=== PATIENT | male | born 1945 | race Hispanic/Latino ===

== ENCOUNTER 2017-12-26 18:13 | Observation (INO) | payer OTHER ==
[2017-12-26 19:30] LABS: Blood Gas Oxyhemoglobin 87.9 % (94-97); Blood O2 Saturation 90.2 % (92-98.5)
[2017-12-26 19:54] LABS: Absolute Lymphocytes (CBC) 1.8 K/uL (0.7-4.9); Absolute Neutrophil 10.1 K/uL (1.8-8.0); Basophils % 0.4 % (0-1.3); Eosinophils % 1.3 % (0-4.4); Hematocrit 32.9 % (39.6-49.0); Lymphocytes % 13.4 % (15.3-44.8); MCV 91.4 fL (80-100); MPV 10.4 fL (7.6-11.3); Monocytes % 7.5 % (3.3-12.3); RBC Red Blood Cell Count 3.61 M/uL (4.33-5.43)
[2017-12-26 20:05] LABS: Protime INR 1.29
[2017-12-26 20:08] LABS: Potassium 4.5 mEq/L (3.6-5.0)
--- NOTE | 2017-12-26 20:12 | RAD REPORT ---
EXAM DESCRIPTION: Renan Single View12/26/2017 8:01 pm CLINICAL HISTORY: sob COMPARISON: September 2016 FINDINGS: Mild bilateral pulmonary opacities are present. Small left pleural effusion may be present . The heart is mildly enlarged. IMPRESSION: These findings probably represent mild CHF
[2017-12-26 20:14] LABS: Albumin 3.5 g/dL (3.2-5.5); Bilirubin Direct 0.1 mg/dL (0-0.2); Bilirubin Total 0.7 mg/dL (0.3-1.2); Magnesium 1.7 mg/dL (1.8-2.5); Protein, Total 7.5 g/dL (6.0-8.3)
[2017-12-26] MEDS ORDERED: FUROSEMIDE 20 MG/ 2ML VIAL ONE (21:27)
--- NOTE | 2017-12-26 21:34 | ER ---
Nurse's Notes [facility] Name: Tyrone Vuaghn Age: 72 yrs Sex: Male : 1945 Arrival Date: 12/26/2017 Time: 18:25 Bed 28 Private MD: Diagnosis: Unspecified systolic (congestive) heart failure;Diabetes mellitus due to underlying condition with hyperglycemia Presentation: 12/26 18:26 Presenting complaint: EMS states: "Hes been feeling short of breath for a few weeks and lk1 its getting worse. He was supposed to take his Lasix this afternoon, but he didn't because he isn't feeling good.". Transition of care: patient was not received from another setting of care. Onset of symptoms was December 10, 2017. Care prior to arrival: None. 18:26 Method Of Arrival: EMS: [facility] lk1 18:26 Acuity: WESLEY 3 lk1 Triage Assessment: 18:29 General: Appears uncomfortable, Behavior is calm, cooperative, appropriate for age. lk1 Pain: Denies pain. EENT: No signs and/or symptoms were reported regarding the EENT system. Neuro: Level of Consciousness is awake, alert, obeys commands, Oriented to person, place, time, situation. Cardiovascular: Heart tones S1 S2 present Capillary refill < 3 seconds Patient's skin is warm and dry. Edema is 4+ to left ankle, left foot, right ankle and right foot. Respiratory: Reports shortness of breath Airway is patent Respiratory effort is even, labored, with nasal flaring, using tripod position, Respiratory pattern is symmetrical, tachypnea Breath sounds with crackles in left lower lobe, right lower lobe, left posterior lower lobe and right posterior lower lobe Onset: The symptoms/episode began/occurred a few weeks ago, the patient has moderate shortness of breath. GI: Abdomen is round. : No signs and/or symptoms were reported regarding the genitourinary system. Derm: No signs and/or symptoms reported regarding the dermatologic system. Musculoskeletal: No signs and/or symptoms reported regarding the musculoskeletal system. Historical: - Allergies: 18:29 No Known Allergies; lk1 - Home Meds: 21:50 metformin 1,000 mg Oral tab 1 tab 2 times per day [Active]; Amitiza 24 mcg Oral cap 1 lk1 cap 2 times per day [Active]; acetaminophen-codeine 300-60 mg Oral tab 1 tab every 6 hours [Active]; Vitamin B-12 1,000 mcg Oral TbER daily [Active]; Lyrica 150 mg Oral 1 cap 2 times per day [Active]; Movantik 25 mg oral tab 1 tab once daily for Opioid-Induced Constipation [Active]; tramadol 50 mg Oral tab 1 tab every 4 hours [Active]; hydralazine 25 mg Oral tab 1 tab 2 times per day [Active]; digoxin 250 mcg Oral tab 1 tab once daily [Active]; aspirin 325 mg oral tab 1 tab once daily [Active]; amlodipine 5 mg tab 1 tab once daily [Active]; glipizide 10 mg Oral tab 1 tab once daily [Active]; furosemide 40 mg Oral tab 1 tab 2 times per day [Active]; carvedilol 25 mg Oral tab 1 tab 2 times per day [Active]; rosuvastatin 10 mg oral tab 1 tab once daily [Active]; Januvia 100 mg Oral tab 1 tab once daily [Active]; - PMHx: 18:29 Diabetes - NIDDM; CAD; CHF; Myocardial infarction; lk1 - Immunization history:: Adult Immunizations up to date. - Social history:: Smoking status: Patient/guardian denies using tobacco. Screenin:18 Abuse screen: Denies threats or abuse. Denies injuries from another. Nutritional lk1 screening: No deficits noted. Tuberculosis screening: No symptoms or risk factors identified. Fall Risk Total Quesada Fall Scale indicates High Risk Score (45 or more points). Fall prevention measures have been instituted. Side Rails Up X 2 Placed Close to Nursing Station Frequent Obs/Assessments Occuring Family Present and informed to notify staff if the need to leave the bedside As available patient and family educated on Fall Prevention Program and Strategies. Assessment: 22:52 Cardiovascular: Rhythm is regular. lk1 Vital Signs: 18:33 BP 156 / 74; Pulse 89; Resp 22; Temp 99.3(O); Pulse Ox 93% on R/A; Weight 107.05 kg lk1 (R); Height 5 ft. 5 in. (165.10 cm); Pain 0/10; 18:55 BP 181 / 73; Pulse 87; Resp 19; Pulse Ox 94% on 2 lpm NC; mh5 19:30 BP 167 / 74; Pulse 86; Resp 20; Pulse Ox 94% on R/A; lk1 20:00 BP 167 / 71; Pulse 90; Resp 20; Pulse Ox 98% on 2 lpm NC; lk1 21:00 BP 144 / 69; Pulse 87; Resp 20; Pulse Ox 98% on 2 lpm NC; lk1 22:00 BP 172 / 65; Pulse 92; Resp 18; Pulse Ox 99% on 2 lpm NC; lk1 18:33 Body Mass Index 39.27 (107.05 kg, 165.10 cm) lk1 ED Course: 18:25 Patient arrived in ED. lk1 18:27 Triage completed. lk1 18:35 Arm band placed on right wrist. lk1 18:52 [facility]C [facility] snw 18:52 Star Isbell MD is Attending Physician. snw 19:30 Inserted saline lock: 22 gauge in right forearm, using aseptic technique. Blood cc collected. 19:30 Initial lab(s) drawn, by il, sent to lab. cc 19:58 X-ray completed. Portable x-ray completed in exam room. Patient tolerated procedure kc2 well. 19:58 XRAY Chest (1 view) In Process Unspecified. EDMS 20:02 Kaia Olvera, AMI is Primary Nurse. lk1 20:17 EKG done, by ED staff, reviewed by Jie DILLON. cc 21:33 Star Isbell MD is Hospitalizing Provider. snw 21:33 Marge Cooper MD is Hospitalizing Provider. snw 22:51 No provider procedures requiring assistance completed. Patient admitted, IV remains in lk1 place. intact, No redness/swelling at site. 22:53 Patient has correct armband on for positive identification. Placed in gown. Bed in low lk1 position. Call light in reach. Side rails up X2. Adult w/ patient. Administered Medications: 21:30 Drug: Lasix 20 mg Route: IVP; Site: right forearm; lk1 22:05 Follow up: Response: No adverse reaction lk1 Outcome: 21:34 Decision to Hospitalize by Provider. snw 22:52 Admitted to Med/surg accompanied by tech, via wheelchair, room 425, with chart, Report lk1 called to Sharri 22:52 Condition: good 22:52 Discharge instructions given to patient, family, Instructed on the need for admit, Demonstrated understanding of instructions. 22:54 Patient left the ED. lk1 Signatures: Dispatcher [employer] EDJie Richardson, LIFE MANAGEMENT TEACHER-C LIFE MANAGEMENT TEACHER-Csnw Donna Shearer cc Kaia Olvera, AMI RN lk1 Erin Good2 Dianna Daniel [facility] Corrections: (The following items were deleted from the chart) 20:17 19:45 Inserted saline lock: 22 gauge in right forearm, using aseptic technique. Blood cc collected. cc
--- NOTE | 2017-12-26 21:35 | EDPHYS ---
Physician Documentation [facility] Name: Tyrone Vaughn Age: 72 yrs Sex: Male : 1945 Arrival Date: 12/26/2017 Time: 18:25 Bed 28 Private MD: ED Physician Star Isbell HPI: 12/26 19:14 This 72 yrs old Male presents to ER via EMS with complaints of Shortness Of snw Breath. Historical: - Allergies: 18:29 No Known Allergies; lk1 - Home Meds: 21:50 metformin 1,000 mg Oral tab 1 tab 2 times per day [Active]; Amitiza 24 mcg Oral cap 1 lk1 cap 2 times per day [Active]; acetaminophen-codeine 300-60 mg Oral tab 1 tab every 6 hours [Active]; Vitamin B-12 1,000 mcg Oral TbER daily [Active]; Lyrica 150 mg Oral 1 cap 2 times per day [Active]; Movantik 25 mg oral tab 1 tab once daily for Opioid-Induced Constipation [Active]; tramadol 50 mg Oral tab 1 tab every 4 hours [Active]; hydralazine 25 mg Oral tab 1 tab 2 times per day [Active]; digoxin 250 mcg Oral tab 1 tab once daily [Active]; aspirin 325 mg oral tab 1 tab once daily [Active]; amlodipine 5 mg tab 1 tab once daily [Active]; glipizide 10 mg Oral tab 1 tab once daily [Active]; furosemide 40 mg Oral tab 1 tab 2 times per day [Active]; carvedilol 25 mg Oral tab 1 tab 2 times per day [Active]; rosuvastatin 10 mg oral tab 1 tab once daily [Active]; Januvia 100 mg Oral tab 1 tab once daily [Active]; - PMHx: 18:29 Diabetes - NIDDM; CAD; CHF; Myocardial infarction; lk1 - Immunization history:: Adult Immunizations up to date. - Social history:: Smoking status: Patient/guardian denies using tobacco. ROS: 19:31 Eyes: Negative for injury, pain, redness, and discharge, ENT: Negative for injury, snw pain, and discharge, Neck: Negative for injury, pain, and swelling, Cardiovascular: Negative for chest pain, palpitations, and edema. 19:31 Abdomen/GI: Negative for abdominal pain, nausea, vomiting, diarrhea, and constipation, Back: Negative for injury and pain, : Negative for injury, bleeding, discharge, and swelling. 19:31 Skin: Negative for injury, rash, and discoloration, Neuro: Negative for headache, weakness, numbness, tingling, and seizure. 19:31 Constitutional: Positive for chills, fatigue. 19:31 Respiratory: Positive for cough, shortness of breath. 19:31 MS/extremity: Positive for swelling. Exam: 19:31 Head/Face: Normocephalic, atraumatic. snw 19:31 ENT: Nares patent. No nasal discharge, no septal abnormalities noted. Tympanic membranes are normal and external auditory canals are clear. Oropharynx with no redness, swelling, or masses, exudates, or evidence of obstruction, uvula midline. Mucous membranes moist. Neck: Trachea midline, no thyromegaly or masses palpated, and no cervical lymphadenopathy. Supple, full range of motion without nuchal rigidity, or vertebral point tenderness. No Meningismus. Chest/axilla: Normal chest wall appearance and motion. Nontender with no deformity. No lesions are appreciated. 19:31 Abdomen/GI: Soft, non-tender, with normal bowel sounds. No distension or tympany. No guarding or rebound. No evidence of tenderness throughout. Back: No spinal tenderness. No costovertebral tenderness. Full range of motion. 19:31 MS/ Extremity: Pulses equal, no cyanosis. Neurovascular intact. Full, normal range of motion. Neuro: Awake and alert, GCS 15, oriented to person, place, time, and situation. Cranial nerves II-XII grossly intact. Motor strength 5/5 in all extremities. Sensory grossly intact. Cerebellar exam normal. Normal gait. Psych: Awake, alert, with orientation to person, place and time. Behavior, mood, and affect are within normal limits. 19:31 Constitutional: The patient appears awake, obese, pale, uncomfortable. 19:31 Eyes: Conjunctiva: pale, bilaterally. 19:31 Cardiovascular: Rate: normal, Rhythm: regular, Pulses: no pulse deficits are appreciated, Edema: 3+ edema to level of left midcalf, left ankle, right midcalf and right ankle. 19:31 Respiratory: the patient does not display signs of respiratory distress, Respirations: shallow respirations, Breath sounds: decreased breath sounds, that are moderate, rhonchi, that are moderate, are heard in the right posterior middle lobe and right posterior lower lobe. 19:31 Skin: Appearance: Color: pale. Vital Signs: 18:33 BP 156 / 74; Pulse 89; Resp 22; Temp 99.3(O); Pulse Ox 93% on R/A; Weight 107.05 kg lk1 (R); Height 5 ft. 5 in. (165.10 cm); Pain 0/10; 18:55 BP 181 / 73; Pulse 87; Resp 19; Pulse Ox 94% on 2 lpm NC; mh5 19:30 BP 167 / 74; Pulse 86; Resp 20; Pulse Ox 94% on R/A; lk1 20:00 BP 167 / 71; Pulse 90; Resp 20; Pulse Ox 98% on 2 lpm NC; lk1 21:00 BP 144 / 69; Pulse 87; Resp 20; Pulse Ox 98% on 2 lpm NC; lk1 22:00 BP 172 / 65; Pulse 92; Resp 18; Pulse Ox 99% on 2 lpm NC; lk1 18:33 Body Mass Index 39.27 (107.05 kg, 165.10 cm) lk1 MDM: 19:01 Patient medically screened. snw 19:28 Data reviewed: vital signs, nurses notes. Data interpreted: Pulse oximetry: on room air snw is 94 %. Interpretation: hypoxia. Plan: O2 by NC applied. Arterial blood gas: pH: 7.44, PO2: 60.6, PCO2: 44.2, HCO3: 29.4, Oxygen saturation: 90.2, Base excess: positive 5.3, Oxygen: on room air, Interpretation:. Counseling: I had a detailed discussion with the patient and/or guardian regarding: the historical points, exam findings, and any diagnostic results supporting the discharge/admit diagnosis, the presence of at least one elevated blood pressure reading (>120/80) during this emergency department visit, lab results, radiology results. 21:32 Physician consultation: Marge Cooper MD was called at 21:32, was contacted at 21:32, snw regarding admission, to the telemetry unit. 12/26 18:53 Order name: Basic Metabolic Panel; Complete Time: 20:21 snw 12/26 18:53 Order name: BNP; Complete Time: 20:21 snw 12/26 18:53 Order name: CBC with Diff; Complete Time: 20:07 12/26 18:53 Order name: Ckmb; Complete Time: 20:21 12/26 18:53 Order name: CPK; Complete Time: 20:21 12/26 18:53 Order name: LFT's; Complete Time: 20:21 12/26 18:53 Order name: Magnesium; Complete Time: 20:21 12/26 18:53 Order name: PT-INR; Complete Time: 20:21 12/26 18:53 Order name: Ptt, Activated; Complete Time: 20:21 12/26 18:53 Order name: Troponin (emerg Dept Use Only); Complete Time: 20:21 12/26 18:53 Order name: ABG; Complete Time: 19:33 12/26 19:28 Order name: TS; Complete Time: 21:17 12/26 19:28 Order name: TSH; Complete Time: 21:17 12/26 19:28 Order name: Blood Culture Adult (2) 12/26 18:53 Order name: XRAY Chest (1 view); Complete Time: 20:21 12/26 18:53 Order name: EKG; Complete Time: 18:54 12/26 18:53 Order name: Cardiac monitoring; Complete Time: 19:45 12/26 18:53 Order name: EKG - Nurse/Tech; Complete Time: 20:17 12/26 18:53 Order name: IV Saline Lock; Complete Time: 19:45 12/26 18:53 Order name: Labs collected and sent; Complete Time: 19:45 12/26 18:53 Order name: O2 Per Protocol; Complete Time: 19:45 12/26 18:53 Order name: O2 Sat Monitoring; Complete Time: 19:45 12/26 18:53 Order name: Urine Dipstick-Ancillary (obtain specimen); Complete Time: 22:13 12/26 21:18 Order name: Misc. Order: please put med list in computer; Complete Time: 22:04 12/26 22:14 Order name: Urine Dipstick--Ancillary (enter results) em1 Administered Medications: 21:30 Drug: Lasix 20 mg Route: IVP; Site: right forearm; lk1 22:05 Follow up: Response: No adverse reaction lk1 Disposition: 12/26/17 21:34 Hospitalization ordered by Marge Cooper for Observation. Preliminary diagnosis are Unspecified systolic (congestive) heart failure, Diabetes mellitus due to underlying condition with hyperglycemia. - Bed requested for Telemetry/MedSurg (observation). - Status is Observation. lk1 - Condition is Stable. - Problem is an acute exacerbation. - Symptoms are unchanged. UTI on Admission? No Addendum: 12/28/2017 07:46 Co-signature as Attending Physician, Star Isbell MD I agree with the assessment and w a plan of care. Signatures: Dispatcher [employer] EDStacie Davis RN RN Jie Samson, SPECIAL MAKEUP FX ARTIST INSTRUCTOR-C SPECIAL MAKEUP FX ARTIST INSTRUCTOR-Csnw Kaia Olvera RN RN lk1 Star Isbell MD MD pa
[2017-12-26] MEDS ORDERED: ACETAMINOPHEN 500 MG TAB PO PRN (22:04)
[2017-12-26] MEDS ORDERED: ONDANSETRON 4 MG/2 ML VIAL IV PRN (22:04)
[2017-12-26] MEDS ORDERED: CEFTRIAXONE 1 GM/NS 50 ML 1 GM/50 ML BAG IV SCH (23:00)
[2017-12-26] MEDS ORDERED: CEFTRIAXONE 1000 MG/VIAL IVP SCH (23:29)
[2017-12-26] MEDS ORDERED: D50W 25 GM/50 ML SYRINGE IV PRN (23:30)
[2017-12-26] MEDS ORDERED: GLUCAGON 1 MG/VIAL IM PRN (23:30)
[2017-12-26 23:35] LABS: Urine Blood NEGATIVE (NEG); Urine Glucose 2+ (NEG); Urine Protein 1+ (NEG); Urine Specific Gravity 1.015 (1.005-1.030)
[2017-12-26] MEDS ORDERED: CEFTRIAXONE/SWI 1gm 1 GM/10 ML SYR ONE (23:49)
--- NOTE | 2017-12-27 03:49 | P.HP ---
Certification for Inpatient Patient admitted to: Observation With expected LOS: <2 Midnights Patient will require the following post-hospital care: None Practitioner: I am a practitioner with admitting privileges, knowledge of patient current condition, hospital course, and medical plan of care. Services: Services provided to patient in accordance with Admission requirements found in Title 42 Section 412.3 of the Code of Federal Regulations Patient History Date of Service: 12/26/17 Reason for admission: Generalized weakness, shortness of breath History of Present Illness: Patient is a 72yo who was admitted to the hospital with generalized weakness. Patient has been having shortness of breath for the last few weeks. He also has been feeling weak. Patient has a history of coronary artery disease. Patient had a cardiac catheterization performed about a year ago which revealed multivessel disease. Patient had a 30% lad lesion as well as an 80% lesion in his 1st diagonal. He had a 70% obtuse marginal lesion as well as plaquing in his left circumflex and right coronary artery. However patient's ejection fraction remained normal. His echo revealed the EF of 60-65%. Patient states that over the last couple months he just has no energy. He gets short of breath from doing the smallest things. He is not really sure was causing his symptoms. He was admitted to the hospital for further evaluation. Allergies No Known Allergies Allergy (Unverified 09/23/16 22:51) Home Medications: Acetaminophen with Codeine [Acetaminophen-Cod #3 Tablet] 1 tab PO BIDP PRN 12/27 Amlodipine Besylate [Amlodipine Besylate] 1 tab PO DAILY 12/27/17 Aspirin [Aspirin EC 325 MG] 1 tab PO DAILY 12/27/17 Carvedilol [Carvedilol] 1 tab PO BID 12/27/17 Clopidogrel Bisulfate [Plavix*] 1 tab PO DAILY 12/27/17 Cyanocobalamin [Vitamin B-12*] 1 tab PO DAILY 12/27/17 Digoxin [Lanoxin] 250 mcg PO DAILY 12/27/17 Furosemide [Furosemide] 1 tab PO BID 12/27/17 Glipizide [Glucotrol] 1 tab PO BID 12/27/17 Hydralazine [Apresoline*] 1 tab PO BID 12/27/17 Lubiprostone [Amitiza*] 1 cap PO BID 12/27/17 Metformin HCl [Metformin HCl] 1 tab PO BID 12/27/17 Naloxegol Oxalate [Movantik] 1 tab PO DAILY 12/27/17 Pregabalin [Lyrica] 1 cap PO BID 12/27/17 Rosuvastatin Calcium [Rosuvastatin Calcium] 1 tab PO DAILY 12/27/17 Sitagliptin Phosphate [Januvia*] 1 tab PO DAILY 12/27/17 traMADol HCL [Ultram*] 1 tab PO BIDP PRN 12/27/17 - Past Medical/Surgical History Has patient received pneumonia vaccine in the past: No Diabetic: Yes -: HTN -: 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 Children-3. Retired in 1961, [employer] of [employer]. - Family History Father Family History: Reviewed- Non-Contributory - Social History Smoking Status: Never smoker Alcohol use: No CD- Drugs: No Caffeine use: No Place of Residence: Home Review of Systems 10-point ROS is otherwise unremarkable Physical Examination - Vital Signs Temperature: 99.3 F Blood Pressure: 179/80 Pulse: 86 Respirations: 19 Pulse Ox (%): 100 - Physical Exam General: Alert, In no apparent distress, Oriented x3 HEENT: Atraumatic, PERRLA, Mucous membr. moist/pink, EOMI, Sclerae nonicteric Neck: Supple, 2+ carotid pulse no bruit, No LAD, Without JVD or thyroid abnormality Respiratory: Crackles/rales Cardiovascular: Regular rate/rhythm, Normal S1 S2, Systolic murmur Gastrointestinal: Normal bowel sounds, Soft and benign, Non-distended, No tenderness Musculoskeletal: No clubbing, No tenderness, Swelling Integumentary: No rashes, Tenderness/swelling Neurological: Normal speech, Normal strength at 5/5 x4 extr, Normal tone, Sensation intact, Cranial nerves 3-12 intact, Normal affect Lymphatics: No axilla or inguinal lymphadenopathy - Studies Laboratory Data (last 24 hrs) 12/26/17 19:30: PT 15.3 H, INR 1.29, APTT 27.9 12/26/17 19:30: WBC 13.0 H, Hgb 10.8 L, Hct 32.9 L, Plt Count 186 12/26/17 19:30: B-Natriuretic Peptide 99 12/26/17 19:30: Sodium 138, Potassium 4.5, BUN 13, Creatinine 0.88, Glucose 321 H, Magnesium 1.7 L, Total Bilirubin 0.7, AST 16, ALT 14, Alkaline Phosphatase 97 Assessment & Plan - Problems (Diagnosis) (1) Atrial fibrillation Current Visit: No Status: Acute (2) CAD (coronary artery disease) Onset Date: 09/25/16 Current Visit: No Status: Acute (3) Hyperlipidemia Onset Date: 09/25/16 Current Visit: No Status: Acute (4) Hypertension Onset Date: 09/25/16 Current Visit: No Status: Acute (5) Non-insulin dependent type 2 diabetes mellitus Onset Date: 09/25/16 Current Visit: No Status: Acute - Plan Plan: 1. Serial troponins and EKG 2. Cardiology consultation 3. Echocardiogram 4. Anti-platelet therapy, anti coagulation, beta-danielle, statin, and O2 as needed 5. IV morphine for pain 6. Nitro p.r.n. 7. Gentle diuresing 8. Patient may need further testing of his liver to evaluate for nonalcoholic steatohepatitis 9. GI and DVT prophylaxis - Advance Directives Does patient have a Living Will: No Does patient have a Durable POA for Healthcare: No
[2017-12-27 04:44] LABS: Absolute Lymphocytes (CBC) 2.1 K/uL (0.7-4.9); Absolute Monocytes 1.3 K/uL (0.1-1.3); Absolute Neutrophil 13.5 K/uL (1.8-8.0); Basophils % 0.8 % (0-1.3); Eosinophils % 0.6 % (0-4.4); Hematocrit 34.9 % (39.6-49.0); Lymphocytes % 12.3 % (15.3-44.8); MCH 29.6 pg (27.0-35.0); MCV 92.5 fL (80-100); MPV 10.6 fL (7.6-11.3); Monocytes % 7.5 % (3.3-12.3); RBC Red Blood Cell Count 3.77 M/uL (4.33-5.43)
[2017-12-27 04:57] LABS: Albumin 3.5 g/dL (3.2-5.5); Bilirubin Total 0.9 mg/dL (0.3-1.2); Magnesium 1.7 mg/dL (1.8-2.5); Phosphorus 2.8 mg/dL (2.5-4.3); Protein, Total 7.6 g/dL (6.0-8.3)
[2017-12-27] MEDS ORDERED: MAGNESIUM SULFATE 1 gm IVPB 1 GM/100 ML BAG IV ONE (04:59)
--- NOTE | 2017-12-27 07:03 | EKG ---
Test Date: 2017-12-26 Test Time: 20:13:19 Laser Print Operator: GALI MEASUREMENT RESULTS: Intervals: Rate: 91 SD: 134 QRSD: 94 QT: 336 QTc: 413 [place]: P: 65 SD: 134 QRS: 12 T: 34 INTERPRETIVE STATEMENTS: Normal sinus rhythm Normal ECG Compared to ECG 09/24/2016 05:06:24 T-wave abnormality no longer present Electronically Signed On 12-27-17 07:02:34 CDT by Guero Parra
[2017-12-27] MEDS ORDERED: TRAMADOL HCL 50 MG TAB PO PRN (07:08)
[2017-12-27] MEDS: INSULIN -REGULAR HUMAN 50 UNIT/0.5 ML ML SQ SCH ×4 (08:09→21:39)
[2017-12-27] MEDS: ENOXAPARIN 40 MG/0.4 ML SQ SCH (08:10)
[2017-12-27] MEDS: FUROSEMIDE 40 MG/4 ML VIAL IV SCH ×2 (08:10→17:33)
[2017-12-27] MEDS: PREGABALIN 150 MG CAP PO SCH ×2 (08:11→21:38)
[2017-12-27] MEDS: DIGOXIN 0.25 MG TABLET PO SCH (08:11)
[2017-12-27] MEDS: CARVEDILOL 25 MG TAB PO SCH ×2 (08:11→21:38)
[2017-12-27] MEDS: ASPIRIN EC 325 MG TABLET PO SCH (08:12)
[2017-12-27] MEDS: SITAGLIPTIN PHOS 100 MG TAB PO SCH (08:12)
[2017-12-27] MEDS: HYDRALAZINE HCL 25 MG TABLET PO SCH ×2 (08:12→21:38)
[2017-12-27] MEDS: CYANOCOBALAMIN 1,000 MCG TAB PO SCH (08:12)
[2017-12-27] MEDS: CLOPIDOGREL 75 MG TABLET PO SCH (08:12)
[2017-12-27] MEDS ORDERED: ASPIRIN EC 81 MG TAB PO SCH (09:00)
[2017-12-27] MEDS ORDERED: AZITHROMYCIN IV 250 MG in NA CHLORIDE 0.9% 250 ML IVPB SCH (09:00)
[2017-12-27] MEDS ORDERED: METOPROLOL TAR 50 MG TAB PO SCH (09:00)
[2017-12-27] MEDS ORDERED: VALSARTAN 80 MG TAB PO SCH (09:00)
--- NOTE | 2017-12-27 09:29 | RAD REPORT ---
EXAM DESCRIPTION: Renan Pa And Lat (2 Views)12/27/2017 7:43 am CLINICAL HISTORY: Shortness of breath COMPARISON: December 26 FINDINGS: Mild bilateral interstitial opacities have partially resolved. The heart has mildly decre ased in size but is still mildly enlarged. IMPRESSION: Partial resolution in mild CHF
--- NOTE | 2017-12-27 11:05 | P.PN ---
Subjective Date of Service: 12/27/17 Primary Care Provider: Dr. Rivera; Cardiology-Dr. Parra Chief Complaint: Generalized weakness, shortness of breath Subjective: Improving (Patient less short of breath this morning. Edema still noted to the lower extremities.) Physical Examination - Vital Signs Temperature: 98.2 F Blood Pressure: 197/87 Pulse: 96 Respirations: 20 Pulse Ox (%): 97 - Physical Exam General: Alert, In no apparent distress, Oriented x3, Cooperative HEENT: Atraumatic Neck: Supple Respiratory: Crackles/rales (Crackles to the bases) Cardiovascular: Normal pulses, Regular rate/rhythm Gastrointestinal: Normal bowel sounds, Soft and benign, Non-distended, No tenderness, No masses, No rebound, No guarding Musculoskeletal: No erythema, No tenderness, No warmth Integumentary: Tenderness/swelling (2+ pitting edema to the lower extremities bilateral) Neurological: Normal speech, Normal strength at 5/5 x4 extr, Normal tone, Normal affect - Studies Laboratory Data (last 24 hrs) 12/26/17 19:30: PT 15.3 H, INR 1.29, APTT 27.9 12/26/17 19:30: WBC 13.0 H, Hgb 10.8 L, Hct 32.9 L, Plt Count 186 12/26/17 19:30: B-Natriuretic Peptide 99 12/26/17 19:30: Sodium 138, Potassium 4.5, BUN 13, Creatinine 0.88, Glucose 321 H, Magnesium 1.7 L, Total Bilirubin 0.7, AST 16, ALT 14, Alkaline Phosphatase 97 Medications List Reviewed: Yes Assessment & Plan - Problems (Diagnosis) (1) CHF (congestive heart failure) Onset Date: 12/27/17 Current Visit: Yes Status: Acute Plan: Patient with acute on chronic likely systolic CHF. Will teach on 1500 cc per day fluid restriction. Will continue with IV diuretic therapy. Will obtain echocardiogram. Cardiology consulted. Await further recommendation. Doubt infectious process. Will discontinue antibiotic therapy. Qualifiers: Heart failure type: systolic Heart failure chronicity: acute on chronic Qualified Code(s): I50.23 - Acute on chronic systolic (congestive) heart failure (2) Non-insulin dependent type 2 diabetes mellitus Onset Date: 09/25/16 Current Visit: Yes Status: Chronic Plan: Will review home medication. Will continue with sliding scale. (3) Atrial fibrillation Current Visit: No Status: Chronic Plan: Patient with history of atrial fibrillation. Patient in normal sinus rhythm. Will continue with DVT prophylaxis. Likely no need for chronic anti coagulation. Await recommendations by Cardiology. Qualifiers: Atrial fibrillation type: chronic Qualified Code(s): I48.2 - Chronic atrial fibrillation (4) CAD (coronary artery disease) Onset Date: 09/25/16 Current Visit: No Status: Chronic Plan: Will monitor closely. Cardiology consulted. Await echocardiogram. Will continue with above plan of care. Will continue with his Plavix. (5) Hyperlipidemia Onset Date: 09/25/16 Current Visit: No Status: Chronic Plan: Will continue with his medication. Lipid panel reviewed. Qualifiers: Hyperlipidemia type: unspecified Qualified Code(s): E78.5 - Hyperlipidemia , unspecified (6) Hypertension Onset Date: 09/25/16 Current Visit: No Status: Chronic Plan: Blood pressure elevated. Will continue with home medications and adjust for better control. (7) Obesity Current Visit: Yes Status: Chronic Plan: Will address lifestyle modification education. Qualifiers: Obesity type: due to excess calories Obesity classification: adult class 2 (BMI 35 - 39.9) Serious obesity comorbidity presence: with serious comorbidity Body mass index: BMI 38.0-38.9 Qualified Code(s): E66.01 - Morbid (severe) obesity due to excess calories; Z68.38 - Body mass index (BMI) 38.0-38.9, adult; Z68.38 - Body mass index (BMI) 38.0-38.9, adult Discharge Plan: Home Plan to discharge in: 24 Hours Time Spent Managing Pts Care (In Minutes): 55
--- NOTE | 2017-12-27 12:16 | ECHO ---
HEIGHT: 5 ft 5 in WEIGHT: 229 lb 4.8 oz DATE OF STUDY: 12/27/[address]: Marge Cooper MD 2-DIMENSIONAL: YES M.MODE: YES DOPPLER: YES COLOR FLOW: YES TDS: YES PORTABLE: DEFINITY: BUBBLE STUDY: DIAGNOSIS: CONGESTIVE HEART FAILURE CARDIAC HISTORY: CATHERIZATION: NO SURGERY: NO PROSTHETIC VALVE: NO PACEMAKER: NO MEASUREMENTS (cm) DIASTOLIC (NORMALS) SYSTOLIC (NORMALS) IVSd 1.3 (0.6-1.2) LA Diam (1.9-4.0) LVEF 60% LVIDd 4.9 (3.5-5.7) LVIDs 3.3 (2.0-3.5) %FS 32% LVPWd 1.6 (0.6-1.2) Ao Diam 2.9 (2.0-3.7) 2 DIMENSIONAL ASSESSMENT: RIGHT ATRIUM: NORMAL LEFT ATRIUM: DILATED RIGHT VENTRICLE: NORMAL LEFT VENTRICLE: LEFT VENTRICULAR HYPERTROPHY TRICUSPID VALVE: NORMAL MITRAL VALVE: NORMAL PULMONIC VALVE: NORMAL AORTIC VALVE: NORMAL PERICARDIAL EFFUSION: NONE AORTIC ROOT: NORMAL LEFT VENTRICULAR WALL MOTION: NORMAL DOPPLER/COLOR FLOW: IMPAIRED LEFT VENTRICULAR RELAXATION. COMMENTS: NORMAL LEFT VENTRICULAR EJECTION FRACTION. LEFT VENTRICULAR HYPERTROPHY. DILATED LEFT ATRIUM. IMPAIRED LEFT VENTRICULAR RELAXATION. TECHNOLOGIST: SOL MCCOY
[2017-12-27] MEDS ORDERED: ROSUVASTATIN 10 MG TAB PO SCH (21:00)
[2017-12-27] MEDS ORDERED: CEFTRIAXONE/SWI 1gm 1 GM/10 ML SYR IV SCH (21:00)
[2017-12-27] MEDS ORDERED: GUAIFENESIN/CODEINE 5ML UCUP PO PRN (22:27)
[2017-12-28 05:36] LABS: Absolute Monocytes 0.9 K/uL (0.1-1.3); Absolute Neutrophil 7.6 K/uL (1.8-8.0); Basophils % 0.6 % (0-1.3); Eosinophils % 1.8 % (0-4.4); Hematocrit 33.4 % (39.6-49.0); Lymphocytes % 18.8 % (15.3-44.8); MCH 30.7 pg (27.0-35.0); MCV 91.2 fL (80-100); MPV 10.4 fL (7.6-11.3); Monocytes % 8.3 % (3.3-12.3); RBC Red Blood Cell Count 3.66 M/uL (4.33-5.43)
[2017-12-28 05:45] VITALS: BMI 37.3
[2017-12-28 06:02] LABS: Magnesium 1.8 mg/dL (1.8-2.5); Phosphorus 3.3 mg/dL (2.5-4.3); Potassium 3.9 mEq/L (3.6-5.0)
--- NOTE | 2017-12-28 07:33 | RAD REPORT ---
EXAM DESCRIPTION: RAD - Chest Pa And Lat (2 Views) - 12/28/2017 6:59 am CLINICAL HISTORY: CHF COMPARISON: December 27 TECHNIQUE: PA and lateral views of the chest were obtained. FINDINGS: The lungs are normal volume. Patchy left base opacification is present. Stranding in the p osterior left base is similar to slightly improved from the comparison. No vascular engorgement. He art size is normal. Trachea is midline. Diaphragm is flattened. No new or enlarging pleural effusion. No pneumothorax. IMPRESSION: Posterior left base opacification similar to slightly improved from prior day study. No measurable failure or volume overload at this time.
[2017-12-28] MEDS: PREGABALIN 150 MG CAP PO SCH (09:00)
[2017-12-28] MEDS: SITAGLIPTIN PHOS 100 MG TAB PO SCH (09:00)
[2017-12-28] MEDS ORDERED: VALSARTAN 160 MG TAB PO SCH (09:00)
[2017-12-28 09:31] VITALS: BP 142/68; TEMP 97
[2017-12-28] MEDS: INSULIN -REGULAR HUMAN 50 UNIT/0.5 ML ML SQ SCH ×2 (10:33→11:30)
[2017-12-28] MEDS: ENOXAPARIN 40 MG/0.4 ML SQ SCH (10:33)
[2017-12-28] MEDS: CYANOCOBALAMIN 1,000 MCG TAB PO SCH (10:34)
[2017-12-28] MEDS: FUROSEMIDE 40 MG/4 ML VIAL IV SCH (10:34)
[2017-12-28] MEDS: ASPIRIN EC 325 MG TABLET PO SCH (10:35)
[2017-12-28] MEDS: CLOPIDOGREL 75 MG TABLET PO SCH (10:35)
[2017-12-28] MEDS: DIGOXIN 0.25 MG TABLET PO SCH (10:35)
[2017-12-28] MEDS: CARVEDILOL 25 MG TAB PO SCH (10:35)
[2017-12-28] MEDS: HYDRALAZINE HCL 25 MG TABLET PO SCH (10:35)
[2017-12-28 11:27] VITALS: O2SAT 91
--- NOTE | 2017-12-28 14:14 | P.DS ---
Admission Date: 12/26/17 Discharge Date: 12/28/17 Primary Care Provider: Dr. Rivera; Cardiology-Dr. Parra Disposition: ROUTINE DISCHARGE Discharge Condition: GOOD Reason for Admission: Generalized weakness, shortness of breath - Problems (1) CHF (congestive heart failure) Onset Date: 12/27/17 Status: Acute Qualifiers: Heart failure type: systolic Heart failure chronicity: acute on chronic Qualified Code(s): I50.23 - Acute on chronic systolic (congestive) heart failure (2) Non-insulin dependent type 2 diabetes mellitus Onset Date: 09/25/16 Status: Chronic (3) Atrial fibrillation Status: Chronic Qualifiers: Atrial fibrillation type: chronic Qualified Code(s): I48.2 - Chronic atrial fibrillation (4) CAD (coronary artery disease) Onset Date: 09/25/16 Status: Chronic (5) Hyperlipidemia Onset Date: 09/25/16 Status: Chronic Qualifiers: Hyperlipidemia type: unspecified Qualified Code(s): E78.5 - Hyperlipidemia , unspecified (6) Hypertension Onset Date: 09/25/16 Status: Chronic (7) Obesity Status: Chronic Qualifiers: Obesity type: due to excess calories Obesity classification: adult class 2 (BMI 35 - 39.9) Serious obesity comorbidity presence: with serious comorbidity Body mass index: BMI 38.0-38.9 Qualified Code(s): E66.01 - Morbid (severe) obesity due to excess calories; Z68.38 - Body mass index (BMI) 38.0-38.9, adult; Z68.38 - Body mass index (BMI) 38.0-38.9, adult (8) Obstructive sleep apnea Status: Suspected Brief History of Present Illness: 72-year-old male presented emergency room with increasing shortness of breath. Patient with multiple medical problems including diabetes, hypertension , CHF, CAD and atrial fibrillation. Patient found to be with acute on chronic diastolic CHF. Hospital Course: Patient presented with shortness of breath and edema to the lower extremities. Patient has diastolic CHF. Patient treated for acute on chronic CHF. Patient given treatment including diuretics, fluid restriction. Patient was seen by Cardiology. No cardiac intervention was recommended. Echocardiogram showed Ejection fraction of 60%. Medications were adjusted during his stay. Patient was also taught about CHF. Patient had not been compliant with fluid restriction. Repeat chest x-ray showed significant improvement. Patient did not require any oxygen at discharge. At discharge patient will continue with a 1500 cc per day fluid restriction and low-salt diet. Patient will continue with Lasix 40 mg 1 pill twice daily. Patient will need to monitor his weight daily. If his weight increases by more than 5 lb he is to contact his PCP for further instruction. Further adjustment in his Lasix may be needed. This can be further addressed by his PCP. Final x-ray X-ray also showed possible left-sided pneumonia. At discharge he will continue with Augmentin 500 mg 1 pill twice daily for 7 days. Recommendation is to recheck chest x-ray in 2-4 weeks to monitor resolution. Patient has hypertension. This remained stable during the course of the stay as medications were adjusted. At discharge Norvasc has been discontinued. New medication-valsartan 160 mg 1 pill daily has been added. At discharge patient will continue with valsartan 160 mg daily, carvedilol 25 mg 1 pill twice daily, hydralazine 25 mg 1 pill twice daily. Recommendation is to monitor his blood pressures daily. Recommendation is to maintain blood pressures less 150/80. Further adjustment can be done by his PCP. Patient has diabetes. This remained stable during his stay. At discharge patient will continue with glipizide 10 mg 1 pill twice daily, Januvia 100 mg 1 pill daily, and metformin a 1000 mg 1 pill twice daily. Recommendation is to maintain blood sugars less 140 fasting and less than 200 after meals. Further adjustment can be done by his PCP. Patient has history of CAD and atrial fibrillation. Patient will continue with aspirin 325 mg 1 pill daily, digoxin daily and Plavix 75 mg 1 pill daily. Patient is not on chronic anti coagulation therapy due to risk of bleeding. Recommendation is for the patient to follow up with cardiology in 2-4 weeks to monitor his progress. Patient has history of anemia. Patient taking B12 supplementation. Patient will continue with his supplementation. Recommendation is to recheck CBC in 2- 4 weeks to monitor his progress. Patient has chronic constipation. Patient may continue with Amitiza. Recommendations for the patient to follow up with GI as an outpatient to further monitor and address. Patient made require colonoscopy in the future. Patient has hyperlipidemia. Patient will continue with Crestor. Patient likely has Obstructive Sleep Apnea. Recommendation is for the patient to see Pulmonary as outpatient to evaluate and treat. Lifestyle modification education will be provided. Vital Signs/Physical Exam: Temp Pulse Resp BP Pulse Ox 97 F 88 18 142/68 H 91 12/28/17 08:00 12/28/17 10:35 12/28/17 08:00 12/28/17 10:35 12/28/17 08:00 General: Alert, In no apparent distress, Oriented x3, Cooperative HEENT: Atraumatic Neck: Supple Respiratory: Clear to auscultation bilaterally, Normal air movement Cardiovascular: Normal pulses, Regular rate/rhythm Gastrointestinal: Normal bowel sounds, Soft and benign, Non-distended, No tenderness, No masses, No rebound, No guarding Musculoskeletal: No erythema, No tenderness, No warmth Integumentary: No tenderness/swelling, No erythema, No warmth, No cyanosis Neurological: Normal speech, Normal strength at 5/5 x4 extr, Normal tone, Normal affect Laboratory Data at Discharge: WBC 10.8 K/uL (4.3-10.9) D 12/28/17 05:00 Hgb 11.2 g/dL (13.6-17.9) L 12/28/17 05:00 Hct 33.4 % (39.6-49.0) L 12/28/17 05:00 Plt Count 192 K/uL (152-406) 12/28/17 05:00 PT 15.3 SECONDS (9.5-12.5) H 12/26/17 19:30 INR 1.29 12/26/17 19:30 APTT 27.9 SECONDS (24.3-36.9) 12/26/17 19:30 Sodium 140 mEq/L (135-145) 12/28/17 05:00 Potassium 3.9 mEq/L (3.6-5.0) 12/28/17 05:00 BUN 18 mg/dL (6-20) 12/28/17 05:00 Creatinine 0.98 mg/dL (0.61-1.24) 12/28/17 05:00 Glucose 307 mg/dL (65-120) H 12/28/17 05:00 Phosphorus 3.3 mg/dL (2.5-4.3) 12/28/17 05:00 Magnesium 1.8 mg/dL (1.8-2.5) 12/28/17 05:00 Total Bilirubin 0.9 mg/dL (0.3-1.2) 12/27/17 04:17 AST 19 IU/L (10-42) 12/27/17 04:17 ALT 15 IU/L (10-60) 12/27/17 04:17 Alkaline Phosphatase 99 IU/L (42-121) 12/27/17 04:17 B-Natriuretic Peptide 99 pg/ml (<=100) 12/26/17 19:30 Triglycerides 101 mg/dL (35-160) 12/27/17 08:44 Cholesterol 91 mg/dL (<200) 12/27/17 08:44 HDL Cholesterol 20 mg/dL (27-67) L 12/27/17 08:44 Cholesterol/HDL Ratio 4.55 12/27/17 08:44 Home Medications: Acetaminophen with Codeine [Acetaminophen-Cod #3 Tablet] 1 tab PO BIDP PRN 12/27 Aspirin [Aspirin EC 325 MG] 1 tab PO DAILY 12/27/17 Carvedilol 1 tab PO BID 12/27/17 Clopidogrel Bisulfate [Plavix*] 1 tab PO DAILY 12/27/17 Cyanocobalamin [Vitamin B-12*] 1 tab PO DAILY 12/27/17 Digoxin [Lanoxin] 250 mcg PO DAILY 12/27/17 Glipizide [Glucotrol] 1 tab PO BID 12/27/17 Hydralazine [Apresoline*] 1 tab PO BID 12/27/17 Lubiprostone [Amitiza*] 1 cap PO BID 12/27/17 Metformin HCl 1 tab PO BID 12/27/17 Pregabalin [Lyrica] 1 cap PO BID 12/27/17 Rosuvastatin Calcium 1 tab PO DAILY 12/27/17 Sitagliptin Phosphate [Januvia*] 1 tab PO DAILY 12/27/17 traMADol HCL [Ultram*] 1 tab PO BIDP PRN 12/27/17 Amoxicillin/Potassium Clav [Augmentin 500-125 Tablet] 1 each PO BID #14 tablet 12/28/17 Furosemide 1 tab PO BID #60 tablet 12/28/17 Valsartan [Diovan*] 160 mg PO DAILY #30 tab 12/28/17 New Medications: Amoxicillin/Potassium Clav [Augmentin 500-125 Tablet] 1 each PO BID #14 tablet Furosemide 1 tab PO BID #60 tablet Valsartan [Diovan*] 160 mg PO DAILY #30 tab Patient Discharge Instructions: 1. Patient will need to follow up with his PCP in 1 week to follow up this hospitalization. 2. Patient presented with shortness of breath and edema to the lower extremities. Patient has diastolic CHF. Patient given treatment including diuretics, fluid restriction. Medications have been adjusted. At discharge patient will continue with a 1500 cc per day fluid restriction and low-salt diet. Patient will continue with Lasix 40 mg 1 pill twice daily. Patient will need to monitor his weight daily. If his weight increases by more than 5 lb he is to contact his PCP for further instruction. Further adjustment in his Lasix may be needed. This can be further addressed by his PCP. 3. X-ray also showed possible left-sided pneumonia. At discharge he will continue with Augmentin 500 mg 1 pill twice daily for 7 days. Recommendation is to recheck chest x-ray in 2-4 weeks to monitor resolution. 4. Patient has hypertension. Medications have been adjusted. At discharge Norvasc has been discontinued. New medication- valsartan 160 mg 1 pill daily has been added. At discharge patient will continue with valsartan 160 mg daily, carvedilol 25 mg 1 pill twice daily, hydralazine 25 mg 1 pill twice daily. Recommendation is to monitor his blood pressures daily. Recommendation is to maintain blood pressures less 150/80. Further adjustment can be done by his PCP. 5. Patient has diabetes patient will continue with glipizide 10 mg 1 pill twice daily, Januvia 100 mg 1 pill daily, and metformin a 1000 mg 1 pill twice daily. Recommendation is to maintain blood sugars less 140 fasting and less than 200 after meals. Further adjustment can be done by his PCP. 6. Patient has history of CAD and atrial fibrillation. Patient will continue with aspirin 325 mg 1 pill daily, digoxin daily and Plavix 75 mg 1 pill daily. Patient is not on chronic anti coagulation therapy due to risk of bleeding. Recommendation is for the patient to follow up with cardiology in 2-4 weeks to monitor his progress. 7. Patient has history of anemia. Patient taking B12 supplementation. Patient will continue with his supplementation. Recommendation is to recheck CBC in 2-4 weeks to monitor his progress. 8. Patient has chronic constipation. Patient may continue with Amitiza. Recommendations for the patient to follow up with GI as an outpatient to further monitor and address. Patient made require colonoscopy in the future. 9. Patient has hyperlipidemia. Patient will continue with Crestor. 10. Patient likely has Obstructive Sleep Apnea. Recommendation is for the patient to see Pulmonary as outpatient to evaluate and treat. 11. Lifestyle modification education will be provided. Diet: ADA Activity: Fall precautions Time spent managing pt's care (in minutes): 55
--- NOTE | 2017-12-29 13:21 | CON ---
Date of Consultation: 12/27/2017 Reason For Consultation: Congestive heart failure. History Of Present Illness: Mr. Vaughn is a 72-year-old Latin-Chinese male, has a history of diastol ic congestive heart failure, gastroesophageal reflux disease, diabetes, coronary artery disease, hype rtension, dyslipidemia, came in with shortness of breath, PND, orthopnea, pedal edema. No palpitatio ns or syncope. No chest pain. Denies nausea, vomiting, diaphoresis. Allergies: NONE. Review of Systems: Negative. Social History: Negative. Family History: Positive for diabetes and hypertension. Allergies: NONE. Medications: Include digoxin, aspirin hydralazine, metformin, Crestor, amlodipine, Lasix, Coreg. Physical Examination: General: Mr. Vaughn was in mild respiratory distress. Vital Signs: Stable. He was afebrile. HEENT: Negative. Neck: Supple without any JVD, lymphadenopathy, or bruit. Chest: Actually clear to auscultation and percussion. Cardiac: Revealed a regular rhythm and rate with an S4 gallops. No murmurs or rubs. Abdomen: Obese. Extremities: He had 2+ edema. Diagnostic Data: His EKG was normal. Chest x-ray shows CHF. Echocardiography that was done in 2016 showed an ejection fraction of 54%. Catheterization in September of 2016 showed some sever e disease in the diagonal, obtuse, and small vessels, but his major coronary including the LAD, circu mflex, and RCA had mild plaquing. His troponin is negative. His BNP is negative. His glucose is 32 2, creatinine is 0.9. His white count was 17,000. PO2 on admission was 60. His blood pressure on a dmission was 197/82. Impression And Plan: 1.Acute exacerbation of chronic diastolic congestive heart failure. 2.Hypertension poorly controlled. An echocardiogram is pending. 3.Hypoxia with the elevated white count and negative BNP. May be we should consider bronchitis and/ or pneumonia that has not surfaced yet. 4.Mild to moderate coronary artery disease. 5.Dyslipidemia. 6.Gastroesophageal reflux disease. 7.History of coronary artery disease as stated earlier. I think Mr. Vaughn needs to have an echocardiogram. He needs to have his blood pressure much better c ontrolled. We can certainly go up on the dose of hydralazine and maybe even Coreg. We should contin ue his other regimen although I am not so sure why he has taken digoxin. I will check my office to s ee if I have any more information in that regard. I would consider placing him on some antibiotics a s well, maybe as an outpatient. He needs to have followup in the near future. I would not re-interv markus with his coronaries at this point. KANWAL/JASON Voice ID: [id number] Report ID: [id number]
== END 2017-12-28 12:50 | disposition home health service (06) ==
LOC: ER 18:13 → ERHOLD 21:35 → 4TH 22:24
PROVIDERS: ADMIT Hospitalist; ATTEND Hospitalist
DX: I11.0 Hypertensive heart disease with heart failure (principal); I50.33 Acute on chronic diastolic (congestive) heart failure; E11.9 Type 2 diabetes mellitus without complications; I25.10 Atherosclerotic heart disease of native coronary artery without angina pectoris; I48.91 Unspecified atrial fibrillation; K59.09 Other constipation; E78.5 Hyperlipidemia, unspecified; E66.9 Obesity, unspecified; Z68.37 Body mass index [BMI] 37.0-37.9, adult; Z79.01 Long term (current) use of anticoagulants; Z79.82 Long term (current) use of aspirin; Z86.73 Personal history of transient ischemic attack (TIA), and cerebral infarction without residual deficits
CPT/HCPCS: 36415 ×2; 71045; 71046 ×2; 80048 ×2; 80053; 80061; 80076; 81003; 82550; 82553; 82805; 82962 ×6; 83735 ×3; 83880; 84100 ×2; 84145; 84443; 84484; 85025 ×3; 85610; 85730; 86850; 86900; 86901; 87040 ×2; 93005; 93306; 96374; 97116; 97163; 97530; 99285; G0378 ×2; J0456; J0696; J1650 ×2; J1940; J3475

== ENCOUNTER 2018-12-03 02:02 | Inpatient (IN) | payer OTHER ==
[2018-12-03 02:27] LABS: Absolute Lymphocytes (CBC) 1.7 K/uL (0.7-4.9); Absolute Neutrophil 8.7 K/uL (1.8-8.0); Basophils % 0.8 % (0-1.3); Eosinophils % 4.8 % (0-4.4); Hematocrit 39.4 % (39.6-49.0); Lymphocytes % 13.9 % (15.3-44.8); MPV 11.8 fL (7.6-11.3); RBC Red Blood Cell Count 4.12 M/uL (4.33-5.43)
[2018-12-03 02:33] LABS: Protime INR 1.04
[2018-12-03 02:52] LABS: ALT/SGPT 21 U/L (12-78); AST/SGOT 13 U/L (15-37); Albumin 3.7 g/dL (3.4-5.0); Alkaline Phosphatase 116 U/L (45-117); BUN Blood Urea Nitrogen 23 mg/dL (7-18); Bicarbonate 27 mmol/L (21-32); Bilirubin Direct 0.1 mg/dL (0-0.2); Bilirubin Total 0.2 mg/dL (0.2-1.0); Magnesium 2.4 mg/dL (1.8-2.4); NT PRO-BNP 80 pg/mL (<125); Protein, Total 7.6 g/dL (6.4-8.2); Sodium Level 138 mmol/L (136-145); Troponin (Emerg Dept Use Only) < 0.02 ng/mL (0.0-0.045)
[2018-12-03 02:55] LABS: Glucose Level 435 mg/dL (74-106); Potassium 6.3 mmol/L (3.5-5.1)
[2018-12-03 02:56] LABS: Urine Blood NEGATIVE (NEG); Urine Glucose 2+ (NEG); Urine Protein NEGATIVE (NEG); Urine Specific Gravity 1.015 (1.005-1.030); Urine pH 7.5 (5.0-7.0)
--- NOTE | 2018-12-03 03:24 | ER ---
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 Denies any shortness of breath, nausea or vomiting. Transition of care: patient was not received from another setting of care. Onset of symptoms was December 02, 2018 at 23:00. Risk Assessment: Do you want to hurt yourself or someone else? Patient reports no desire to harm self or others. Initial Sepsis Screen: Does the patient meet any 2 criteria? HR > 90 bpm. Yes Does the patient have a suspected source of infection? No. Patient's initial sepsis screen is negative. Care prior to arrival: Medication(s) given: ASA, 81 mg, x 4, Glucose check: 434. 02:05 Method Of Arrival: EMS: [facility] 02:05 Acuity: [facility] 3 fc Triage Assessment: 02:08 General: Appears in no apparent distress. comfortable, Behavior is calm, cooperative, cc3 appropriate for age. Pain: Complains of pain in chest. EENT: No signs and/or symptoms were reported regarding the EENT system. Neuro: Level of Consciousness is awake, alert, obeys commands, Oriented to person, place, time, situation, Appropriate for age. Cardiovascular: Patient's skin is warm and dry. Cardiovascular: Reports chest pain. Respiratory: Airway is patent Respiratory effort is even, unlabored, Respiratory pattern is regular, symmetrical. GI: Abdomen is round obese. : No signs and/or symptoms were reported regarding the genitourinary system. Derm: No signs and/or symptoms reported regarding the dermatologic system. Musculoskeletal: Circulation, motion, and sensation intact. Range of motion: intact in all extremities. Historical: - Allergies: 02:11 No Known Allergies; fc - Home Meds: 03:26 valsartan 160 mg oral tab 1 tab once daily [Active]; hydralazine 25 mg Oral tab 1 tab 2 fc times per day [Active]; Farxiga 5 mg oral tab 1 tab once daily [Active]; clopidogrel 75 mg Oral tab 1 tab once daily [Active]; Amitiza 24 mcg Oral cap 1 cap 2 times per day [Active]; rosuvastatin 10 mg Oral tab 1 tab once daily [Active]; carvedilol 25 mg Oral tab 1 tab 2 times per day [Active]; metformin 1,000 mg Oral tab 1 tab 2 times per day [Active]; tramadol 50 mg Oral tab 1 tab three times a day [Active]; Lyrica 75 mg Oral 1 cap 3 times per day [Active]; digoxin 250 mcg Oral tab 1 tab once daily [Active]; furosemide 20 mg oral tab 1 tab once daily [Active]; Vitamin B-12 1,000 mcg Oral TbER daily [Active]; basaglar 80 unit daily [Active]; - PMHx: 02:11 CAD; heart problem; Myocardial infarction; CHF; fc 03:26 Hypertension; Diabetes - IDDM; Sleep Apnea; High Cholesterol; Atrial Fib; Anxiety; fc neuropathy; - Immunization history:: Last tetanus immunization: unknown, Flu vaccine is not up to date. - Social history:: Smoking status: Patient/guardian denies using tobacco, Patient/guardian denies using alcohol, street drugs. - Ebola Screening: : Patient negative for fever greater than or equal to 101.5 degrees Fahrenheit, and additional compatible Ebola Virus Disease symptoms Patient denies exposure to infectious person Patient denies travel to an Ebola-affected area in the 21 days before illness onset. Screenin:05 Abuse screen: Denies threats or abuse. Nutritional screening: No deficits noted. fc Tuberculosis screening: No symptoms or risk factors identified. Fall Risk None identified. Assessment: 02:08 Pain: Pain does not radiate. Pain began 3 hours ago. cc3 02:53 Reassessment: Lab staff Suzanne Howell called for critical lab result of potassium 6.3 cc3 and glucose of 435, Dr. Garcia informed. 03:30 Reassessment: Patient appears in no apparent distress at this time. Patient and/or cc3 family updated on plan of care and expected duration. Pain level reassessed. Patient is alert, oriented x 3, equal unlabored respirations, skin warm/dry/pink. Patient for admission but no bed available, put patient on ER hold. 04:00 Reassessment: Patient appears in no apparent distress at this time. Patient and/or cc3 family updated on plan of care and expected duration. Pain level reassessed. Patient is alert, oriented x 3, equal unlabored respirations, skin warm/dry/pink. Dr. Garcia assessed the patient bedside. 04:30 Reassessment: Transferred the patient to pod 2 room 16. cc3 Vital Signs: 02:05 BP 180 / 82; Pulse 104; Resp 18; Temp 99.1(O); Pulse Ox 94% on R/A; Weight 104.33 kg fc (R); Height 5 ft. 5 in. (165.10 cm) (R); Pain 4/10; 03:30 BP 137 / 68; Pulse 95; Resp 14 S; Pulse Ox 98% on R/A; cc3 04:00 BP 130 / 74; Pulse 93; Resp 15 S; Pulse Ox 96% on R/A; cc3 02:05 Body Mass Index 38.27 (104.33 kg, 165.10 cm) ED Course: 02:04 Patient arrived in ED. fc 02:05 Arm band placed on Patient placed in an exam room, on a stretcher. fc 02:05 Patient has correct armband on for positive identification. Placed in gown. Bed in low fc position. Call light in reach. Side rails up X2. equipment monitor phototypesetting on. Pulse ox on. NIBP on. 02:05 No provider procedures requiring assistance completed. fc 02:07 Triage completed. fc 02:08 Alissa Patel is Primary Nurse. cc3 02:08 Patient maintains SpO2 saturation greater than 95% on room air. cc3 02:09 Missed attempt(s): 20 gauge in right wrist. lp1 02:10 Inserted saline lock: 22 gauge in right hand, using aseptic technique. Blood collected. cc3 inserted by AMI Bales. 02:13 Owen Garcia MD is Attending Physician. gs 02:28 X-ray completed. Portable x-ray completed in exam room. Patient tolerated procedure kw well. 02:29 XRAY Chest (1 view) In Process Unspecified. EDMS 03:23 Allan Coronado MD is Hospitalizing Provider. gs 04:30 Report given to AMI Darling. cc3 08:07 Lashay Lowry RN is Primary Nurse. hb 11:29 Patient admitted, IV remains in place. hb Administered Medications: 03:19 Not Given (Duplicate Order): Calcium Gluconate 1 grams IVPB once over 60 mins; (mix in NS 100 mL) 03:20 Drug: Albuterol 2.5 mg Route: Inhalation; cc3 03:48 Follow up: Response: No adverse reaction cc3 03:25 Drug: Insulin Regular Human 10 units {Co-Signature: [email or web address] (Amairani Vasquez RN).} Route: IVP; cc3 Site: right hand; 03:48 Follow up: Response: No adverse reaction cc3 Outcome: 03:23 Decision to Hospitalize by Provider. 11:29 Admitted to Tele accompanied by tech, via wheelchair, room 404, with chart, Report hb called to AMI Aguilar 11:29 Condition: stable 11:29 Instructed on the need for admit, Demonstrated understanding of instructions. 11:39 Patient left the ED. Signatures: Dispatcher [employer] EDMS Priscilla Kelley RN RN Ioana Petit Amairani Vasquez RN RN lp1 Lashay Lowry RN RN Owen Garcia MD MD Alissa Patel 3 Amairani Vasquez RN lp1 Corrections: (The following items were deleted from the chart) 03:26 02:11 PMHx: Diabetes - NIDDM; [facility] 03:48 03:30 Reassessment: Patient appears in no apparent distress at this time. Patient cc3 and/or family updated on plan of care and expected duration. Pain level reassessed. Patient is alert, oriented x 3, equal unlabored respirations, skin warm/dry/pink. Patient for admission but no bed available, put patient on ER hold. cc3 04:37 03:30 Reassessment: Patient appears in no apparent distress at this time. Patient cc3 and/or family updated on plan of care and expected duration. Pain level reassessed. Patient is alert, oriented x 3, equal unlabored respirations, skin warm/dry/pink. Patient for admission but no bed available, put patient on ER hold. Charting continued in [facility]. cc3
--- NOTE | 2018-12-03 03:24 | EDPHYS ---
Physician Documentation [facility] Name: Tyrone Vaughn Age: 73 yrs Sex: Male : 1945 Arrival Date: 12/03/2018 Time: 02:04 Bed 16 Private MD: ED Physician Owen Garcia HPI: 12/03 03:19 This 73 yrs old Male presents to ER via EMS with complaints of Chest Pain. 03:19 The patient or guardian reports chest pain that is located primarily in the anterior gs chest wall. Onset: 2 hour(s) ago. Associated signs and symptoms: Pertinent positives: shortness of breath. The chest pain is described as a heaviness. Duration: The patient or guardian reports a single episode, that is now resolved. Modifying factors: The symptoms are alleviated by nothing. the symptoms are aggravated by nothing. Severity of pain: At its worst the pain was moderate in the emergency department the pain has resolved. says just feels really bad. Historical: - Allergies: 02:11 No Known Allergies; fc - Home Meds: 03:26 valsartan 160 mg oral tab 1 tab once daily [Active]; hydralazine 25 mg Oral tab 1 tab 2 fc times per day [Active]; Farxiga 5 mg oral tab 1 tab once daily [Active]; clopidogrel 75 mg Oral tab 1 tab once daily [Active]; Amitiza 24 mcg Oral cap 1 cap 2 times per day [Active]; rosuvastatin 10 mg Oral tab 1 tab once daily [Active]; carvedilol 25 mg Oral tab 1 tab 2 times per day [Active]; metformin 1,000 mg Oral tab 1 tab 2 times per day [Active]; tramadol 50 mg Oral tab 1 tab three times a day [Active]; Lyrica 75 mg Oral 1 cap 3 times per day [Active]; digoxin 250 mcg Oral tab 1 tab once daily [Active]; furosemide 20 mg oral tab 1 tab once daily [Active]; Vitamin B-12 1,000 mcg Oral TbER daily [Active]; basaglar 80 unit daily [Active]; - PMHx: 02:11 CAD; heart problem; Myocardial infarction; CHF; fc 03:26 Hypertension; Diabetes - IDDM; Sleep Apnea; High Cholesterol; Atrial Fib; Anxiety; fc neuropathy; - Immunization history:: Last tetanus immunization: unknown, Flu vaccine is not up to date. - Social history:: Smoking status: Patient/guardian denies using tobacco, Patient/guardian denies using alcohol, street drugs. - Ebola Screening: : Patient negative for fever greater than or equal to 101.5 degrees Fahrenheit, and additional compatible Ebola Virus Disease symptoms Patient denies exposure to infectious person Patient denies travel to an Ebola-affected area in the 21 days before illness onset. ROS: 03:19 All other systems are negative. gs Exam: 03:19 Head/Face: Normocephalic, atraumatic. Eyes: Pupils equal round and reactive to light, gs extra-ocular motions intact. Lids and lashes normal. Conjunctiva and sclera are non-icteric and not injected. Cornea within normal limits. Periorbital areas with no swelling, redness, or edema. ENT: Nares patent. No nasal discharge, no septal abnormalities noted. Tympanic membranes are normal and external auditory canals are clear. Oropharynx with no redness, swelling, or masses, exudates, or evidence of obstruction, uvula midline. Mucous membranes moist. Neck: Trachea midline, no thyromegaly or masses palpated, and no cervical lymphadenopathy. Supple, full range of motion without nuchal rigidity, or vertebral point tenderness. No Meningismus. Chest/axilla: Normal chest wall appearance and motion. Nontender with no deformity. No lesions are appreciated. Cardiovascular: Regular rate and rhythm with a normal S1 and S2. No gallops, murmurs, or rubs. Normal PMI, no JVD. No pulse deficits. Respiratory: Lungs have equal breath sounds bilaterally, clear to auscultation and percussion. No rales, rhonchi or wheezes noted. No increased work of breathing, no retractions or nasal flaring. Abdomen/GI: Soft, non-tender, with normal bowel sounds. No distension or tympany. No guarding or rebound. No evidence of tenderness throughout. Back: No spinal tenderness. No costovertebral tenderness. Full range of motion. Skin: Warm, dry with normal turgor. Normal color with no rashes, no lesions, and no evidence of cellulitis. Neuro: Awake and alert, GCS 15, oriented to person, place, time, and situation. Cranial nerves II-XII grossly intact. Motor strength 5/5 in all extremities. Sensory grossly intact. Cerebellar exam normal. Normal gait. 03:19 Constitutional: The patient appears alert, awake. 03:19 Musculoskeletal/extremity: Perfusion: the patient is normally perfused throughout, Edema, 2+ to the left ankle and right ankle is noted, Sensation intact. 03:19 ECG was reviewed by the Attending Physician. Vital Signs: 02:05 BP 180 / 82; Pulse 104; Resp 18; Temp 99.1(O); Pulse Ox 94% on R/A; Weight 104.33 kg fc (R); Height 5 ft. 5 in. (165.10 cm) (R); Pain 4/10; 03:30 BP 137 / 68; Pulse 95; Resp 14 S; Pulse Ox 98% on R/A; cc3 04:00 BP 130 / 74; Pulse 93; Resp 15 S; Pulse Ox 96% on R/A; cc3 02:05 Body Mass Index 38.27 (104.33 kg, 165.10 cm) fc MDM: 02:43 Patient medically screened. 03:19 Differential diagnosis: acute myocardial infarction, congestive heart failure stable gs angina, unstable angina. Data reviewed: vital signs, nurses notes. 12/03 02:14 Order name: Flu; Complete Time: 03:07 12/03 02:14 Order name: Basic Metabolic Panel; Complete Time: 03:07 12/03 02:14 Order name: CBC with Diff; Complete Time: 03:07 12/03 02:14 Order name: LFT's; Complete Time: 03:07 12/03 02:14 Order name: Magnesium; Complete Time: 03:07 12/03 02:14 Order name: NT PRO-BNP; Complete Time: 03:07 12/03 02:14 Order name: PT-INR; Complete Time: 03:07 12/03 02:14 Order name: Troponin (emerg Dept Use Only); Complete Time: 03:07 12/03 02:52 Order name: Urine Dipstick--Ancillary (enter results); Complete Time: 03:07 ar5 12/03 03:19 Order name: Digoxin; Complete Time: 03:56 12/03 06:15 Order name: Basic Metabolic Panel EDMS 12/03 08:13 Order name: Glucose, Ancillary Testing EDMS 12/03 08:34 Order name: Potassium EDMS 12/03 10:14 Order name: Troponin I EDND 12/03 02:14 Order name: XRAY Chest (1 view) 12/03 02:14 Order name: EKG; Complete Time: 02:15 12/03 02:14 Order name: Cardiac monitoring; Complete Time: 02: 12/03 02:14 Order name: EKG - Nurse/Tech; Complete Time: 02:22 12/03 02:14 Order name: IV Saline Lock; Complete Time: 02: 12/03 02:14 Order name: Labs collected and sent; Complete Time: 02:25 12/03 02:14 Order name: O2 Per Protocol; Complete Time: : 12/03 02:14 Order name: O2 Sat Monitoring; Complete Time: : 12/03 11:31 Order name: Glucose, Ancillary Testing EDND EC: Rate is 99 beats/min. Rhythm is regular. ME interval is normal. QRS interval is gs prolonged. QT interval is normal. T waves are Inverted in lead aVL. Clinical impression: NSR w/ Non-specific ST/T Changes. Interpreted by me. Administered Medications: 03:19 Not Given (Duplicate Order): Calcium Gluconate 1 grams IVPB once over 60 mins; (mix in gs NS 100 mL) 03:20 Drug: Albuterol 2.5 mg Route: Inhalation; cc3 03:48 Follow up: Response: No adverse reaction cc3 03:25 Drug: Insulin Regular Human 10 units {Co-Signature: lp1 (Amairani Vasquez RN).} Route: IVP; cc3 Site: right hand; 03:48 Follow up: Response: No adverse reaction cc3 Disposition: 12/03/18 03:23 Hospitalization ordered by Allan Coronado for Inpatient Admission. Preliminary diagnosis are Precordial pain, Hyperkalemia. - Bed requested for Telemetry/MedSurg (Inpatient). - Status is Inpatient Admission. hb - Condition is Stable. - Problem is new. - Symptoms have improved. UTI on Admission? No Signatures: Dispatcher [employer] [facility] Taylor Britt RN RN Priscilla Kelley RN RN Lashay Lowry RN RN Owen Garcia MD MD Alissa Patel cc3 Amairani Vasquez RN lp1 Corrections: (The following items were deleted from the chart) 03: 02:11 PMHx: Diabetes - NIDDM; fc fc 03:28 03:23 Hospitalization Ordered by Allan Coronado MD for Inpatient Admission. Preliminary gs diagnosis is Precordial pain; Hyperkalemia. Bed requested for Telemetry/MedSurg (Inpatient). Status is Inpatient Admission. Condition is Stable. Problem is new. Symptoms have improved. UTI on Admission? No. gs 10:56 03:28 12/03/2018 03:23 Hospitalization Ordered by Allan Coronado MD for Inpatient dw Admission. Preliminary diagnosis is Precordial pain; Hyperkalemia. Bed requested for [facility] ER HOLD. Status is Inpatient Admission. Condition is Stable. Problem is new. Symptoms have improved. UTI on Admission? No. gs 11:39 10:56 12/03/2018 03:23 Hospitalization Ordered by Allan Coronado MD for Inpatient hb Admission. Preliminary diagnosis is Precordial pain; Hyperkalemia. Bed requested for Telemetry/MedSurg (Inpatient). Status is Inpatient Admission. Condition is Stable. Problem is new. Symptoms have improved. UTI on Admission? No. dw
[2018-12-03] MEDS ORDERED: INSULIN -REGULAR HUMAN 50 UNIT/0.5 ML ML ONE ×2 (03:30→08:27)
[2018-12-03] MEDS ORDERED: ALBUTEROL 2.5 MG/3 ML NEB SOL ONE (03:30)
[2018-12-03] MEDS ORDERED: SOD POLYSTYREN SUL 15 GM/60 ML UCUP PO ONE ×2 (04:13→08:51)
[2018-12-03] MEDS ORDERED: ONDANSETRON 4 MG/2 ML VIAL IV PRN (04:21)
--- NOTE | 2018-12-03 04:21 | P.HP ---
Certification for Inpatient Patient admitted to: Observation With expected LOS: <2 Midnights Practitioner: I am a practitioner with admitting privileges, knowledge of patient current condition, hospital course, and medical plan of care. Services: Services provided to patient in accordance with Admission requirements found in Title 42 Section 412.3 of the Code of Federal Regulations Patient History Date of Service: 12/03/18 Reason for admission: chest pain, hyperkalemia History of Present Illness: Mr Vaughn is a 73 years old male whit history of HTN, obesity, DM II, CVA, CAD cath done in 2017 remarkable for severe disease in obtuse marginal, diagonal and small vessels, mild disease in RCA, LAD and circunflex, last ECHO shows normal EF 54%, he has chronic stable angina. The patient came to ED complaining of chest pain. The pain started about 3 hrs prior to arrival. He describe the pain as pressure like in substernal area, associated with SOB and diaphoresis, he denied nausea or vomiting. Intensity of pain 8/10, no radiate, similar to previous episodes. Lab work shows normal initial trop I, however, potassium level was elevated 6.3. Renal function abnormal but about his baseline. At the time of my encounter, chest pain already resolved. EKG without acute changes. Allergies No Known Allergies Allergy (Unverified 09/23/16 22:51) Home medications list reviewed: Yes Home Medications: Acetaminophen with Codeine [Acetaminophen-Cod #3 Tablet] 1 tab PO BIDP PRN 12/27 Aspirin [Aspirin EC 325 MG] 1 tab PO DAILY 12/27/17 Carvedilol 1 tab PO BID 12/27/17 Clopidogrel Bisulfate [Plavix*] 1 tab PO DAILY 12/27/17 Cyanocobalamin [Vitamin B-12*] 1 tab PO DAILY 12/27/17 Digoxin [Lanoxin] 250 mcg PO DAILY 12/27/17 Glipizide [Glucotrol] 1 tab PO BID 12/27/17 Hydralazine [Apresoline*] 1 tab PO BID 12/27/17 Lubiprostone [Amitiza*] 1 cap PO BID 12/27/17 Metformin HCl 1 tab PO BID 12/27/17 Pregabalin [Lyrica] 1 cap PO BID 12/27/17 Rosuvastatin Calcium 1 tab PO DAILY 12/27/17 Sitagliptin Phosphate [Januvia*] 1 tab PO DAILY 12/27/17 traMADol HCL [Ultram*] 1 tab PO BIDP PRN 12/27/17 Amoxicillin/Potassium Clav [Augmentin 500-125 Tablet] 1 each PO BID #14 tablet 12/28/17 Furosemide 1 tab PO BID #60 tablet 12/28/17 Valsartan [Diovan*] 160 mg PO DAILY #30 tab 12/28/17 - Past Medical/Surgical History Diabetic: Yes -: HTN -: 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 Children-3. 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 - Family History Family History: Reviewed- Non-Contributory - Social History Smoking Status: Former smoker Alcohol use: No CD- Drugs: No Caffeine use: No Place of Residence: Home Review of Systems 10-point ROS is otherwise unremarkable Physical Examination - Physical Exam General: Alert, In no apparent distress HEENT: Atraumatic, PERRLA, Mucous membr. moist/pink, EOMI, Sclerae nonicteric Neck: Supple, 2+ carotid pulse no bruit, No LAD, Without JVD or thyroid abnormality Respiratory: Crackles/rales (bibasilar rales) Cardiovascular: Regular rate/rhythm, Normal S1 S2 Gastrointestinal: Normal bowel sounds, No tenderness Musculoskeletal: No tenderness, Swelling (LE edema 1+ bilateral) Integumentary: No rashes Neurological: Normal speech, Normal strength at 5/5 x4 extr, Normal tone, Normal affect Lymphatics: No axilla or inguinal lymphadenopathy - Studies Laboratory Data (last 24 hrs) 12/03/18 02:10: PT 12.3, INR 1.04 12/03/18 02:10: WBC 12.0 H, Hgb 12.6 L, Hct 39.4 L, Plt Count 140 L 12/03/18 02:10: Sodium 138, Potassium 6.3 H*, BUN 23 H, Creatinine 1.28, Glucose 435 H*, Magnesium 2.4, Total Bilirubin 0.2, AST 13 L, ALT 21, Alkaline Phosphatase 116 Microbiology Data (last 24 hrs): 12/03/18 02:19 Nasopharnyx Influenza Type A Antigen Screen - Final 12/03/18 02:19 Nasopharnyx Influenza Type B Antigen Screen - Final Assessment and Plan - Problems (Diagnosis) (1) Hyperglycemia Onset Date: 12/27/17 Current Visit: No Status: Acute (2) Hyperkalemia Onset Date: 09/25/16 Current Visit: No Status: Acute (3) CAD (coronary artery disease) Onset Date: 09/25/16 Current Visit: No Status: Chronic Qualifiers: Coronary Disease-Associated Artery/Lesion type: [place] artery [place] vs. transplanted heart: [place] heart Associated angina: with stable angina Qualified Code(s): I25.118 - Atherosclerotic heart disease of [place] coronary artery with other forms of angina pectoris (4) Hypertension Onset Date: 09/25/16 Current Visit: No Status: Chronic Qualifiers: Hypertension type: essential hypertension Qualified Code(s): I10 - Essential (primary) hypertension (5) Non-insulin dependent type 2 diabetes mellitus Onset Date: 09/25/16 Current Visit: No Status: Chronic (6) Obesity Current Visit: No Status: Chronic Qualifiers: Obesity type: due to excess calories Obesity classification: adult class 2 (BMI 35 - 39.9) Serious obesity comorbidity presence: with serious comorbidity Body mass index: BMI 38.0-38.9 Qualified Code(s): E66.01 - Morbid (severe) obesity due to excess calories; Z68.38 - Body mass index (BMI) 38.0-38.9, adult; Z68.38 - Body mass index (BMI) 38.0-38.9, adult - Plan Will admit the patient due to chest pain, he has normal trop I, no ST-T acute changes. Also hyperkalemia. He already received treatment, will repeat potassium level in a few hours. No chest pain at this time, consult cardiology team. Continue with serial cardiac enzymes and EKG. Will resume his home medication once verified. - Advance Directives Does patient have a Living Will: No Does patient have a Durable POA for Healthcare: No - Code Status/Comfort Care Code Status Assessed: Yes Code Status: Full Code
[2018-12-03] MEDS ORDERED: FUROSEMIDE 40 MG/4 ML VIAL IV ONE (04:24)
[2018-12-03] MEDS ORDERED: FUROSEMIDE 40 MG/4 ML VIAL ONE (05:10)
[2018-12-03] MEDS ORDERED: SOD POLYSTYREN SUL 15 GM/60 ML UCUP ONE ×2 (05:11→09:45)
[2018-12-03 06:15] LABS: Potassium 5.9 mmol/L (3.5-5.1)
[2018-12-03] MEDS: INSULIN -REGULAR HUMAN 50 UNIT/0.5 ML ML SQ SCH ×4 (07:30→21:13)
--- NOTE | 2018-12-03 08:20 | RAD REPORT ---
EXAM DESCRIPTION: RAD - Chest Single View - 12/03/2018 2:30 am CLINICAL HISTORY: CHEST PAIN Chest pain. COMPARISON: Chest Pa And Lat (2 Views) dated 12/28/2017; Chest Pa And Lat (2 Views) dated 12/27/2017; Chest Single View dated 12/26/2017; Chest Single View dated 09/23/2016 FINDINGS: Portable technique limits examination quality. The lungs are grossly clear. The heart is mildly prominent size. No displaced fractures.Aortic athero sclerosis. IMPRESSION: No acute intrathoracic process suspected.
[2018-12-03] MEDS ORDERED: FUROSEMIDE 20 MG/ 2ML VIAL ONE (08:49)
[2018-12-03] MEDS ORDERED: ASPIRIN EC 325 MG TABLET PO ONE (08:50)
[2018-12-03] MEDS ORDERED: ENOXAPARIN 40 MG/0.4 ML SQ ONE (08:50)
[2018-12-03] MEDS ORDERED: CLOPIDOGREL 75 MG TABLET ONE (08:50)
--- NOTE | 2018-12-03 08:58 | P.PN ---
Subjective Date of Service: 12/03/18 Chief Complaint: chest pain, hyperkalemia Subjective: Improving, Other (Patient reports noncompliance with his Lasix medication over the past week.) Physical Examination - Vital Signs Temperature: 97.8 F Blood Pressure: 126/78 Pulse: 91 Respirations: 18 Pulse Ox (%): 100 - Physical Exam General: Alert, In no apparent distress, Oriented x3, Cooperative HEENT: Atraumatic Neck: Supple Respiratory: Clear to auscultation bilaterally, Normal air movement Cardiovascular: Normal pulses, Regular rate/rhythm Gastrointestinal: Normal bowel sounds, Soft and benign, Non-distended, No tenderness, No masses, No rebound, No guarding Musculoskeletal: No erythema, No tenderness, No warmth Integumentary: Tenderness/swelling (1+ pitting edema to the lower extremities bilateral) Neurological: Normal speech, Normal strength at 5/5 x4 extr, Normal tone, Normal affect - Studies Laboratory Data (last 24 hrs) 12/03/18 02:10: PT 12.3, INR 1.04 12/03/18 02:10: WBC 12.0 H, Hgb 12.6 L, Hct 39.4 L, Plt Count 140 L 12/03/18 02:10: Sodium 138, Potassium 6.3 H*, BUN 23 H, Creatinine 1.28, Glucose 435 H*, Magnesium 2.4, Total Bilirubin 0.2, AST 13 L, ALT 21, Alkaline Phosphatase 116 Microbiology Data (last 24 hrs): 12/03/18 02:19 Nasopharnyx Influenza Type A Antigen Screen - Final 12/03/18 02:19 Nasopharnyx Influenza Type B Antigen Screen - Final Assessment & Plan Discharge Plan: Home Plan to discharge in: 24 Hours Physician Review Additional Text: Impression: Chest pain with history of CAD and chronic systolic CHF Hyperkalemia likely related to Arb inhibitor Hypertension Diabetes mellitus type 2 Hyperlipidemia Obesity, BMI 39.3 Plan: Chest pain with history of CAD and chronic systolic CHF: Cardiac enzymes unremarkable. Patient remains on aspirin and Plavix. Will discuss with cardiology. Patient likely with chronic angina. Patient non compliant with Lasix medication. Will restart Lasix. Address CHF education especially the importance of fluid restriction and continuation of his medication-Lasix on a daily basis. Will reassess this afternoon. Possible discharge as early as today. Will discuss with cardiology. Hyperkalemia likely related to Arb inhibitor: Patient given Kayexalate. Will recheck potassium later today. Patient on Lasix but with history of noncompliance. Will restart Lasix. Will discontinue Arb inhibitor as this may be contributing to his hyperkalemia. Hypertension: Medication adjusted. Discontinue Arb inhibitor. Continue carvedilol. Diabetes mellitus type 2: Continue Accu-Cheks and sliding scale. Hyperlipidemia: Continue home medication-Crestor Obesity, BMI 39.3: Address lifestyle modification education. Time Spent Managing Pts Care (In Minutes): 55
[2018-12-03] MEDS ORDERED: VALSARTAN 160 MG TAB PO SCH (09:00)
[2018-12-03] MEDS: CLOPIDOGREL 75 MG TABLET PO SCH (09:00)
[2018-12-03] MEDS: ENOXAPARIN 40 MG/0.4 ML SQ SCH (09:00)
[2018-12-03] MEDS: CARVEDILOL 25 MG TAB PO SCH ×2 (09:00→21:03)
[2018-12-03] MEDS: ROSUVASTATIN 10 MG TAB PO SCH (09:00)
[2018-12-03] MEDS: ASPIRIN EC 325 MG TABLET PO SCH (09:00)
[2018-12-03 13:00] VITALS: BMI 38.9
[2018-12-03] MEDS: PREGABALIN 150 MG CAP PO SCH ×2 (15:00→21:03)
[2018-12-03] MEDS: HYDRALAZINE HCL 25 MG TABLET PO SCH ×2 (15:00→21:03)
[2018-12-03] MEDS ORDERED: LUBIPROSTONE 24 MCG PO SCH (15:15)
--- NOTE | 2018-12-03 15:51 | EKG ---
Test Date: 2018-12-03 Test Time: 02:06:25 Secretary To Board Of Commissioners: CAROL MEASUREMENT RESULTS: Intervals: Rate: 99 MN: 164 QRSD: 106 QT: 322 QTc: 413 [place]: P: 71 MN: 164 QRS: 0 T: 88 INTERPRETIVE STATEMENTS: Normal sinus rhythm Inferior infarct, age undetermined Possible Anterior infarct, age undetermined Abnormal ECG Compared to ECG 12/26/2017 20:13:19 Myocardial infarct finding now present Electronically Signed On 12-03-18 15:50:21 CDT by Rohit Carvalho
[2018-12-03] MEDS: FUROSEMIDE 20 MG/ 2ML VIAL IV SCH (16:57)
[2018-12-04] MEDS: HYDRALAZINE HCL 25 MG TABLET PO SCH ×2 (04:50→21:20)
[2018-12-04] MEDS: ASPIRIN EC 325 MG TABLET PO SCH (04:50)
[2018-12-04] MEDS: CLOPIDOGREL 75 MG TABLET PO SCH (04:50)
[2018-12-04] MEDS ORDERED: NA CHLORIDE 0.9% 1,000 ML ONE (04:51)
[2018-12-04] MEDS: CARVEDILOL 25 MG TAB PO SCH ×2 (04:51→21:20)
[2018-12-04 05:01] LABS: Absolute Lymphocytes (CBC) 3.2 K/uL (0.7-4.9); Absolute Monocytes 1.1 K/uL (0.1-1.3); Absolute Neutrophil 5.8 K/uL (1.8-8.0); Basophils % 0.8 % (0-1.3); Eosinophils % 4.6 % (0-4.4); Hematocrit 39.1 % (39.6-49.0); Lymphocytes % 30.3 % (15.3-44.8); MPV 11.3 fL (7.6-11.3); RBC Red Blood Cell Count 4.17 M/uL (4.33-5.43)
[2018-12-04 05:29] LABS: Magnesium 2.4 mg/dL (1.8-2.4); Potassium 4.5 mmol/L (3.5-5.1)
--- NOTE | 2018-12-04 07:16 | CON ---
Date of Consultation: 12/03/[address] Palmoares' service on 12/03/2018. I saw the patient on 12/03/2018. Reason For Consultation: Non-ST elevation myocardial infarction. History Of Present Illness: Mr. Vaughn is a 73-year-old [place] male. He is known to us from previous hospital visits. In September of 2016, the heart catheterization revealed a 70% OM2 lesion, a n 80% first diagonal lesion. He has diffuse plaquing in the LAD, circumflex, and RCA. He was treate d medically. He was here in December 2017, had an echocardiogram, which was normal. He came in with ch est pain radiating to the left arm and troponin initially was 0.08. Next troponin was greater than 1 consistent with non-ST elevation myocardial infarction. He was also hyperkalemic at 6.3 and his glu cose was 435. He had a white count of 12,000. His creatinine is 1.28. He was pain-free when I saw him. He had some nausea and diaphoresis, but no shortness of breath. Denied PND, orthopnea, pedal e dottie, palpitations, or syncope. Allergies: NONE. Past Medical History: Includes coronary artery disease, chronic diastolic congestive heart failure, diabetes, hypertension. Medications: At home include aspirin, Glucotrol, hydralazine, Diovan, metformin, Lyrica, Januvia, Co reg, Plavix, digoxin, and Lasix. Family History: Positive for diabetes and heart disease. Review of Systems: Negative. Social History: Negative. Physical Examination: General: He was in no acute distress. Vital Signs: Stable. He is in sinus rhythm. HEENT: Review of his HEENT exam is negative. Neck: Supple without any bruit, lymphadenopathy, JVD, or thyromegaly. Chest: Clear to auscultation and percussion. Cardiac: Revealed a regular rhythm and rate with an S4 gallops. No murmurs or rubs. Abdomen: Benign. Extremities: Revealed no clubbing, cyanosis, or edema. His pulses were present distally bilaterally . Skin: Dry and intact. Neurologic: He was nonfocal. Diagnostic Data: As stated earlier. Impression And Plan: 1.The patient with history of coronary artery disease documented approximately 2 years ago, now with worsening chest pain and a non-ST elevation myocardial infarction. His creatinine is 1.28, which is reasonable for him. He needs to have his potassium and glucose corrected today. We will plan a lef t heart catheterization with possible intervention tomorrow. The patient understands the risks and t he benefits of the procedure, and he agrees to proceed. 2.Other problems include history of chronic diastolic congestive heart failure. The patient appears stable. 3.Diabetes, very poorly controlled. 4.Hypertension, well controlled. 5.Neuropathy. 6.Mild renal insufficiency. 7.Hyperkalemia being corrected. The case was discussed with Dr. Palomares. KANWAL/JASON Voice ID: [id number] Report ID: [id number]
[2018-12-04] MEDS ORDERED: LIDOCAINE 1% MPF 30 ML VIAL ONE (07:24)
[2018-12-04] MEDS ORDERED: HEPA 1000U/500MLS 1,000 UNIT/500 ML BAG IV ONE ×2 (07:24→11:52)
[2018-12-04] MEDS: INSULIN -REGULAR HUMAN 50 UNIT/0.5 ML ML SQ SCH ×4 (07:30→21:18)
[2018-12-04] MEDS: ROSUVASTATIN 10 MG TAB PO SCH (09:00)
[2018-12-04] MEDS: ENOXAPARIN 40 MG/0.4 ML SQ SCH (09:00)
[2018-12-04] MEDS: FUROSEMIDE 20 MG/ 2ML VIAL IV SCH ×2 (09:09→16:33)
--- NOTE | 2018-12-04 11:04 | P.PN ---
Subjective Date of Service: 12/04/18 Chief Complaint: chest pain, hyperkalemia Subjective: Improving, Doing well Physical Examination - Vital Signs Temperature: 97.1 F Blood Pressure: 117/60 Pulse: 69 Respirations: 18 Pulse Ox (%): 95 - Physical Exam General: Alert, In no apparent distress, Oriented x3, Cooperative HEENT: Atraumatic Neck: Supple Respiratory: Clear to auscultation bilaterally, Normal air movement Cardiovascular: Normal pulses, Regular rate/rhythm Gastrointestinal: Normal bowel sounds, Soft and benign, Non-distended, No tenderness, No masses, No rebound, No guarding Musculoskeletal: No tenderness, No warmth Integumentary: Tenderness/swelling (Edema to the lower extremities improved bilateral) Neurological: Normal speech, Normal strength at 5/5 x4 extr, Normal tone - Studies Medications List Reviewed: Yes Assessment & Plan Discharge Plan: Home Plan to discharge in: 48 Hours Physician Review Additional Text: Impression: Chest pain secondary to NSTEMI with history of CAD and chronic systolic CHF Hyperkalemia likely related to Arb inhibitor Hypertension Diabetes mellitus type 2 Hyperlipidemia Obesity, BMI 39.3 Plan: Chest pain secondary to NSTEMI with history of CAD and chronic systolic CHF: Patient had elevated cardiac enzymes yesterday. Patient seen and evaluated by Cardiology. Patient to have heart catheterization today. Await findings. Continue with diuresis. Will discuss with cardiology for plan of care after heart catheterization Hyperkalemia likely related to Arb inhibitor: Patient given Kayexalate yesterday. Potassium now within normal range. Arb inhibitor discontinued. Continue with Lasix for his CHF. Hypertension: Medication adjusted. Discontinue Arb inhibitor. Continue carvedilol. Diabetes mellitus type 2: Continue Accu-Cheks and sliding scale. Hyperlipidemia: Continue home medication-Crestor Obesity, BMI 39.3: Address lifestyle modification education. Time Spent Managing Pts Care (In Minutes): 55
[2018-12-04] MEDS ORDERED: HEPARIN 5000 UNIT/ML 1 ML VIAL ONE (12:17)
[2018-12-04] MEDS ORDERED: FENTANYL CITR 100 MCG/2 ML ONE (12:18)
[2018-12-04] MEDS ORDERED: NICARDIPINE HCL 25 MG/10 ML IV ONE (12:18)
[2018-12-04] MEDS ORDERED: NA CHLORIDE 0.9% 0 ML ONE (12:18)
[2018-12-04] MEDS ORDERED: MIDAZOLAM HCL 2 MG/2 ML INJ ONE (12:18)
[2018-12-04] MEDS ORDERED: ATROPINE SULF 1 MG/10 ML SYR IV ONE (12:18)
[2018-12-04] MEDS: CYANOCOBALAMIN 1,000 MCG TAB PO SCH (15:07)
[2018-12-04] MEDS: PREGABALIN 150 MG CAP PO SCH ×2 (15:07→21:20)
--- NOTE | 2018-12-04 18:50 | OP ---
Surgeon: Guero Parra MD Procedures: Left heart catheterization, coronary left ventricular angiography. There was no interve ntion. Procedure Findings: The patient has diffuse CAD. He has patent stents in the circumflex and LAD. C ircumflex, right coronary, obtuse marginal branches are all free of any significant disease. He has significant stenoses in several diagonal branches of the LAD. One arises from the stent itself, one is just before. Neither one is amenable to stenting because of the very small diameter. The more pr oximal one has a 1.5 mm diameter that has a 90% stenosis. It is probably the cause of his chest pain and non-ST elevation NH, and the recommendation is for medical therapy. Procedure In Detail: The patient was brought to the cardiac helper animal laboratory in a fasting state, sedated wit h Versed and fentanyl. Prepared and draped in usual sterile fashion. Right radial approach was used . Right radial artery tissues were anesthetized with 1% lidocaine. The artery was entered using a 2 1-gauge needle, cannulated with a 0.021 inch diameter guidewire, and then a [employer] radial sheath was placed. It was flushed and a radial cocktail was given consisting of nicardipine, heparin, nitroglyc cristino. We used a TIG catheter by [employer], advanced it into the ascending aorta using fluoroscopy and a [employer] Glidewire. We were able to angiogram left ventricle, right coronary, left coronary, all with the same catheter. Once the decision was made not to do an intervention, the catheter was withdrawn over a wire. The sheath removed. Arteriotomy closed using a large TR band. Complications from the procedure, none. Estimated Blood Loss: 5 cc. Clinical Medical Assistant: Ruben Block. ASHLY/JASON Voice ID: [id number] Report ID: [id number]
[2018-12-04] MEDS: TRAMADOL HCL 50 MG TAB PO PRN (21:20)
[2018-12-05 04:25] LABS: Absolute Lymphocytes (CBC) 2.9 K/uL (0.7-4.9); Absolute Monocytes 0.8 K/uL (0.1-1.3); Absolute Neutrophil 6.1 K/uL (1.8-8.0); Basophils % 0.7 % (0-1.3); Eosinophils % 3.7 % (0-4.4); Lymphocytes % 28.1 % (15.3-44.8); MPV 11.1 fL (7.6-11.3); Monocytes % 8.1 % (3.3-12.3); RBC Red Blood Cell Count 3.87 M/uL (4.33-5.43)
[2018-12-05 04:30] LABS: Magnesium 2.4 mg/dL (1.8-2.4); Potassium 4.2 mmol/L (3.5-5.1)
[2018-12-05] MEDS: INSULIN -REGULAR HUMAN 50 UNIT/0.5 ML ML SQ SCH ×4 (07:30→20:15)
[2018-12-05] MEDS: TRAMADOL HCL 50 MG TAB PO PRN ×3 (08:07→21:07)
[2018-12-05] MEDS: ROSUVASTATIN 10 MG TAB PO SCH (08:08)
[2018-12-05] MEDS: PREGABALIN 150 MG CAP PO SCH ×2 (08:08→20:15)
[2018-12-05] MEDS: ASPIRIN EC 325 MG TABLET PO SCH (08:08)
[2018-12-05] MEDS: FUROSEMIDE 20 MG/ 2ML VIAL IV SCH (08:08)
[2018-12-05] MEDS: CYANOCOBALAMIN 1,000 MCG TAB PO SCH (08:08)
[2018-12-05] MEDS: CARVEDILOL 25 MG TAB PO SCH ×2 (08:08→20:15)
[2018-12-05] MEDS: HYDRALAZINE HCL 25 MG TABLET PO SCH ×2 (08:08→20:14)
[2018-12-05] MEDS: CLOPIDOGREL 75 MG TABLET PO SCH (08:08)
--- NOTE | 2018-12-05 10:29 | RAD REPORT ---
EXAM DESCRIPTION: RAD - Spine Lumbar W obliques - 12/05/2018 10:21 am CLINICAL HISTORY: Back pain, radiculopathy, difficulty standing upright COMPARISON: Lumbar spine July 2003 FINDINGS: A five-view lumbar spine examination was performed. Lumbar bodies are normal in height. Ap proximately 5 mm anterior subluxation L4 on L5 noted. There are substantial degenerative changes at t he L4-5 facet joints. L4-5 disc space is fractionally narrowed. These are progressive findings over t he long interval from 2002. Degenerative gas is present in the thinned L5-S1 disc space. Endplate spu rring and sclerosis at this level noted. These findings are only minimally progressive. Significant s purring and sclerotic changes involve L2-3 new from 2012. No compression fracture. No lytic, scleroti c or expansile destructive process. No pars defects confirmed. Significant aortic atherosclerotic calcifications have developed. IMPRESSION: No compression fracture. No acute or destructive bone process identified. Significant degenerative change L4-5 with disc space narrowing and L4 subluxation. Patient may well h ave spinal stenosis at L4-5 and L5-S1. Significant common new degenerative change involving disc and endplates at L2-3. MR imaging may be helpful to better evaluate central canal and disc spaces at L2-3, L4-5 and L5-S1.
--- NOTE | 2018-12-05 10:35 | RAD REPORT ---
EXAM DESCRIPTION: RAD - Thoracic Spine Ap/Lat - 12/05/2018 10:23 am CLINICAL HISTORY: Back pain Radiculopathy COMPARISON: No comparisons FINDINGS: The thoracic spine vertebral body heights and disc spaces are largely maintained. No acute compression fracture. No significant malalignment. Prominent bridging anterior osteophytes present t hroughout the thoracic spine. IMPRESSION: Mild thoracic spondylosis is present with anterior bridging osteophytosis noted. No comp ression fracture seen.
--- NOTE | 2018-12-05 14:09 | P.DS ---
Admission Date: 12/03/18 Discharge Date: 12/05/18 Primary Care Provider: Dr. Rivera Disposition: DC HOME/HOME HEALTH CARE Discharge Condition: GOOD Reason for Admission: chest pain, hyperkalemia Consultations: Cardiology-Dr. Parra Procedures: Heart Cath: Surgeon: Guero Parra MD Procedures: Left heart catheterization, coronary left ventricular angiography. There was no intervention. Procedure Findings: The patient has diffuse CAD. He has patent stents in the circumflex and LAD. Circumflex, right coronary, obtuse marginal branches are all free of any significant disease. He has significant stenoses in several diagonal branches of the LAD. One arises from the stent itself, one is just before. Neither one is amenable to stenting because of the very small diameter. The more proximal one has a 1.5 mm diameter that has a 90% stenosis. It is probably the cause of his chest pain and non-ST elevation NV, and the recommendation is for medical therapy. catheter was withdrawn over a wire. The sheath removed. Arteriotomy closed using a large TR band. Complications from the procedure, none. Estimated Blood Loss: 5 cc. T-spine x-ray: FINDINGS: The thoracic spine vertebral body heights and disc spaces are largely maintained. No acute compression fracture. No significant malalignment. Prominent bridging anterior osteophytes present throughout the thoracic spine. IMPRESSION: Mild thoracic spondylosis is present with anterior bridging osteophytosis noted. No compression fracture seen. L-spine x-ray: FINDINGS: A five-view lumbar spine examination was performed. Lumbar bodies are normal in height. Approximately 5 mm anterior subluxation L4 on L5 noted. There are substantial degenerative changes at the L4-5 facet joints. L4-5 disc space is fractionally narrowed. These are progressive findings over the long interval from 2002. Degenerative gas is present in the thinned L5-S1 disc space. Endplate spurring and sclerosis at this level noted. These findings are only minimally progressive. Significant spurring and sclerotic changes involve L2-3 new from 2012. No compression fracture. No lytic, sclerotic or expansile destructive process. No pars defects confirmed. Significant aortic atherosclerotic calcifications have developed. IMPRESSION: No compression fracture. No acute or destructive bone process identified. Significant degenerative change L4-5 with disc space narrowing and L4 subluxation. Patient may well have spinal stenosis at L4-5 and L5-S1. Significant common new degenerative change involving disc and endplates at L2-3. Medical Problem List: Chest pain secondary to NSTEMI with history of CAD and chronic systolic CHF status post heart catheterization showing diffuse CAD, patent stents in the circumflex and LAD, circumflex, Right Coronary, obtuse marginal branches all free of any significant disease, and significant stenosis in several diagonal branches of the LAD that were not amenable to stenting because of the very small diameter. Hyperkalemia likely related to Arb inhibitor Hypertension Diabetes mellitus type 2 Hyperlipidemia Back pain with noted x-ray showing significant degenerative changes to the L- spine with spinal stenosis Obesity, BMI 39.3 Chronic renal disease, stage II Brief History of Present Illness: 73 yo HM presented to the ER with chest pain. He was admitted for further evaluation. Hospital Course: Patient presented with chest pain and shortness of breath secondary to NSTEMI. Patient with history of CAD and chronic systolic CHF. Patient had mild pulmonary edema secondary to CHF. Patient was diuresed. Patient seen and evaluated by Cardiology. Heart catheterization was recommended. Patient had heart catheterization showing diffuse CAD. Patent stents in the circumflex, LAD , right Coronary and obtuse marginal branches all free of any significant disease. Significant stenosis in several diagonal branches of the LAD were not amenable to stenting because of very small diameter. Cardiology recommends medical treatment at this time. At discharge patient will continue with aspirin 325 mg 1 pill daily and Plavix 75 mg daily. Patient will continue with his other medications including carvedilol 25 mg 1 pill twice daily, hydralazine 25 mg 1 pill twice daily, and Crestor 40 mg daily. Recommend to follow up with cardiology in 1-2 weeks to follow this hospitalization. Patient with chronic systolic CHF. Patient had mild pulmonary edema. Patient was diuresed. Medication adjusted. At discharge patient will continue with Lasix 40 mg 1 pill twice daily. Patient will need to monitor his weight daily. If his weight increases by more than 5 lb he is to contact his PCP for further recommendation. Further adjustment in medication may be required if his weight can be better managed. Patient had hyperkalemia likely related to Arb inhibitor. During the course of his stay patient was given medication to help reduce his potassium. This improved. Patient was also taken off his losartan. At discharge he will no longer use valsartan. Patient with hypertension. Medications adjusted during his stay. At discharge valsartan has been discontinued. Patient will continue with carvedilol 25 mg 1 pill twice daily and hydralazine 25 mg 1 pill twice daily. Recommend to maintain blood pressures less 150/80. Further adjustment can be done by his PCP. Patient with diabetes mellitus type 2. At discharge patient will continue with metformin 1000 mg 1 pill twice daily. Recommend to maintain blood sugars less 140 fasting and less than 200 after meals. Further adjustment can be done by his PCP. Patient with hyperlipidemia. Due to his CAD, Crestor has been increased to 40 mg daily. Patient will continue with Crestor 40 mg daily at discharge. Patient with diabetic neuropathy. Patient will continue with Lyrica 150 mg 1 pill twice daily and tramadol 50 mg 1 pill 3 times a day. X-rays of the lower spine showed spinal stenosis to the lumbar spine. Recommendation is for the patient to establish care with pain management to further evaluate. Patient may require neuro surgery evaluation in the future if pain persists. No heavy lifting, pushing or pulling is recommended at this time. Patient will have to limit his activities. Patient with chronic renal disease, stage II. Recommend no further use of nonsteroidal anti-inflammatories. Future medications 1 to be renally dosed. Recommend to recheck BMP in 1-2 weeks to monitor his progress. Further adjustment and possible discontinuation of metformin may need to be considered in the future if his renal function declines. Recommend to establish care with nephrology as an outpatient to further monitor. Vital Signs/Physical Exam: Temp Pulse Resp BP Pulse Ox 97.8 F 79 18 132/61 97 12/05/18 12:00 12/05/18 12:00 12/05/18 12:00 12/05/18 12:00 12/05/18 12:00 General: Alert, In no apparent distress, Oriented x3, Cooperative HEENT: Atraumatic, Normocephalic Neck: Supple Respiratory: Clear to auscultation bilaterally, Normal air movement Cardiovascular: Normal pulses, Regular rate/rhythm Gastrointestinal: Normal bowel sounds, Soft and benign, Non-distended, No tenderness, No masses, No rebound, No guarding Musculoskeletal: No erythema, No tenderness, No warmth Integumentary: No tenderness/swelling, No erythema, No warmth, No cyanosis Neurological: Normal speech, Normal strength at 5/5 x4 extr, Normal tone, Normal affect Laboratory Data at Discharge: WBC 10.2 K/uL (4.3-10.9) 12/05/18 03:44 Hgb 11.8 g/dL (13.6-17.9) L 12/05/18 03:44 Hct 36.0 % (39.6-49.0) L 12/05/18 03:44 Plt Count 140 K/uL (152-406) L 12/05/18 03:44 PT 12.3 SECONDS (9.5-12.5) 12/03/18 02:10 INR 1.04 12/03/18 02:10 Sodium 141 mmol/L (136-145) 12/05/18 03:44 Potassium 4.2 mmol/L (3.5-5.1) 12/05/18 03:44 BUN 29 mg/dL (7-18) H 12/05/18 03:44 Creatinine 1.14 mg/dL (0.55-1.3) 12/05/18 03:44 Glucose 200 mg/dL (74-106) H 12/05/18 03:44 Magnesium 2.4 mg/dL (1.8-2.4) 12/05/18 03:44 Total Bilirubin 0.2 mg/dL (0.2-1.0) 12/03/18 02:10 AST 13 U/L (15-37) L 12/03/18 02:10 ALT 21 U/L (12-78) 12/03/18 02:10 Alkaline Phosphatase 116 U/L (45-117) 12/03/18 02:10 Troponin I 1.86 ng/mL (0.0-0.045) H* 12/03/18 17:45 Home Medications: Aspirin [Aspirin EC 325 MG] 1 tab PO DAILY 12/27/17 Carvedilol 1 tab PO BID 12/27/17 Clopidogrel Bisulfate [Plavix*] 1 tab PO DAILY 12/27/17 Cyanocobalamin [Vitamin B-12*] 1 tab PO DAILY 12/27/17 Hydralazine [Apresoline*] 1 tab PO BID 12/27/17 Lubiprostone [Amitiza*] 1 cap PO BID 12/27/17 Metformin HCl 1 tab PO BID 12/27/17 Pregabalin [Lyrica] 1 cap PO TID 12/27/17 Furosemide [Lasix] 40 mg PO BIDL #60 tab 12/05/18 Rosuvastatin Calcium [Crestor] 40 mg PO DAILY #30 tablet 12/05/18 traMADol HCL [Ultram*] 1 tab PO TID PRN #15 tab 12/05/18 New Medications: Furosemide [Lasix] 40 mg PO BIDL #60 tab Rosuvastatin Calcium [Crestor] 40 mg PO DAILY #30 tablet traMADol HCL [Ultram*] 1 tab PO TID PRN #15 tab PRN Reason: Pain Scale 2-4 (Mild) Patient Discharge Instructions: 1. Patient will follow up with his PCP in 1 week to follow up this hospitalization. Home health and physical therapy will be arranged prior to discharge. 2. Patient presented with chest pain and shortness of breath secondary to NSTEMI. Patient with history of CAD and chronic systolic CHF. Patient had mild pulmonary edema secondary to CHF. Patient was diuresed. Patient seen and evaluated by Cardiology. Heart catheterization was recommended. Patient had heart catheterization showing diffuse CAD. Patent stents in the circumflex, LAD, right Coronary and obtuse marginal branches all free of any significant disease. Significant stenosis in several diagonal branches of the LAD were not amenable to stenting because of very small diameter. Cardiology recommends medical treatment at this time. At discharge patient will continue with aspirin 325 mg 1 pill daily and Plavix 75 mg daily. Patient will continue with his other medications including carvedilol 25 mg 1 pill twice daily, hydralazine 25 mg 1 pill twice daily, and Crestor 40 mg daily. Recommend to follow up with cardiology in 1-2 weeks to follow this hospitalization. 3. Patient with chronic systolic CHF. Patient had mild pulmonary edema. Patient was diuresed. Medication adjusted. At discharge patient will continue with Lasix 40 mg 1 pill twice daily. Patient will need to monitor his weight daily. If his weight increases by more than 5 lb he is to contact his PCP for further recommendation. Further adjustment in medication may be required if his weight can be better managed. 4. Patient had hyperkalemia likely related to Arb inhibitor. During the course of his stay patient was given medication to help reduce his potassium. This improved. Patient was also taken off his losartan. At discharge he will no longer use valsartan. 5. Patient with hypertension. Medications adjusted during his stay. At discharge valsartan has been discontinued. Patient will continue with carvedilol 25 mg 1 pill twice daily and hydralazine 25 mg 1 pill twice daily. Recommend to maintain blood pressures less 150/80. Further adjustment can be done by his PCP. 6. Patient with diabetes mellitus type 2. At discharge patient will continue with metformin 1000 mg 1 pill twice daily. Recommend to maintain blood sugars less 140 fasting and less than 200 after meals. Further adjustment can be done by his PCP. 7. Patient with hyperlipidemia. Due to his CAD, Crestor has been increased to 40 mg daily. Patient will continue with Crestor 40 mg daily at discharge. 8. Patient with diabetic neuropathy. Patient will continue with Lyrica 150 mg 1 pill twice daily and tramadol 50 mg 1 pill 3 times a day. X-rays of the lower spine showed spinal stenosis to the lumbar spine. Recommendation is for the patient to establish care with pain management to further evaluate. Patient may require neuro surgery evaluation in the future if pain persists. No heavy lifting, pushing or pulling is recommended at this time. Patient will have to limit his activities. 9. Patient with chronic renal disease, stage II. Recommend no further use of nonsteroidal anti-inflammatories. Future medications 1 to be renally dosed. Recommend to recheck BMP in 1-2 weeks to monitor his progress. Further adjustment and possible discontinuation of metformin may need to be considered in the future if his renal function declines. Recommend to establish care with nephrology as an outpatient to further monitor. Diet: ADA Activity: No lifting more than 10 lbs Time spent managing pt's care (in minutes): 55
--- NOTE | 2018-12-05 14:18 | PN ---
Date of Progress Note: 12/05/2018 Subjective: Mr. Vaughn came in on 12/03/2018 with subendocardial UT. Catheterization on 12/04/2018, showed moderate coronary artery disease, diffuse plaquing mostly in the diagonal and OM, which is exa ctly what we found approximately [address] Parra decided on medical therapy. Overnight, no access issue. No telemetry issues. Objective: Vital Signs: Improving. No chest pain. Primary care physician still working on his glucose. From our standpoint, he can go home. He should obviously be on aspirin, statin and a beta-danielle as far as his heart disease is concerned and we w ill see him in the office in next 2 weeks. KANWAL/JASON Voice ID: [id number] Report ID: [id number]
[2018-12-05] MEDS ORDERED: GLUCAGON 1 MG/VIAL IM PRN (16:15)
[2018-12-05] MEDS ORDERED: D50W 25 GM/50 ML SYRINGE IV PRN (16:15)
[2018-12-05] MEDS ORDERED: ENOXAPARIN 40 MG/0.4 ML SQ SCH (17:00)
[2018-12-05] MEDS: FUROSEMIDE 40 MG TABLET PO SCH (17:21)
[2018-12-05] MEDS: HYDROCODONE/APAP 7.5/325 MG TAB PO PRN (17:21)
[2018-12-06 06:36] LABS: Absolute Lymphocytes (CBC) 2.9 K/uL (0.7-4.9); Absolute Monocytes 0.9 K/uL (0.1-1.3); Absolute Neutrophil 5.2 K/uL (1.8-8.0); Basophils % 0.8 % (0-1.3); Eosinophils % 4.5 % (0-4.4); Hematocrit 35.6 % (39.6-49.0); Lymphocytes % 30.7 % (15.3-44.8); MPV 11.2 fL (7.6-11.3); Monocytes % 9.5 % (3.3-12.3); RBC Red Blood Cell Count 3.83 M/uL (4.33-5.43)
[2018-12-06 06:51] LABS: Magnesium 2.4 mg/dL (1.8-2.4); Potassium 4.2 mmol/L (3.5-5.1)
[2018-12-06] MEDS: PREGABALIN 150 MG CAP PO SCH (08:18)
[2018-12-06] MEDS: CLOPIDOGREL 75 MG TABLET PO SCH (08:19)
[2018-12-06] MEDS: CARVEDILOL 25 MG TAB PO SCH (08:19)
[2018-12-06] MEDS: ROSUVASTATIN 10 MG TAB PO SCH (08:19)
[2018-12-06] MEDS: FUROSEMIDE 40 MG TABLET PO SCH (08:19)
[2018-12-06] MEDS: ASPIRIN EC 325 MG TABLET PO SCH (08:20)
[2018-12-06] MEDS: HYDRALAZINE HCL 25 MG TABLET PO SCH (08:20)
[2018-12-06] MEDS: INSULIN -REGULAR HUMAN 50 UNIT/0.5 ML ML SQ SCH ×2 (08:20→12:17)
[2018-12-06] MEDS: CYANOCOBALAMIN 1,000 MCG TAB PO SCH (08:20)
[2018-12-06 11:58] VITALS: O2SAT 95
[2018-12-06] MEDS: HYDROCODONE/APAP 7.5/325 MG TAB PO PRN (12:16)
[2018-12-06 13:14] VITALS: BP 156/70; TEMP 97.3
== END 2018-12-06 13:32 | DRG 281 ==
LOC: ER 02:02 → ERHOLD 04:09 → 4TH 11:22 → OBSVTOIN 14:39
PROVIDERS: ADMIT Internal Medicine; ATTEND Family Medicine
PROC: 4A023N7 Measurement of Cardiac Sampling and Pressure, Left Heart, Percutaneous Approach (ICD-10-PCS; principal; 2018-12-04)
PROC: B211YZZ Fluoroscopy of Multiple Coronary Arteries using Other Contrast (ICD-10-PCS; 2018-12-04)
PROC: B215YZZ Fluoroscopy of Left Heart using Other Contrast (ICD-10-PCS; 2018-12-04)
DX: I21.4 Non-ST elevation (NSTEMI) myocardial infarction (principal); I13.0 Hypertensive heart and chronic kidney disease with heart failure and stage 1 through stage 4 chronic kidney disease, or unspecified chronic kidney disease; I50.22 Chronic systolic (congestive) heart failure; Z95.5 Presence of coronary angioplasty implant and graft; N18.2 Chronic kidney disease, stage 2 (mild); E11.22 Type 2 diabetes mellitus with diabetic chronic kidney disease; E87.5 Hyperkalemia; E78.5 Hyperlipidemia, unspecified; M48.061 Spinal stenosis, lumbar region without neurogenic claudication; Z68.39 Body mass index [BMI] 39.0-39.9, adult; Z79.84 Long term (current) use of oral hypoglycemic drugs; Z79.02 Long term (current) use of antithrombotics/antiplatelets; Z79.82 Long term (current) use of aspirin; E11.40 Type 2 diabetes mellitus with diabetic neuropathy, unspecified; Z86.73 Personal history of transient ischemic attack (TIA), and cerebral infarction without residual deficits; I25.118 Atherosclerotic heart disease of native coronary artery with other forms of angina pectoris; Z87.891 Personal history of nicotine dependence; E11.65 Type 2 diabetes mellitus with hyperglycemia; E66.01 Morbid (severe) obesity due to excess calories
CPT/HCPCS: 36415; 71045; 72070; 72110; 80048; 80076; 80162; 81003; 82962; 83735; 83880; 84132; 84484; 85025; 85610; 87804; 93005; 93458; 94760; 96374; 99285; C1893; G0378; J0583; J1644; J1650; J1940; J2250; J3010; J7030

== ENCOUNTER 2018-12-31 15:19 | Emergency (ER) | payer OTHER ==
[2018-12-31] MEDS ORDERED: NA CHLORIDE 0.9% 1,000 ML ONE (16:02)
[2018-12-31 16:38] LABS: Absolute Lymphocytes (CBC) 1.9 K/uL (0.7-4.9); Absolute Monocytes 0.8 K/uL (0.1-1.3); Absolute Neutrophil 5.3 K/uL (1.8-8.0); Basophils % 0.8 % (0-1.3); Eosinophils % 4.8 % (0-4.4); Hematocrit 40.7 % (39.6-49.0); Lymphocytes % 22.3 % (15.3-44.8); MPV 11.9 fL (7.6-11.3); RBC Red Blood Cell Count 4.33 M/uL (4.33-5.43)
[2018-12-31 17:11] LABS: Albumin 3.8 g/dL (3.4-5.0); Bilirubin Total 0.4 mg/dL (0.2-1.0); Potassium 4.7 mmol/L (3.5-5.1); Protein, Total 7.5 g/dL (6.4-8.2)
[2018-12-31] MEDS ORDERED: INSULIN -REGULAR HUMAN 50 UNIT/0.5 ML ML ONE (18:44)
[2018-12-31 18:46] LABS: Urine Blood NEGATIVE (NEG); Urine Glucose 2+ (NEG); Urine Protein NEGATIVE (NEG); Urine pH 6.5 (5.0-7.0)
--- NOTE | 2018-12-31 19:19 | EDPHYS ---
Physician Documentation [facility] Name: Tyrone Vaughn Age: 73 yrs Sex: Male : 1945 Arrival Date: 12/31/2018 Time: 15:23 Bed 7 Private MD: ED Physician Brian Erickson HPI: 12/31 16:00 This 73 yrs old Male presents to ER via EMS with complaints of High Blood pm1 Sugar. 16:00 blood sugars above 500 for the past 4 days. Onset: The symptoms/episode began/occurred pm1 4 day(s) ago. Severity of symptoms: in the emergency department the symptoms are unchanged. The patient has not experienced similar symptoms in the past. The patient has been recently seen by a physician: the patient's primary care provider, for apparently unrelated complaints, Had some of his medications discontinued which included metformin. Historical: - Allergies: 18:48 No Known Allergies; sg - Home Meds: 18:48 Amitiza 24 mcg Oral cap 1 cap 2 times per day [Active]; basaglar 80 unit daily sg [Active]; carvedilol 25 mg Oral tab 1 tab 2 times per day [Active]; clopidogrel 75 mg Oral tab 1 tab once daily [Active]; digoxin 250 mcg Oral tab 1 tab once daily [Active]; Farxiga 5 mg Oral tab 1 tab once daily [Active]; furosemide 20 mg Oral tab 1 tab once daily [Active]; hydralazine 25 mg Oral tab 1 tab 2 times per day [Active]; Lyrica 75 mg Oral 1 cap 3 times per day [Active]; metformin 1,000 mg Oral tab 1 tab 2 times per day [Active]; rosuvastatin 10 mg Oral tab 1 tab once daily [Active]; tramadol 50 mg Oral tab 1 tab three times a day [Active]; valsartan 160 mg Oral tab 1 tab once daily [Active]; Vitamin B-12 1,000 mcg Oral TbER daily [Active]; - PMHx: 15:30 Anxiety; Atrial Fib; CAD; CHF; Diabetes - IDDM; heart problem; High Cholesterol; sg Hypertension; Myocardial infarction; neuropathy; Sleep Apnea; - Immunization history:: Adult Immunizations up to date. - Social history:: Smoking status: Patient/guardian denies using tobacco. - Ebola Screening: : Patient negative for fever greater than or equal to 101.5 degrees Fahrenheit, and additional compatible Ebola Virus Disease symptoms Patient denies exposure to infectious person Patient denies travel to an Ebola-affected area in the 21 days before illness onset No symptoms or risks identified at this time. ROS: 16:00 Constitutional: Negative for fever, chills, and weight loss, Eyes: Negative for injury, pm1 pain, redness, and discharge, ENT: Negative for injury, pain, and discharge, Neck: Negative for injury, pain, and swelling, Cardiovascular: Negative for chest pain, palpitations, and edema, Respiratory: Negative for shortness of breath, cough, wheezing, and pleuritic chest pain, Abdomen/GI: Negative for abdominal pain, nausea, vomiting, diarrhea, and constipation, Back: Negative for injury and pain, : Negative for injury, bleeding, discharge, and swelling, MS/Extremity: Negative for injury and deformity, Skin: Negative for injury, rash, and discoloration, Neuro: Negative for headache, weakness, numbness, tingling, and seizure. Exam: 16:00 Constitutional: This is a well developed, well nourished patient who is awake, alert, pm1 and in no acute distress. Head/Face: Normocephalic, atraumatic. Eyes: Pupils equal round and reactive to light, extra-ocular motions intact. Lids and lashes normal. Conjunctiva and sclera are non-icteric and not injected. Cornea within normal limits. Periorbital areas with no swelling, redness, or edema. ENT: Nares patent. No nasal discharge, no septal abnormalities noted. Tympanic membranes are normal and external auditory canals are clear. Oropharynx with no redness, swelling, or masses, exudates, or evidence of obstruction, uvula midline. Mucous membranes moist. Neck: Trachea midline, no thyromegaly or masses palpated, and no cervical lymphadenopathy. Supple, full range of motion without nuchal rigidity, or vertebral point tenderness. No Meningismus. Chest/axilla: Normal chest wall appearance and motion. Nontender with no deformity. No lesions are appreciated. Cardiovascular: Regular rate and rhythm with a normal S1 and S2. No gallops, murmurs, or rubs. Normal PMI, no JVD. No pulse deficits. Respiratory: Lungs have equal breath sounds bilaterally, clear to auscultation and percussion. No rales, rhonchi or wheezes noted. No increased work of breathing, no retractions or nasal flaring. Abdomen/GI: Soft, non-tender, with normal bowel sounds. No distension or tympany. No guarding or rebound. No evidence of tenderness throughout. Back: No spinal tenderness. No costovertebral tenderness. Full range of motion. Skin: Warm, dry with normal turgor. Normal color with no rashes, no lesions, and no evidence of cellulitis. MS/ Extremity: Pulses equal, no cyanosis. Neurovascular intact. Full, normal range of motion. 16:00 Neuro: Orientation: is normal, Motor: is normal, moves all fours, Sensation: is normal, no obvious gross deficits. Vital Signs: 15:28 BP 165 / 77; Pulse 93; Resp 17; Temp 97.6; Pulse Ox 96% on R/A; sg 16:45 BP 170 / 70; Pulse 82; Resp 17; Pulse Ox 97% on R/A; Pain 0/10; sg 17:45 BP 162 / 66; Pulse 80; Resp 18; Pulse Ox 97% on R/A; sg 18:40 BP 142 / 70; Pulse 87; Resp 16; Pulse Ox 98% on R/A; Pain 0/10; sg 19:09 BP 140 / 82; Pulse 91; Resp 17 S; Pulse Ox 96% on R/A; jd3 19:15 Temp 98.3(O); rr5 MDM: 15:42 Patient medically screened. nicole 19:17 Data reviewed: vital signs. Data interpreted: Pulse oximetry: on room air is 96 %. pm1 Interpretation: normal. Counseling: I had a detailed discussion with the patient and/or guardian regarding: the historical points, exam findings, and any diagnostic results supporting the discharge/admit diagnosis, lab results, the need for outpatient follow up, to return to the emergency department if symptoms worsen or persist or if there are any questions or concerns that arise at home. 12/31 15:32 Order name: Glucose, Ancillary Testing; Complete Time: 17:05 EDMS 12/31 15:48 Order name: CBC with Diff; Complete Time: 17:05 pm1 12/31 15:48 Order name: CMP; Complete Time: 17:30 pm1 12/31 17:00 Order name: Urine Dipstick--Ancillary (enter results); Complete Time: 19:06 bd 12/31 15:48 Order name: IV Saline Lock; Complete Time: 16:32 pm1 12/31 15:48 Order name: Urine Dipstick-Ancillary (obtain specimen); Complete Time: 16:44 pm1 12/31 19:07 Order name: Finger Stick; Complete Time: 19:13 pm1 Administered Medications: 16:10 Drug: NS 0.9% 1000 ml Route: IV; Rate: 1000 ml; Site: right wrist; sg 19:26 Follow up: Response: No adverse reaction; IV Status: Completed infusion jd3 18:32 Drug: Insulin Regular Human 10 units {Co-Signature: iw (Cintia Martin RN).} Route: sg IVP; Site: right wrist; 19:26 Follow up: Response: No adverse reaction jd3 Point of Care Testing: Blood Glucose: 15:28 Blood Glucose: 476 mg/dL; sg 15:29 Blood Glucose: 476 mg/dL; em1 19:13 Blood Glucose: 174 mg/dL; jd3 Ranges: Critical Glucose Levels:Adult <50 mg/dl or >400 mg/dl <40 mg/dl or >180 mg/dl Disposition: 01/01 06:44 Co-signature as Attending Physician, Brian Erickson MD I agree with the assessment and nicole plan of care. Disposition: 12/31/18 19:18 Discharged to Home. Impression: Hyperglycemia, unspecified. - Condition is Stable. - Discharge Instructions: Hyperglycemia, Blood Glucose Monitoring, Adult. - Medication Reconciliation Form, Thank You Letter, Antibiotic Education, Prescription Opioid Use form. - Follow up: Emergency Department; When: As needed; Reason: Worsening of condition. Follow up: Private Physician; When: 2 - 3 days; Reason: Recheck today's complaints, Continuance of care, Re-evaluation by your physician. - Problem is new. - Symptoms have improved. Signatures: Dispatcher [employer] EDLloyd Smith, RN Brian Underwood MD MD cha Marinas, Patrick, HADOOP DEVELOPER HADOOP DEVELOPER pm1 Wilver Willson RN RN jd3 Irene Williams RN iw Corrections: (The following items were deleted from the chart) 12/31 19:27 19:18 12/31/2018 19:18 Discharged to Home. Impression: Hyperglycemia, unspecified. jd3 Condition is Stable. Forms are Medication Reconciliation Form, Thank You Letter, Antibiotic Education, Prescription Opioid Use. Follow up: Emergency Department; When: As needed; Reason: Worsening of condition. Follow up: Private Physician; When: 2 - 3 days; Reason: Recheck today's complaints, Continuance of care, Re-evaluation by your physician. Problem is new. Symptoms have improved. pm1
--- NOTE | 2018-12-31 19:19 | ER ---
Nurse's Notes [facility] Name: Tyrone Vaughn Age: 73 yrs Sex: Male : 1945 Arrival Date: 12/31/2018 Time: 15:23 Bed 7 Private MD: Diagnosis: Hyperglycemia, unspecified Presentation: 12/31 15:26 Presenting complaint: EMS states: Has felt weak today and has had high blood sugars sg reading in the 500's for several days, denies N/V/D/Fever, reports having changes in his medications recently. Transition of care: patient was not received from another setting of care. Onset of symptoms was December 31, 2018. Risk Assessment: Do you want to hurt yourself or someone else? Patient reports no desire to harm self or others. Initial Sepsis Screen: Does the patient meet any 2 criteria? No. Patient's initial sepsis screen is negative. Does the patient have a suspected source of infection? No. Patient's initial sepsis screen is negative. Care prior to arrival: Glucose check: 525. 15:26 Method Of Arrival: EMS: [facility] sg 15:26 Acuity: [facility] 3 sg Historical: - Allergies: 18:48 No Known Allergies; sg - Home Meds: 18:48 Amitiza 24 mcg Oral cap 1 cap 2 times per day [Active]; basaglar 80 unit daily sg [Active]; carvedilol 25 mg Oral tab 1 tab 2 times per day [Active]; clopidogrel 75 mg Oral tab 1 tab once daily [Active]; digoxin 250 mcg Oral tab 1 tab once daily [Active]; Farxiga 5 mg Oral tab 1 tab once daily [Active]; furosemide 20 mg Oral tab 1 tab once daily [Active]; hydralazine 25 mg Oral tab 1 tab 2 times per day [Active]; Lyrica 75 mg Oral 1 cap 3 times per day [Active]; metformin 1,000 mg Oral tab 1 tab 2 times per day [Active]; rosuvastatin 10 mg Oral tab 1 tab once daily [Active]; tramadol 50 mg Oral tab 1 tab three times a day [Active]; valsartan 160 mg Oral tab 1 tab once daily [Active]; Vitamin B-12 1,000 mcg Oral TbER daily [Active]; - PMHx: 15:30 Anxiety; Atrial Fib; CAD; CHF; Diabetes - IDDM; heart problem; High Cholesterol; sg Hypertension; Myocardial infarction; neuropathy; Sleep Apnea; - Immunization history:: Adult Immunizations up to date. - Social history:: Smoking status: Patient/guardian denies using tobacco. - Ebola Screening: : Patient negative for fever greater than or equal to 101.5 degrees Fahrenheit, and additional compatible Ebola Virus Disease symptoms Patient denies exposure to infectious person Patient denies travel to an Ebola-affected area in the 21 days before illness onset No symptoms or risks identified at this time. Screenin:46 Abuse screen: Denies threats or abuse. Denies injuries from another. Nutritional sg screening: No deficits noted. Tuberculosis screening: No symptoms or risk factors identified. Never had TB. Fall Risk None identified. Assessment: 15:46 General: Appears in no apparent distress. comfortable, well groomed, well developed, sg well nourished, Behavior is calm, cooperative, appropriate for age. Pain: Denies pain. Neuro: Level of Consciousness is awake, alert, obeys commands, Oriented to person, place, time, situation, Alignment Specialist are equal bilaterally Moves all extremities. Gait is steady, Speech is normal, Facial symmetry appears normal, Pupils are PERRLA. Cardiovascular: Capillary refill is brisk in bilateral fingers Patient's skin is warm and dry. Chest pain is denied. Respiratory: Airway is patent Respiratory effort is even, unlabored, Respiratory pattern is regular, symmetrical. GI: Abdomen is round non-distended, Bowel sounds present X 4 quads. Reports normal bowel habits, tolerance of fluids, tolerance of food. : No signs and/or symptoms were reported regarding the genitourinary system. EENT: No signs and/or symptoms were reported regarding the EENT system. Derm: Skin is normal, Skin temperature is warm. Musculoskeletal: No signs and/or symptoms reported regarding the musculoskeletal system. 16:45 Reassessment: Patient appears in no apparent distress at this time. Patient and/or sg family updated on plan of care and expected duration. Pain level reassessed. Patient is alert, oriented x 3, equal unlabored respirations, skin warm/dry/pink. Patient denies pain at this time. 17:40 Reassessment: Patient appears in no apparent distress at this time. Patient and/or sg family updated on plan of care and expected duration. Pain level reassessed. Patient is alert, oriented x 3, equal unlabored respirations, skin warm/dry/pink. 18:50 Reassessment: Patient appears in no apparent distress at this time. Patient and/or sg family updated on plan of care and expected duration. Pain level reassessed. Patient is alert, oriented x 3, equal unlabored respirations, skin warm/dry/pink. 19:06 Reassessment: Patient appears in no apparent distress at this time. Patient and/or jd3 family updated on plan of care and expected duration. Pain level reassessed. Patient is alert, oriented x 3, equal unlabored respirations, skin warm/dry/pink. Patient denies pain at this time. General: Appears in no apparent distress. comfortable, Behavior is calm, cooperative, appropriate for age. Neuro: Level of Consciousness is awake, alert, obeys commands, Oriented to person, place, time, situation, Appropriate for age. Cardiovascular: Capillary refill Patient's skin is warm and dry. Respiratory: Airway is patent Respiratory effort is even, unlabored, Respiratory pattern is regular, symmetrical. Vital Signs: 15:28 BP 165 / 77; Pulse 93; Resp 17; Temp 97.6; Pulse Ox 96% on R/A; sg 16:45 BP 170 / 70; Pulse 82; Resp 17; Pulse Ox 97% on R/A; Pain 0/10; sg 17:45 BP 162 / 66; Pulse 80; Resp 18; Pulse Ox 97% on R/A; sg 18:40 BP 142 / 70; Pulse 87; Resp 16; Pulse Ox 98% on R/A; Pain 0/10; sg 19:09 BP 140 / 82; Pulse 91; Resp 17 S; Pulse Ox 96% on R/A; jd3 19:15 Temp 98.3(O); rr5 ED Course: 15:23 Patient arrived in ED. sg 15:28 Triage completed. sg 15:28 Arm band placed on. sg 15:29 Notified primary nurse of point of care results. em1 15:38 Evan Morales NP is PHCP. pm1 15:38 Brian Erickson MD is Attending Physician. pm1 15:50 Lloyd Davis RN is Primary Nurse. sg 16:00 Initial lab(s) drawn, by me, sent to lab. Inserted saline lock: 20 gauge in right sg wrist, using aseptic technique. Blood collected. 19:07 Patient has correct armband on for positive identification. Bed in low position. Call jd3 light in reach. Side rails up X 1. 19:26 No provider procedures requiring assistance completed. IV discontinued, intact, jd3 bleeding controlled, No redness/swelling at site. Pressure dressing applied. Administered Medications: 16:10 Drug: NS 0.9% 1000 ml Route: IV; Rate: 1000 ml; Site: right wrist; sg 19:26 Follow up: Response: No adverse reaction; IV Status: Completed infusion jd3 18:32 Drug: Insulin Regular Human 10 units {Co-Signature: jessica (Cintia Martin RN).} Route: sg IVP; Site: right wrist; 19:26 Follow up: Response: No adverse reaction jd3 Point of Care Testing: Blood Glucose: 15:28 Blood Glucose: 476 mg/dL; sg 15:29 Blood Glucose: 476 mg/dL; em1 19:13 Blood Glucose: 174 mg/dL; jd3 Ranges: Outcome: 19:18 Discharge ordered by MD. pm1 19:26 Discharged to home via wheelchair, with family. jd3 19:26 Condition: stable 19:26 Discharge instructions given to patient, Instructed on discharge instructions, follow up and referral plans. Demonstrated understanding of instructions, follow-up care. 19:27 Patient left the ED. jd3 Signatures: Lloyd Davis, RN Srini Roldan em1 Evan Morales, YUDITH COMMERCIAL CREDIT SPECIALIST pm1 Wilver Willson RN RN jd3 Arslan Tompkins RN RN rr5 Cintia Martin RN iw
[2018-12-31 19:36] VITALS: BP 140/82; O2SAT 96
[2018-12-31 19:37] VITALS: TEMP 98.3
== END 2018-12-31 19:27 | disposition home or self-care (01) ==
LOC: ER 15:19
DX: E11.65 Type 2 diabetes mellitus with hyperglycemia (principal); I10 Essential (primary) hypertension; I25.2 Old myocardial infarction; I48.91 Unspecified atrial fibrillation; F41.9 Anxiety disorder, unspecified; I50.9 Heart failure, unspecified; E78.00 Pure hypercholesterolemia, unspecified
CPT/HCPCS: 96361; 85025; 36415; 82962 ×2; 81003; 80053; 96374; 99284; J7030

== ENCOUNTER 2019-05-28 18:54 | Emergency (ER) | payer OTHER ==
--- NOTE | 2019-05-28 19:34 | RAD REPORT ---
EXAM DESCRIPTION: RAD - Chest Single View - 05/28/2019 7:27 pm CLINICAL HISTORY: edema Chest pain. COMPARISON: No comparisonsChest Single View dated 12/03/2018; Chest Pa And Lat (2 Views) dated 018; Chest Pa And Lat (2 Views) dated 12/27/2017; Chest Single View dated 12/26/2017 FINDINGS: Portable technique limits examination quality. The lungs are grossly clear. The heart is moderately enlarged in size. No displaced fractures.Aortic atherosclerosis. IMPRESSION: Moderate cardiomegaly.
[2019-05-28] MEDS ORDERED: NA CHLORIDE 0.9% 1,000 ML ONE (20:16)
[2019-05-28 20:35] LABS: Absolute Lymphocytes (CBC) 2.2 K/uL (0.7-4.9); Basophils % 0.5 % (0-1.3); Hematocrit 36.8 % (39.6-49.0); Lymphocytes % 21.6 % (15.3-44.8); MPV 10.6 fL (7.6-11.3); RBC Red Blood Cell Count 3.92 M/uL (4.33-5.43)
[2019-05-28 20:36] LABS: Protime INR 1.11
[2019-05-28 20:58] LABS: ALT/SGPT 16 U/L (12-78); AST/SGOT 10 U/L (15-37); Albumin 3.5 g/dL (3.4-5.0); Alkaline Phosphatase 101 U/L (45-117); BUN Blood Urea Nitrogen 20 mg/dL (7-18); Bicarbonate 25 mmol/L (21-32); Bilirubin Direct 0.1 mg/dL (0-0.2); Bilirubin Total 0.3 mg/dL (0.2-1.0); Glucose Level 119 mg/dL (74-106); Magnesium 2.1 mg/dL (1.8-2.4); NT PRO-BNP 360 pg/mL (<450); Potassium 4.1 mmol/L (3.5-5.1); Protein, Total 7.2 g/dL (6.4-8.2); Sodium Level 144 mmol/L (136-145); Troponin (Emerg Dept Use Only) < 0.02 ng/mL (0.0-0.045)
--- NOTE | 2019-05-28 21:44 | ER ---
Nurse's Notes [facility] Name: Tyrone Vaughn Age: 74 yrs Sex: Male : 1945 Arrival Date: 05/28/2019 Time: 18:58 Bed 6 Private MD: Diagnosis: Edema, unspecified;Unspecified combined systolic (congestive) and diastolic (congestive) heart failure;Obesity, unspecified;Cardiomegaly Presentation: 05/28 18:58 Presenting complaint: EMS states: Bilateral pedal edema x 5 years, pain medications not jl7 working. Transition of care: patient was not received from another setting of care. Onset of symptoms was May 28, 2019. Risk Assessment: Do you want to hurt yourself or someone else? Patient reports no desire to harm self or others. Initial Sepsis Screen: Does the patient meet any 2 criteria? No. Patient's initial sepsis screen is negative. Does the patient have a suspected source of infection? No. Patient's initial sepsis screen is negative. Care prior to arrival: None. 18:58 Method Of Arrival: EMS: [facility] jl7 18:58 Acuity: [facility]ES[facility] 3 jl7 Triage Assessment: 19:03 General: Appears in no apparent distress. uncomfortable, Behavior is calm, cooperative, jl7 appropriate for age. Pain: Complains of pain in right foot and left foot. Neuro: Level of Consciousness is awake, alert, obeys commands. Cardiovascular: Denies chest pain, Patient's skin is warm and dry. Edema is 4+ to left foot and right foot pitting to left foot and right foot. Respiratory: Airway is patent Respiratory effort is even, unlabored, Respiratory pattern is regular, symmetrical, Denies shortness of breath. Derm: Skin is pink, warm \T\ dry. Musculoskeletal: Reports Not ambulatory, uses wheelchair, can transfer himself. Historical: - Allergies: 19:36 No Known Allergies; fc - Home Meds: 19:03 Amitiza 24 mcg Oral cap 1 cap 2 times per day [Active]; basaglar 80 unit daily jl7 [Active]; carvedilol 25 mg Oral tab 1 tab 2 times per day [Active]; clopidogrel 75 mg Oral tab 1 tab once daily [Active]; digoxin 250 mcg Oral tab 1 tab once daily [Active]; Farxiga 5 mg Oral tab 1 tab once daily [Active]; furosemide 20 mg Oral tab 1 tab once daily [Active]; hydralazine 25 mg Oral tab 1 tab 2 times per day [Active]; Lyrica 75 mg Oral 1 cap 3 times per day [Active]; metformin 1,000 mg Oral tab 1 tab 2 times per day [Active]; rosuvastatin 10 mg Oral tab 1 tab once daily [Active]; tramadol 50 mg Oral tab 1 tab three times a day [Active]; Vitamin B-12 1,000 mcg Oral TbER daily [Active]; 19:36 aspirin 325 mg Oral tab 1 tab once daily [Active]; glipizide 10 mg Oral tab 1 tab 2 fc times per day [Active]; - PMHx: 19:03 Anxiety; Atrial Fib; CAD; CHF; Diabetes - IDDM; heart problem; High Cholesterol; jl7 Hypertension; Myocardial infarction; neuropathy; Sleep Apnea; - Immunization history:: Adult Immunizations unknown. - Social history:: Smoking status: unknown. - Ebola Screening: : No symptoms or risks identified at this time. - Family history:: not pertinent. Screenin:18 Abuse screen: Denies threats or abuse. Denies injuries from another. Nutritional ak1 screening: No deficits noted. Tuberculosis screening: No symptoms or risk factors identified. Fall Risk Gait- Normal/Bed Rest/Wheelchair (0 pts). Assessment: 19:19 General: Appears in no apparent distress. comfortable, Behavior is calm, cooperative. ak1 Pain: Complains of pain in right leg and left leg. Neuro: Level of Consciousness is awake, alert, obeys commands, Oriented to person, place, time, situation, Beam House Inspector are equal bilaterally Moves all extremities. Speech is normal, Facial symmetry appears normal. Cardiovascular: Capillary refill < 3 seconds Patient's skin is warm and dry. Respiratory: Airway is patent Respiratory effort is even, unlabored, Respiratory pattern is regular, Breath sounds are clear bilaterally. GI: No signs and/or symptoms were reported involving the gastrointestinal system. : No signs and/or symptoms were reported regarding the genitourinary system. EENT: No signs and/or symptoms were reported regarding the EENT system. Derm: edema to bilateral feet and lower legs. Musculoskeletal: Range of motion: intact in all extremities, pt is wheelchair bound. Vital Signs: 19:05 BP 177 / 77; Pulse 71; Resp 14 S; Pulse Ox 98% on R/A; jl7 19:17 Temp 98.6; Weight 102.06 kg; Height 5 ft. 3 in. (160.02 cm); ak1 20:27 BP 180 / 71; Pulse 70; Resp 16; Pulse Ox 99% on R/A; ak1 21:17 BP 171 / 82; Pulse 71; Resp 16; Pulse Ox 99% on R/A; ak1 21:55 BP 164 / 74; Pulse 74; Resp 16; Temp 98.6; Pulse Ox 100% on R/A; ak1 19:17 Body Mass Index 39.86 (102.06 kg, 160.02 cm) ak1 ED Course: 18:58 Patient arrived in ED. jl7 19:01 Sheyla Jacobsen, RN is Primary Nurse. ak1 19:02 Triage completed. jl7 19:05 Arm band placed on right wrist. jl7 19:18 Patient has correct armband on for positive identification. Placed in gown. Bed in low ak1 position. Call light in reach. Side rails up X2. Adult w/ patient. cardiac monitor on. Pulse ox on. NIBP on. 19:19 Initial lab(s) drawn, by me, sent to lab. EKG done, by ED staff, reviewed by Brian Erickson MD. Inserted saline lock: 20 gauge in right hand, using aseptic technique. Blood collected. 19:28 XRAY Chest (1 view) In Process Unspecified. EDMS 19:37 Brian Erickson MD is Attending Physician. nicole 20:23 Radiology exam delayed due to ultrasound in room. 1 21:17 No provider procedures requiring assistance completed. ak1 21:26 US Extremity Venous W Compression Christian In Process Unspecified. EDMS 21:33 Tib Fib Right XRAY In Process Unspecified. EDMS 21:42 Rohit Carvalho MD is Referral Physician. nicole 21:56 IV discontinued, intact, bleeding controlled, No redness/swelling at site. Pressure ak1 dressing applied. Administered Medications: Discontinued: NS 0.9% 1000 ml IV at 75 ml/hr continuous 20:19 Drug: NS 0.9% 1000 ml Route: IV; Rate: 75 ml/hr; Site: right hand; ak1 21:53 Drug: Lasix 20 mg Route: IVP; Site: right hand; ak1 21:54 Follow up: Response: No adverse reaction; Medication administered at discharge. ak1 Outcome: 21:43 Discharge ordered by MD. rivera 21:56 Condition: stable ak1 21:56 Discharge instructions given to patient, Instructed on discharge instructions, follow up and referral plans. no drinking with medication, no driving heavy equipment, medication usage, Demonstrated understanding of instructions, follow-up care, medications, Prescriptions given X 1. 22:20 Discharged to home via wheelchair, with family. ak1 22:20 Patient left the ED. ak1 Addendum: 06/02/2019 11:48 Addendum: Culture Results: Positive urine culture. Phone call Attempt #1 left [email or web address].a a5 Signatures: Dispatcher [employer] EDMS Brian Erickson MD MD cha Harvey, Martha 1 Priscilla Kelley RN RN Milka Moses RN RN [email or web address] Sheyla Jacobsen RN RN ak1 Abhi Rivera RN RN jl7 Corrections: (The following items were deleted from the chart) 05/28 19:36 19:03 Allergies: No Known Allergies; jl7 19:36 19:03 Home Meds: valsartan 160 mg Oral tab 1 tab once daily; jl7
--- NOTE | 2019-05-28 21:44 | EDPHYS ---
Physician Documentation [facility] Name: Tyrone Vaughn Age: 74 yrs Sex: Male : 1945 Arrival Date: 05/28/2019 Time: 18:58 Bed 6 Private MD: ED Physician Brian Erickson HPI: 05/28 20:11 This 74 yrs old Male presents to ER via EMS with complaints of Pedal Edema. nicole 20:11 The patient presents with decreased range of motion, pain, swelling, tenderness. The nicole complaints affect the right leg and left leg. Context: resulted from an unknown cause. Onset: The symptoms/episode began/occurred 2 day(s) ago. Modifying factors: The symptoms are alleviated by nothing. the symptoms are aggravated by nothing. The patient has shortness of breath at rest. Historical: - Allergies: 19:36 No Known Allergies; fc - Home Meds: 19:03 Amitiza 24 mcg Oral cap 1 cap 2 times per day [Active]; basaglar 80 unit daily jl7 [Active]; carvedilol 25 mg Oral tab 1 tab 2 times per day [Active]; clopidogrel 75 mg Oral tab 1 tab once daily [Active]; digoxin 250 mcg Oral tab 1 tab once daily [Active]; Farxiga 5 mg Oral tab 1 tab once daily [Active]; furosemide 20 mg Oral tab 1 tab once daily [Active]; hydralazine 25 mg Oral tab 1 tab 2 times per day [Active]; Lyrica 75 mg Oral 1 cap 3 times per day [Active]; metformin 1,000 mg Oral tab 1 tab 2 times per day [Active]; rosuvastatin 10 mg Oral tab 1 tab once daily [Active]; tramadol 50 mg Oral tab 1 tab three times a day [Active]; Vitamin B-12 1,000 mcg Oral TbER daily [Active]; 19:36 aspirin 325 mg Oral tab 1 tab once daily [Active]; glipizide 10 mg Oral tab 1 tab 2 fc times per day [Active]; - PMHx: 19:03 Anxiety; Atrial Fib; CAD; CHF; Diabetes - IDDM; heart problem; High Cholesterol; jl7 Hypertension; Myocardial infarction; neuropathy; Sleep Apnea; - Immunization history:: Adult Immunizations unknown. - Social history:: Smoking status: unknown. - Ebola Screening: : No symptoms or risks identified at this time. - Family history:: not pertinent. ROS: 20:11 Constitutional: Negative for fever, chills, and weight loss, Eyes: Negative for injury, nicole pain, redness, and discharge, ENT: Negative for injury, pain, and discharge, Neck: Negative for injury, pain, and swelling, Cardiovascular: Negative for chest pain, palpitations, and edema, Respiratory: Negative for shortness of breath, cough, wheezing, and pleuritic chest pain, Abdomen/GI: Negative for abdominal pain, nausea, vomiting, diarrhea, and constipation, Back: Negative for injury and pain, : Negative for injury, bleeding, discharge, and swelling, Skin: Negative for injury, rash, and discoloration, Neuro: Negative for headache, weakness, numbness, tingling, and seizure, Psych: Negative for depression, anxiety, suicide ideation, homicidal ideation, and hallucinations, Allergy/Immunology: Negative for hives, rash, and allergies, Endocrine: Negative for neck swelling, polydipsia, polyuria, polyphagia, and marked weight changes, Hematologic/Lymphatic: Negative for swollen nodes, abnormal bleeding, and unusual bruising. 20:11 MS/extremity: Positive for swelling, tenderness, of the right leg and left leg. Exam: 20:11 Constitutional: This is a well developed, well nourished patient who is awake, alert, nicole and in no acute distress. Head/Face: Normocephalic, atraumatic. Eyes: Pupils equal round and reactive to light, extra-ocular motions intact. Lids and lashes normal. Conjunctiva and sclera are non-icteric and not injected. Cornea within normal limits. Periorbital areas with no swelling, redness, or edema. ENT: Nares patent. No nasal discharge, no septal abnormalities noted. Tympanic membranes are normal and external auditory canals are clear. Oropharynx with no redness, swelling, or masses, exudates, or evidence of obstruction, uvula midline. Mucous membranes moist. Neck: Trachea midline, no thyromegaly or masses palpated, and no cervical lymphadenopathy. Supple, full range of motion without nuchal rigidity, or vertebral point tenderness. No Meningismus. Chest/axilla: Normal chest wall appearance and motion. Nontender with no deformity. No lesions are appreciated. Cardiovascular: Regular rate and rhythm with a normal S1 and S2. No gallops, murmurs, or rubs. Normal PMI, no JVD. No pulse deficits. Respiratory: Lungs have equal breath sounds bilaterally, clear to auscultation and percussion. No rales, rhonchi or wheezes noted. No increased work of breathing, no retractions or nasal flaring. Abdomen/GI: Soft, non-tender, with normal bowel sounds. No distension or tympany. No guarding or rebound. No evidence of tenderness throughout. Back: No spinal tenderness. No costovertebral tenderness. Full range of motion. Skin: Warm, dry with normal turgor. Normal color with no rashes, no lesions, and no evidence of cellulitis. Neuro: Awake and alert, GCS 15, oriented to person, place, time, and situation. Cranial nerves II-XII grossly intact. Motor strength 5/5 in all extremities. Sensory grossly intact. Cerebellar exam normal. Normal gait. Psych: Awake, alert, with orientation to person, place and time. Behavior, mood, and affect are within normal limits. 20:11 Musculoskeletal/extremity: DVT Exam: pain, swelling, tenderness, that is moderate, of the right leg and left leg. 21:45 Abdomen/GI: Rectal exam: is unremarkable, Prostate: normal, rectal tone normal, Stool: nicole normal, guaiac negative. Vital Signs: 19:05 BP 177 / 77; Pulse 71; Resp 14 S; Pulse Ox 98% on R/A; jl7 19:17 Temp 98.6; Weight 102.06 kg; Height 5 ft. 3 in. (160.02 cm); ak1 20:27 BP 180 / 71; Pulse 70; Resp 16; Pulse Ox 99% on R/A; ak1 21:17 BP 171 / 82; Pulse 71; Resp 16; Pulse Ox 99% on R/A; ak1 21:55 BP 164 / 74; Pulse 74; Resp 16; Temp 98.6; Pulse Ox 100% on R/A; ak1 19:17 Body Mass Index 39.86 (102.06 kg, 160.02 cm) ak1 MDM: 19:37 Patient medically screened. [facility] 20:14 Data reviewed: vital signs, nurses notes, lab test result(s), EKG, radiologic studies, [facility] plain films, ultrasound. 05/28 19:17 Order name: Basic Metabolic Panel; Complete Time: 21:38 [facility] 05/28 19:17 Order name: CBC with Diff; Complete Time: 21:38 [facility] 05/28 19:17 Order name: LFT's; Complete Time: 21:38 [facility] 05/28 19:17 Order name: Magnesium; Complete Time: 21:38 [facility] 05/28 19:17 Order name: NT PRO-BNP; Complete Time: 21:38 [facility] 05/28 19:17 Order name: PT-INR; Complete Time: 21:38 [facility] 05/28 19:17 Order name: Troponin (emerg Dept Use Only); Complete Time: 21:38 [facility] 05/28 19:21 Order name: Lactate; Complete Time: 21:38 [facility] 05/28 20:10 Order name: Lipase; Complete Time: 21:38 [facility] 05/28 20:10 Order name: Urine Culture [facility] 05/28 20:10 Order name: AMMONIA [facility] 05/28 21:21 Order name: Digoxin Level; Complete Time: 21:38 EDMS 05/28 19:17 Order name: XRAY Chest (1 view); Complete Time: 21:38 [facility] 05/28 19:17 Order name: EKG; Complete Time: 19:18 [facility] 05/28 19:17 Order name: Cardiac monitoring; Complete Time: 19:29 [facility] 05/28 19:17 Order name: EKG - Nurse/Tech; Complete Time: 19:29 [facility] 05/28 19:17 Order name: IV Saline Lock; Complete Time: 19:29 [facility] 05/28 19:17 Order name: Labs collected and sent; Complete Time: 19:29 [facility] 05/28 19:17 Order name: O2 Per Protocol; Complete Time: 19:29 [facility] 05/28 19:17 Order name: O2 Sat Monitoring; Complete Time: 19:29 [facility] 05/28 20:10 Order name: US Extremity Venous W Compression Christian nicole 05/28 20:10 Order name: Urine Dipstick-Ancillary (obtain specimen); Complete Time: 21:53 [facility] 05/28 20:11 Order name: Tib Fib Right XRAY mt 05/28 21:55 Order name: Urine Dipstick--Ancillary (enter results) mt Administered Medications: Discontinued: NS 0.9% 1000 ml IV at 75 ml/hr continuous 20:19 Drug: NS 0.9% 1000 ml Route: IV; Rate: 75 ml/hr; Site: right hand; ak1 21:53 Drug: Lasix 20 mg Route: IVP; Site: right hand; ak1 21:54 Follow up: Response: No adverse reaction; Medication administered at discharge. ak1 Disposition: 05/28/19 21:43 Discharged to Home. Impression: Edema, unspecified, Unspecified combined systolic (congestive) and diastolic (congestive) heart failure, Obesity, unspecified, Cardiomegaly. - Condition is Stable. - Discharge Instructions: Type 2 Diabetes Mellitus, Diagnosis, Adult, Type 2 Diabetes Mellitus, Diagnosis, Pediatric, Type 2 Diabetes Mellitus, Self Care, Adult, Type 2 Diabetes Mellitus, Self Care, Adult, [id number]. - Prescriptions for Tylenol- Codeine #3 300-30 mg Oral Tablet - take 2 tablets by ORAL route every 6 hours As needed; 20 tablet. - Medication Reconciliation Form, Thank You Letter, Antibiotic Education, Prescription Opioid Use form. - Follow up: Private Physician; When: 2 - 3 days; Reason: Recheck today's complaints, Continuance of care, Re-evaluation by your physician. Follow up: Rohit Carvalho MD; When: 2 - 3 days; Reason: Recheck today's complaints, Continuance of care, Re-evaluation by your physician. Signatures: Dispatcher [employer] EDMS Brian Erickson MD MD cha Chretien, Felicia RN RN Sheyla Jacobsen RN RN ak1 Abhi Rivera RN RN jl7 Corrections: (The following items were deleted from the chart) 19:36 19:03 Allergies: No Known Allergies; 7 19:36 19:03 Home Meds: valsartan 160 mg Oral tab 1 tab once daily; jl7 20:43 20:16 DIGOXIN+C.LAB.BRZ ordered. [facility] 22:19 21:22 DIGOXIN+C.LAB.BRZ ordered. [facility] 22:20 21:43 05/28/2019 21:43 Discharged to Home. Impression: Edema, unspecified; Unspecified ak1 combined systolic (congestive) and diastolic (congestive) heart failure; Obesity, unspecified; Cardiomegaly. Condition is Stable. Forms are Medication Reconciliation Form, Thank You Letter, Antibiotic Education, Prescription Opioid Use. Follow up: Private Physician; When: 2 - 3 days; Reason: Recheck today's complaints, Continuance of care, Re-evaluation by your physician. Follow up: Rohit Carvalho; When: 2 - 3 days; Reason: Recheck today's complaints, Continuance of care, Re-evaluation by your physician. nicole
[2019-05-28] MEDS ORDERED: FUROSEMIDE 20 MG/ 2ML VIAL ONE (21:49)
[2019-05-28 21:59] LABS: Urine Blood NEGATIVE (NEG); Urine Glucose 2+ (NEG); Urine Protein NEGATIVE (NEG)
[2019-05-28 22:43] VITALS: TEMP 98.6
[2019-05-28 22:48] VITALS: BP 164/74; O2SAT 100
--- NOTE | 2019-05-28 22:54 | RAD REPORT ---
EXAM DESCRIPTION: US - Extrem Venous W Compress Christian - 05/28/2019 9:01 pm CLINICAL HISTORY: Pain;Swelling Bilateral leg edema and swelling. COMPARISON: <Comparisons> TECHNIQUE: Real-time sonographic interrogation of the left and right lower extremity deep venous sys tems was performed. FINDINGS: Normal compressibility, flow augmentation, phasic flow and spontaneous flow is identified in both the left and right lower extremity deep venous systems. IMPRESSION: No sonographic evidence of left or right lower extremity deep venous thrombosis.
--- NOTE | 2019-05-28 22:59 | RAD REPORT ---
EXAM DESCRIPTION: RAD - Tib Fib Right - 05/28/2019 9:13 pm CLINICAL HISTORY: SWELLING COMPARISON: No comparisons FINDINGS: Advanced osteoarthritis affects the right knee. Small suprapatellar joint effusion is pres ent. Soft tissue swelling is noted about the left leg. No fracture identified. Prominent calcaneal sp urs. Vascular calcifications are noted.
--- NOTE | 2019-05-29 11:10 | EKG ---
Test Date: 2019-05-28 Test Time: 19:11:24 Magnetic Healer: KYRA MEASUREMENT RESULTS: Intervals: Rate: 73 AR: 162 QRSD: 88 QT: 352 QTc: 387 Shirley: P: 63 AR: 162 QRS: -5 T: 51 INTERPRETIVE STATEMENTS: Normal sinus rhythm Cannot rule out Anterior infarct, age undetermined Abnormal ECG Compared to ECG 12/03/2018 02:06:25 No significant changes Electronically Signed On 05-29-19 11:06:21 CDT by Rohit Carvalho
== END 2019-05-28 22:20 | disposition home or self-care (01) ==
LOC: ER 18:54
DX: I50.40 Unspecified combined systolic (congestive) and diastolic (congestive) heart failure (principal); I51.7 Cardiomegaly; E66.9 Obesity, unspecified; I10 Essential (primary) hypertension; E11.9 Type 2 diabetes mellitus without complications; E78.00 Pure hypercholesterolemia, unspecified; I48.91 Unspecified atrial fibrillation; F41.9 Anxiety disorder, unspecified
CPT/HCPCS: 93005; 87088; 85025; 87086; 80048; 36415; 82140; 83735; 85610; 80162; 80076; 83605; 87077; 87186; 81003; 84484; 83690; 83880; 71045; 73590; 93970; 96374; 99285; J1940; J7030

== ENCOUNTER 2019-08-02 21:50 | Inpatient (IN) | payer OTHER ==
[2019-08-02 22:17] LABS: Absolute Lymphocytes (CBC) 1.8 K/uL (0.7-4.9); Hematocrit 40.6 % (39.6-49.0); Lymphocytes % 17.6 % (15.3-44.8); MPV 11.8 fL (7.6-11.3); RBC Red Blood Cell Count 4.29 M/uL (4.33-5.43)
[2019-08-02] MEDS ORDERED: MAGNE/ALUM HYDROXD 30 ML UCUP ONE (22:17)
[2019-08-02] MEDS ORDERED: LIDOCAINE VISCOUS 2% SOLN 15 ML UDC ONE (22:17)
[2019-08-02] MEDS ORDERED: NITROGLYCERIN 0.4 MG/TAB SL ONE (22:17)
[2019-08-02 22:40] LABS: ALT/SGPT 18 U/L (12-78); AST/SGOT 15 U/L (15-37); Albumin 3.7 g/dL (3.4-5.0); Alkaline Phosphatase 130 U/L (45-117); BUN Blood Urea Nitrogen 26 mg/dL (7-18); Bicarbonate 28 mmol/L (21-32); Bilirubin Direct < 0.1 mg/dL (0-0.2); Bilirubin Total 0.3 mg/dL (0.2-1.0); NT PRO-BNP 153 pg/mL (<450); Potassium 5.2 mmol/L (3.5-5.1); Protein, Total 7.6 g/dL (6.4-8.2); Sodium Level 139 mmol/L (136-145); Troponin (Emerg Dept Use Only) < 0.02 ng/mL (0.0-0.045)
[2019-08-02 22:42] LABS: Glucose Level 448 mg/dL (74-106)
[2019-08-02] MEDS ORDERED: INSULIN -REGULAR HUMAN 50 UNIT/0.5 ML ML ONE (23:17)
[2019-08-02] MEDS ORDERED: NA CHLORIDE 0.9% 250 ML ONE (23:18)
[2019-08-03] MEDS ORDERED: ASPIRIN 81 MG CHEWABLE TABLET ONE (02:14)
[2019-08-03] MEDS ORDERED: CLOPIDOGREL 75 MG TABLET ONE (02:14)
--- NOTE | 2019-08-03 02:18 | ER ---
Nurse's Notes [facility] Name: Tyrone Vaughn Age: 74 yrs Sex: Male : 1945 Arrival Date: 08/02/2019 Time: 21:51 Bed 4 Private MD: Diagnosis: Non-ST elevation (NSTEMI) myocardial infarction Presentation: 08/02 22:01 Presenting complaint: EMS states: pt c/o chest pain to left chest wall after eating at ak1 2 hours [employer]. FSGB 400. Transition of care: patient was not received from another setting of care. Onset of symptoms was August 02, 2019. Risk Assessment: Do you want to hurt yourself or someone else? Patient reports no desire to harm self or others. Initial Sepsis Screen: Does the patient meet any 2 criteria? No. Patient's initial sepsis screen is negative. Does the patient have a suspected source of infection? No. Patient's initial sepsis screen is negative. Care prior to arrival: None. 22:01 Acuity: WESLEY 3 ak1 22:01 Method Of Arrival: EMS: [facility] ak1 Triage Assessment: 22:03 General: Appears in no apparent distress. comfortable, obese, Behavior is calm, ak1 cooperative, appropriate for age. Pain: Complains of pain in left clavicle, anterior aspect of left upper chest, mid-sternal area and left breast. EENT: No signs and/or symptoms were reported regarding the EENT system. 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 Speech is normal. Cardiovascular: Heart tones S1 S2 Patient's skin is warm and dry. Respiratory: Airway is patent Respiratory effort is even, unlabored. GI: No signs and/or symptoms were reported involving the gastrointestinal system. : No signs and/or symptoms were reported regarding the genitourinary system. Derm: No signs and/or symptoms reported regarding the dermatologic system. Musculoskeletal: Swelling present in right leg and left leg. Historical: - Allergies: 22:03 No Known Allergies; ak1 - Home Meds: 22:03 Amitiza 24 mcg Oral cap 1 cap 2 times per day [Active]; aspirin 325 mg Oral tab 1 tab ak1 once daily [Active]; basaglar 80 unit daily [Active]; carvedilol 25 mg Oral tab 1 tab 2 times per day [Active]; clopidogrel 75 mg Oral tab 1 tab once daily [Active]; digoxin 250 mcg Oral tab 1 tab once daily [Active]; Farxiga 5 mg Oral tab 1 tab once daily [Active]; furosemide 20 mg Oral tab 1 tab once daily [Active]; glipizide 10 mg Oral tab 1 tab 2 times per day [Active]; hydralazine 25 mg Oral tab 1 tab 2 times per day [Active]; Lyrica 75 mg Oral 1 cap 3 times per day [Active]; metformin 1,000 mg Oral tab 1 tab 2 times per day [Active]; rosuvastatin 10 mg Oral tab 1 tab once daily [Active]; tramadol 50 mg Oral tab 1 tab three times a day [Active]; Vitamin B-12 1,000 mcg Oral TbER daily [Active]; - PMHx: 22:03 Anxiety; Atrial Fib; CAD; CHF; Diabetes - IDDM; heart problem; Myocardial infarction; ak1 Hypertension; High Cholesterol; neuropathy; Sleep Apnea; - PSHx: 22:03 Heart stents; ak1 - Immunization history:: Adult Immunizations unknown. - Social history:: Smoking status: Patient/guardian denies using tobacco. - Family history:: not pertinent. - Ebola Screening: : No symptoms or risks identified at this time. - Hospitalizations: : No recent hospitalization is reported. Screenin:05 Abuse screen: Denies threats or abuse. Denies injuries from another. Nutritional ak1 screening: No deficits noted. Tuberculosis screening: No symptoms or risk factors identified. Fall Risk Gait- Weak (10 pts.). Assessment: 22:05 Pain: Pain does not radiate. Pain began 2 hours ago. ak1 23:27 Reassessment: Patient appears in no apparent distress at this time. Patient is ak1 alert/active/playful, equal unlabored respirations, skin warm/dry/pink. pt tolerating water. 08/03 00:15 Reassessment: Patient appears in no apparent distress at this time. No changes from ak1 previously documented assessment. Patient and/or family updated on plan of care and expected duration. Pain level reassessed. 02:09 General: Appears in no apparent distress. comfortable, Behavior is calm, cooperative. ak1 02:09 Neuro: Level of Consciousness is awake, alert, obeys commands, Oriented to person, ak1 place, time. Vital Signs: 08/02 21:59 BP 212 / 93; Pulse 97; Resp 16; Temp 98.6(O); Pulse Ox 96% on R/A; Weight 122.47 kg ak1 (R); Height 5 ft. 2 in. (157.48 cm) (R); Pain 8/10; 22:51 BP 174 / 85; Pulse 113; Resp 22; Pulse Ox 97% on R/A; ak1 23:27 BP 168 / 84; Pulse 91; Resp 20; Pulse Ox 98% on R/A; ak1 08/03 02:10 BP 180 / 86; Pulse 93; Resp 17; Temp 98.6; Pulse Ox 95% on R/A; ak1 08/02 21:59 Body Mass Index 49.38 (122.47 kg, 157.48 cm) ak1 ED Course: 08/02 21:51 Patient arrived in ED. ds1 21:54 Johnson Robles MD is Attending Physician. rn 21:59 Arm band placed on Patient placed in an exam room, on a stretcher, on campus monitor, ak1 on pulse oximetry, Patient notified of wait time. EKG completed in triage. Results shown to MD. 22:02 Triage completed. ak1 22:05 Patient has correct armband on for positive identification. Placed in gown. Bed in low ak1 position. Call light in reach. Side rails up X2. patient monitor on. Pulse ox on. NIBP on. 22:06 Patient maintains SpO2 saturation greater than 95% on room air. ak1 22:12 Sheyla Jacobsen, RN is Primary Nurse. ak1 22:15 XRAY Chest (1 view) In Process Unspecified. EDMS 22:20 Inserted saline lock: 20 gauge in right hand, using aseptic technique. ,using aseptic ak1 technique. placed by Phong Pate RN Blood collected. 08/03 01:34 Troponin (emerg Dept Use Only) Sent. ds4 01:51 EKG done, by ED staff, reviewed by Johnson Robles MD. ds4 02:04 Notified ED physician of a critical lab result(s). trop 0.62. fc 02:17 Lm Rendon is Hospitalizing Provider. rn 02:52 No provider procedures requiring assistance completed. Patient admitted, IV remains in ak1 place. Administered Medications: 08/02 22:19 Drug: GI Cocktail without - (Maalox Suspension 30 ml, Lidocaine Liquid 2 % 15 ak1 ml) Route: PO; 22:52 Follow up: Response: No adverse reaction ak1 22:19 Drug: Nitroglycerin 0.4 mg Route: Sublingual; ak1 22:52 Follow up: Response: No adverse reaction ak1 23:21 Drug: NS 0.9% 250 ml Route: IV; Rate: 1 bolus; Site: right hand; ak1 23:54 Follow up: IV Status: Completed infusion; IV Intake: 250ml ak1 23:21 Drug: Insulin Regular Human 5 units {Co-Signature: mattie (Aj Viveros RN).} Route: ak1 Sub-Q; Site: right upper arm; 23:54 Follow up: Response: No adverse reaction ak1 08/03 02:16 Drug: Aspirin 81 mg Route: PO; ak1 02:53 Follow up: Response: No adverse reaction ak1 02:16 Drug: PlaVIX 75 mg Route: PO; ak1 02:53 Follow up: Response: No adverse reaction ak1 02:44 Drug: Lovenox 1 mg/kg Route: Sub-Q; Site: left lower abdomen; jb4 02:53 Follow up: Response: No adverse reaction ak1 Intake: 08/02 23:54 IV: 250ml; Total: 250ml. ak1 Output: 23:00 Urine: 800ml (Voided); Total: 800ml. jb4 Outcome: 08/03 02:17 Decision to Hospitalize by Provider. rn 02:52 Condition: stable ak1 02:52 Instructed on the need for admit. 04:52 Patient left the ED. ak1 Signatures: Dispatcher [employer] EDMS Priscilla Kelley RN RN fc Sanford, Demi ds1 Johnson Robles MD MD rn Swanson, Donovan ds4 Sheyla Jacobsen RN RN ak1 Bryson, James, RN RN jb4 James Bryson RN jb4
--- NOTE | 2019-08-03 02:18 | EDPHYS ---
Physician Documentation [facility] Name: Tyrone Vaughn Age: 74 yrs Sex: Male : 1945 Arrival Date: 08/02/2019 Time: 21:51 Bed 4 Private MD: ED Physician Johnson Robles HPI: 08/02 21:56 This 74 yrs old Male presents to ER via Unassigned with complaints of Chest rn Pain. 21:56 The patient or guardian reports chest pain that is located primarily in the substernal rn area. Onset: 2 hour(s) ago. The pain does not radiate. Associated signs and symptoms: Pertinent positives: lower extremity swelling, nausea, shortness of breath, Pertinent negatives: abdominal pain, cough, diaphoresis, syncope, vomiting. The chest pain is described as a pressure. Duration: The patient or guardian reports a single episode, that is still ongoing. Modifying factors: The symptoms are alleviated by sitting up. the symptoms are aggravated by laying down. Severity of pain: At its worst the pain was moderate in the emergency department the pain is unchanged. The patient has experienced similar episodes in the past. Reports several stents in past, 2 hours of unchanged chest pressure, non-radiating, assoc with nausea, worse when laying back, began shortly after eating, but states feels similar to previous cardiac chest pains. Took full dose aspirin in AM. Has not taken his nighttime BP meds.. Historical: - Allergies: 22:03 No Known Allergies; ak1 - Home Meds: 22:03 Amitiza 24 mcg Oral cap 1 cap 2 times per day [Active]; aspirin 325 mg Oral tab 1 tab ak1 once daily [Active]; basaglar 80 unit daily [Active]; carvedilol 25 mg Oral tab 1 tab 2 times per day [Active]; clopidogrel 75 mg Oral tab 1 tab once daily [Active]; digoxin 250 mcg Oral tab 1 tab once daily [Active]; Farxiga 5 mg Oral tab 1 tab once daily [Active]; furosemide 20 mg Oral tab 1 tab once daily [Active]; glipizide 10 mg Oral tab 1 tab 2 times per day [Active]; hydralazine 25 mg Oral tab 1 tab 2 times per day [Active]; Lyrica 75 mg Oral 1 cap 3 times per day [Active]; metformin 1,000 mg Oral tab 1 tab 2 times per day [Active]; rosuvastatin 10 mg Oral tab 1 tab once daily [Active]; tramadol 50 mg Oral tab 1 tab three times a day [Active]; Vitamin B-12 1,000 mcg Oral TbER daily [Active]; - PMHx: 22:03 Anxiety; Atrial Fib; CAD; CHF; Diabetes - IDDM; heart problem; Myocardial infarction; ak1 Hypertension; High Cholesterol; neuropathy; Sleep Apnea; - PSHx: 22:03 Heart stents; ak1 - Immunization history:: Adult Immunizations unknown. - Social history:: Smoking status: Patient/guardian denies using tobacco. - Family history:: not pertinent. - Ebola Screening: : No symptoms or risks identified at this time. - Hospitalizations: : No recent hospitalization is reported. ROS: 21:56 Constitutional: Negative for fever, chills, and weight loss, Eyes: Negative for injury, rn pain, redness, and discharge, Neck: Negative for injury, pain, and swelling, Cardiovascular: + chest pain Respiratory: + sob and chronic leg swelling Abdomen/GI: Negative for abdominal pain, nausea, vomiting, diarrhea, and constipation, Back: Negative for injury and pain, MS/Extremity: Negative for injury and deformity, Skin: Negative for injury, rash, and discoloration, Neuro: Negative for headache, weakness, numbness, tingling, and seizure. Exam: 21:59 Constitutional: This is a well developed, well nourished patient who is awake, alert, rn and in no acute distress. Sitting upright. Head/Face: Normocephalic, atraumatic. Cardiovascular: Regular rate and rhythm. No pulse deficits. Respiratory: Lungs have equal breath sounds bilaterally, clear to auscultation, no retractions, speaking full sentences Abdomen/GI: soft, non-tender Skin: Warm, dry MS/ Extremity: Pulses equal, no cyanosis. Neurovascular intact. Full, normal range of motion. Equal circumference. 2+ pitting edema bilateral lower ext. Neuro: Awake and alert, GCS 15, oriented to person, place, time, and situation. Cranial nerves II-XII grossly intact. Motor strength 5/5 in all extremities. Sensory grossly intact. Vital Signs: 21:59 BP 212 / 93; Pulse 97; Resp 16; Temp 98.6(O); Pulse Ox 96% on R/A; Weight 122.47 kg ak1 (R); Height 5 ft. 2 in. (157.48 cm) (R); Pain 8/10; 22:51 BP 174 / 85; Pulse 113; Resp 22; Pulse Ox 97% on R/A; ak1 23:27 BP 168 / 84; Pulse 91; Resp 20; Pulse Ox 98% on R/A; ak1 08/03 02:10 BP 180 / 86; Pulse 93; Resp 17; Temp 98.6; Pulse Ox 95% on R/A; ak1 08/02 21:59 Body Mass Index 49.38 (122.47 kg, 157.48 cm) ak1 MDM: 08/02 21:54 Patient medically screened. rn 23:09 ED course: Spoke at length with patient, improved with nitro and GI cocktail, is not rn sure which helped him. Reports had pain like this earlier in year, admitted to hospital, saw cardiology and told his stents and heart looked ok and wasn't the cause. Told him either acid reflux given began after eating and laying down, vs cardiac etiology. Recommended admission for further w/u, patient does not want to be admitted and states feels better, pain has gone. Will check old medical records to verify and talked him into repeat trop/ecg. . 08/03 02:15 Differential diagnosis: acute myocardial infarction, acute pericarditis, coronary rn artery disease pericarditis, pneumonia, pneumothorax, stable angina, unstable angina. The patient was given aspirin in the Emergency Department. Data reviewed: vital signs, nurses notes, lab test result(s), EKG, radiologic studies, plain films, and as a result, I will admit patient. Test interpretation: by ED physician or midlevel provider: ECG. Counseling: I had a detailed discussion with the patient and/or guardian regarding: the historical points, exam findings, and any diagnostic results supporting the discharge/admit diagnosis, lab results, radiology results, the need for further work-up and treatment in the hospital. Response to treatment: the patient's symptoms have resolved after treatment, the patient is now symptom free, and as a result, I will admit patient. Admission orders: after a detailed discussion of the patient's condition and case, the admit orders are written by me. ED course: Admitted to Dr. Baidoo \T\ 0216, chest pain free, he requests that cardiology be paged immediately. Aspirin/plavix/lovenox administered. . 02:30 ED course: Dr Parra contacted and notified of consultation \T\ 0230. No further rn recommendations.. 08/02 21:56 Order name: Basic Metabolic Panel; Complete Time: 22:49 rn 08/02 21:56 Order name: CBC with Diff; Complete Time: 22:49 rn 08/02 21:56 Order name: LFT's; Complete Time: 22:49 rn 08/02 21:56 Order name: NT PRO-BNP; Complete Time: 22:49 rn 08/02 21:56 Order name: Troponin (emerg Dept Use Only); Complete Time: 22:49 rn 08/03 01:07 Order name: Troponin (emerg Dept Use Only); Complete Time: 02:08 rn 08/02 21:56 Order name: XRAY Chest (1 view) rn 08/02 21:56 Order name: EKG; Complete Time: 21:56 rn 08/02 21:56 Order name: Cardiac monitoring; Complete Time: 22:01 rn 08/02 21:56 Order name: EKG - Nurse/Tech; Complete Time: 22:01 rn 08/02 21:56 Order name: IV Saline Lock; Complete Time: 22:19 rn 08/02 21:56 Order name: Labs collected and sent; Complete Time: 22:20 rn 08/02 21:56 Order name: O2 Per Protocol; Complete Time: 22:01 rn 08/02 21:56 Order name: O2 Sat Monitoring; Complete Time: 22:01 rn 08/03 01:07 Order name: EKG; Complete Time: 01:07 rn 08/03 01:07 Order name: EKG - Nurse/Tech; Complete Time: 01:51 rn Administered Medications: 08/02 22:19 Drug: GI Cocktail without - (Maalox Suspension 30 ml, Lidocaine Liquid 2 % 15 ak1 ml) Route: PO; 22:52 Follow up: Response: No adverse reaction ak1 22:19 Drug: Nitroglycerin 0.4 mg Route: Sublingual; ak1 22:52 Follow up: Response: No adverse reaction ak1 23:21 Drug: NS 0.9% 250 ml Route: IV; Rate: 1 bolus; Site: right hand; ak1 23:54 Follow up: IV Status: Completed infusion; IV Intake: 250ml ak1 23:21 Drug: Insulin Regular Human 5 units {Co-Signature: [email or web address] (Aj Viveros RN).} Route: ak1 Sub-Q; Site: right upper arm; 23:54 Follow up: Response: No adverse reaction ak1 08/03 02:16 Drug: Aspirin 81 mg Route: PO; ak1 02:53 Follow up: Response: No adverse reaction ak1 02:16 Drug: PlaVIX 75 mg Route: PO; ak1 02:53 Follow up: Response: No adverse reaction ak1 02:44 Drug: Lovenox 1 mg/kg Route: Sub-Q; Site: left lower abdomen; jb4 02:53 Follow up: Response: No adverse reaction ak1 Disposition: 08/03/19 02:17 Hospitalization ordered by Lm Rendon for Inpatient Admission. Preliminary diagnosis is Non-ST elevation (NSTEMI) myocardial infarction. - Bed requested for Telemetry/MedSurg (Inpatient). - Status is Inpatient Admission. ak1 - Condition is Stable. - Problem is new. - Symptoms have improved. UTI on Admission? No Signatures: Dispatcher [employer] EDMS Johnson Robles MD MD rn Krenek, Amber, RN RN ak1 Carlyn Mcgrath RN RN cg Bryson, James, RN RN jb4 Aj Viveros RN jb4 Corrections: (The following items were deleted from the chart) 08/02 21:59 21:56 Constitutional: Negative for fever, chills, and weight loss, Eyes: Negative for rn injury, pain, redness, and discharge, Neck: Negative for injury, pain, and swelling, Cardiovascular: + chest pain Respiratory: + sob and chronic leg swelling Abdomen/GI: Negative for abdominal pain, nausea, vomiting, diarrhea, and constipation, Back: Negative for injury and pain, MS/Extremity: Negative for injury and deformity, Skin: Negative for injury, rash, and discoloration, Neuro: Negative for headache, weakness, numbness, tingling, and seizure, rn 08/03 04:25 02:17 Hospitalization Ordered by Lm Rendon for Inpatient Admission. Preliminary cg diagnosis is Non-ST elevation (NSTEMI) myocardial infarction. Bed requested for Telemetry/MedSurg (Inpatient). Status is Inpatient Admission. Condition is Stable. Problem is new. Symptoms have improved. UTI on Admission? No. rn 04:52 04:25 08/03/2019 02:17 Hospitalization Ordered by Lm Rendon for Inpatient ak1 Admission. Preliminary diagnosis is Non-ST elevation (NSTEMI) myocardial infarction. Bed requested for Telemetry/MedSurg (Inpatient). Status is Inpatient Admission. Condition is Stable. Problem is new. Symptoms have improved. UTI on Admission? No. cg
[2019-08-03] MEDS ORDERED: ENOXAPARIN 100 MG/ML SYR SQ ONE (02:33)
--- NOTE | 2019-08-03 03:42 | P.HP ---
Certification for Inpatient Patient admitted to: Inpatient With expected LOS: >2 Midnights Practitioner: I am a practitioner with admitting privileges, knowledge of patient current condition, hospital course, and medical plan of care. Services: Services provided to patient in accordance with Admission requirements found in Title 42 Section 412.3 of the Code of Federal Regulations Patient History Date of Service: 08/03/19 Reason for admission: Chest pain History of Present Illness: 74-year-old gentleman, morbidly obese, with a history of coronary artery disease status post multiple stents, history of hypertension and diabetes presented to the emergency department with a complaint of chest pain, located in the left anterior chest, maximum intensity 8/10, radiated to involve the left arm, and associated with shortness of breath. Patient stated the chest pain occurred at rest after dinner. He denied any palpitation, he denied any cough or wheezing. He stated the chest pain resolved after sublingual nitroglycerin and an oral medication he was given in the ED. He was recently hospitalized in November 2018 for NSTEMI, cardiac catheterization was done which reported multiple stenosis in diagonal branches of the LAD which were considered unamenable to percutaneous angioplasty. Medical management was then recommended. Noted his troponin is elevated in the ED. EKG demonstrated sinus rhythm and no significant ST changes. Blood sugar level elevated to 400s. Chest x-ray shows no acute disease. Patient is admitted for further management of NSTEMI. Allergies No Known Allergies Allergy (Unverified 09/23/16 22:51) Home Medications: Aspirin [Aspirin EC 325 MG] 1 tab PO DAILY 12/27/17 Carvedilol 1 tab PO BID 12/27/17 Clopidogrel Bisulfate [Plavix*] 1 tab PO DAILY 12/27/17 Cyanocobalamin [Vitamin B-12*] 1 tab PO DAILY 12/27/17 Hydralazine [Apresoline*] 1 tab PO BID 12/27/17 Lubiprostone [Amitiza*] 1 cap PO BID 12/27/17 Metformin HCl 1 tab PO BID 12/27/17 Pregabalin [Lyrica] 1 cap PO TID 12/27/17 Furosemide [Lasix] 40 mg PO BIDL #60 tab 12/05/18 Rosuvastatin Calcium [Crestor] 40 mg PO DAILY #30 tablet 12/05/18 traMADol HCL [Ultram*] 1 tab PO TID PRN #15 tab 12/05/18 - Past Medical/Surgical History Diabetic: Yes -: HTN -: 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 Children-3. 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 - Family History Father -: Hypertension, Stroke Mother -: Heart disease - Social History Alcohol use: No CD- Drugs: No Caffeine use: No Review of Systems Other: General: No fever, no malaise, no unintentional weight loss. Eyes: No eye discharge, CVS: No palpitation, no lightheadedness. GI: No abdominal pain, no nausea no vomit, no constipation, no diarrhea. Genitourinary: No dysuria, no urinary frequency, no incontinence, no hematuria. Musculoskeletal: No joint pains, or joint swelling, no gait instability. Neurology: No headache, no asymmetric, weakness, no problem with swallowing. Except as documented, all other systems reviewed and negative. Physical Examination - Physical Exam General: Alert, In no apparent distress, Oriented x3, Obese HEENT: Atraumatic, Normocephalic, PERRLA, Mucous membr. moist/pink, Sclerae nonicteric Neck: Supple, JVD not distended, No Thyromegaly Respiratory: Clear to auscultation bilaterally, Normal air movement Cardiovascular: Regular rate/rhythm, Normal S1 S2, No murmurs, Edema (1+ bilateral lower extremity pitting edema) Capillary refill: <2 Seconds Gastrointestinal: Normal bowel sounds, Soft and benign, Non-distended, No tenderness Musculoskeletal: No swelling Integumentary: No rashes Neurological: Normal speech, Normal strength at 5/5 x4 extr, Cranial nerves 3- 12 intact - Studies Laboratory Data (last 24 hrs) 08/02/19 22:00: WBC 10.0, Hgb 12.9 L, Hct 40.6, Plt Count 123 L 08/02/19 22:00: Sodium 139, Potassium 5.2 H, BUN 26 H, Creatinine 1.16, Glucose 448 H*, Total Bilirubin 0.3, AST 15, ALT 18, Alkaline Phosphatase 130 H Assessment and Plan - Problems (Diagnosis) (1) Chest pain Current Visit: Yes Status: Acute (2) NSTEMI (non-ST elevated myocardial infarction) Current Visit: Yes Status: Acute (3) Hyperkalemia Onset Date: 09/25/16 Current Visit: No Status: Acute (4) Atrial fibrillation Current Visit: No Status: Chronic Qualifiers: Atrial fibrillation type: paroxysmal Qualified Code(s): I48.0 - Paroxysmal atrial fibrillation (5) Hyperlipidemia Onset Date: 09/25/16 Current Visit: No Status: Chronic Qualifiers: Hyperlipidemia type: unspecified Qualified Code(s): E78.5 - Hyperlipidemia , unspecified (6) Hypertension Onset Date: 09/25/16 Current Visit: No Status: Chronic Qualifiers: Hypertension type: essential hypertension Qualified Code(s): I10 - Essential (primary) hypertension (7) Non-insulin dependent type 2 diabetes mellitus Onset Date: 09/25/16 Current Visit: No Status: Chronic - Plan Admit to general medical floor with telemetry. Continue to trend troponin Treat NSTEMI with full-dose Lovenox. Continue aspirin and Plavix Metoprolol and lipid Check lipid panel Cardiology consult Pain management as needed Will also start Protonix for possible GERD Manage blood sugar with insulin sliding scale Check hemoglobin A1c - Advance Directives Does patient have a Living Will: No Does patient have a Durable POA for Healthcare: No
[2019-08-03] MEDS ORDERED: NITROGLYCERIN 0.4 MG/TAB SL PRN (05:11)
[2019-08-03] MEDS ORDERED: MORPHINE 4 MG/ML SYR IV PRN (05:11)
[2019-08-03 05:37] VITALS: BMI 47.9
[2019-08-03 06:43] LABS: Troponin I 1.41 ng/mL (0.0-0.045)
--- NOTE | 2019-08-03 08:10 | RAD REPORT ---
EXAM DESCRIPTION: RAD - Chest Single View - 08/02/2019 10:15 pm CLINICAL HISTORY: Left-sided chest pain COMPARISON: May 28, 2019 TECHNIQUE: AP portable chest image was obtained 2211 hours . FINDINGS: No focal mass or consolidation. Left hemidiaphragm elevation noted. Scarring or linear ate lectasis remains in the left base. No measurable failure or volume overload. Heart and vasculature ar e normal. No measurable pleural effusion and no pneumothorax. No acute bony abnormality seen. No acut e aortic findings suspected. IMPRESSION: No acute cardiopulmonary process. Chest exam is not significantly different from comparison.
[2019-08-03] MEDS: CLOPIDOGREL 75 MG TABLET PO SCH (08:45)
[2019-08-03] MEDS: ASPIRIN EC 81 MG TAB PO SCH (08:45)
[2019-08-03] MEDS: INSULIN -REGULAR HUMAN 50 UNIT/0.5 ML ML SQ SCH ×4 (08:54→21:23)
[2019-08-03] MEDS ORDERED: LUBIPROSTONE 24 MCG CAP PO SCH (09:00)
[2019-08-03] MEDS: ENOXAPARIN 100 MG/ML SYR SQ SCH ×2 (09:00→21:21)
[2019-08-03] MEDS ORDERED: HOME MED 1 EA UNK (Rosuvastatin Calcium [Crestor] 40 MG) PO SCH (09:00)
[2019-08-03] MEDS ORDERED: CLOPIDOGREL 75 MG TABLET PO SCH (09:00)
[2019-08-03] MEDS: carvediloL 25 MG TAB PO SCH ×2 (09:00→17:00)
[2019-08-03] MEDS ORDERED: HOME MED 1 EA UNK (Aspirin [Aspirin Ec 325 Mg] 1 TAB) PO SCH (09:00)
[2019-08-03] MEDS: HYDRALAZINE HCL 25 MG TABLET PO SCH ×2 (09:34→21:22)
[2019-08-03] MEDS: FUROSEMIDE 40 MG TABLET PO SCH ×2 (09:35→16:49)
[2019-08-03] MEDS: PREGABALIN 150 MG CAP PO SCH ×3 (09:35→21:22)
[2019-08-03] MEDS: CYANOCOBALAMIN 1,000 MCG TAB PO SCH (09:35)
--- NOTE | 2019-08-03 10:01 | EKG ---
Test Date: 2019-08-03 Test Time: 01:46:39 Gluer And Slicer Hand: BERNABE MEASUREMENT RESULTS: Intervals: Rate: 91 NJ: 152 QRSD: 88 QT: 330 QTc: 405 [place]: P: 68 [place]: 152 QRS: 0 T: 54 INTERPRETIVE STATEMENTS: Normal sinus rhythm Inferior infarct, age undetermined Possible Anterior infarct, age undetermined Abnormal ECG Compared to ECG 08/02/2019 21:55:55 No significant changes Electronically Signed On 08-03-19 10:00:38 FILTER PRESS PUMPER by Guero Parra
--- NOTE | 2019-08-03 10:03 | EKG ---
Test Date: 2019-08-02 Test Time: 21:55:55 Materials Engineering Technician: DEVIN MEASUREMENT RESULTS: Intervals: Rate: 93 MT: 178 QRSD: 76 QT: 320 QTc: 397 [place]: P: 72 MT: 178 QRS: 12 T: 96 INTERPRETIVE STATEMENTS: Normal sinus rhythm Low voltage QRS Cannot rule out Anteroseptal infarct, age undetermined Abnormal ECG Compared to ECG 05/28/2019 19:11:24 Low QRS voltage now present Myocardial infarct finding still present Electronically Signed On 08-03-19 10:02:34 TRAFFIC CONTROL OFFICER by Guero Parra
--- NOTE | 2019-08-03 11:13 | CON ---
Mr. Vaughn has known coronary heart disease. He has had stents placed in his LAD and circumflex about 8 months ago. He was in our hospital, had a heart cath because of chest pain. Enzymes went up a li ttle bit. He has very patent wide-open stents that looked good, but he has small vessel disease that is not amenable to any intervention. He has a diagonal that is a 1 mm vessel and we think that is t he culprit lesion causing him chest pain. The patient has been feeling well until recently, had an e pisode of chest pain and again has enzymes that have gone up. The highest troponin is 1.43. His ini tial troponin was 0.62. He is not having chest pain now. He has underlying diabetes, hypertension, dyslipidemia, previous history of coronary heart disease, morbid obesity. His EKG does not show infa rction, injury, or ischemia. Medications: Outpatient medications have been Amitiza, aspirin, Basaglar, carvedilol, clopidogrel, d igoxin, Farxiga, furosemide, glipizide, hydralazine, Lyrica, metformin, rosuvastatin, tramadol, vitam in B12. Social History: The patient does not use tobacco. Physical Examination: General: He is 5 feet 5 inches tall, 288 pounds, body mass index 48. He is alert, oriented, pleasan t. He is not in distress. Lungs: Clear. Heart: Unremarkable. Abdomen: Soft. Extremities: Mild edema. Distal pulses palpable. Since the patient had a cardiac cath just 8 months ago, I am reluctant to do another cardiac cath now . I feel sure I know just what caused this event and there will not be any intervention done so rath er than doing that, I am going to have him do a pharmacologic nuclear stress tomorrow. If that shows a large area of ischemia other than in the high lateral region where the diagonal is that cannot be stented, then we will consider doing another cardiac cath. ASHLY/JASON Voice ID: [id number] Report ID: [id number]
--- NOTE | 2019-08-03 11:33 | P.PN ---
Subjective Date of Service: 08/03/19 Chief Complaint: Chest pain Subjective: No new changes chest pain resolved No shortness of breath No fever no chills Review of Systems 10-point ROS is otherwise unremarkable Physical Examination - Vital Signs Temperature: 97.5 F Blood Pressure: 137/57 Pulse: 74 Respirations: 18 Pulse Ox (%): 94 - Physical Exam General: Alert, In no apparent distress, Obese HEENT: Atraumatic, Normocephalic Neck: Supple Respiratory: Clear to auscultation bilaterally, Normal air movement Cardiovascular: Regular rate/rhythm, Normal S1 S2 Capillary refill: <2 Seconds Gastrointestinal: Soft and benign, W/out hepatosplenomegaly Musculoskeletal: No clubbing, No swelling Integumentary: No rashes Neurological: Normal strength at 5/5 x4 extr Lymphatics: No axilla or inguinal lymphadenopathy External genitalia: Deferred Rectal: Deferred - Studies Laboratory Data (last 24 hrs) 08/02/19 22:00: WBC 10.0, Hgb 12.9 L, Hct 40.6, Plt Count 123 L 08/02/19 22:00: Sodium 139, Potassium 5.2 H, BUN 26 H, Creatinine 1.16, Glucose 448 H*, Total Bilirubin 0.3, AST 15, ALT 18, Alkaline Phosphatase 130 H Assessment & Plan - Problems (Diagnosis) (1) Chest pain Current Visit: Yes Status: Acute (2) NSTEMI (non-ST elevated myocardial infarction) Current Visit: Yes Status: Acute (3) CHF (congestive heart failure) Onset Date: 12/27/17 Current Visit: No Status: Acute Qualifiers: Heart failure type: systolic Heart failure chronicity: acute on chronic Qualified Code(s): I50.23 - Acute on chronic systolic (congestive) heart failure (4) CAD (coronary artery disease) Onset Date: 09/25/16 Current Visit: No Status: Chronic Qualifiers: Coronary Disease-Associated Artery/Lesion type: [place] artery [place] vs. transplanted heart: [place] heart Associated angina: with stable angina Qualified Code(s): I25.118 - Atherosclerotic heart disease of [place] coronary artery with other forms of angina pectoris (5) Hyperlipidemia Onset Date: 09/25/16 Current Visit: No Status: Chronic Qualifiers: Hyperlipidemia type: unspecified Qualified Code(s): E78.5 - Hyperlipidemia , unspecified (6) Hypertension Onset Date: 09/25/16 Current Visit: No Status: Chronic Qualifiers: Hypertension type: essential hypertension Qualified Code(s): I10 - Essential (primary) hypertension (7) Non-insulin dependent type 2 diabetes mellitus Onset Date: 09/25/16 Current Visit: No Status: Chronic (8) Obesity Current Visit: No Status: Chronic Qualifiers: Obesity type: due to excess calories Obesity classification: adult class 2 (BMI 35 - 39.9) Serious obesity comorbidity presence: with serious comorbidity Body mass index: BMI 38.0-38.9 Qualified Code(s): E66.01 - Morbid (severe) obesity due to excess calories; Z68.38 - Body mass index (BMI) 38.0-38.9, adult; Z68.38 - Body mass index (BMI) 38.0-38.9, adult (9) Obstructive sleep apnea Current Visit: No Status: Suspected Plan: Monitor under telemetry trend cardiac enzymes Cardiology consult Serial EKGs and serial cardiac enzymes patient denies any chest pain at this time continue aspirin statin and Plavix along with beta-danielle antihypertensives titrated Discuss with red hat engineer Getting a stress test in a.m. GI/DVT prophylaxis
[2019-08-03] MEDS ORDERED: METOPROLOL TAR 25 MG TAB PO SCH (18:00)
[2019-08-03] MEDS ORDERED: Enoxaparin 120 MG/0.8 ML SYR SQ SCH (21:00)
[2019-08-03] MEDS: ROSUVASTATIN 10 MG TAB PO SCH (21:22)
[2019-08-03] MEDS: LUBIPROSTONE 24 MCG CAP PO SCH (21:23)
[2019-08-04] MEDS: carvediloL 25 MG TAB PO SCH ×2 (05:29→18:28)
[2019-08-04 06:14] LABS: Basophils % 0.7 % (0-1.3); Hematocrit 37.1 % (39.6-49.0); Lymphocytes % 26.9 % (15.3-44.8); MPV 11.7 fL (7.6-11.3); RBC Red Blood Cell Count 4.03 M/uL (4.33-5.43)
[2019-08-04 06:34] LABS: Potassium 4.3 mmol/L (3.5-5.1)
[2019-08-04] MEDS ORDERED: REGADENOSON 0.4 MG/5 ML SYR IV ONE (07:58)
--- NOTE | 2019-08-04 09:26 | P.PN ---
Subjective Date of Service: 08/04/19 Chief Complaint: Chest pain chest pain resolved No shortness of breath No fever no chills Review of Systems 10-point ROS is otherwise unremarkable General: Unremarkable ENT: Unremarkable Respiratory: Unremarkable Physical Examination - Vital Signs Temperature: 97.8 F Blood Pressure: 153/64 Pulse: 75 Respirations: 16 Pulse Ox (%): 95 - Physical Exam General: Alert, In no apparent distress, Obese HEENT: Atraumatic, Normocephalic Neck: Supple, 2+ carotid pulse no bruit Respiratory: Clear to auscultation bilaterally, Normal air movement Cardiovascular: Normal pulses, Regular rate/rhythm, Normal S1 S2 Capillary refill: <2 Seconds Gastrointestinal: Soft and benign, Non-distended Musculoskeletal: No clubbing, No swelling Integumentary: No rashes Neurological: Normal speech, Normal strength at 5/5 x4 extr Lymphatics: No axilla or inguinal lymphadenopathy Urinary: Other (No bladder distention) External genitalia: Deferred Rectal: Deferred Assessment & Plan - Problems (Diagnosis) (1) Chest pain Current Visit: Yes Status: Acute (2) NSTEMI (non-ST elevated myocardial infarction) Current Visit: Yes Status: Acute (3) CHF (congestive heart failure) Onset Date: 12/27/17 Current Visit: No Status: Acute Qualifiers: Heart failure type: systolic Heart failure chronicity: acute on chronic Qualified Code(s): I50.23 - Acute on chronic systolic (congestive) heart failure (4) CAD (coronary artery disease) Onset Date: 09/25/16 Current Visit: No Status: Chronic Qualifiers: Coronary Disease-Associated Artery/Lesion type: [place] artery [place] vs. transplanted heart: [place] heart Associated angina: with stable angina Qualified Code(s): I25.118 - Atherosclerotic heart disease of [place] coronary artery with other forms of angina pectoris (5) Hyperlipidemia Onset Date: 09/25/16 Current Visit: No Status: Chronic Qualifiers: Hyperlipidemia type: unspecified Qualified Code(s): E78.5 - Hyperlipidemia , unspecified (6) Hypertension Onset Date: 09/25/16 Current Visit: No Status: Chronic Qualifiers: Hypertension type: essential hypertension Qualified Code(s): I10 - Essential (primary) hypertension (7) Non-insulin dependent type 2 diabetes mellitus Onset Date: 09/25/16 Current Visit: No Status: Chronic (8) Obesity Current Visit: No Status: Chronic Qualifiers: Obesity type: due to excess calories Obesity classification: adult class 2 (BMI 35 - 39.9) Serious obesity comorbidity presence: with serious comorbidity Body mass index: BMI 38.0-38.9 Qualified Code(s): E66.01 - Morbid (severe) obesity due to excess calories; Z68.38 - Body mass index (BMI) 38.0-38.9, adult (9) Obstructive sleep apnea Current Visit: No Status: Suspected Plan: Monitor under telemetry trended cardiac enzymes Cardiology consult appreciated patient denies any chest pain at this time continue aspirin statin and Plavix along with beta-danielle antihypertensives titrated Getting a stress test today Possibly Dc home if stress test is negative GI/DVT prophylaxis Time Spent Managing Pts Care (In Minutes): 39
[2019-08-04] MEDS: INSULIN -REGULAR HUMAN 50 UNIT/0.5 ML ML SQ SCH ×4 (10:03→21:20)
[2019-08-04] MEDS: PREGABALIN 150 MG CAP PO SCH ×3 (10:04→21:18)
[2019-08-04] MEDS: ASPIRIN EC 81 MG TAB PO SCH (10:04)
[2019-08-04] MEDS: FUROSEMIDE 40 MG TABLET PO SCH ×2 (10:04→16:55)
[2019-08-04] MEDS: CYANOCOBALAMIN 1,000 MCG TAB PO SCH (10:04)
[2019-08-04] MEDS: CLOPIDOGREL 75 MG TABLET PO SCH (10:04)
[2019-08-04] MEDS: HYDRALAZINE HCL 25 MG TABLET PO SCH ×2 (10:04→21:18)
[2019-08-04] MEDS: LUBIPROSTONE 24 MCG CAP PO SCH ×2 (10:05→21:19)
--- NOTE | 2019-08-04 10:20 | RAD REPORT ---
EXAM DESCRIPTION: NM - Rest Stress Cardiac Imaging - 08/04/2019 9:51 am CLINICAL HISTORY: Chest pain, non STEMI COMPARISON: Cardiac imaging September 2016 TECHNIQUE: The patient was administered 10.8 mCi of Tc 99m Sestamibi prior to resting SPECT imaging of the heart. The patient was then administered 30.2 mCi of Tc 99m Sestamibi following exercise or ph armacologic stress. Multiplanar SPECT images were reviewed. FINDINGS: The end diastolic volume is 127 ml, the end systolic volume is 91 ml, and the ejection fra ction is 29 %. Ventricular volumes are minimally different from the prior study. The poor ejection fr action was seen on the 2017 study as well. Stress images show diminished activity in the lateral wall base to apex. This incorporates portions o f the anterior and inferior wall. Patient has focal apical diminished activity that does not change between rest and stress imaging. This was seen previously. There is an overall reduction in activity in the inferior wall not clearly different between rest and stress imaging. This is probably attenuat ion artifact and was present previously. IMPRESSION: Lateral wall stress ischemia from base to apex. Diminished activity along the inferior wall and apex not clearly different between rest and stress im aging. These findings were present on the 2017 study. End-diastolic volume is enlarged to 127 milliliters only slightly different from 2017. The poor 29% e jection fraction is similar to 2017.
[2019-08-04] MEDS: TRAMADOL HCL 50 MG TAB PO PRN ×2 (10:21→21:26)
[2019-08-04] MEDS: PANTOPRAZOLE 40MG TABLET PO SCH (10:21)
[2019-08-04] MEDS: ENOXAPARIN 100 MG/ML SYR SQ SCH ×2 (10:35→21:18)
--- NOTE | 2019-08-04 10:46 | ECHO ---
HEIGHT: 5 ft 5 in WEIGHT: 288 lb 6 oz DATE OF STUDY: 08/04/[address]: Guero Parra MD 2-DIMENSIONAL: YES M.MODE: YES DOPPLER: YES COLOR FLOW: YES TDS: YES PORTABLE: NO DEFINITY: NO BUBBLE STUDY: NO DIAGNOSIS: NSTEMI CARDIAC HISTORY: CATHERIZATION: NO SURGERY: NO PROSTHETIC VALVE: NO PACEMAKER: NO MEASUREMENTS (cm) DIASTOLIC (NORMALS) SYSTOLIC (NORMALS) IVSd 1.1 (0.6-1.2) LA Diam 3.2 (1.9-4.0) LVEF 69% LVIDd 4.0 (3.5-5.7) LVIDs 2.5 (2.0-3.5) %FS 38% LVPWd 1.0 (0.6-1.2) Ao Diam 2.9 (2.0-3.7) 2 DIMENSIONAL ASSESSMENT: RIGHT ATRIUM: NORMAL LEFT ATRIUM: NORMAL RIGHT VENTRICLE: NORMAL LEFT VENTRICLE: NORMAL TRICUSPID VALVE: NORMAL MITRAL VALVE: NORMAL PULMONIC VALVE: NORMAL AORTIC VALVE: NORMAL PERICARDIAL EFFUSION: NONE AORTIC ROOT: NORMAL LEFT VENTRICULAR WALL MOTION: NORMAL. DOPPLER/COLOR FLOW: IMPAIRED LEFT VENTRICULAR RELAXATION. COMMENTS: NORMAL 2D ECHO. IMPAIRED LEFT VENTRICULAR RELAXATION. TECHNICALLY DIFFICULT STUDY. TECHNOLOGIST: DARNELL MCCORMACK
--- NOTE | 2019-08-04 10:52 | TREADPHA ---
DX: NON STEMI, POOR CATH CANDIDATE Date of Study: 08/04/19 Ht: 5 5 Wt: 288 lb 6 oz Consulting Physician: ENMANUEL MEDICATIONS: ASPIRIN, COREG, PLAVIX, LOVENOX, LASIX, APRESOLINE, NOVOLIN-R, LYRICA, CRESTOR, ULTRAM, FARXIGA HISTORY: CEREBRAL VASCULAR ACCIDENT, INSULIN DEPENDENT DIABETES MELLITUS, HYPERTENSION, MYOCARDIAL INFARCTION, CONGESTIVE HEART FAILURE, ATRIAL FIBRILLATION, CORONARY ARTERY DISEASE, HIGH CHOLESTEROL PHYSICIAL EXAMINATION: RESTING B.P.: 149/77 RESTING H.R.: 84 RESTING EKG: SINUS RHYTHM WITH PREMATURE VENTRICULAR COMPLEXES. PROTOCOL: LEXISCAN EXERCISE TIME: 3:30 B.P. AT PEAK STRESS: 197/92 IMPRESSION: LEXISCAN STRESS TEST PERFORMED. CARDIOLITE INJECTED PER PROTOCOL. NO SUPRA VENTRICULAR TACHYCARDIA, NO VENTRICULAR TACHYCARDIA, OCCASIONAL PREMATURE VENTRICULAR COMPLEXES NOTED. PATIENT DENIED CHEST PAIN TOLERATED WELL. PLEASE SEE NUCLEAR MEDICINE REPORT. NON DIAGNOSTIC EKG WITH LEXISCAN STRESS.
[2019-08-04] MEDS: ROSUVASTATIN 10 MG TAB PO SCH (21:18)
[2019-08-05] MEDS: CLOPIDOGREL 75 MG TABLET PO SCH (05:38)
[2019-08-05] MEDS: carvediloL 25 MG TAB PO SCH ×2 (05:38→17:28)
[2019-08-05] MEDS: ASPIRIN EC 81 MG TAB PO SCH (05:38)
[2019-08-05] MEDS: PANTOPRAZOLE 40MG TABLET PO SCH (06:03)
[2019-08-05] MEDS: INSULIN -REGULAR HUMAN 50 UNIT/0.5 ML ML SQ SCH ×4 (07:30→20:37)
[2019-08-05] MEDS: LUBIPROSTONE 24 MCG CAP PO SCH ×2 (08:04→20:35)
[2019-08-05] MEDS: PREGABALIN 150 MG CAP PO SCH ×3 (08:04→20:34)
[2019-08-05] MEDS: CYANOCOBALAMIN 1,000 MCG TAB PO SCH (08:04)
[2019-08-05] MEDS: HYDRALAZINE HCL 25 MG TABLET PO SCH ×2 (08:07→20:34)
[2019-08-05] MEDS: FUROSEMIDE 40 MG TABLET PO SCH ×2 (08:08→16:31)
--- NOTE | 2019-08-05 09:39 | P.PN ---
Subjective Date of Service: 08/05/19 Chief Complaint: Chest pain Denies any chest pain No shortness of breath No fever no chills Review of Systems 10-point ROS is otherwise unremarkable General: Unremarkable ENT: Unremarkable Respiratory: Unremarkable Physical Examination - Vital Signs Temperature: 98.0 F Blood Pressure: 128/61 Pulse: 80 Respirations: 17 Pulse Ox (%): 92 - Physical Exam General: Alert, In no apparent distress, Obese HEENT: Atraumatic, Normocephalic Neck: Supple, 2+ carotid pulse no bruit Respiratory: Clear to auscultation bilaterally, Normal air movement Cardiovascular: Normal pulses, Regular rate/rhythm Capillary refill: <2 Seconds Gastrointestinal: Soft and benign, W/out hepatosplenomegaly Musculoskeletal: No clubbing, Swelling Integumentary: No rashes Neurological: Normal speech, Normal strength at 5/5 x4 extr Lymphatics: No axilla or inguinal lymphadenopathy External genitalia: Deferred Rectal: Deferred Assessment & Plan - Problems (Diagnosis) (1) Chest pain Current Visit: Yes Status: Acute (2) NSTEMI (non-ST elevated myocardial infarction) Current Visit: Yes Status: Acute (3) CHF (congestive heart failure) Onset Date: 12/27/17 Current Visit: No Status: Acute Qualifiers: Heart failure type: systolic Heart failure chronicity: acute on chronic Qualified Code(s): I50.23 - Acute on chronic systolic (congestive) heart failure (4) CAD (coronary artery disease) Onset Date: 09/25/16 Current Visit: No Status: Chronic Qualifiers: Coronary Disease-Associated Artery/Lesion type: [place] artery [place] vs. transplanted heart: [place] heart Associated angina: with stable angina Qualified Code(s): I25.118 - Atherosclerotic heart disease of [place] coronary artery with other forms of angina pectoris (5) Hyperlipidemia Onset Date: 09/25/16 Current Visit: No Status: Chronic Qualifiers: Hyperlipidemia type: unspecified Qualified Code(s): E78.5 - Hyperlipidemia , unspecified (6) Hypertension Onset Date: 09/25/16 Current Visit: No Status: Chronic Qualifiers: Hypertension type: essential hypertension Qualified Code(s): I10 - Essential (primary) hypertension (7) Non-insulin dependent type 2 diabetes mellitus Onset Date: 09/25/16 Current Visit: No Status: Chronic (8) Obesity Current Visit: No Status: Chronic Qualifiers: Obesity type: due to excess calories Obesity classification: adult class 2 (BMI 35 - 39.9) Serious obesity comorbidity presence: with serious comorbidity Body mass index: BMI 38.0-38.9 Qualified Code(s): E66.01 - Morbid (severe) obesity due to excess calories; Z68.38 - Body mass index (BMI) 38.0-38.9, adult (9) Obstructive sleep apnea Current Visit: No Status: Suspected Plan: Monitor under telemetry trended cardiac enzymes Cardiology consult appreciated continue aspirin statin and Plavix along with beta-danielle antihypertensives titrated Stress test was positive Getting [facility] today Time Spent Managing Pts Care (In Minutes): 42
[2019-08-05] MEDS ORDERED: MIDAZOLAM HCL 2 MG/2 ML INJ ONE ×3 (11:45→12:18)
[2019-08-05] MEDS ORDERED: ATROPINE SULF 1 MG/10 ML SYR IV ONE (11:46)
[2019-08-05] MEDS ORDERED: FENTANYL CITR 100 MCG/2 ML ONE ×2 (11:46→12:46)
[2019-08-05] MEDS ORDERED: NA CHLORIDE 0.9% 50 ML ONE ×2 (11:46→12:28)
[2019-08-05] MEDS ORDERED: HEPA 1000U/500MLS 1,000 UNIT/500 ML BAG IV ONE (11:48)
[2019-08-05] MEDS ORDERED: LIDOCAINE 1% MPF 30 ML VIAL ONE (11:48)
[2019-08-05] MEDS ORDERED: NA CHLORIDE 0.9% 500 ML ONE (11:52)
[2019-08-05] MEDS ORDERED: PRASUGREL (EFFIENT) 10 MG TAB ONE (12:46)
[2019-08-05] MEDS ORDERED: ASPIRIN 325 MG TAB ONE (12:46)
[2019-08-05] MEDS ORDERED: MORPHINE 4 MG/ML SYR IV PRN (14:52)
[2019-08-05] MEDS ORDERED: ONDANSETRON 4 MG/2 ML VIAL IV PRN (14:53)
[2019-08-05] MEDS ORDERED: NA CHLORIDE 0.9% 1,000 ML IV SCH (15:00)
[2019-08-05] MEDS ORDERED: ACETAMINOPHEN 325 MG TABLET PO PRN (15:00)
[2019-08-05] MEDS: TRAMADOL HCL 50 MG TAB PO PRN ×2 (16:32→23:22)
[2019-08-05] MEDS: ROSUVASTATIN 10 MG TAB PO SCH (20:35)
[2019-08-05] MEDS ORDERED: TEMAZEPAM 15 MG CAP PO ONE (23:37)
[2019-08-06] MEDS: PANTOPRAZOLE 40MG TABLET PO SCH (05:27)
[2019-08-06] MEDS: carvediloL 25 MG TAB PO SCH (05:27)
[2019-08-06 05:28] VITALS: BP 151/67
--- NOTE | 2019-08-06 05:33 | OP ---
Surgeon: Rohit Carvalho MD Saw Filer: Ms. Alissa Saini. The patient will remain in the hospital overnight. He will go home on 08/06/2019. Procedure Performed: Left heart catheterization, selective coronary arteriogram, primary stent of th e proximal LAD. History Of Present Illness: Mr. Vaughn is a 74-year-old, has had a history of proximal circumflex chasity nt as well as mid LAD stent in the past. Last catheterization was in November 2018, showing a 40% proxi mal LAD with patent stents in the mid LAD and the proximal circ. However, he came in with unstable a ngina, set up for a heart catheterization by Dr. Parra, and brought to the [facility] as an inpatient, prepped and draped in the routine sterile fashion. A 6-[place] sheath introduced in the right common femoral artery successfully. A 6-[place] Darren catheter left and right were used to do the coronar y injections on the left and right side respectively. His right coronary artery was free of disease, he has some disease in the distal PDA. His left main injection showed a patent proximal circumflex stent, about a 50% stenosis in the OM-2. He had a patent mid LAD stent, but his very proximal LAD clay d about an 80% stenosis, much worse than it was in November. An XB 3.5 with side hole guide was used. It was cannulated in the left main. A Bartley wire was used to cross the lesion successfully. A 3.0 x 16 stent was placed in the very proximal LAD with 0% residual. The patient tolerated the procedure well. There were no complications. Blood Loss: 5 mL. Anesthesia: Total conscious sedation was 45 minutes. The patient received aspirin, Effient, and Angiomax during the procedure. Final Diagnosis: Coronary artery disease status post successful stent of the proximal LAD. KANWAL/JASON Voice ID: [id number] Report ID: [id number]
[2019-08-06 06:12] LABS: Absolute Lymphocytes (CBC) 2.7 K/uL (0.7-4.9); Basophils % 0.6 % (0-1.3); Hematocrit 36.1 % (39.6-49.0); Lymphocytes % 25.1 % (15.3-44.8); RBC Red Blood Cell Count 3.92 M/uL (4.33-5.43)
[2019-08-06 06:40] LABS: Potassium 4.2 mmol/L (3.5-5.1)
[2019-08-06] MEDS: CLOPIDOGREL 75 MG TABLET PO SCH (08:07)
[2019-08-06] MEDS: PREGABALIN 150 MG CAP PO SCH (08:07)
[2019-08-06] MEDS: CYANOCOBALAMIN 1,000 MCG TAB PO SCH (08:07)
[2019-08-06] MEDS: ASPIRIN EC 81 MG TAB PO SCH (08:07)
[2019-08-06] MEDS: HYDRALAZINE HCL 25 MG TABLET PO SCH (08:07)
[2019-08-06] MEDS: FUROSEMIDE 40 MG TABLET PO SCH (08:07)
[2019-08-06] MEDS: LUBIPROSTONE 24 MCG CAP PO SCH (08:08)
[2019-08-06] MEDS: INSULIN -REGULAR HUMAN 50 UNIT/0.5 ML ML SQ SCH (08:08)
--- NOTE | 2019-08-06 08:21 | P.DS ---
Admission Date: 08/03/19 Discharge Date: 08/06/19 Disposition: ROUTINE DISCHARGE Reason for Admission: Chest pain - Problems (1) Chest pain Status: Acute (2) NSTEMI (non-ST elevated myocardial infarction) Status: Acute (3) CHF (congestive heart failure) Onset Date: 12/27/17 Status: Acute Qualifiers: Heart failure type: systolic Heart failure chronicity: acute on chronic Qualified Code(s): I50.23 - Acute on chronic systolic (congestive) heart failure (4) CAD (coronary artery disease) Onset Date: 09/25/16 Status: Chronic Qualifiers: Coronary Disease-Associated Artery/Lesion type: [place] artery [place] vs. transplanted heart: [place] heart Associated angina: with stable angina Qualified Code(s): I25.118 - Atherosclerotic heart disease of [place] coronary artery with other forms of angina pectoris (5) Hyperlipidemia Onset Date: 09/25/16 Status: Chronic Qualifiers: Hyperlipidemia type: unspecified Qualified Code(s): E78.5 - Hyperlipidemia , unspecified (6) Hypertension Onset Date: 09/25/16 Status: Chronic Qualifiers: Hypertension type: essential hypertension Qualified Code(s): I10 - Essential (primary) hypertension (7) Non-insulin dependent type 2 diabetes mellitus Onset Date: 09/25/16 Status: Chronic (8) Obesity Status: Chronic Qualifiers: Obesity type: due to excess calories Obesity classification: adult class 2 (BMI 35 - 39.9) Serious obesity comorbidity presence: with serious comorbidity Body mass index: BMI 38.0-38.9 Qualified Code(s): E66.01 - Morbid (severe) obesity due to excess calories; Z68.38 - Body mass index (BMI) 38.0-38.9, adult (9) Obstructive sleep apnea Status: Suspected Brief History of Present Illness: 74-year-old gentleman, morbidly obese, with a history of coronary artery disease status post multiple stents, history of hypertension and diabetes presented to the emergency department with a complaint of chest pain, located in the left anterior chest, maximum intensity 8/10, radiated to involve the left arm, and associated with shortness of breath. Patient stated the chest pain occurred at rest after dinner. He denied any palpitation, he denied any cough or wheezing. He stated the chest pain resolved after sublingual nitroglycerin and an oral medication he was given in the ED. He was recently hospitalized in November 2018 for NSTEMI, cardiac catheterization was done which reported multiple stenosis in diagonal branches of the LAD which were considered unamenable to percutaneous angioplasty. Medical management was then recommended. Noted his troponin is elevated in the ED. EKG demonstrated sinus rhythm and no significant ST changes. Blood sugar level elevated to 400s. Chest x-ray shows no acute disease. Patient is admitted for further management of NSTEMI. Hospital Course: Patient was admitted and was monitor under telemetry. Cardiac enzymes were trended and was started on aspirin, statin, Plavix, and Lovenox. Cardiology was consulted. Cardiology recommended a stress test. Patient had a stress test which was abnormal .cardiology performed a heart catheterization with PCI. He has responded well to the treatment and wanted to go home and is being discharged home today in stable condition with advice to follow up with PCP in 1 week and also with Cardiology in 1-2 weeks Discharge diagnosis NSTEMI status post PCI to LAD History of CAD status post stents Hypertension Diabetes mellitus Hyperlipidemia Obesity Vital Signs/Physical Exam: Temp Pulse Resp BP Pulse Ox 98.1 F 74 18 151/67 H 96 08/06/19 04:00 08/06/19 08:07 08/06/19 04:00 08/06/19 08:07 08/06/19 04:00 General: Alert, In no apparent distress, Obese HEENT: Atraumatic, Normocephalic Neck: 2+ carotid pulse no bruit Respiratory: Clear to auscultation bilaterally, Normal air movement Cardiovascular: Normal pulses, Regular rate/rhythm Capillary refill: <2 Seconds Gastrointestinal: Soft and benign, W/out hepatosplenomegaly Neurological: Normal speech, Normal strength at 5/5 x4 extr Laboratory Data at Discharge: WBC 10.8 K/uL (4.3-10.9) 08/06/19 05:50 Hgb 11.9 g/dL (13.6-17.9) L 08/06/19 05:50 Hct 36.1 % (39.6-49.0) L 08/06/19 05:50 Plt Count 123 K/uL (152-406) L 08/06/19 05:50 Sodium 142 mmol/L (136-145) 08/06/19 05:50 Potassium 4.2 mmol/L (3.5-5.1) 08/06/19 05:50 BUN 27 mg/dL (7-18) H 08/06/19 05:50 Creatinine 1.16 mg/dL (0.55-1.3) 08/06/19 05:50 Glucose 167 mg/dL (74-106) H 08/06/19 05:50 Total Bilirubin 0.3 mg/dL (0.2-1.0) 08/02/19 22:00 AST 15 U/L (15-37) 08/02/19 22:00 ALT 18 U/L (12-78) 08/02/19 22:00 Alkaline Phosphatase 130 U/L (45-117) H 08/02/19 22:00 Troponin I 0.86 ng/mL (0.0-0.045) H* 08/03/19 21:49 Triglycerides 91 mg/dL (<150) 08/03/19 05:36 Cholesterol 89 mg/dL (<200) 08/03/19 05:36 HDL Cholesterol 28 mg/dL (40-60) L 08/03/19 05:36 Cholesterol/HDL Ratio 3.18 08/03/19 05:36 Home Medications: Aspirin [Aspirin EC 325 MG] 1 tab PO DAILY 12/27/17 Clopidogrel Bisulfate [Plavix*] 1 tab PO DAILY 12/27/17 Cyanocobalamin [Vitamin B-12*] 1 tab PO DAILY 12/27/17 Hydralazine [Apresoline*] 1 tab PO BID 12/27/17 Lubiprostone [Amitiza*] 1 cap PO BID 12/27/17 Metformin HCl 1 tab PO BID 12/27/17 Pregabalin [Lyrica] 1 cap PO TID 12/27/17 carvediloL [Carvedilol] 1 tab PO BID 12/27/17 Furosemide [Lasix] 40 mg PO BIDL #60 tab 12/05/18 Rosuvastatin Calcium [Crestor] 40 mg PO DAILY #30 tablet 12/05/18 traMADol HCL [Ultram*] 1 tab PO TID PRN #15 tab 12/05/18 Diet: AHA Activity: Ad shaun Followup: Rohit Carvalho MD [ACTIVE - CAN ADMIT] - (Follow up in 2 weeks) Time spent managing pt's care (in minutes): 32
[2019-08-06 09:10] VITALS: O2SAT 94
[2019-08-06 11:25] VITALS: TEMP 97.5
--- NOTE | 2019-08-06 12:19 | PN ---
Patient underwent a primary stent yesterday of the proximal LAD. He had came in with unstable angina . In addition to his new stent, he had a patent mid LAD stent and a patent proximal circumflex stent . Overnight, he did well. No complications. The groin appears intact. He had no telemetry changes . We will plan to discharge him today on his home medication, which does include beta-blockers, aspi rin, Plavix, and statin. I will see him in the office in 2 weeks. CAROL Voice ID: [id number] Report ID: [id number]
== END 2019-08-06 11:26 | disposition home or self-care (01) | DRG 246 ==
LOC: ER 21:50 → ERHOLD 08-03 03:51 → 2ND 08-03 04:39
PROVIDERS: ADMIT Internal Medicine; ATTEND Family Medicine
PROC: 027034Z Dilation of Coronary Artery, One Artery with Drug-eluting Intraluminal Device, Percutaneous Approach (ICD-10-PCS; principal; 2019-08-05)
PROC: B201YZZ Plain Radiography of Multiple Coronary Arteries using Other Contrast (ICD-10-PCS; 2019-08-05)
DX: I21.4 Non-ST elevation (NSTEMI) myocardial infarction (principal); I50.23 Acute on chronic systolic (congestive) heart failure; Z68.42 Body mass index [BMI] 45.0-49.9, adult; I25.110 Atherosclerotic heart disease of native coronary artery with unstable angina pectoris; E66.01 Morbid (severe) obesity due to excess calories; E11.9 Type 2 diabetes mellitus without complications; E87.5 Hyperkalemia; I48.0 Paroxysmal atrial fibrillation; E78.5 Hyperlipidemia, unspecified; I11.0 Hypertensive heart disease with heart failure; G47.33 Obstructive sleep apnea (adult) (pediatric)
CPT/HCPCS: 36415; 71045; 78452; 80048; 80061; 80076; 82947; 83036; 83880; 84484; 85025; 85347; 93005; 93017; 93306; 93454; 94760; 96365; 96372; 99285; A9500; C1725; C1760; C1877; C1893; C9600; J0583; J1650; J2250; J2785; J3010; J7030; J7040

== ENCOUNTER 2020-02-27 16:08 | Emergency (ER) | payer OTHER ==
[2020-02-27] MEDS ORDERED: HYDROCODONE/APAP 7.5/325 MG TAB ONE (17:07)
[2020-02-27 17:12] LABS: Absolute Lymphocytes (CBC) 2.8 K/uL (0.7-4.9); Basophils % 0.8 % (0-1.3); Hematocrit 35.6 % (39.6-49.0); Lymphocytes % 22.4 % (15.3-44.8); MPV 10.9 fL (7.6-11.3); RBC Red Blood Cell Count 3.86 M/uL (4.33-5.43)
[2020-02-27 17:13] LABS: Protime INR 1.08
--- NOTE | 2020-02-27 17:21 | RAD REPORT ---
EXAM DESCRIPTION: RAD - Chest Single View - 02/27/2020 4:41 pm CLINICAL HISTORY: SWELLING, shortness of breath COMPARISON: Portable July 2019 TECHNIQUE: AP portable chest image was obtained 02/27/2020 4:41 pm . FINDINGS: Lungs are clear. Heart and vasculature are normal. No measurable pleural effusion and no p neumothorax. No acute bony abnormality seen. Bilateral shoulder degenerative changes have progressed No acute aortic findings suspected. IMPRESSION: No acute cardiopulmonary process.
[2020-02-27 17:28] LABS: ALT/SGPT 13 U/L (12-78); AST/SGOT 6 U/L (15-37); Albumin 3.5 g/dL (3.4-5.0); Alkaline Phosphatase 125 U/L (45-117); BUN Blood Urea Nitrogen 27 mg/dL (7-18); Bicarbonate 28 mmol/L (21-32); Bilirubin Direct < 0.1 mg/dL (0-0.2); Bilirubin Total 0.3 mg/dL (0.2-1.0); Glucose Level 194 mg/dL (74-106); Magnesium 2.1 mg/dL (1.8-2.4); NT PRO-BNP 136 pg/mL (<450); Potassium 5.5 mmol/L (3.5-5.1); Protein, Total 7.8 g/dL (6.4-8.2); Sodium Level 136 mmol/L (136-145); Troponin (Emerg Dept Use Only) < 0.02 ng/mL (0.0-0.045)
--- NOTE | 2020-02-27 18:11 | RAD REPORT ---
EXAM DESCRIPTION: US - Extrem Venous W Compress Christian - 02/27/2020 5:42 pm CLINICAL HISTORY: Pain;Swelling COMPARISON: None. TECHNIQUE: Real-time sonographic evaluation of the bilateral lower extremity common femoral, superfi cial femoral, popliteal and posterior tibial veins was performed. FINDINGS: Normal compressibility, flow augmentation, phasic flow and spontaneous flow are identified in the left and right lower extremity common femoral, superficial femoral, popliteal and posterior t ibial veins. No intraluminal filling defects seen. IMPRESSION: No DVT in either lower extremity.
[2020-02-27] MEDS ORDERED: INSULIN -REGULAR HUMAN 50 UNIT/0.5 ML ML ONE (18:13)
[2020-02-27] MEDS ORDERED: FUROSEMIDE 40 MG/4 ML VIAL ONE (18:14)
[2020-02-27] MEDS ORDERED: ALBUTEROL 2.5 MG/3 ML NEB SOL ONE (18:14)
[2020-02-27] MEDS ORDERED: SOD POLYSTYREN SUL 15 GM/60 ML UCUP ONE (18:15)
[2020-02-27] MEDS ORDERED: D50W 25 GM/50 ML SYRINGE/VIAL IV ONE (18:15)
--- NOTE | 2020-02-27 18:39 | RAD REPORT ---
EXAM DESCRIPTION: US - Lower Extremity Arterial Bilat - 02/27/2020 5:47 pm CLINICAL HISTORY: PAIN COMPARISON: None. TECHNIQUE: Waveforms were obtained along the length of each lower extremity. Visual inspection of th e lower extremity arterial tree performed. FINDINGS: Triphasic to biphasic waveform patterns were seen in the right common femoral artery to po pliteal artery. Monophasic waveform seen at the ankle arteries. No focal flow restricting lesion iden tifiable. No occlusion. Monophasic waveforms were seen in the left common femoral, superficial femoral and popliteal arteries . Monophasic waveform pattern seen at the ankle as well. No focal flow restricting lesion. IMPRESSION: Right lower extremity below knee atherosclerotic changes with monophasic waveforms seen in the dorsalis pedis and posterior tibial arteries. No focal flow restricting lesion on the right. Monophasic waveform along the length of the left lower extremity without a focal lesion seen. 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
[2020-02-27] MEDS ORDERED: FENTANYL CITR 100 MCG/2 ML ONE (20:13)
[2020-02-27 20:23] LABS: Potassium 5.3 mmol/L (3.5-5.1)
--- NOTE | 2020-02-27 20:57 | EDPHYS ---
Physician Documentation [facility] Name: Tyrone Vaughn Age: 74 yrs Sex: Male : 1945 Arrival Date: 02/27/2020 Time: 16:15 Bed 2 Private MD: ED Physician Marge Villalobos HPI: 02/26 16:24 This 74 yrs old Male presents to ER via EMS with complaints of Swelling of cp Lower Legs and Feet. 16:24 The patient presents with pain, that is chronic, swelling, tenderness. The complaints cp affect the left huff, anterior aspect of left ankle and dorsum of left foot, right huff, anterior aspect of right ankle and dorsum of right foot. Onset: The symptoms/episode began/occurred for years, worse over past 2 weeks. Associated signs and symptoms: Pertinent negatives chest pain, shortness of breath. Historical: - Allergies: 16:24 No Known Allergies; jl7 - Home Meds: 16:24 carvedilol 25 mg Oral tab 1 tab 2 times per day [Active]; furosemide 20 mg Oral tab 1 jl7 tab once daily [Active]; digoxin 250 mcg Oral tab 1 tab once daily [Active]; Farxiga 5 mg Oral tab 1 tab once daily [Active]; Amitiza 24 mcg Oral cap 1 cap 2 times per day [Active]; hydralazine 25 mg Oral tab 1 tab 2 times per day [Active]; metformin 1,000 mg Oral tab 1 tab 2 times per day [Active]; clopidogrel 75 mg Oral tab 1 tab once daily [Active]; glipizide 10 mg Oral tab 1 tab 2 times per day [Active]; rosuvastatin 10 mg Oral tab 1 tab once daily [Active]; Lyrica 75 mg Oral 1 cap 3 times per day [Active]; tramadol 50 mg Oral tab 1 tab three times a day [Active]; Vitamin B-12 1,000 mcg Oral TbER daily [Active]; aspirin 325 mg Oral tab 1 tab once daily [Active]; - PMHx: 16:24 Anxiety; Atrial Fib; CAD; CHF; Diabetes - IDDM; heart problem; High Cholesterol; jl7 Hypertension; Myocardial infarction; neuropathy; Sleep Apnea; - PSHx: 16:24 Heart stents; jl7 - Immunization history:: Adult Immunizations unknown. - Social history:: Smoking status: Patient denies any tobacco usage or history of. ROS: 16:30 Constitutional: Negative for body aches, chills, fever, poor PO intake. cp 16:30 Eyes: Negative for injury, pain, redness, and discharge. cp 16:30 ENT: Negative for ear pain, sore throat, difficulty swallowing, difficulty handling secretions. 16:30 Cardiovascular: Positive for edema, Negative for chest pain, palpitations. 16:30 Respiratory: Negative for cough, shortness of breath, wheezing. 16:30 Abdomen/GI: Negative for abdominal pain, nausea, vomiting, and diarrhea, constipation. 16:30 Skin: Negative for rash. 16:30 Neuro: Negative for altered mental status, headache, weakness. 16:30 All other systems are negative. cp Exam: 16:35 Constitutional: The patient appears in no acute distress, alert, awake, cp non-diaphoretic, non-toxic, well developed, well nourished, obese. 16:35 Head/Face: Normocephalic, atraumatic. cp 16:35 Eyes: Periorbital structures: appear normal, Conjunctiva: normal, no exudate, no cp injection, Sclera: no appreciated abnormality, Lids and lashes: appear normal, bilaterally. 16:35 ENT: External ear(s): are unremarkable, Nose: is normal, Mouth: Lips: moist, Oral mucosa: moist, Posterior pharynx: Airway: no evidence of obstruction, patent. 16:35 Chest/axilla: Inspection: normal, Palpation: is normal, no crepitus, no tenderness. 16:35 Cardiovascular: Rate: normal, Rhythm: regular, Edema: pedal edema, that is marked, ankle edema, that is moderate, JVD: is not appreciated. 16:35 Respiratory: the patient does not display signs of respiratory distress, Respirations: cp normal, no use of accessory muscles, no retractions, no splinting, no tachypnea, labored breathing, is not present, Breath sounds: are clear throughout, no decreased breath sounds, no stridor, no wheezing. 16:35 Abdomen/GI: Inspection: abdomen appears normal, Palpation: abdomen is soft and non-tender, in all quadrants. 16:35 Back: pain, is absent, ROM is normal. 16:35 Skin: abscess, not appreciated, rash can be described as nonspecific, pustular, on the left lower leg. 16:35 Neuro: Orientation: to person, place \T\ time. Mentation: is normal, Motor: moves all fours, strength is normal. 18:05 ECG was reviewed by the Attending Physician. Vital Signs: 16:16 BP 182 / 92; Pulse 87; Resp 17; Temp 99.1; Pulse Ox 99% ; Weight 102.06 kg; Height 5 jl7 ft. 5 in. (165.10 cm); Pain 10/10; 16:57 BP 181 / 76; Pulse 79; Resp 17; Pulse Ox 96% ; jl7 18:30 BP 161 / 65; Pulse 80; Resp 16; Pulse Ox 99% ; Pain 5/10; jl7 19:19 BP 165 / 86; Pulse 83; Resp 15; Pulse Ox 96% on R/A; rv 20:12 BP 118 / 65; Pulse 85; Resp 14; Pulse Ox 95% on R/A; rv 21:38 BP 133 / 83; Pulse 80; Resp 15; Temp 98.5; Pulse Ox 96% on R/A; Pain 4/10; rv 21:39 Pain 4/10; rv 16:16 Body Mass Index 37.44 (102.06 kg, 165.10 cm) jl7 MDM: 16:18 Patient medically screened. 16:50 Differential diagnosis: cellulitis, dependent edema, kidney failure, DVT. 20:55 Data reviewed: vital signs, nurses notes, lab test result(s), EKG, radiologic studies, cp plain films, ultrasound. 20:55 Physician consultation: Lm Rendon was contacted at 20:45, regarding admission, to the telemetry unit. recommends discharge to home and patient can f/u with primary physician concerning elevated potassium since repeat is down to 5.3. 02/26 16:17 Order name: Basic Metabolic Panel; Complete Time: 17:41 02/26 17:41 Interpretation: Normal except: K 5.5; GLUC 194; BUN 27; GFR 57. 02/26 16:17 Order name: CBC with Diff; Complete Time: 17:41 02/26 17:41 Interpretation: Normal except: WBC 12.4; RBC 3.86; HGB 11.5; HCT 35.6; RDW 16.1. 02/26 16:17 Order name: LFT's; Complete Time: 17:41 cp 06/12 19:17 Interpretation: Normal except: AST 6; ALK 125; GLOB 4.3; A/G 0.8. cp 06/12 16:17 Order name: Magnesium; Complete Time: 17:41 cp 06/12 16:17 Order name: NT PRO-BNP; Complete Time: 17:41 cp 06/12 16:17 Order name: PT-INR; Complete Time: 17:41 cp 06/12 19:18 Interpretation: Abnormal: PT 12.7. cp 06/12 16:17 Order name: Troponin (emerg Dept Use Only); Complete Time: 17:41 cp 06/12 16:17 Order name: XRAY Chest (1 view); Complete Time: 17:41 cp 06/12 16:17 Order name: US Extremity Venous W Compression Christian; Complete Time: 18:19 cp 06/12 18:20 Interpretation: Report reviewed. 06/12 16:17 Order name: US LE Arterial Bilateral; Complete Time: 18:42 cp 06/12 19:19 Interpretation: Report reviewed. 06/12 19:32 Order name: BMP; Complete Time: 20:29 cp 06/12 20:29 Interpretation: Normal except: K 5.3; GLUC 164; BUN 25; GFR 58. cp 06/12 16:17 Order name: EKG; Complete Time: 16:18 cp 06/12 16:17 Order name: Cardiac monitoring; Complete Time: 16:58 cp 06/12 16:17 Order name: EKG - Nurse/Tech; Complete Time: 18:21 cp 06/12 16:17 Order name: IV Saline Lock; Complete Time: 16:58 cp 06/12 16:17 Order name: Labs collected and sent; Complete Time: 16:58 cp 06/12 16:17 Order name: O2 Per Protocol; Complete Time: 16:58 cp 06/12 16:17 Order name: O2 Sat Monitoring; Complete Time: 16:58 cp 06/12 20:50 Order name: Wound dressing: bacitracin and kerlix; Complete Time: 20:56 cp EC:05 Rate is 79 beats/min. Rhythm is regular. NE interval is normal. QRS interval is normal. cp QT interval is normal. Interpreted by me. Reviewed by me. Administered Medications: 17:02 Drug: Hydrocodone-Acetaminophen (7.5 mg-325 mg) 1 tabs Route: PO; jl7 17:30 Follow up: Response: No adverse reaction; Pain is decreased jl7 18:00 Drug: Albuterol 2.5 mg Route: Inhalation; jl7 18:10 Drug: Kayexalate 30 grams Route: PO; jl7 18:56 Follow up: Response: No adverse reaction jl7 18:15 Drug: Lasix 40 mg Route: IVP; Site: right hand; jl7 18:57 Follow up: Response: No adverse reaction 7 18:15 Drug: D50W 25 ml Route: IVP; Site: right hand; jl7 18:56 Follow up: Response: No adverse reaction jl7 18:20 Drug: Insulin Regular Human 5 units {Co-Signature: alyssa (Milka Vanegas RN).} Route: jl7 IVP; Site: right hand; 18:57 Follow up: Response: No adverse reaction jl7 18:22 Drug: Albuterol 2.5 mg Route: Inhalation; jl7 18:23 Drug: Albuterol 2.5 mg Route: Inhalation; jl7 20:11 Drug: fentaNYL (PF) 25 mcg Route: IVP; Site: right hand; rv 21:39 Follow up: Pain 4/10 Adult; Response: No adverse reaction; Marked relief of symptoms; rv Pain is decreased; RASS: Alert and Calm (0) Disposition: 02/27/20 20:56 Discharged to Home. Impression: Hyperkalemia, Pain in unspecified lower leg - bilateral, Edema, unspecified - bilateral lower leg and foot. - Condition is Stable. - Discharge Instructions: Edema, Hyperkalemia, Musculoskeletal Pain. - Prescriptions for Tylenol- Codeine #3 300-30 mg Oral Tablet - take 2 tablets by ORAL route every 6 hours As needed; 20 tablet. Keflex 500 mg Oral Capsule - take 1 capsule by ORAL route every 8 hours for 10 days; 30 capsule. - Medication Reconciliation Form, Thank You Letter, Antibiotic Education, Prescription Opioid Use form. - Follow up: Private Physician; When: 2 - 3 days; Reason: Recheck today's complaints. - Problem is new. - Symptoms have improved. Addendum: 03/07/2020 13:15 Co-signature as Attending Physician, Marge blum a2 Signatures: Dispatcher [employer] EDAZ Brian Rico PA PA cp Abhi Rivera, RN RN jl7 Marge Villalobos MD MD ma2 Henry Carrillo RN RN rv Milka Vanegas RN aa5 Corrections: (The following items were deleted from the chart) 02/26 19:37 19:28 POTASSIUM+C.LAB.BRZ ordered. EDAZ EDMS 20:59 20:56 02/27/2020 20:56 Discharged to Home. Impression: Hyperkalemia; Pain in cp unspecified lower leg - bilateral. Condition is Stable. Forms are Medication Reconciliation Form, Thank You Letter, Antibiotic Education, Prescription Opioid Use. Follow up: Private Physician; When: 2 - 3 days; Reason: Recheck today's complaints. Problem is new. Symptoms have improved. cp 21:28 20:59 02/27/2020 20:56 Discharged to Home. Impression: Hyperkalemia; Pain in rv unspecified lower leg - bilateral; Edema, unspecified - bilateral lower leg and foot. Condition is Stable. Discharge Instructions: Hyperkalemia, Musculoskeletal Pain. Prescriptions for Tylenol-Codeine #3 300-30 mg Oral Tablet - take 2 tablets by ORAL route every 6 hours As needed; 20 tablet. and Forms are Medication Reconciliation Form, Thank You Letter, Antibiotic Education, Prescription Opioid Use. Follow up: Private Physician; When: 2 - 3 days; Reason: Recheck today's complaints. Problem is new. Symptoms have improved. cp
--- NOTE | 2020-02-27 20:57 | ER ---
Nurse's Notes [facility] Name: Tyrone Vaughn Age: 74 yrs Sex: Male : 1945 Arrival Date: 02/27/2020 Time: 16:15 Bed 2 Private MD: Diagnosis: Hyperkalemia;Pain in unspecified lower leg-bilateral;Edema, unspecified-bilateral lower leg and foot Presentation: 02/26 16:16 Chief complaint: EMS states: Bilateral lower extremity edema x 1 year, worsening x 2 jl7 weeks. Coronavirus screen: Proceed with normal triage. Patient denies a cough. Patient denies shortness of breath or difficulty breathing. Patient denies measured and/or subjective temperature greater than 100.4F prior to today's visit. Patient denies travel on a cruise ship or to a country the [facility] currently lists as an affected area. Patient denies contact with known and/or suspected case of COVID-19. Ebola Screen: No symptoms or risks identified at this time. Initial Sepsis Screen: Does the patient meet any 2 criteria? No. Patient's initial sepsis screen is negative. Does the patient have a suspected source of infection? No. Patient's initial sepsis screen is negative. Risk Assessment: Do you want to hurt yourself or someone else? Patient reports no desire to harm self or others. Onset of symptoms was 2018. Care prior to arrival: Glucose check: 213. Transition of care: patient was not received from another setting of care. 16:16 Method Of Arrival: EMS: [facility] 16:16 Acuity: WESLEY 3 jl7 Triage Assessment: 16:24 General: Appears in no apparent distress. uncomfortable, Behavior is calm, cooperative, jl7 appropriate for age. Pain: Complains of pain in right leg and left leg Pain currently is 10 out of 10 on a pain scale. Neuro: Level of Consciousness is awake, alert, obeys commands, Oriented to person, place, time, situation. Cardiovascular: Patient's skin is warm and dry. Respiratory: Airway is patent Respiratory effort is even, unlabored, Respiratory pattern is regular, symmetrical. Derm: Skin is pink, warm \T\ dry. Musculoskeletal: Swelling present in right leg and left leg. Historical: - Allergies: 16:24 No Known Allergies; jl7 - Home Meds: 16:24 carvedilol 25 mg Oral tab 1 tab 2 times per day [Active]; furosemide 20 mg Oral tab 1 jl7 tab once daily [Active]; digoxin 250 mcg Oral tab 1 tab once daily [Active]; Farxiga 5 mg Oral tab 1 tab once daily [Active]; Amitiza 24 mcg Oral cap 1 cap 2 times per day [Active]; hydralazine 25 mg Oral tab 1 tab 2 times per day [Active]; metformin 1,000 mg Oral tab 1 tab 2 times per day [Active]; clopidogrel 75 mg Oral tab 1 tab once daily [Active]; glipizide 10 mg Oral tab 1 tab 2 times per day [Active]; rosuvastatin 10 mg Oral tab 1 tab once daily [Active]; Lyrica 75 mg Oral 1 cap 3 times per day [Active]; tramadol 50 mg Oral tab 1 tab three times a day [Active]; Vitamin B-12 1,000 mcg Oral TbER daily [Active]; aspirin 325 mg Oral tab 1 tab once daily [Active]; - PMHx: 16:24 Anxiety; Atrial Fib; CAD; CHF; Diabetes - IDDM; heart problem; High Cholesterol; jl7 Hypertension; Myocardial infarction; neuropathy; Sleep Apnea; - PSHx: 16:24 Heart stents; jl7 - Immunization history:: Adult Immunizations unknown. - Social history:: Smoking status: Patient denies any tobacco usage or history of. Screenin:30 Abuse screen: Denies threats or abuse. Denies injuries from another. Nutritional jl7 screening: No deficits noted. Tuberculosis screening: No symptoms or risk factors identified. Fall Risk IV access (20 points). Total [place] Fall Scale indicates No Risk (0-24 pts). Assessment: 16:30 General: See triage assessment. [facility] 17:02 Reassessment: US at bedside. 7 18:00 Reassessment: Patient appears in no apparent distress at this time. Patient and/or jl7 family updated on plan of care and expected duration. Pain level reassessed. Patient is alert, oriented x 3, equal unlabored respirations, skin warm/dry/pink. pain rated 5/10 at this time. 19:20 General: Appears comfortable, Behavior is calm, cooperative. Pain: Denies pain. Neuro: rv Level of Consciousness is awake, alert, obeys commands, Oriented to person, place, time, situation. Respiratory: Airway is patent Respiratory effort is even, unlabored, Respiratory pattern is regular. 20:11 Reassessment: patient complaining leg pain. referred to Brian Rico. given pain rv medicine. patient updated on the plan of care and waiting time. Vital Signs: 16:16 BP 182 / 92; Pulse 87; Resp 17; Temp 99.1; Pulse Ox 99% ; Weight 102.06 kg; Height 5 jl7 ft. 5 in. (165.10 cm); Pain 10/10; 16:57 BP 181 / 76; Pulse 79; Resp 17; Pulse Ox 96% ; jl7 18:30 BP 161 / 65; Pulse 80; Resp 16; Pulse Ox 99% ; Pain 5/10; jl7 19:19 BP 165 / 86; Pulse 83; Resp 15; Pulse Ox 96% on R/A; rv 20:12 BP 118 / 65; Pulse 85; Resp 14; Pulse Ox 95% on R/A; rv 21:38 BP 133 / 83; Pulse 80; Resp 15; Temp 98.5; Pulse Ox 96% on R/A; Pain 4/10; rv 21:39 Pain 4/10; rv 16:16 Body Mass Index 37.44 (102.06 kg, 165.10 cm) jl7 ED Course: 16:15 Patient arrived in ED. iw 16:16 Brian Rico PA is PHCP. cp 16:16 Marge Villalobos MD is Attending Physician. cp 16:16 Abhi Rivera, AMI is Primary Nurse. jl7 16:21 Triage completed. jl7 16:24 Arm band placed on. jl7 16:30 Patient has correct armband on for positive identification. Placed in gown. Bed in low jl7 position. Call light in reach. Side rails up X2. monitoring and evaluation advisor on. Pulse ox on. NIBP on. 16:42 XRAY Chest (1 view) In Process Unspecified. EDMS 16:57 Initial lab(s) drawn, by me, sent to lab. Inserted saline lock: 20 gauge in right jl7 antecubital area, using aseptic technique. Blood collected. 17:43 US Extremity Venous W Compression Christian In Process Unspecified. EDMS 17:43 US LE Arterial Bilateral In Process Unspecified. EDMS 21:20 No provider procedures requiring assistance completed. IV discontinued, intact, rv bleeding controlled, No redness/swelling at site. Pressure dressing applied. Administered Medications: 17:02 Drug: Hydrocodone-Acetaminophen (7.5 mg-325 mg) 1 tabs Route: PO; jl7 17:30 Follow up: Response: No adverse reaction; Pain is decreased 7 18:00 Drug: Albuterol 2.5 mg Route: Inhalation; jl7 18:10 Drug: Kayexalate 30 grams Route: PO; jl7 18:56 Follow up: Response: No adverse reaction 18:15 Drug: Lasix 40 mg Route: IVP; Site: right hand; jl7 18:57 Follow up: Response: No adverse reaction 7 18:15 Drug: D50W 25 ml Route: IVP; Site: right hand; jl7 18:56 Follow up: Response: No adverse reaction 7 18:20 Drug: Insulin Regular Human 5 units {Co-Signature: aa5 (Milka Vanegas RN).} Route: jl7 IVP; Site: right hand; 18:57 Follow up: Response: No adverse reaction 7 18:22 Drug: Albuterol 2.5 mg Route: Inhalation; 7 18:23 Drug: Albuterol 2.5 mg Route: Inhalation; jl7 20:11 Drug: fentaNYL (PF) 25 mcg Route: IVP; Site: right hand; rv 21:39 Follow up: Pain 4/10 Adult; Response: No adverse reaction; Marked relief of symptoms; rv Pain is decreased; RASS: Alert and Calm (0) Outcome: 20:56 Discharge ordered by MD. cp 21:28 Patient left the ED. rv 21:38 Discharged to home via wheelchair, with family. rv 21:38 Condition: good 21:38 Discharge instructions given to patient, Instructed on discharge instructions, follow up and referral plans. medication usage, Demonstrated understanding of instructions, follow-up care, medications, wound care, Prescriptions given X 2. Signatures: Dispatcher [employer] Cintia Webb RN RN iw Page, Corey, PA PA cp Leal, Jahala, RN RN jl7 Henry Carrillo RN RN rv Milka Vanegas RN aa5
[2020-02-27 21:37] VITALS: TEMP 99.1
[2020-02-27 21:42] VITALS: BP 118/65; O2SAT 95
== END 2020-02-27 21:28 | disposition home or self-care (01) ==
LOC: ER 16:08
DX: M79.662 Pain in left lower leg (principal); M79.661 Pain in right lower leg; R60.0 Localized edema; E87.5 Hyperkalemia; E78.00 Pure hypercholesterolemia, unspecified; E11.9 Type 2 diabetes mellitus without complications; I25.10 Atherosclerotic heart disease of native coronary artery without angina pectoris; I50.9 Heart failure, unspecified
CPT/HCPCS: 93005; 85025; 80048 ×2; 36415; 83735; 85610; 80076; 84484; 83880; 71045; 93925; 93970; 96375; 96374; 99285; J1940; J3010

== ENCOUNTER 2020-03-24 14:15 | Inpatient (IN) | payer OTHER ==
[2020-03-24] MEDS ORDERED: FENTANYL CITR 100 MCG/2 ML ONE ×2 (16:04→22:14)
[2020-03-24 16:18] LABS: Absolute Lymphocytes (CBC) 2.3 K/uL (0.7-4.9); Basophils % 1.3 % (0-1.3); Hematocrit 33.6 % (39.6-49.0); Lymphocytes % 17.2 % (15.3-44.8); MPV 9.8 fL (7.6-11.3); RBC Red Blood Cell Count 3.79 M/uL (4.33-5.43)
[2020-03-24 16:21] LABS: Protime INR 1.29
[2020-03-24 16:52] LABS: Potassium 6.6 mmol/L (3.5-5.1)
--- NOTE | 2020-03-24 17:13 | RAD REPORT ---
EXAM DESCRIPTION: US - Extremity Venous Uni Ltd - 03/24/2020 5:01 pm CLINICAL HISTORY: Pain;Swelling COMPARISON: None. TECHNIQUE: Real-time sonographic evaluation of the left lower extremity deep venous system was perfo rmed. FINDINGS: Normal compressibility, flow augmentation, phasic flow and spontaneous flow are identified in the left lower extremity common femoral, superficial femoral, popliteal and posterior tibial vein s. No intraluminal filling defects seen. IMPRESSION: No DVT in the left lower extremity.
--- NOTE | 2020-03-24 17:15 | RAD REPORT ---
EXAM DESCRIPTION: US - Lower Extremity Artery Uni Ltd - 03/24/2020 5:01 pm CLINICAL HISTORY: PAIN Left upper extremity COMPARISON: Lower Extremity Arterial Bilat dated 02/27/2020 TECHNIQUE: Doppler evaluation of the left arterial tree performed. Waveforms and velocity values wer e obtained along with visual inspection. FINDINGS: Arterial wall calcifications are present. Left common femoral artery shows triphasic wavef orm pattern. Waveform transitions to monophasic by the mid superficial femoral artery. Monophasic wav eform pattern continues along the length of the popliteal, posterior tibial and dorsalis pedis arteri es. No occlusion or focal flow restricting lesion identified. IMPRESSION: Moderate severity peripheral vascular disease left lower extremity. No occlusion or foca l flow restricting lesion identified.
--- NOTE | 2020-03-24 17:26 | RAD REPORT ---
EXAM DESCRIPTION: RAD - Ankle Left 3 View - 03/24/2020 4:34 pm CLINICAL HISTORY: PAINleft ankle COMPARISON: No comparisons FINDINGS: No fracture, dislocation or periosteal reaction. No joint effusion seen. No joint space na rrowing. No air or foreign body in the soft tissues. Flattening of the plantar arch is present. Soft tissues around the ankle joint are prominent. IMPRESSION: Prominent soft tissues around the ankle joint. No acute bone or joint finding.
--- NOTE | 2020-03-24 17:30 | RAD REPORT ---
EXAM DESCRIPTION: RAD - Foot Left 3 View - 03/24/2020 4:34 pm CLINICAL HISTORY: PAIN, left foot COMPARISON: No comparisons FINDINGS: A three-view foot examination was performed. Images are labeled right which is believed to be labeling error. No acute fracture seen. There is no dislocation or periosteal reaction. IP joint space narrowing is p resent. Minimal degenerative change at the first MTP joint. No convincing evidence for an acute or de structive bone process seen. No air or foreign body seen in the soft tissues. Approximately 6 centimeter area of increased density is present over the dorsum of the foot. This foc al area of swelling may well be hematoma from recent trauma or spontaneous hemorrhage. Focal infectio us collection or abscess can't be excluded. IMPRESSION: Approximately 6 centimeter focal soft tissue mass over the dorsum of the foot. Hematoma or abscess are both considerations. No acute bone process identified.
[2020-03-24] MEDS ORDERED: FUROSEMIDE 20 MG/ 2ML VIAL ONE (18:56)
[2020-03-24] MEDS ORDERED: INSULIN -REGULAR HUMAN 50 UNIT/0.5 ML ML ONE (18:56)
[2020-03-24] MEDS ORDERED: SOD POLYSTYREN SUL 15 GM/60 ML UCUP ONE (18:57)
[2020-03-24] MEDS ORDERED: D50W 25 GM/50 ML SYRINGE/VIAL IV ONE (18:57)
[2020-03-24] MEDS ORDERED: PIPER/TAZO/NS 3.375gm 3.375 GM/100 ML BAG ONE ×2 (20:37→22:31)
[2020-03-24] MEDS ORDERED: NA CHLORIDE 0.9% 250 ML ONE (22:54)
[2020-03-24] MEDS ORDERED: VANCOMYCIN 1 GM/VIAL ONE (22:54)
--- NOTE | 2020-03-24 23:18 | ER ---
Nurse's Notes [facility] Name: Tyrone Vaughn Age: 75 yrs Sex: Male : 1945 Arrival Date: 03/24/2020 Time: 14:22 Bed 13 Private MD: Diagnosis: Cellulitis of left lower limb;Hyperkalemia Presentation: 03/24 14:22 Chief complaint: EMS states: Pt c/o foot pain and swelling, hx diabetes, states that ph pain is worse on L, left ankle red in appearance, describes pain as burning, recently admitted at [facility] for same issue, no fever, BGL 103. Coronavirus screen: Proceed with normal triage. Patient denies a cough. Patient denies shortness of breath or difficulty breathing. Patient denies measured and/or subjective temperature greater than 100.4F prior to today's visit. Patient denies travel on a cruise ship or to a country the [facility] [place] 2] currently lists as an affected area. Patient denies contact with known and/or suspected case of COVID-19. Ebola Screen: No symptoms or risks identified at this time. Initial Sepsis Screen: Does the patient meet any 2 criteria? No. Patient's initial sepsis screen is negative. Does the patient have a suspected source of infection? Yes: Skin breakdown/wound. Risk Assessment: Do you want to hurt yourself or someone else? Patient reports no desire to harm self or others. Onset of symptoms was March 24, 2020. 14:22 Method Of Arrival: EMS: [facility] 14:22 Acuity: [facility] 3 ph Triage Assessment: 14:32 General: Appears in no apparent distress. uncomfortable, Behavior is cooperative, ph appropriate for age, anxious, Denies fever, feeling ill. Pain: Complains of pain in left foot Quality of pain is described as burning. Neuro: Level of Consciousness is awake, alert, obeys commands, Oriented to person, place, time, situation. Cardiovascular: Capillary refill < 3 seconds in bilateral fingers Patient's skin is warm and dry. Edema is 2+ to left foot, right ankle and right foot. Respiratory: Airway is patent Respiratory effort is even, unlabored. Derm: Skin is healthy with good turgor, Skin is pink, warm \T\ dry. Derm: redness noted to L ankle. Musculoskeletal: Circulation, motion, and sensation intact. Range of motion: intact in all extremities. Historical: - Allergies: 14:31 No Known Allergies; ph - Home Meds: 14:31 Amitiza 24 mcg Oral cap 1 cap 2 times per day [Active]; aspirin 325 mg Oral tab 1 tab ph once daily [Active]; basaglar 80 unit daily [Active]; carvedilol 25 mg Oral tab 1 tab 2 times per day [Active]; clopidogrel 75 mg Oral tab 1 tab once daily [Active]; digoxin 250 mcg Oral tab 1 tab once daily [Active]; Farxiga 5 mg Oral tab 1 tab once daily [Active]; furosemide 20 mg Oral tab 1 tab once daily [Active]; glipizide 10 mg Oral tab 1 tab 2 times per day [Active]; hydralazine 25 mg Oral tab 1 tab 2 times per day [Active]; Lyrica 75 mg Oral 1 cap 3 times per day [Active]; metformin 1,000 mg Oral tab 1 tab 2 times per day [Active]; rosuvastatin 10 mg Oral tab 1 tab once daily [Active]; tramadol 50 mg Oral tab 1 tab three times a day [Active]; Vitamin B-12 1,000 mcg Oral TbER daily [Active]; - PMHx: 14:31 Anxiety; Atrial Fib; CAD; CHF; Diabetes - IDDM; heart problem; High Cholesterol; ph Hypertension; neuropathy; Myocardial infarction; Sleep Apnea; - PSHx: 14:31 Heart stents; ph - Immunization history:: Adult Immunizations unknown. - Social history:: Smoking status: Patient denies any tobacco usage or history of. Screenin:34 Abuse screen: Denies threats or abuse. Denies injuries from another. Nutritional ph screening: No deficits noted. Tuberculosis screening: No symptoms or risk factors identified. Fall Risk None identified. Assessment: 15:30 Reassessment: Patient appears in no apparent distress at this time. Patient and/or ph family updated on plan of care and expected duration. Pain level reassessed. Patient is alert, oriented x 3, equal unlabored respirations, skin warm/dry/pink. 16:30 Reassessment: Patient appears in no apparent distress at this time. Patient and/or ph family updated on plan of care and expected duration. Pain level reassessed. Patient is alert, oriented x 3, equal unlabored respirations, skin warm/dry/pink. 17:30 Reassessment: Patient appears in no apparent distress at this time. Patient and/or ph family updated on plan of care and expected duration. Pain level reassessed. Patient is alert, oriented x 3, equal unlabored respirations, skin warm/dry/pink. 19:15 Reassessment: Patient appears in no apparent distress at this time. Patient and/or ph family updated on plan of care and expected duration. Pain level reassessed. Patient is alert, oriented x 3, equal unlabored respirations, skin warm/dry/pink. 19:51 General: Appears in no apparent distress. Behavior is calm, cooperative, appropriate ea for age. Pain: Complains of pain in right foot and left foot. Neuro: Level of Consciousness is awake, alert, obeys commands, Oriented to person, place, time, situation. Cardiovascular: Cardiovascular: Patient's skin is warm and dry. Respiratory: Airway is patent Respiratory effort is even, unlabored, Respiratory pattern is regular, symmetrical. Derm: Skin is pale. 20:30 Reassessment: Patient and/or family updated on plan of care and expected duration. Pain ea level reassessed. Patient is alert, oriented x 3, equal unlabored respirations, skin warm/dry/pink. 23:50 Reassessment: Patient and/or family updated on plan of care and expected duration. Pain ea level reassessed. Patient is alert, oriented x 3, equal unlabored respirations, skin warm/dry/pink. 03/25 00:46 Reassessment: Patient and/or family updated on plan of care and expected duration. Pain ea level reassessed. Pt resting with eyes closed, respirations even and unlabored. Vital Signs: 03/24 14:22 BP 123 / 59; Pulse 77; Resp 18; Temp 97.5; Pulse Ox 97% on R/A; ph 16:24 BP 125 / 98; Pulse 71; Resp 18; Pulse Ox 98% on R/A; ph 17:30 BP 118 / 78; Pulse 67; Resp 18; Pulse Ox 98% on R/A; ph 19:16 BP 150 / 57; Pulse 71; Resp 18; Pulse Ox 98% ; ph 20:00 BP 129 / 86; Pulse 68; Resp 19; Temp 97.6; Pulse Ox 97% on R/A; ea 23:51 BP 152 / 60; Pulse 79; Resp 18; Pulse Ox 98% on R/A; ea 03/25 00:47 BP 120 / 75; Pulse 69; Resp 18; Pulse Ox 99% on R/A; ea ED Course: 03/24 14:22 Patient arrived in ED. ph 14:30 Triage completed. ph 14:32 Arm band placed on Patient placed in an exam room, on a stretcher. ph 14:34 Patient has correct armband on for positive identification. Bed in low position. Call ph light in reach. Side rails up X 1. Pulse ox on. NIBP on. Door closed. Noise minimized. 15:10 Brian Rico PA is PHCP. cp 15:10 Brandan Bowling MD is Attending Physician. cp 16:22 Danisha Jones RN is Primary Nurse. ph 16:23 Initial lab(s) drawn, by nj, sent to lab. Missed attempt(s): 22 gauge in left ph antecubital area. Bleeding controlled, band aid applied, catheter tip intact. Missed attempt(s): 22 gauge in left wrist. Bleeding controlled, band aid applied, catheter tip intact. Missed attempt(s): 24 gauge in left hand. Bleeding controlled, band aid applied, catheter tip intact. 16:34 XRAY Foot LEFT 3 View In Process Unspecified. EDMS 16:34 XRAY Ankle LEFT 3 view In Process Unspecified. EDMS 17:01 US Extremity Venous Unilateral Ltd In Process Unspecified. EDMS 17:01 US LE Artery Uni Ltd In Process Unspecified. EDMS 17:15 Inserted saline lock: 22 gauge in left wrist, using aseptic technique. ph 19:17 No provider procedures requiring assistance completed. ph 22:13 Lm Rendon is Hospitalizing Provider. 03/25 00:46 Patient admitted, IV remains in place. ea Administered Medications: 03/24 17:20 CANCELLED (Physician Discretion): Kayexalate 30 grams PO once cp 17:21 Drug: fentaNYL (PF) 25 mcg Route: IVP; Site: left antecubital; ph 03/25 00:16 Follow up: Response: No adverse reaction; No change in condition ea 03/24 18:55 Drug: Lasix 20 mg Route: IVP; Site: left wrist; ph 21:07 Follow up: Response: No adverse reaction ea 18:56 Drug: D50W 50 ml Route: IVP; Site: left wrist; ph 21:07 Follow up: Response: No adverse reaction ea 18:57 Drug: Insulin Regular Human 5 units {Co-Signature: opal (Vanna Tucker RN).} Route: IVP; ph Site: left wrist; 21:07 Follow up: Response: No adverse reaction ea 19:48 Drug: Kayexalate 45 grams Route: PO; ea 21:07 Follow up: Response: No adverse reaction ea 21:07 Drug: Zosyn 3.375 grams Route: IVPB; Infused Over: 60 mins; Site: right antecubital; ea 23:53 Follow up: Response: No adverse reaction; IV Status: Completed infusion ea 22:18 Drug: fentaNYL (PF) 25 mcg {Note: rass 1.} Route: IVP; Site: left antecubital; ea 23:50 Follow up: Response: No adverse reaction ea 23:49 Drug: vancoMYCIN 1 grams Route: IVPB; Infused Over: 2 hrs; Site: left antecubital; ea 03/25 00:47 Follow up: Response: No adverse reaction; IV Status: Infusion continued upon admission ea Outcome: 03/24 22:14 Decision to Hospitalize by Provider. cp 23:00 Instructed on the need for admit, Demonstrated understanding of instructions. ea 03/25 00:46 Admitted to Med/surg accompanied by tech, room 224, with chart, Report called to ea Receiving nurse on the second floor Condition: stable 01:21 Patient left the ED. vc Signatures: Dispatcher [employer] Danisha Roa RN RN ph Brian Rico PA PA cp Antunez, Elena, RN RN ea Calcote, Vanessa, RN RN vc Elena Antunez RN ea Corrections: (The following items were deleted from the chart) 03/24 19:17 18:57 BP 118 / 78; Pulse 67bpm; Resp 18bpm; Pulse Ox 98% RA; ph ph
--- NOTE | 2020-03-24 23:18 | EDPHYS ---
Physician Documentation [facility] Name: Tyrone Vaughn Age: 75 yrs Sex: Male : 1945 Arrival Date: 03/24/2020 Time: 14:22 Bed 13 Private MD: ED Physician Brandan Bowling HPI: 03/24 15:30 This 75 yrs old Male presents to ER via EMS with complaints of Foot Pain. cp 15:30 The patient presents with pain, swelling, tenderness. The complaints affect the left cp lower leg and left ankle and left foot. Onset: The symptoms/episode began/occurred gradually. Associated signs and symptoms: Pertinent positives: calf tenderness, swelling, warmth, Pertinent negatives fever. recent discharge from [facility] for similar symptoms. Taking Tramadol and Lyrica for pain. Historical: - Allergies: 14:31 No Known Allergies; ph - Home Meds: 14:31 Amitiza 24 mcg Oral cap 1 cap 2 times per day [Active]; aspirin 325 mg Oral tab 1 tab ph once daily [Active]; basaglar 80 unit daily [Active]; carvedilol 25 mg Oral tab 1 tab 2 times per day [Active]; clopidogrel 75 mg Oral tab 1 tab once daily [Active]; digoxin 250 mcg Oral tab 1 tab once daily [Active]; Farxiga 5 mg Oral tab 1 tab once daily [Active]; furosemide 20 mg Oral tab 1 tab once daily [Active]; glipizide 10 mg Oral tab 1 tab 2 times per day [Active]; hydralazine 25 mg Oral tab 1 tab 2 times per day [Active]; Lyrica 75 mg Oral 1 cap 3 times per day [Active]; metformin 1,000 mg Oral tab 1 tab 2 times per day [Active]; rosuvastatin 10 mg Oral tab 1 tab once daily [Active]; tramadol 50 mg Oral tab 1 tab three times a day [Active]; Vitamin B-12 1,000 mcg Oral TbER daily [Active]; - PMHx: 14:31 Anxiety; Atrial Fib; CAD; CHF; Diabetes - IDDM; heart problem; High Cholesterol; ph Hypertension; neuropathy; Myocardial infarction; Sleep Apnea; - PSHx: 14:31 Heart stents; ph - Immunization history:: Adult Immunizations unknown. - Social history:: Smoking status: Patient denies any tobacco usage or history of. ROS: 15:35 Constitutional: Negative for body aches, chills, fever, poor PO intake. cp 15:35 Eyes: Negative for injury, pain, redness, and discharge. cp 15:35 ENT: Negative for ear pain, sore throat, difficulty swallowing, difficulty handling secretions. 15:35 Cardiovascular: Negative for chest pain, palpitations. 15:35 Respiratory: Negative for cough, shortness of breath, wheezing. 15:35 Abdomen/GI: Negative for abdominal pain, nausea, vomiting, and diarrhea. 15:35 MS/extremity: Positive for erythema, pain, swelling, tenderness, of the left ankle and left foot, Negative for injury or acute deformity. 15:35 Neuro: Negative for altered mental status. 15:35 All other systems are negative. Exam: 15:40 Constitutional: The patient appears in no acute distress, alert, awake, cp non-diaphoretic, non-toxic, well developed, well nourished, obese. 15:40 Head/Face: Normocephalic, atraumatic. cp 15:40 Eyes: Periorbital structures: appear normal, Conjunctiva: normal, no exudate, no injection, Sclera: no appreciated abnormality, Lids and lashes: appear normal, bilaterally. 15:40 ENT: External ear(s): are unremarkable, Nose: is normal, Mouth: is normal, Posterior pharynx: Airway: no evidence of obstruction, patent. 15:40 Chest/axilla: Inspection: normal. 15:40 Cardiovascular: Rate: normal, Rhythm: regular, Edema: pedal edema, that is marked, left worse than right, ankle edema, that is moderate, left worse than right, JVD: is not appreciated. 15:40 Respiratory: the patient does not display signs of respiratory distress, Respirations: normal, no use of accessory muscles, no retractions, labored breathing, is not present, Breath sounds: decreased breath sounds, are not appreciated, wheezing: is not appreciated. 15:40 Abdomen/GI: Exam negative for discomfort, distension, guarding, Inspection: abdomen appears normal. 15:40 Back: pain, is absent, ROM is normal. 15:40 Skin: cellulitis, that is moderate, irregular, on the medial aspect left ankle and proximal left foot. Vital Signs: 14:22 BP 123 / 59; Pulse 77; Resp 18; Temp 97.5; Pulse Ox 97% on R/A; ph 16:24 BP 125 / 98; Pulse 71; Resp 18; Pulse Ox 98% on R/A; ph 17:30 BP 118 / 78; Pulse 67; Resp 18; Pulse Ox 98% on R/A; ph 19:16 BP 150 / 57; Pulse 71; Resp 18; Pulse Ox 98% ; ph 20:00 BP 129 / 86; Pulse 68; Resp 19; Temp 97.6; Pulse Ox 97% on R/A; ea 23:51 BP 152 / 60; Pulse 79; Resp 18; Pulse Ox 98% on R/A; ea 07 00:47 BP 120 / 75; Pulse 69; Resp 18; Pulse Ox 99% on R/A; ea MDM: 03/24 15:20 Patient medically screened. cp 17:05 Differential diagnosis: cellulitis, abscess, DVT. cp 22:12 Data reviewed: vital signs, nurses notes, lab test result(s), EKG, radiologic studies, cp plain films, ultrasound. 22:12 Physician consultation: Lm Rendon was called at 22:12, was contacted at 22:12, cp regarding admission, to the telemetry unit. patient's condition. ED course: repeat serum potassium reported \T\6.7. Will admit. 03/24 15:29 Order name: CBC with Diff; Complete Time: 17:03 03/24 17:15 Interpretation: Normal except: WBC 13.3; RBC 3.79; HGB 10.6; HCT 33.6; MCV 88.7; MCHC cp 31.6; RDW 16.2; NEUT A 9.5. 03/24 15:29 Order name: BMP; Complete Time: 17:03 03/24 17:15 Interpretation: Normal except: NA 135; K 6.6; BUN 58; CRE 1.82; GFR 36. 03/24 15:29 Order name: Procalcitonin; Complete Time: 17:03 03/24 17:43 Interpretation: Reviewed. 03/24 15:29 Order name: Blood Culture* 03/24 15:29 Order name: BNP; Complete Time: 17:03 cp 03/24 15:34 Order name: PT-INR; Complete Time: 17:03 03/24 17:16 Interpretation: Abnormal. cp 03/24 15:29 Order name: US Extremity Venous Unilateral Ltd; Complete Time: 17:16 cp 03/24 15:29 Order name: US LE Artery Uni Ltd; Complete Time: 17:17 cp 03/24 15:29 Order name: XRAY Foot LEFT 3 View; Complete Time: 17:41 cp 03/24 15:29 Order name: XRAY Ankle LEFT 3 view; Complete Time: 17:41 cp 03/24 15:34 Order name: Ptt, Activated; Complete Time: 17:03 cp 03/24 19:01 Order name: Potassium: redraw 1 hour after giving medications cp 03/24 15:29 Order name: IV; Complete Time: 19:14 cp 03/24 15:29 Order name: EKG; Complete Time: 15:30 cp 03/24 15:29 Order name: EKG - Nurse/Tech; Complete Time: 19:13 cp 03/24 21:20 Order name: Labs - recollect needed; Complete Time: 21:39 lp1 Administered Medications: 17:20 CANCELLED (Physician Discretion): Kayexalate 30 grams PO once cp 17:21 Drug: fentaNYL (PF) 25 mcg Route: IVP; Site: left antecubital; ph 0709 00:16 Follow up: Response: No adverse reaction; No change in condition 03/24 18:55 Drug: Lasix 20 mg Route: IVP; Site: left wrist; ph 21:07 Follow up: Response: No adverse reaction ea 18:56 Drug: D50W 50 ml Route: IVP; Site: left wrist; ph 21:07 Follow up: Response: No adverse reaction ea 18:57 Drug: Insulin Regular Human 5 units {Co-Signature: opal (Vanna Tucker RN).} Route: IVP; ph Site: left wrist; 21:07 Follow up: Response: No adverse reaction ea 19:48 Drug: Kayexalate 45 grams Route: PO; ea 21:07 Follow up: Response: No adverse reaction ea 21:07 Drug: Zosyn 3.375 grams Route: IVPB; Infused Over: 60 mins; Site: right antecubital; ea 23:53 Follow up: Response: No adverse reaction; IV Status: Completed infusion ea 22:18 Drug: fentaNYL (PF) 25 mcg {Note: rass 1.} Route: IVP; Site: left antecubital; ea 23:50 Follow up: Response: No adverse reaction ea 23:49 Drug: vancoMYCIN 1 grams Route: IVPB; Infused Over: 2 hrs; Site: left antecubital; ea 03/25 00:47 Follow up: Response: No adverse reaction; IV Status: Infusion continued upon admission ea Disposition: 07:07 Co-signature as Attending Physician, Brandan Bowling MD I agree with the assessment and kdr plan of care. Disposition: 03/24/20 22:14 Hospitalization ordered by Lm Rendon for Inpatient Admission. Preliminary diagnosis are Cellulitis of left lower limb, Hyperkalemia. - Bed requested for Telemetry/MedSurg (Inpatient). - Status is Inpatient Admission. vc - Condition is Stable. - Problem is new. - Symptoms have improved. Signatures: Dispatcher [employer] EDMS Brandan Bowling MD MD kdr Pena, Laura, RN RN lp1 Danisha Jones RN RN Trisha, Brian, PA PA Vanna Tucker RN RN ea Calcote, Vanessa, RN RN Vanna Tucker RN, ea Corrections: (The following items were deleted from the chart) 03/24 15:35 15:30 recent discharge from [facility] for similar symptoms. Taking Tramadol and cp Gabapentin for pain, cp 17:20 17:20 Kayexalate 30 grams PO once ordered. cp cp 03/25 00:05 03/24 22:14 Hospitalization Ordered by Lm Rendon for Inpatient Admission. lp1 Preliminary diagnosis is Cellulitis of left lower limb; Hyperkalemia. Bed requested for Telemetry/MedSurg (Inpatient). Status is Inpatient Admission. Condition is Stable. Problem is new. Symptoms have improved. cp 03/25 01:21 00:05 03/24/2020 22:14 Hospitalization Ordered by Lm Rendon for Inpatient vc Admission. Preliminary diagnosis is Cellulitis of left lower limb; Hyperkalemia. Bed requested for Telemetry/MedSurg (Inpatient). Status is Inpatient Admission. Condition is Stable. Problem is new. Symptoms have improved. lp1
--- NOTE | 2020-03-24 23:19 | P.HP ---
Certification for Inpatient Patient admitted to: Inpatient With expected LOS: <2 Midnights Practitioner: I am a practitioner with admitting privileges, knowledge of patient current condition, hospital course, and medical plan of care. 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 Patient has chronic bilateral lower extremity edema. He reports multiple ED visits with no improvement in the redness and the swelling of the left ankle. Arterial Doppler of the lower extremities shows moderate severe to peripheral vascular disease in the left lower extremity. Blood work showed hyperkalemia which did not respond to treatment in the ED. Patient given IV antibiotics and admitted for further management. Allergies No Known Allergies Allergy (Unverified 09/23/16 22:51) Home Medications: Aspirin [Aspirin EC 325 MG] 1 tab PO DAILY 12/27/17 Clopidogrel Bisulfate [Plavix*] 1 tab PO DAILY 12/27/17 Cyanocobalamin [Vitamin B-12*] 1 tab PO DAILY 12/27/17 Hydralazine [Apresoline*] 1 tab PO BID 12/27/17 Lubiprostone [Amitiza*] 1 cap PO BID 12/27/17 Metformin HCl 1 tab PO BID 12/27/17 Pregabalin [Lyrica] 1 cap PO TID 12/27/17 carvediloL [Carvedilol] 1 tab PO BID 12/27/17 Furosemide [Lasix] 40 mg PO BIDL #60 tab 12/05/18 Rosuvastatin Calcium [Crestor] 40 mg PO DAILY #30 tablet 12/05/18 traMADol HCL [Ultram*] 1 tab PO TID PRN #15 tab 12/05/18 - Past Medical/Surgical History Diabetic: Yes -: HTN -: 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 Children-3. Retired in 1961, [employer] of [employer]. - Family History Father -: Hypertension, Stroke Mother -: Heart disease - Social History Smoking Status: Never smoker Alcohol use: No CD- Drugs: No Caffeine use: No Review of Systems Other: Except as documented, all other systems reviewed and negative. Physical Examination - Physical Exam General: Alert, In no apparent distress, Oriented x3, Obese HEENT: Mucous membr. moist/pink Neck: Supple, JVD not distended Respiratory: Clear to auscultation bilaterally, Normal air movement Cardiovascular: No edema, Regular rate/rhythm, Normal S1 S2, Edema (2+ bilateral pitting pedal edema) Capillary refill: <2 Seconds Gastrointestinal: Normal bowel sounds, Soft and benign, No tenderness Integumentary: Erythema (Left ankle) Neurological: Normal speech, Normal strength at 5/5 x4 extr, Cranial nerves 3-12 intact - Studies Laboratory Data (last 24 hrs) 03/24/20 21:30: Potassium 6.7 H* 03/24/20 16:05: PT 15.2 H, INR 1.29, APTT 33.9 03/24/20 16:05: Sodium 135 L, Potassium 6.6 H*, BUN 58 H, Creatinine 1.82 H, Glucose 97 03/24/20 16:05: WBC 13.3 H, Hgb 10.6 L, Hct 33.6 L, Plt Count 287 Assessment and Plan - Problems (Diagnosis) (1) Cellulitis of left ankle Current Visit: Yes Status: Acute (2) Hyperkalemia Onset Date: 09/25/16 Current Visit: No Status: Acute (3) Non-insulin dependent type 2 diabetes mellitus Onset Date: 09/25/16 Current Visit: No Status: Chronic - Plan Admit patient to the medical floor. Treat hyperkalemia with oral Kayexalate. Start IV Zosyn and vancomycin. Pain management as needed Insulin sliding scale for glucose management. Check hemoglobin A1c. Oral Lasix. Keep left lower extremity elevated. - Advance Directives Does patient have a Living Will: No Does patient have a Durable POA for Healthcare: No
[2020-03-25] MEDS ORDERED: ACETAMINOPHEN 500 MG TAB PO PRN (01:29)
[2020-03-25] MEDS ORDERED: VANCOMYCIN/NS 1 gm 1 GM/250 ML BAG IVPB SCH (01:29)
[2020-03-25] MEDS: TRAMADOL HCL 50 MG TAB PO PRN ×2 (02:20→08:40)
[2020-03-25] MEDS: HEPARIN 5000 UNIT/ML 1 ML VIAL SQ SCH ×3 (02:21→20:41)
[2020-03-25] MEDS ORDERED: SOD POLYSTYREN SUL 15 GM/60 ML UCUP PO ONE ×2 (03:00→08:32)
[2020-03-25] MEDS: Levofloxacin 750mg IV 750 MG/150 ML BAG IV SCH (03:02)
[2020-03-25] MEDS ORDERED: VANCOMYCIN 750 MG in NA CHLORIDE 0.9% 150 ML IVPB SCH (04:00)
[2020-03-25 05:51] LABS: Absolute Lymphocytes (CBC) 2.2 K/uL (0.7-4.9); Basophils % 1.1 % (0-1.3); Hematocrit 31.3 % (39.6-49.0); Lymphocytes % 20.8 % (15.3-44.8); MPV 9.6 fL (7.6-11.3); RBC Red Blood Cell Count 3.55 M/uL (4.33-5.43)
[2020-03-25] MEDS ORDERED: VANCOMYCIN 1 GM/VIAL ONE (05:55)
[2020-03-25] MEDS ORDERED: NA CHLORIDE 0.9% 250 ML ONE (05:55)
[2020-03-25 07:03] LABS: Potassium 5.6 mmol/L (3.5-5.1)
[2020-03-25] MEDS: INSULIN -REGULAR HUMAN 50 UNIT/0.5 ML ML SQ SCH ×4 (07:30→20:57)
[2020-03-25] MEDS: MORPHINE 4 MG/ML SYR IV PRN ×3 (10:11→22:16)
--- NOTE | 2020-03-25 10:46 | P.PN ---
Subjective Date of Service: 03/25/20 Chief Complaint: Painful redness and swelling of left ankle Subjective: No new changes Review of Systems General: Unremarkable Eyes: Unremarkable ENT: Unremarkable Respiratory: Unremarkable Cardiovascular: Unremarkable Gastrointestinal: Unremarkable Genitourinary: Unremarkable Musculoskeletal: Foot Pain (Foot and ankle pain) Integumentary: As per HPI Neurological: Unremarkable Lymphatics: Unremarkable Physical Examination - Vital Signs Temperature: 97.3 F Blood Pressure: 162/73 Pulse: 91 Respirations: 19 Pulse Ox (%): 95 - Physical Exam General: Alert, In no apparent distress, Oriented x3, Other (Uncomfortable) HEENT: Atraumatic, Normocephalic Neck: Supple Respiratory: Normal air movement, Diminished (Bilaterally) Cardiovascular: Normal pulses, Regular rate/rhythm, Normal S1 S2, Edema (Bilateral pedal edema) Capillary refill: <2 Seconds Gastrointestinal: Normal bowel sounds, Soft and benign Musculoskeletal: No contractures Integumentary: Other (Patient with swelling to bilateral lower extremities, worse on the left, area of redness, cellulitis, breakdown to medial aspect of left ankle.) Neurological: Normal speech, Normal strength at 5/5 x4 extr, Normal tone - Studies Laboratory Data (last 24 hrs) 03/24/20 21:30: Potassium 6.7 H* 03/24/20 16:05: PT 15.2 H, INR 1.29, APTT 33.9 03/24/20 16:05: Sodium 135 L, Potassium 6.6 H*, BUN 58 H, Creatinine 1.82 H, Glucose 97 03/24/20 16:05: WBC 13.3 H, Hgb 10.6 L, Hct 33.6 L, Plt Count 287 Assessment & Plan Discharge Plan: Home Plan to discharge in: Greater than 2 days - Code Status/Comfort Care Code Status Assessed: Yes (Patient is full code) Physician Review Additional Text: Assessment Cellulitis of the left ankle Chronic kidney disease with hyperkalemia Diabetes mellitus type 2 Chronic systolic congestive heart failure Hypertension Hyperlipidemia History of CVA and myocardial infarction Plan Cellulitis of the left ankle: Will continue with IV antibiotics, have reviewed ultrasounds both venous and arterial. Patient without DVT but with significant peripheral arterial disease. Will obtain MRI of the ankle to rule out osteomyelitis. Recommend patient keeps affected extremity elevated. Will provide pain medications as needed. DVT prophylaxis in place. Chronic kidney disease with hyperkalemia: Have initiate consult with nephrology, Kayexalate given last night and this morning for hyperkalemia. Appreciate further input from nephrology. Patient being gently hydrated with normal saline. Diabetes mellitus type 2: A.c. HS Accu-Cheks and sliding scale insulin therapy in place. Will obtain A1c level. Chronic systolic congestive heart failure: Appears stable at this time, will obtain and continue patient's home medications. Hypertension: Will continue patient's home medications. Hyperlipidemia: Will continue patient's home medications. History of CVA and myocardial infarction: Will continue patient's home medications. Critical Care: No Time Spent Managing Pts Care (In Minutes): 55
[2020-03-25] MEDS: NA CHLORIDE 0.9% 1,000 ML IV SCH (11:23)
--- NOTE | 2020-03-25 18:20 | P.CNS ---
Requesting Physician: Otis Palomares Chief Complaint: Painful redness and swelling of left ankle History of Present Illness: Pt is a 75 y/o female with past medical hx of HTN, DM presenting with complaints of levy lower extremity swelling and tenderness for the last couple of days. Pt denies any shortness of breath, chest pain, nausea, vomiting, diarrhea. Pt denies any fevers, chills or covid exposures. Pt denies any nsaid use, contrast exposures. Endorses good po intake. Denies any ruinary symptoms. Allergies No Known Allergies Allergy (Unverified 09/23/16 22:51) Home Medications: Clopidogrel Bisulfate [Plavix*] 1 tab PO DAILY 12/27/17 Lubiprostone [Amitiza*] 1 cap PO BID 12/27/17 Metformin HCl 1 tab PO BID 12/27/17 Pregabalin [Lyrica] 75 mcg PO Q8HR 12/27/17 carvediloL [Carvedilol] 1 tab PO BID 12/27/17 Amiloride HCl 5 mg PO BID 03/25/20 Bumetanide 2 mg PO DAILY 03/25/20 Cephalexin 500 mg PO Q8H 03/25/20 Dapagliflozin Propanediol [Farxiga] 1 tab PO DAILY 03/25/20 Digoxin 250 mcg PO DAILY 03/25/20 Potassium Chloride [Klor-Con 10] 20 meq PO DAILY 03/25/20 Rosuvastatin [Crestor] 10 mg PO DAILY 03/25/20 Sertraline [Zoloft] 50 mg PO DAILY 03/25/20 glipiZIDE [Glipizide] 10 mg PO BID 03/25/20 traMADol HCL [Ultram*] 1 tab PO Q6HP PRN 03/25/20 - Past Medical/Surgical History Diabetic: Yes -: HTN -: 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 Children-3. 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 - Family History Father Medical History: Hypertension, Stroke Mother Medical History: Heart disease - Social History Smoking Status: Unknown if ever smoked Alcohol use: No CD- Drugs: No Caffeine use: No Place of Residence: Home Review of Systems General: Unremarkable Eyes: Unremarkable ENT: Unremarkable Respiratory: Unremarkable Cardiovascular: Edema Gastrointestinal: Unremarkable Genitourinary: Unremarkable Musculoskeletal: Unremarkable Integumentary: Unremarkable Neurological: Unremarkable Physical Examination Temp Pulse Resp BP Pulse Ox 97.8 F 94 H 19 141/64 H 95 03/25/20 16:00 03/25/20 16:00 03/25/20 16:37 03/25/20 16:00 03/25/20 16:37 General: Alert, In no apparent distress HEENT: Atraumatic, PERRLA, Mucous membr. moist/pink, EOMI, Sclerae nonicteric Neck: Supple, 2+ carotid pulse no bruit, No LAD, Without JVD or thyroid abnormality Respiratory: Clear to auscultation bilaterally, Normal air movement Cardiovascular: Edema Capillary refill: <2 Seconds Gastrointestinal: Normal bowel sounds Musculoskeletal: No clubbing Integumentary: No rashes, No breakdown Neurological: Normal gait, Normal speech, Normal tone, Normal affect Laboratory Data (last 24 hrs) 03/24/20 21:30: Potassium 6.7 H* - Problems (1) ROSAURA (acute kidney injury) Current Visit: Yes Status: Acute (2) CHF (congestive heart failure) Onset Date: 12/27/17 Current Visit: No Status: Acute Qualifiers: Heart failure type: systolic Heart failure chronicity: acute on chronic Qualified Code(s): I50.23 - Acute on chronic systolic (congestive) heart failure (3) Hyperkalemia Onset Date: 09/25/16 Current Visit: No Status: Acute Conclusions/Impression: ROSAURA Baseline creatinine is 0.9 to 1.2 compared to 1.8 at this time ROSAURA 2/2 cardiorenal most likely. Possible ATN from cellulitis Will start on lasix 40mg iv bid, can transition to oral home bumex in 1 to 2 days Will obtain renal ultrasound to evaluate for obstruction Avoid nsaid, nephrotoxins, contrast exposure. Strict i/o Daily weight Hyperkalemia 2/2 ROSAURA on medications such as amiloride and potassium supplementation Treated with Kayexalate improved to 5.8 Recheck in the AM Please do not resume amiloride and potassium supplementation Lasix diuresis should improve hyperK Low potassium / renal diet Maintain on telemetry Hypertension; controlled on current medication Will continue to follow. Thank you for the consult.
[2020-03-25] MEDS: FUROSEMIDE 40 MG/4 ML VIAL IV SCH (19:36)
[2020-03-25] MEDS: HYDROCODONE/APAP 7.5/325 MG TAB PO PRN (20:41)
[2020-03-25 22:39] LABS: Urine Appearance CLEAR; Urine Bilirubin NEGATIVE (NEG); Urine Blood NEGATIVE (NEG); Urine Color YELLOW; Urine Glucose 2+ (NEG); Urine Protein NEGATIVE (NEG); Urine pH 5.5 (5.0-7.0)
[2020-03-25 22:46] LABS: Urine Microscopic Reflex NO UMIC
[2020-03-26 05:38] LABS: Absolute Lymphocytes (CBC) 2.2 K/uL (0.7-4.9); Basophils % 1.1 % (0-1.3); Hematocrit 30.9 % (39.6-49.0); MPV 9.5 fL (7.6-11.3); RBC Red Blood Cell Count 3.49 M/uL (4.33-5.43)
[2020-03-26 05:58] LABS: Magnesium 2.4 mg/dL (1.8-2.4); Phosphorus 4.2 mg/dL (2.5-4.9)
[2020-03-26] MEDS: HYDROCODONE/APAP 7.5/325 MG TAB PO PRN (06:07)
[2020-03-26] MEDS: NA CHLORIDE 0.9% 1,000 ML IV SCH (07:00)
--- NOTE | 2020-03-26 08:47 | P.PN ---
Subjective Date of Service: 03/26/20 Chief Complaint: Painful redness and swelling of left ankle Subjective: No C/O voiced, Improving Review of Systems General: Unremarkable Eyes: Unremarkable ENT: Unremarkable Respiratory: Unremarkable Cardiovascular: Unremarkable Gastrointestinal: Unremarkable Genitourinary: Unremarkable Musculoskeletal: Unremarkable Integumentary: As per HPI Neurological: Unremarkable Lymphatics: Unremarkable Physical Examination - Vital Signs Temperature: 97.6 F Blood Pressure: 143/71 Pulse: 90 Respirations: 18 Pulse Ox (%): 95 - Physical Exam General: Alert, In no apparent distress, Oriented x3 HEENT: Atraumatic, Normocephalic Neck: Supple Respiratory: Clear to auscultation bilaterally, Normal air movement Cardiovascular: No edema, Normal pulses, Regular rate/rhythm Capillary refill: <2 Seconds Gastrointestinal: Normal bowel sounds, Soft and benign Musculoskeletal: Erythema, Tenderness, Warmth Integumentary: Tenderness/swelling, Erythema, Warmth Neurological: Normal speech, Normal strength at 5/5 x4 extr, Normal tone Assessment & Plan Discharge Plan: Home Plan to discharge in: 48 Hours - Code Status/Comfort Care Code Status Assessed: Yes (Patient is full code) Physician Review Additional Text: Assessment Cellulitis of the left ankle Chronic kidney disease with hyperkalemia Diabetes mellitus type 2 Chronic systolic congestive heart failure Hypertension Hyperlipidemia History of CVA and myocardial infarction Plan Cellulitis of the left ankle: Will continue with IV antibiotics, have reviewed ultrasounds both venous and arterial. Patient without DVT but with significant peripheral arterial disease. Will obtain MRI of the ankle to rule out osteomyelitis. Recommend patient keeps affected extremity elevated. Will provide pain medications as needed. DVT prophylaxis in place. Have consulted infectious disease for further recommendations for antibiotic therapy. Chronic kidney disease with hyperkalemia: Patient's hyperkalemia has resolved. Patient's kidney function is improving with IV Lasix and soft hydration. Appreciate further input from nephrology. Diabetes mellitus type 2: A.c. HS Accu-Cheks and sliding scale insulin therapy in place. Chronic systolic congestive heart failure: Appears stable at this time, will obtain and continue patient's home medications, continue with nephrology recommendations of IV Lasix at this time. Will transition to oral. Hypertension: Will continue patient's home medications. Hyperlipidemia: Will continue patient's home medications. History of CVA and myocardial infarction: Will continue patient's home medications. Critical Care: No Time Spent Managing Pts Care (In Minutes): 55
[2020-03-26] MEDS ORDERED: LUBIPROSTONE 24 MCG CAP PO SCH ×2 (09:00→21:00)
[2020-03-26] MEDS: INSULIN -REGULAR HUMAN 50 UNIT/0.5 ML ML SQ SCH ×4 (09:57→20:56)
[2020-03-26] MEDS: PREGABALIN 75 MG CAP PO SCH ×2 (09:59→17:24)
[2020-03-26] MEDS: AMILORIDE HCL 5 MG TABLET PO SCH ×2 (09:59→20:55)
[2020-03-26] MEDS: carvediloL 25 MG TAB PO SCH ×2 (09:59→20:55)
[2020-03-26] MEDS: DIGOXIN 0.25 MG TABLET PO SCH (10:00)
[2020-03-26] MEDS: FUROSEMIDE 40 MG/4 ML VIAL IV SCH ×2 (10:00→17:20)
[2020-03-26] MEDS: CLOPIDOGREL 75 MG TABLET PO SCH (10:00)
[2020-03-26] MEDS: SERTRALINE HCL 50 MG TAB PO SCH (10:00)
[2020-03-26] MEDS: ROSUVASTATIN 10 MG TAB PO SCH (10:04)
[2020-03-26] MEDS: HEPARIN 5000 UNIT/ML 1 ML VIAL SQ SCH ×2 (10:04→20:56)
[2020-03-26] MEDS: VANCOMYCIN 1.75 GM in NA CHLORIDE 0.9% 500 ML IVPB SCH ×2 (16:00→17:09)
--- NOTE | 2020-03-26 17:22 | CON ---
History Of Present Illness: This is a 75-year-old male. I was consulted for cellulitis of right leg with ulceration on the top of his foot. Patient denies any headache, nausea, vomiting, chest pain, abdominal pain, constipation, or diarrhea. Patient was supposed to come and see [facility], but was not able to make it and got diabetic ulcer to the ankle and cellulitis of the lower extremity for which he was admitted to the hospital. Patient denies any other problems at this time. Past Medical History: Hypertension and stroke, congestive heart failure, morbid obesity, hyperlipide ben, diabetes mellitus, arthritis of both knees, appendectomy. Social History: Nonsmoker, nondrinker. Family History: Noncontributory. Medications: Include [place], amiloride, Coreg, Plavix, Lanoxin, Lasix, heparin, insulin, Levaquin, va ncomycin. See MAR for other medications. Allergies: NO KNOWN DRUG ALLERGIES. Review of Systems: A 10-point review was performed. Physical Examination: General: This is a 75-year-old male, lying in bed, not in any acute cardiopulmonary distress. Vital Signs: Temperature 97.9, pulse 88, respirations 16, blood pressure 118/58. HEENT: Unremarkable. Neck: Supple. Lungs: Basal crackles. Heart: S1, S2. Regular. Abdomen: Soft, nontender. Bowel sounds present. Extremities: 3+ edema with stasis dermatitis and diabetic ulceration noted to the foot and celluliti s and erythematous changes with ulceration on the top of the foot also noted. Laboratory Data: Shows WBC 13,000, down to 9.3; hemoglobin 10; platelets are 225. Chemistry shows s odium 139, potassium 4, chloride 104, bicarb 28, BUN 50, creatinine 1.58, glucose 163. Micro data sh ow blood cultures growing yeast. Assessment And Plan: A 75-year-old male with cellulitis of lower extremity, diabetic foot ulcer and diabetic neuropathy, possible abscess versus cellulitis of the left foot. Recommend transferring [facility] to long-term acute care [place] for further treatment and evaluation of the patient. We will continue antibiotic total course of 3 to 4 weeks. We will follow the patient closely. Thank you, Dr. Rendon for consult. NF/MODL Voice ID: [id number] Report ID: [id number]
[2020-03-26] MEDS: VANCOMYCIN 2 GM in NA CHLORIDE 0.9% 500 ML IVPB SCH (17:43)
--- NOTE | 2020-03-26 19:21 | RAD REPORT ---
EXAM DESCRIPTION: MRI - Ankle Left Wo Cont - 03/26/2020 7:07 pm CLINICAL HISTORY: Pain, swelling, open wound ankle COMPARISON: X-ray ankle March 24, 2020 TECHNIQUE: Axial, sagittal, and coronal magnetic images of the left ankle obtained FINDINGS: Edema is present within the lateral subcutaneous tissues of the ankle. Small ulceration is present. Small area of abnormal signal is present within the lateral malleolus. Marked edema is present within the dorsal soft tissues of foot. This likely indicates a cellulitis No fracture or dislocation IMPRESSION: Small area of abnormal signal within the lateral malleolus probably indicating a small f ocus of osteomyelitis Marked cellulitis involving the dorsal soft tissues of the foot
[2020-03-26] MEDS: MORPHINE 4 MG/ML SYR IV PRN (20:55)
[2020-03-27] MEDS: Levofloxacin 750mg IV 750 MG/150 ML BAG IV SCH (01:51)
[2020-03-27] MEDS: PREGABALIN 75 MG CAP PO SCH ×3 (01:51→17:00)
[2020-03-27] MEDS: NA CHLORIDE 0.9% 1,000 ML IV SCH ×2 (01:52→03:00)
[2020-03-27] MEDS: HYDROCODONE/APAP 7.5/325 MG TAB PO PRN ×3 (02:25→22:04)
[2020-03-27] MEDS: MORPHINE 4 MG/ML SYR IV PRN ×3 (04:53→14:25)
[2020-03-27] MEDS: TRAMADOL HCL 50 MG TAB PO PRN (07:13)
[2020-03-27] MEDS: INSULIN -REGULAR HUMAN 50 UNIT/0.5 ML ML SQ SCH ×4 (09:06→22:05)
[2020-03-27] MEDS: FUROSEMIDE 40 MG/4 ML VIAL IV SCH ×2 (09:07→16:59)
[2020-03-27] MEDS: DIGOXIN 0.25 MG TABLET PO SCH (09:07)
[2020-03-27] MEDS: ROSUVASTATIN 10 MG TAB PO SCH (09:07)
[2020-03-27] MEDS: SERTRALINE HCL 50 MG TAB PO SCH (09:07)
[2020-03-27] MEDS: carvediloL 25 MG TAB PO SCH ×2 (09:07→22:05)
[2020-03-27] MEDS: CLOPIDOGREL 75 MG TABLET PO SCH (09:08)
[2020-03-27] MEDS: AMILORIDE HCL 5 MG TABLET PO SCH ×2 (09:08→21:00)
[2020-03-27] MEDS: HEPARIN 5000 UNIT/ML 1 ML VIAL SQ SCH ×2 (09:11→22:03)
--- NOTE | 2020-03-27 10:39 | P.PN ---
Subjective Date of Service: 03/27/20 Chief Complaint: Painful redness and swelling of left ankle Subjective: No new changes, No C/O voiced Review of Systems General: Unremarkable Eyes: Unremarkable ENT: Unremarkable Respiratory: Unremarkable Cardiovascular: Unremarkable Gastrointestinal: Unremarkable Genitourinary: Unremarkable Musculoskeletal: Unremarkable Integumentary: As per HPI Neurological: Unremarkable Lymphatics: Unremarkable Physical Examination - Vital Signs Temperature: 98.1 F Blood Pressure: 140/80 Pulse: 83 Respirations: 19 Pulse Ox (%): 95 - Physical Exam General: Alert, In no apparent distress, Oriented x3 HEENT: Atraumatic, Normocephalic Neck: Supple Respiratory: Clear to auscultation bilaterally, Normal air movement Cardiovascular: Regular rate/rhythm, Normal S1 S2, Edema Capillary refill: <2 Seconds Gastrointestinal: Normal bowel sounds, Soft and benign Musculoskeletal: Erythema, Tenderness, Warmth Integumentary: Tenderness/swelling, Erythema, Warmth, Diabetic ulcer Neurological: Normal speech, Normal strength at 5/5 x4 extr, Normal tone, Sensation intact Assessment & Plan Discharge Plan: Long-Term Plan to discharge in: Greater than 2 days - Code Status/Comfort Care Code Status Assessed: Yes (Patient is full code) Physician Review Additional Text: Assessment Cellulitis of the left ankle Chronic kidney disease with hyperkalemia Diabetes mellitus type 2 Chronic systolic congestive heart failure Hypertension Hyperlipidemia History of CVA and myocardial infarction Plan Cellulitis of the left ankle: Will continue with IV antibiotics, have reviewed ultrasounds both venous and arterial. Patient without DVT but with significant peripheral arterial disease. MRI does show osteomyelitis. Recommend patient keeps affected extremity elevated. Infectious Disease has been consulted on this case, recommend continuation of IV antibiotics patient will require 6 weeks IV antibiotics. Infectious Disease preferred long-term acute care facility the patient is not amendable to this plan. Patient prefers that he goes to a skilled facility and has a preference for [facility] Chronic kidney disease with hyperkalemia: Patient's hyperkalemia has resolved. Patient's kidney function is improving with IV Lasix and soft hydration. Appreciate further input from nephrology. Diabetes mellitus type 2: A.c. HS Accu-Cheks and sliding scale insulin therapy in place. Chronic systolic congestive heart failure: Appears stable at this time, will obtain and continue patient's home medications, continue with nephrology recommendations of IV Lasix at this time. Will transition to oral. Hypertension: Will continue patient's home medications. Hyperlipidemia: Will continue patient's home medications. History of CVA and myocardial infarction: Will continue patient's home medicatio ns. Critical Care: No Time Spent Managing Pts Care (In Minutes): 55
--- NOTE | 2020-03-27 13:15 | P.PN ---
Subjective Date of Service: 03/27/20 Chief Complaint: Painful redness and swelling of left ankle Subjective: Improving (Pt feels better today. Ready for discharge) Review of Systems General: Unremarkable Eyes: Unremarkable ENT: Unremarkable Respiratory: Unremarkable Cardiovascular: Edema Gastrointestinal: Unremarkable Genitourinary: Unremarkable Musculoskeletal: Unremarkable Integumentary: Unremarkable Neurological: Unremarkable Physical Examination - Vital Signs Temperature: 97.5 F Blood Pressure: 129/78 Pulse: 76 Respirations: 19 Pulse Ox (%): 95 - Physical Exam General: Alert, In no apparent distress HEENT: Atraumatic, PERRLA, EOMI Neck: Supple, JVD not distended Respiratory: Clear to auscultation bilaterally, Normal air movement Cardiovascular: Edema Capillary refill: <2 Seconds Gastrointestinal: Normal bowel sounds, No tenderness Musculoskeletal: No tenderness Integumentary: Venous stasis ulcer Neurological: Normal speech, Normal tone, Normal affect Assessment & Plan - Problems (Diagnosis) (1) ROSAURA (acute kidney injury) Current Visit: Yes Status: Acute (2) CHF (congestive heart failure) Onset Date: 12/27/17 Current Visit: No Status: Acute Qualifiers: Heart failure type: systolic Heart failure chronicity: acute on chronic Qualified Code(s): I50.23 - Acute on chronic systolic (congestive) heart failure (3) Hyperkalemia Onset Date: 09/25/16 Current Visit: No Status: Acute Plan: ROSAURA Baseline creatinine is 0.9 to 1.2; improving ROSAURA 2/2 cardiorenal most likely. Possible ATN from cellulitis Continue lasix 40mg iv bid. Will transition to oral bumex tommorrow. Avoid nsaid, nephrotoxins, contrast exposure. Strict i/o Daily weight Hyperkalemia; resolved 2/2 ROSAURA on medications such as amiloride and potassium supplementation d/c amiloride and potassium supplementation on discharge Will resume oral bumex on discharge home Low potassium / renal diet Maintain on telemetry Hypertension; controlled on current medication Will continue to follow. Thank you for the consult.
[2020-03-28] MEDS: PREGABALIN 75 MG CAP PO SCH ×3 (00:46→16:29)
[2020-03-28] MEDS: MORPHINE 4 MG/ML SYR IV PRN ×3 (00:49→08:09)
[2020-03-28] MEDS: NA CHLORIDE 0.9% 1,000 ML IV SCH (02:09)
[2020-03-28] MEDS: VANCOMYCIN 2 GM in NA CHLORIDE 0.9% 500 ML IVPB SCH (06:38)
[2020-03-28 07:28] VITALS: BMI 34.9
[2020-03-28] MEDS: INSULIN -REGULAR HUMAN 50 UNIT/0.5 ML ML SQ SCH ×5 (07:30→21:27)
[2020-03-28] MEDS: DIGOXIN 0.25 MG TABLET PO SCH (08:08)
[2020-03-28] MEDS: ROSUVASTATIN 10 MG TAB PO SCH (08:08)
[2020-03-28] MEDS: SERTRALINE HCL 50 MG TAB PO SCH (08:08)
[2020-03-28] MEDS: CLOPIDOGREL 75 MG TABLET PO SCH (08:08)
[2020-03-28] MEDS: HEPARIN 5000 UNIT/ML 1 ML VIAL SQ SCH ×2 (08:09→21:29)
[2020-03-28] MEDS: FUROSEMIDE 40 MG/4 ML VIAL IV SCH ×2 (08:09→16:30)
[2020-03-28] MEDS: AMILORIDE HCL 5 MG TABLET PO SCH ×2 (08:09→21:29)
[2020-03-28] MEDS: carvediloL 25 MG TAB PO SCH ×2 (08:10→21:29)
--- NOTE | 2020-03-28 10:54 | P.PN ---
Subjective Date of Service: 03/28/20 Chief Complaint: Painful redness and swelling of left ankle Review of Systems 10-point ROS is otherwise unremarkable Musculoskeletal: Foot Pain, Pedal edema, As per HPI Integumentary: Lesions, As per HPI Physical Examination - Vital Signs Temperature: 97.5 F Blood Pressure: 129/78 Pulse: 76 Respirations: 19 Pulse Ox (%): 95 - Physical Exam General: Alert, In no apparent distress, Oriented x3 HEENT: Atraumatic, Normocephalic Neck: Supple Respiratory: Clear to auscultation bilaterally, Normal air movement Cardiovascular: Regular rate/rhythm, Normal S1 S2, Edema Capillary refill: <2 Seconds Gastrointestinal: Normal bowel sounds, Soft and benign Musculoskeletal: Erythema, Tenderness, Warmth Integumentary: Skin breakdown, Tenderness/swelling, Erythema, Warmth, Diabetic ulcer Neurological: Normal speech, Normal strength at 5/5 x4 extr, Normal tone, Sensation intact - Studies Microbiology Data (last 24 hrs): 03/24/20 17:20 Blood - Blood Miscellaneous Micro Reference Test - Final 03/24/20 17:02 Blood - Blood Blood Culture Gram Stain - Final 03/24/20 17:02 Blood - Blood Gram Stain - Final Assessment & Plan Discharge Plan: LTAC Plan to discharge in: 24 Hours - Code Status/Comfort Care Code Status Assessed: Yes Physician Review Additional Text: Assessment Cellulitis of the left ankle Chronic kidney disease with hyperkalemia Diabetes mellitus type 2 Chronic systolic congestive heart failure Hypertension Hyperlipidemia History of CVA and myocardial infarction Plan Cellulitis of the left ankle: Will continue with IV antibiotics, have reviewed ultrasounds both venous and arterial. Patient without DVT but with significant peripheral arterial disease. MRI does show osteomyelitis. Recommend patient keeps affected extremity elevated. Infectious Disease has been consulted on this case, recommend continuation of IV antibiotics patient will require 6 weeks IV antibiotics. Infectious Disease preferred long-term acute care facility the patient is not amendable to this plan. Patient changed his mind today and is more amenable to long-term acute care facility. Will discuss further with case management social worker tomorrow. Chronic kidney disease with hyperkalemia: Patient's hyperkalemia has resolved. Patient's kidney function is improving with IV Lasix and soft hydration. Appreciate further input from nephrology. Diabetes mellitus type 2: A.c. HS Accu-Cheks and sliding scale insulin therapy in place. Chronic systolic congestive heart failure: Appears stable at this time, will obtain and continue patient's home medications, continue with nephrology recommendations of IV Lasix at this time. Will transition to oral. Hypertension: Will continue patient's home medications. Hyperlipidemia: Will continue patient's home medications. History of CVA and myocardial infarction: Will continue patient's home medications. Critical Care: No Time Spent Managing Pts Care (In Minutes): 55
[2020-03-28] MEDS: HYDROCODONE/APAP 7.5/325 MG TAB PO PRN ×2 (14:04→21:28)
--- NOTE | 2020-03-28 23:26 | P.PN ---
Subjective Date of Service: 03/29/20 Chief Complaint: Painful redness and swelling of left ankle Subjective: Improving (Pt feeling well and has no complaints) Review of Systems General: Unremarkable Eyes: Unremarkable ENT: Unremarkable Respiratory: Unremarkable Cardiovascular: Edema Gastrointestinal: Unremarkable Musculoskeletal: Unremarkable Integumentary: Unremarkable Neurological: Unremarkable Physical Examination - Vital Signs Temperature: 98.9 F Blood Pressure: 133/60 Pulse: 73 Respirations: 16 Pulse Ox (%): 94 - Physical Exam General: Alert, In no apparent distress HEENT: Atraumatic, PERRLA, EOMI Neck: Supple, JVD not distended Cardiovascular: Normal pulses, Regular rate/rhythm, Normal S1 S2 Capillary refill: <2 Seconds Gastrointestinal: Normal bowel sounds, No tenderness Musculoskeletal: No tenderness Integumentary: No rashes Neurological: Normal speech, Normal tone, Normal affect - Studies Microbiology Data (last 24 hrs): 03/24/20 17:20 Blood - Blood Miscellaneous Micro Reference Test - Final 03/24/20 17:02 Blood - Blood Blood Culture Gram Stain - Final 03/24/20 17:02 Blood - Blood Gram Stain - Final Assessment & Plan - Problems (Diagnosis) (1) ROSAURA (acute kidney injury) Current Visit: Yes Status: Acute (2) CHF (congestive heart failure) Onset Date: 12/27/17 Current Visit: No Status: Acute Qualifiers: Heart failure type: systolic Heart failure chronicity: acute on chronic Qualified Code(s): I50.23 - Acute on chronic systolic (congestive) heart failure (3) Hyperkalemia Onset Date: 09/25/16 Current Visit: No Status: Acute Plan: ROSAURA; improving Baseline creatinine is 0.9 to 1.2; improving ROSAURA 2/2 cardiorenal most likely. Possible ATN from cellulitis May transition to oral bumex. Avoid nsaid, nephrotoxins, contrast exposure. Strict i/o Daily weight Hyperkalemia; resolved 2/2 ROSAURA on medications such as amiloride and potassium supplementation D/C amiloride and potassium supplementation Low potassium / renal diet Maintain on telemetry Hypertension; controlled on current medication Will continue to follow. Thank you for the consult.
[2020-03-29] MEDS: HYDROCODONE/APAP 7.5/325 MG TAB PO PRN ×3 (01:02→23:32)
[2020-03-29] MEDS: PREGABALIN 75 MG CAP PO SCH ×3 (01:02→16:58)
[2020-03-29] MEDS: Levofloxacin 750mg IV 750 MG/150 ML BAG IV SCH (01:55)
[2020-03-29] MEDS: TRAMADOL HCL 50 MG TAB PO PRN (03:45)
[2020-03-29] MEDS: INSULIN -REGULAR HUMAN 50 UNIT/0.5 ML ML SQ SCH ×4 (08:37→21:32)
[2020-03-29] MEDS: DIGOXIN 0.25 MG TABLET PO SCH (08:38)
[2020-03-29] MEDS: SERTRALINE HCL 50 MG TAB PO SCH (08:38)
[2020-03-29] MEDS: carvediloL 25 MG TAB PO SCH ×2 (08:38→21:27)
[2020-03-29] MEDS: CLOPIDOGREL 75 MG TABLET PO SCH (08:38)
[2020-03-29] MEDS: ROSUVASTATIN 10 MG TAB PO SCH (08:39)
[2020-03-29] MEDS: HEPARIN 5000 UNIT/ML 1 ML VIAL SQ SCH ×2 (08:39→21:27)
[2020-03-29] MEDS: FUROSEMIDE 40 MG/4 ML VIAL IV SCH ×2 (08:39→16:58)
[2020-03-29] MEDS: AMILORIDE HCL 5 MG TABLET PO SCH ×2 (08:39→21:27)
--- NOTE | 2020-03-29 09:58 | RAD REPORT ---
EXAM DESCRIPTION: RAD - Chest Single View - 03/29/2020 2:32 am CLINICAL HISTORY: S/P PICC insertion COMPARISON: None. TECHNIQUE: AP Chest. FINDINGS: Heart is normal in size. Mild aortic atherosclerosis. Mild bronchial thickening. No consol idation. There is left lower lobe discoid atelectasis. Pleural spaces are clear. No pneumothorax. Right subclavian PICC line is visualized to the inferior aspect of the superior vena cava. 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 IMPRESSION: 1. Right subclavian PICC line placed without complication. 2. Bronchitis. Left lower lobe atelectasis. Electronically signed by: Mireya Sidhu DO 03/29/2020 2:41 AM CDT Due to temporary technical issues with the PACS/Fluency reporting system, reports are being signed by the in house radiologist without review as a courtesy to ensure prompt reporting. The interpreting r adiologist is fully responsible for the content of the report.
--- NOTE | 2020-03-29 12:05 | P.PN ---
Subjective Date of Service: 03/29/20 Chief Complaint: Painful redness and swelling of left ankle Subjective: Improving Review of Systems Unremarkable Physical Examination - Vital Signs Temperature: 98.3 F Blood Pressure: 124/60 Pulse: 75 Respirations: 16 Pulse Ox (%): 94 - Physical Exam General: Alert, In no apparent distress HEENT: Atraumatic, PERRLA, EOMI Neck: Supple, JVD not distended Respiratory: Clear to auscultation bilaterally, Normal air movement Cardiovascular: Regular rate/rhythm, Normal S1 S2 Gastrointestinal: Normal bowel sounds, No tenderness Musculoskeletal: No tenderness Integumentary: No rashes Neurological: Normal speech, Normal tone, Normal affect Lymphatics: No axilla or inguinal lymphadenopathy - Studies Microbiology Data (last 24 hrs): 03/24/20 17:20 Blood - Blood Miscellaneous Micro Reference Test - Final 03/24/20 17:02 Blood - Blood Blood Culture Gram Stain - Final 03/24/20 17:02 Blood - Blood Gram Stain - Final Assessment & Plan Discharge Plan: LTAC Plan to discharge in: 24 Hours - Code Status/Comfort Care Code Status Assessed: Yes (Patient is full code) Physician Review Additional Text: Assessment Cellulitis of the left ankle Chronic kidney disease with hyperkalemia Diabetes mellitus type 2 Chronic systolic congestive heart failure Hypertension Hyperlipidemia History of CVA and myocardial infarction Plan Cellulitis of the left ankle: Will continue with IV antibiotics, have reviewed ultrasounds both venous and arterial. Patient without DVT but with significant peripheral arterial disease. MRI does show osteomyelitis. Recommend patient keeps affected extremity elevated. Infectious Disease has been consulted on this case, recommend continuation of IV antibiotics patient will require 6 weeks IV antibiotics. Patient is now amenable to long-term acute care facility. Awaiting recommendation from Infectious Disease for type, shows common duration of antibiotics so that this can be sent to long-term acute care facilities pendi ng approval. Chronic kidney disease with hyperkalemia: Kidney function stable, will continue to monitor. Diabetes mellitus type 2: A.c. HS Accu-Cheks and sliding scale insulin therapy in place. Chronic systolic congestive heart failure: Continue with Lasix p.o.. Hypertension: Home medications have been continued. Hyperlipidemia: Home medications have been continued. History of CVA and myocardial infarction: Home medications have been continued. Critical Care: No Time Spent Managing Pts Care (In Minutes): 55
[2020-03-29] MEDS: MICAFUNGIN SODIUM 100 MG in NA CHLORIDE 0.9% 100 ML IV SCH (12:07)
[2020-03-29] MEDS: MORPHINE 4 MG/ML SYR IV PRN ×3 (12:08→22:27)
--- NOTE | 2020-03-29 13:45 | P.PN ---
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 Patient found to have cellulitis to the left lower extremity and osteomyelitis which I have been consulted for. Patient examined at bedside. Reports wound to left lower extremity for 5 years. Past medical/surgical history: HTN, CV a, CHF, hyperlipidemia, obesity, back pain with neuropathy, arthritis to bilateral knees, diabetes mellitus type 2, appendectomy Social history: Denies tobacco and alcohol use Family history: Father with hypertension, stroke. Mother with heart disease Allergies No Known Allergies Allergy (Unverified 09/23/16 22:51) Acetaminophen (Tylenol -Extra Strength) 500 mg PO Q4HP PRN PRN Reason: TEMP > 100' F Stop: 04/24/20 01:30 Hydrocodone Bitart/Acetaminophen ([place] 7.5/325 Mg) 1 tab PO Q4H PRN PRN Reason: Pain scale 5-7 (Moderate) Stop: 04/24/20 08:30 Last Admin: 03/29/20 07:37 Dose: 1 tab Documented by: Amiloride HCl (Midamor) 5 mg PO BID [facility] Stop: 04/25/20 09:01 Last Admin: 03/29/20 08:39 Dose: 5 mg Documented by: Carvedilol (Coreg) 25 mg PO BID [facility] Stop: 04/25/20 09:01 Last Admin: 03/29/20 08:38 Dose: 25 mg Documented by: Clopidogrel Bisulfate (Plavix) 75 mg PO DAILY [facility] Stop: 04/25/20 09:01 Last Admin: 03/29/20 08:38 Dose: 75 mg Documented by: Digoxin (Lanoxin) 0.25 mg PO DAILY [facility] Stop: 04/25/20 09:01 Last Admin: 03/29/20 08:38 Dose: 0.25 mg Documented by: Furosemide (Lasix) 40 mg IV BIDL [facility] Stop: 04/24/20 18:31 Last Admin: 03/29/20 08:39 Dose: 40 mg Documented by: Heparin Sodium (Porcine) (Heparin 5,000 Units/Ml) 5,000 unit SQ Q12HR [facility] Stop: 04/24/20 21:01 Last Admin: 03/29/20 08:39 Dose: 5,000 unit Documented by: Levofloxacin/Dextrose (Levaquin 750 Mg/150 Ml Ivpb (Premix)) 750 mg in 150 mls @ 100 mls/hr IV Q48H [facility]; Protocol Stop: 04/24/20 03:01 Last Admin: 03/29/20 01:55 Dose: 150 mls Documented by: Vancomycin HCl 2 gm/ Sodium (Chloride) 500 mls @ 250 mls/hr IVPB Q36H [facility] Stop: 04/25/20 18:01 Last Admin: 03/28/20 06:38 Dose: 500 mls Documented by: Micafungin Sodium 100 mg/ (Sodium Chloride) 100 mls @ 100 mls/hr IV DAILY [facility] Stop: 04/28/20 12:01 Last Admin: 03/29/20 12:07 Dose: 100 mls Documented by: Insulin Human Regular (Novolin -R) 0 unit SQ ACHS [facility]; Protocol Stop: 04/24/20 07:31 Last Admin: 03/29/20 12:07 Dose: 5 unit Documented by: Lubiprostone (Amitiza) 24 mcg PO BID [facility] Stop: 04/25/20 21:01 Morphine Sulfate (Morphine Sulfate) 4 mg IV Q4H PRN PRN Reason: Pain scale 8-10 (Severe) Stop: 04/24/20 08:29 Last Admin: 03/29/20 12:08 Dose: 4 mg Documented by: Pregabalin (Lyrica) 75 mg PO Q8HR [facility] Stop: 04/25/20 09:01 Last Admin: 03/29/20 08:38 Dose: 75 mg Documented by: Rosuvastatin Calcium (Crestor) 10 mg PO DAILY [facility] Stop: 04/25/20 09:01 Last Admin: 03/29/20 08:39 Dose: 10 mg Documented by: Sertraline HCl (Zoloft) 50 mg PO DAILY [facility] Stop: 04/25/20 09:01 Last Admin: 03/29/20 08:38 Dose: 50 mg Documented by: Sodium Chloride (Normal Saline Flush) 10 ml IV BID [facility] Stop: 04/24/20 09:01 Last Admin: 03/29/20 08:53 Dose: 10 ml Documented by: Tramadol HCl (Ultram) 50 mg PO Q6H PRN PRN Reason: Pain scale 5-7 (Moderate) Stop: 04/24/20 01:56 Last Admin: 03/29/20 03:45 Dose: 50 mg Documented by: ROS: CV: Denies chest pain RESP: denies cough and shortness of breath : Denies dysuria GI: Reports constipation, last bowel movement 5 days ago Extremities: Reports wound to left lower extremity for the last 5 years Objective: Temp Pulse Resp BP Pulse Ox 98.3 F 75 16 124/60 94 03/29/20 12:05 03/29/20 12:05 03/29/20 12:38 03/29/20 12:05 03/29/20 12:38 Labs: No new labs available Ankle xray 03/24: EXAM DESCRIPTION: RAD - Ankle Left 3 View - 03/24/2020 4:34 pm CLINICAL HISTORY: PAINleft ankle COMPARISON: No comparisons FINDINGS: No fracture, dislocation or periosteal reaction. No joint effusion s een. No joint space narrowing. No air or foreign body in the soft tissues. Flattening of the plantar arch is present. Soft tissues around the ankle joint are prominent. IMPRESSION: Prominent soft tissues around the ankle joint. No acute bone or joint finding. Left lower extremity doppler 03/24: EXAM DESCRIPTION: US - Extremity Venous Uni Ltd - 03/24/2020 5:01 pm CLINICAL HISTORY: Pain;Swelling COMPARISON: None. TECHNIQUE: Real-time sonographic evaluation of the left lower extremity deep venous system was performed. FINDINGS: Normal compressibility, flow augmentation, phasic flow and spontaneous flow are identified in the left lower extremity common femoral, superficial femoral, popliteal and posterior tibial veins. No intraluminal filling defects seen. IMPRESSION: No DVT in the left lower extremity. Left ankle MRI 03/26: EXAM DESCRIPTION: MRI - Ankle Left Wo Cont - 03/26/2020 7:07 pm CLINICAL HISTORY: Pain, swelling, open wound ankle COMPARISON: X-ray ankle March 24, 2020 TECHNIQUE: Axial, sagittal, and coronal magnetic images of the left ankle obtained FINDINGS: Edema is present within the lateral subcutaneous tissues of the ankle. Small ulceration is present. Small area of abnormal signal is present within the lateral malleolus. Marked edema is present within the dorsal soft tissues of foot. This likely indicates a cellulitis No fracture or dislocation IMPRESSION: Small area of abnormal signal within the lateral malleolus probably indicating a small focus of osteomyelitis Marked cellulitis involving the dorsal soft tissues of the foot ROS: General: Awake, alert, sitting on the side of the bed CV: S1,S2 RESP: Good breath sounds ABD: Nontender, round, bowel sounds present Extremities: 4+ Swelling to bilateral feet, stasis changes to BLLE Skin: Left lower extremity with warmth, hardening and diabetic ulceration Assessment and plan: Cellulitis to left lower extremity Diabetic foot ulcer, MRI shows osteomyelitis Blood cultures positive for yeast, patient started on micafungin PVD Diabetes mellitus, monitor glycemic control Currently on Levaquin and Vancomycin, continue Patient will need total of 6 weeks of antibiotics Patient would benefit from LTAC facility for wound management and IV antibiotics Will continue to monitor Patient discussed with Dr. Guevara
[2020-03-29] MEDS: VANCOMYCIN 2 GM in NA CHLORIDE 0.9% 500 ML IVPB SCH (17:00)
[2020-03-30] MEDS: PREGABALIN 75 MG CAP PO SCH ×3 (00:43→16:13)
[2020-03-30] MEDS: MORPHINE 4 MG/ML SYR IV PRN ×3 (04:51→21:00)
[2020-03-30] MEDS: DIGOXIN 0.25 MG TABLET PO SCH (09:03)
[2020-03-30] MEDS: carvediloL 25 MG TAB PO SCH ×2 (09:03→20:52)
[2020-03-30] MEDS: HYDROCODONE/APAP 7.5/325 MG TAB PO PRN (09:03)
[2020-03-30] MEDS: CLOPIDOGREL 75 MG TABLET PO SCH (09:03)
[2020-03-30] MEDS: SERTRALINE HCL 50 MG TAB PO SCH (09:03)
[2020-03-30] MEDS: FUROSEMIDE 40 MG/4 ML VIAL IV SCH ×2 (09:04→16:13)
[2020-03-30] MEDS: HEPARIN 5000 UNIT/ML 1 ML VIAL SQ SCH ×2 (09:04→20:52)
[2020-03-30] MEDS: AMILORIDE HCL 5 MG TABLET PO SCH ×2 (09:04→20:51)
[2020-03-30] MEDS: INSULIN -REGULAR HUMAN 50 UNIT/0.5 ML ML SQ SCH ×4 (09:10→20:51)
[2020-03-30] MEDS: ROSUVASTATIN 10 MG TAB PO SCH (09:10)
[2020-03-30] MEDS ORDERED: BISACODYL E.C. 5 MG TAB PO ONE (09:54)
[2020-03-30] MEDS ORDERED: DOCUSATE NA 100 MG CAP PO PRN (09:54)
--- NOTE | 2020-03-30 09:57 | P.PN ---
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 Patient found to have cellulitis to the left lower extremity and osteomyelitis which I have been consulted for. Patient Reports wound to left lower extremity for 5 years. Patient examined at bedside. Reports pain to left leg with some improvement. Patient awaiting placement to LTAC facility. Objective: Temp Pulse Resp BP Pulse Ox 97.1 F 76 18 149/65 H 96 03/30/20 04:00 03/30/20 09:04 03/30/20 04:00 03/30/20 09:04 03/30/20 04:00 Labs: No new labs available Ankle xray 03/24: EXAM DESCRIPTION: RAD - Ankle Left 3 View - 03/24/2020 4:34 pm CLINICAL HISTORY: PAINleft ankle COMPARISON: No comparisons FINDINGS: No fracture, dislocation or periosteal reaction. No joint effusion seen. No joint space narrowing. No air or foreign body in the soft tissues. Flattening of the plantar arch is present. Soft tissues around the ankle joint are prominent. IMPRESSION: Prominent soft tissues around the ankle joint. No acute bone or joint finding. Left lower extremity doppler 03/24: EXAM DESCRIPTION: US - Extremity Venous Uni Ltd - 03/24/2020 5:01 pm CLINICAL HISTORY: Pain;Swelling COMPARISON: None. TECHNIQUE: Real-time sonographic evaluation of the left lower extremity deep venous system was performed. FINDINGS: Normal compressibility, flow augmentation, phasic flow and spontaneous flow are identified in the left lower extremity common femoral, superficial femoral, popliteal and posterior tibial veins. No intraluminal filling defects seen. IMPRESSION: No DVT in the left lower extremity. Left ankle MRI 03/26: EXAM DESCRIPTION: MRI - Ankle Left Wo Cont - 03/26/2020 7:07 pm CLINICAL HISTORY: Pain, swelling, open wound ankle COMPARISON: X-ray ankle March 24, 2020 TECHNIQUE: Axial, sagittal, and coronal magnetic images of the left ankle obtained FINDINGS: Edema is present within the lateral subcutaneous tissues of the ankle. Small ulceration is present. Small area of abnormal signal is present within the lateral malleolus. Marked edema is present within the dorsal soft tissues of foot. This likely indicates a cellulitis No fracture or dislocation IMPRESSION: Small area of abnormal signal within the lateral malleolus probably indicating a small focus of osteomyelitis Marked cellulitis involving the dorsal soft tissues of the foot ROS: General: Awake, alert, sitting on the side of the bed CV: S1,S2 RESP: Good breath sounds ABD: Nontender, round, bowel sounds present Extremities: 4+ Swelling to bilateral feet, stasis changes to BLLE Skin: Left lower extremity with warmth, hardening and diabetic ulceration Assessment and plan: Cellulitis to left lower extremity Diabetic foot ulcer, MRI shows osteomyelitis Blood cultures positive for yeast, patient started on micafungin PVD Diabetes mellitus, monitor glycemic control Currently on Levaquin and Vancomycin, continue Patient will need total of 6 weeks of antibiotics Patient would benefit from LTAC facility for wound management and IV antibiotics Will continue to monitor Patient discussed with Dr. Guevara
[2020-03-30] MEDS: MICAFUNGIN SODIUM 100 MG in NA CHLORIDE 0.9% 100 ML IV SCH (12:50)
[2020-03-30] MEDS: LACTOBACILLUS/ACIDOPHILUS TAB PO SCH ×2 (14:19→20:52)
--- NOTE | 2020-03-30 18:55 | P.PN ---
Subjective Date of Service: 03/30/20 Chief Complaint: Painful redness and swelling of left ankle Subjective: Improving Physical Examination - Vital Signs Temperature: 98.4 F Blood Pressure: 130/60 Pulse: 77 Respirations: 18 Pulse Ox (%): 95 - Physical Exam General: Alert HEENT: Atraumatic Neck: Supple Respiratory: Clear to auscultation bilaterally Cardiovascular: Normal pulses Neurological: Normal speech, Normal strength at 5/5 x4 extr, Normal tone, Normal affect - Studies Microbiology Data (last 24 hrs): 03/24/20 17:20 Blood - Blood Aerobic Blood Culture - Final No growth in 5 days. 03/24/20 17:20 Blood - Blood Anaerobic Blood Culture - Final No growth in 5 days. Medications List Reviewed: Yes Assessment & Plan Discharge Plan: LTAC Plan to discharge in: 24 Hours Physician Review Additional Text: Assessment Cellulitis of the left ankle with osteomyelitis Chronic kidney disease with hyperkalemia Diabetes mellitus type 2 Chronic systolic congestive heart failure Hypertension Hyperlipidemia History of CVA and myocardial infarction Plan Cellulitis of the left ankle with osteomyelitis: Continue with current plan. Await approval for long-term acute care facility placement. Continue with infectious disease recommendations on wound care and IV antibiotic therapy. Chronic kidney disease with hyperkalemia: Kidney function stable, will continue to monitor. Diabetes mellitus type 2: A.c. HS Accu-Cheks and sliding scale insulin therapy in place. Chronic systolic congestive heart failure: Continue with Lasix p.o.. Hypertension: Home medications have been continued. Hyperlipidemia: Home medications have been continued. History of CVA and myocardial infarction: Home medications have been continued. Time Spent Managing Pts Care (In Minutes): 55
[2020-03-31] MEDS: PREGABALIN 75 MG CAP PO SCH ×3 (00:47→16:23)
[2020-03-31] MEDS: HYDROCODONE/APAP 7.5/325 MG TAB PO PRN ×2 (00:51→04:42)
[2020-03-31] MEDS ORDERED: NA CHLORIDE 0.9% 500 ML ONE (01:14)
[2020-03-31] MEDS: Levofloxacin 750mg IV 750 MG/150 ML BAG IV SCH (02:13)
[2020-03-31] MEDS: MORPHINE 4 MG/ML SYR IV PRN ×3 (02:46→16:24)
[2020-03-31 03:51] VITALS: O2SAT 96
[2020-03-31 05:07] LABS: Magnesium 1.8 mg/dL (1.8-2.4); Phosphorus 3.1 mg/dL (2.5-4.9); Potassium 4.3 mmol/L (3.5-5.1)
[2020-03-31] MEDS: VANCOMYCIN 2 GM in NA CHLORIDE 0.9% 500 ML IVPB SCH (05:23)
--- NOTE | 2020-03-31 06:37 | P.PN ---
Subjective Date of Service: 03/30/20 Chief Complaint: Painful redness and swelling of left ankle Subjective: Improving Pt doing well. Ready for discharge Review of Systems General: Unremarkable Eyes: Unremarkable ENT: Unremarkable Respiratory: Unremarkable Cardiovascular: Edema Gastrointestinal: Unremarkable Physical Examination - Vital Signs Temperature: 97.3 F Blood Pressure: 121/58 Pulse: 69 Respirations: 18 Pulse Ox (%): 95 - Physical Exam General: Alert, In no apparent distress HEENT: Atraumatic, PERRLA, EOMI Neck: Supple, JVD not distended Respiratory: Clear to auscultation bilaterally, Normal air movement Cardiovascular: Regular rate/rhythm, Normal S1 S2, Edema Gastrointestinal: Normal bowel sounds, No tenderness Integumentary: No rashes, Other (venous stasis skin changes with mild breakdown on ankle) - Studies Medications List Reviewed: Yes Assessment & Plan - Problems (Diagnosis) (1) ROSAURA (acute kidney injury) Current Visit: Yes Status: Acute (2) CHF (congestive heart failure) Onset Date: 12/27/17 Current Visit: No Status: Acute Qualifiers: Heart failure type: systolic Heart failure chronicity: acute on chronic Qualified Code(s): I50.23 - Acute on chronic systolic (congestive) heart failure (3) Hyperkalemia Onset Date: 09/25/16 Current Visit: No Status: Acute Plan: ROSAURA; improving Baseline creatinine is 0.9 to 1.2; improving ROSAURA 2/2 cardiorenal; improving Continue oral bumex. Avoid nsaid, nephrotoxins, contrast exposure. Strict i/o Daily weight Hyperkalemia; resolved 2/2 ROSAURA on medications such as amiloride and potassium supplementation D/C amiloride and potassium supplementation Low potassium / renal diet Maintain on telemetry Hypertension; controlled on current medication Will continue to follow. Thank you for the consult.
--- NOTE | 2020-03-31 06:39 | P.PN ---
Subjective Date of Service: 03/30/20 Chief Complaint: Painful redness and swelling of left ankle Pt doing well. Ready for discharge Physical Examination - Vital Signs Temperature: 97.3 F Blood Pressure: 121/58 Pulse: 69 Respirations: 18 Pulse Ox (%): 95 - Studies Medications List Reviewed: Yes Assessment & Plan - Problems (Diagnosis) (1) ROSAURA (acute kidney injury) Current Visit: Yes Status: Acute (2) CHF (congestive heart failure) Onset Date: 12/27/17 Current Visit: No Status: Acute Qualifiers: Heart failure type: systolic Heart failure chronicity: acute on chronic Qualified Code(s): I50.23 - Acute on chronic systolic (congestive) heart failure (3) Hyperkalemia Onset Date: 09/25/16 Current Visit: No Status: Acute Plan: ROSAURA; improving Baseline creatinine is 0.9 to 1.2; improving ROSAURA 2/2 cardiorenal; improving Continue oral bumex. Avoid nsaid, nephrotoxins, contrast exposure. Strict i/o Daily weight Hyperkalemia; resolved 2/2 ROSAURA on medications such as amiloride and potassium supplementation D/C amiloride and potassium supplementation Low potassium / renal diet Maintain on telemetry Hypertension; controlled on current medication Will continue to follow. Thank you for the consult.
[2020-03-31] MEDS ORDERED: HYDROCODONE/APAP 10/325 TAB PO PRN (07:59)
[2020-03-31] MEDS: ROSUVASTATIN 10 MG TAB PO SCH (09:00)
[2020-03-31] MEDS ORDERED: BUMETANIDE 1 MG TABLET PO SCH (09:00)
[2020-03-31] MEDS: HEPARIN 5000 UNIT/ML 1 ML VIAL SQ SCH (09:03)
[2020-03-31] MEDS: MICAFUNGIN SODIUM 100 MG in NA CHLORIDE 0.9% 100 ML IV SCH (09:13)
[2020-03-31] MEDS: INSULIN -REGULAR HUMAN 50 UNIT/0.5 ML ML SQ SCH ×3 (09:13→16:23)
[2020-03-31] MEDS: carvediloL 25 MG TAB PO SCH (09:14)
[2020-03-31] MEDS: DIGOXIN 0.25 MG TABLET PO SCH (09:15)
[2020-03-31] MEDS: LACTOBACILLUS/ACIDOPHILUS TAB PO SCH ×2 (09:15→12:23)
[2020-03-31] MEDS: AMILORIDE HCL 5 MG TABLET PO SCH (09:15)
[2020-03-31] MEDS: CLOPIDOGREL 75 MG TABLET PO SCH (09:20)
[2020-03-31] MEDS: SERTRALINE HCL 50 MG TAB PO SCH (09:20)
--- NOTE | 2020-03-31 11:55 | P.DS ---
Admission Date: 03/24/20 Discharge Date: 03/31/20 Primary Care Provider: unknown Disposition: [facility] Discharge Condition: GOOD Reason for Admission: Painful redness and swelling of left ankle Consultations: Nephrology-Dr. Palacios Infectious disease-Dr. Guevara Procedures: Ankle MRI: FINDINGS: Edema is present within the lateral subcutaneous tissues of the ankle. Small ulceration is present. Small area of abnormal signal is present within the lateral malleolus. Marked edema is present within the dorsal soft tissues of foot. This likely indicates a cellulitis No fracture or dislocation IMPRESSION: Small area of abnormal signal within the lateral malleolus probably indicating a small focus of osteomyelitis Marked cellulitis involving the dorsal soft tissues of the foot Arterial doppler: FINDINGS: Arterial wall calcifications are present. Left common femoral artery shows triphasic waveform pattern. Waveform transitions to monophasic by the mid superficial femoral artery. Monophasic waveform pattern continues along the length of the popliteal, posterior tibial and dorsalis pedis arteries. No occlusion or focal flow restricting lesion identified. IMPRESSION: Moderate severity peripheral vascular disease left lower extremity. No occlusion or focal flow restricting lesion identified. Venous doppler: FINDINGS: Normal compressibility, flow augmentation, phasic flow and spontaneous flow are identified in the left lower extremity common femoral, superficial femoral, popliteal and posterior tibial veins. No intraluminal filling defects seen. IMPRESSION: No DVT in the left lower extremity. Medical problem list: Left ankle cellulitis with left malleolus osteomyelitis 2/2 blood cultures positive for yeast Chronic kidney disease with hyperkalemia, stage 3 Moderate peripheral vascular disease of the left lower extremity Diabetes mellitus type 2 [id number] Chronic systolic congestive heart failure Hypertension Hyperlipidemia History of CVA and myocardial infarction Chronic pain with diabetic neuropathy Brief History of Present Illness: 75-year-old male with history of diabetes, chronic renal disease, CHF, PVD presented to the ER with nonhealing left ankle wound. Patient found to have cellulitis. Patient admitted for further evaluation and treatment. Hospital Course: Patient presented with left nonhealing ankle cellulitis. Patient was admitted for treatment. MRI revealed left malleoli as osteomyelitis. Bacteremia also identified showed 2/4 blood cultures positive for yeast. Infectious Disease was consulted. Infectious Disease recommends long-term acute care facility placement for to continue IV antibiotic therapy for 6 weeks. Patient currently on vancomycin IV 1.75 g every 36 hr and micafungin IV 100 mg daily. Patient has been accepted to long-term acute care facility. Patient will continue with current IV antibiotic therapy and antifungal therapy. Patient will continue with aggressive wound care. Patient will be followed by infectious disease at the facility. Patient also was evaluated for possible PVD. Venous Doppler shows no DVT. Arterial Doppler shows moderate peripheral vascular disease to the left lower extremity with significant arthrosclerosis. Recommendation is the patient to be further evaluated at the [facility] to further address. Patient may require cardiovascular surgery evaluation and/or possible angiogram to further address. Patient currently on Plavix 75 mg daily. Patient with diabetes mellitus type 2. This has remained stable. Recommend to DC Farxiga and Metformin due to her Chronic renal disease. Continue with glipizide 10 mg 1 pill twice daily. Recommend to monitor blood sugar closely. Recommend to maintain blood sugar less than 140 fasting and less than 200 after meals. If blood sugar is not well controlled will need to consider basal insulin in the future. This can be further addressed at the facility. Patient with hypertension. At discharge patient will continue with carvedilol 25 mg 1 pill twice daily and amiloride 5 mg 1 pill twice daily. Recommend to maintain blood pressure less 150/80. Recommend to monitor potassium level closely. Further adjustment can be done at the [facility]. Patient with chronic renal disease stage III. This has remained stable. Recommend medications to be adjusted per renal function. Recommend no further use of nonsteroidal anti-inflammatories. This can be further monitored by nephrology. Patient with hyperlipidemia. At discharge patient will continue with Crestor 10 mg daily. Patient with chronic systolic CHF. This has remained stable. At discharge patient will continue with Bumex 1 mg twice daily and digoxin 0.25 mg daily. Recommend to continue 1500 cc per day fluid restriction and low-salt diet. Monitor weight closely. Patient with chronic constipation. Patient will continue with Amitiza and docusate. Patient with chronic pain with diabetic neuropathy. At discharge patient will continue with Lyrica 75 mg 1 pill 3 times a day. Patient with depression with anxiety. At discharge patient will continue with Zoloft 50 mg daily. Vital Signs/Physical Exam: Temp Pulse Resp BP Pulse Ox 97.8 F 69 16 122/53 L 96 03/31/20 08:00 03/31/20 09:14 03/31/20 08:00 03/31/20 09:14 03/31/20 08:00 General: Alert, Cooperative HEENT: Atraumatic Neck: Supple Respiratory: Clear to auscultation bilaterally Cardiovascular: Normal pulses, Regular rate/rhythm Gastrointestinal: Normal bowel sounds, Soft and benign, Non-distended, No tenderness, No masses, No rebound, No guarding Integumentary: Other (Chronic wound to the left ankle region.) Neurological: Normal speech, Normal strength at 5/5 x4 extr, Normal tone, Normal affect Laboratory Data at Discharge: WBC 9.3 K/uL (4.3-10.9) 03/26/20 05:13 Hgb 10.0 g/dL (13.6-17.9) L 03/26/20 05:13 Hct 30.9 % (39.6-49.0) L 03/26/20 05:13 Plt Count 225 K/uL (152-406) 03/26/20 05:13 PT 15.2 SECONDS (9.5-12.5) H 03/24/20 16:05 INR 1.29 03/24/20 16:05 APTT 33.9 SECONDS (24.3-36.9) 03/24/20 16:05 Sodium 141 mmol/L (136-145) 03/31/20 04:36 Potassium 4.3 mmol/L (3.5-5.1) 03/31/20 04:36 BUN 33 mg/dL (7-18) H 03/31/20 04:36 Creatinine 1.26 mg/dL (0.55-1.3) 03/31/20 04:36 Glucose 177 mg/dL (74-106) H 03/31/20 04:36 Phosphorus 3.1 mg/dL (2.5-4.9) 03/31/20 04:36 Magnesium 1.8 mg/dL (1.8-2.4) D 03/31/20 04:36 Home Medications: Clopidogrel Bisulfate [Plavix*] 1 tab PO DAILY 12/27/17 Lubiprostone [Amitiza*] 1 cap PO BID 12/27/17 Pregabalin [Lyrica] 75 mcg PO Q8HR 12/27/17 carvediloL [Carvedilol] 1 tab PO BID 12/27/17 Amiloride HCl 5 mg PO BID 07/09/20 Digoxin 250 mcg PO DAILY 03/25/20 Rosuvastatin [Crestor*] 10 mg PO DAILY 03/25/20 Sertraline [Zoloft*] 50 mg PO DAILY 03/25/20 glipiZIDE [Glipizide] 10 mg PO BID 03/25/20 Bumetanide [Bumex*] 1 mg PO BID #60 tab 03/31/20 Docusate [Colace Cap*] 100 mg PO DAILY PRN #30 cap 03/31/20 New Medications: Bumetanide [Bumex*] 1 mg PO BID #60 tab Docusate [Colace Cap*] 100 mg PO DAILY PRN #30 cap PRN Reason: Constipation Patient Discharge Instructions: 1. Patient be transferred to long-term acute care facility to continue therapy. 2. Patient presented with left nonhealing ankle cellulitis. Patient was admitted for treatment. MRI revealed left malleoli as osteomyelitis. Blood cultures were positive for yeast. 2/4 blood cultures positive for yeast. Infectious Disease was consulted. Infectious Disease recommends long-term [facility] care facility placement for to continue IV antibiotic therapy for 6 weeks. Patient currently on vancomycin IV 1.75 g every 36 hr and micafungin IV 100 mg daily. Patient has been accepted to [facility]. Patient will continue with current IV antibiotic therapy and antifungal therapy. Patient will continue with aggressive wound care. Patient will be followed by infectious disease at the facility. 3. Patient also was evaluated for possible PVD. Venous Doppler shows no DVT. Arterial Doppler shows moderate peripheral vascular disease to the left lower extremity with significant arthrosclerosis. Recommendation is the patient to be further evaluated at the [facility] to further address. Patient may require cardiovascular surgery evaluation and/or possible angiogram to further address. Patient currently on Plavix 75 mg daily. 4. Patient with diabetes mellitus type 2. This has remained stable. Recommend to DC Farxiga and Metformin due to her Chronic renal disease. Continue with glipizide 10 mg 1 pill twice daily. Recommend to monitor blood sugar closely. Recommend to maintain blood sugar less than 140 fasting and less than 200 after meals. If blood sugar is not well controlled will need to consider basal insulin in the future. This can be further addressed at the facility. 5. Patient with hypertension. At discharge patient will continue with carvedilol 25 mg 1 pill twice daily and amiloride 5 mg 1 pill twice daily. Recommend to maintain blood pressure less 150/80. Recommend to monitor potassium level closely. Further adjustment can be done at the long-term acute care facility. 6. Patient with chronic renal disease stage III. This has remained stable. Recommend medications to be adjusted per renal function. Recommend no further use of nonsteroidal anti- inflammatories. This can be further monitored by nephrology. 7. Patient with hyperlipidemia. At discharge patient will continue with Crestor 10 mg daily. 8. Patient with chronic systolic CHF. This has remained stable. At discharge patient will continue with Bumex 1 mg twice daily and digoxin 0.25 mg daily. Recommend to continue 1500 cc per day fluid restriction and low-salt diet. Monitor weight closely. 9. Patient with chronic constipation. Patient will continue with Amitiza and docusate. 10. Patient with chronic pain with diabetic neuropathy. At discharge patient will continue with Lyrica 75 mg 1 pill 3 times a day. 11. Patient with depression with anxiety. At discharge patient will continue with Zoloft 50 mg daily. Diet: ADA Activity: Ad shaun Time spent managing pt's care (in minutes): 55
--- NOTE | 2020-03-31 13:10 | P.PN ---
Date of Service: 03/31/20 Subjective: Patient is a 75-year-old male with history of diabetes and chronic nonhealing wound to the left lower extremity who presents to the EGD where that increase and pain, redness and swelling to left lower extremity. Patient found to have cellulitis to the left lower extremity and osteomyelitis which I have been consulted for. Patient Reports wound to left lower extremity for 5 years. Patient examined at bedside. Reports pain to left leg with some improvement. Patient awaiting placement to LTAC facility. Objective: Temp Pulse Resp BP Pulse Ox 97.8 F 69 16 122/53 L 96 03/31/20 08:00 03/31/20 09:14 03/31/20 08:00 03/31/20 09:14 03/31/20 08:00 Labs: Na 141, K 4.3, BUN 33, Creat 1.26, Ankle xray 03/24: EXAM DESCRIPTION: RAD - Ankle Left 3 View - 03/24/2020 4:34 pm CLINICAL HISTORY: PAINleft ankle COMPARISON: No comparisons FINDINGS: No fracture, dislocation or periosteal reaction. No joint effusion seen. No joint space narrowing. No air or foreign body in the soft tissues. Flattening of the plantar arch is present. Soft tissues around the ankle joint are prominent. IMPRESSION: Prominent soft tissues around the ankle joint. No acute bone or joint finding. Left lower extremity doppler 03/24: EXAM DESCRIPTION: US - Extremity Venous Uni Ltd - 03/24/2020 5:01 pm CLINICAL HISTORY: Pain;Swelling COMPARISON: None. TECHNIQUE: Real-time sonographic evaluation of the left lower extremity deep venous system was performed. FINDINGS: Normal compressibility, flow augmentation, phasic flow and spontaneous flow are identified in the left lower extremity common femoral, superficial femoral, popliteal and posterior tibial veins. No intraluminal filling defects seen. IMPRESSION: No DVT in the left lower extremity. Left ankle MRI 03/26: EXAM DESCRIPTION: MRI - Ankle Left Wo Cont - 03/26/2020 7:07 pm CLINICAL HISTORY: Pain, swelling, open wound ankle COMPARISON: X-ray ankle March 24, 2020 TECHNIQUE: Axial, sagittal, and coronal magnetic images of the left ankle o btained FINDINGS: Edema is present within the lateral subcutaneous tissues of the ankle. Small ulceration is present. Small area of abnormal signal is present within the lateral malleolus. Marked edema is present within the dorsal soft tissues of foot. This likely indicates a cellulitis No fracture or dislocation IMPRESSION: Small area of abnormal signal within the lateral malleolus probably indicating a small focus of osteomyelitis Marked cellulitis involving the dorsal soft tissues of the foot ROS: General: Awake, alert, sitting on the side of the bed CV: S1,S2 RESP: Good breath sounds ABD: Nontender, round, bowel sounds present Extremities: Swelling to bilateral feet, stasis changes to BLLE Skin: Left lower extremity with warmth, hardening and diabetic ulceration Assessment and plan: Cellulitis to left lower extremity Diabetic foot ulcer, MRI shows osteomyelitis Blood cultures positive for yeast, patient started on micafungin PVD Diabetes mellitus, monitor glycemic control Currently on Levaquin and Vancomycin, continue Patient will need total of 6 weeks of antibiotics Patient to be transferred to [place] facility for IV antibiotics and wound m anagement Will continue to monitor Patient discussed with Dr. Guevara
[2020-03-31 16:10] VITALS: BP 123/60; TEMP 97.8
[2020-04-02] MEDS ORDERED: VANCOMYCIN 1.75 GM in NA CHLORIDE 0.9% 500 ML IVPB SCH (06:00)
== END 2020-03-31 17:48 | DRG 602 ==
LOC: ER 14:15 → ERHOLD 23:25 → 2ND 03-25 00:54
PROVIDERS: ADMIT Internal Medicine; ATTEND Family Medicine
PROC: 02HV33Z Insertion of Infusion Device into Superior Vena Cava, Percutaneous Approach (ICD-10-PCS; principal; 2020-03-29)
DX: L03.116 Cellulitis of left lower limb (principal); I50.23 Acute on chronic systolic (congestive) heart failure; N17.9 Acute kidney failure, unspecified; I13.0 Hypertensive heart and chronic kidney disease with heart failure and stage 1 through stage 4 chronic kidney disease, or unspecified chronic kidney disease; M86.8X7 Other osteomyelitis, ankle and foot; R78.81 Bacteremia; E11.69 Type 2 diabetes mellitus with other specified complication; Z79.899 Other long term (current) drug therapy; Z11.59 Encounter for screening for other viral diseases; I25.10 Atherosclerotic heart disease of native coronary artery without angina pectoris; Z95.5 Presence of coronary angioplasty implant and graft; I25.2 Old myocardial infarction; E87.5 Hyperkalemia; Z79.02 Long term (current) use of antithrombotics/antiplatelets; Z86.73 Personal history of transient ischemic attack (TIA), and cerebral infarction without residual deficits; Z90.49 Acquired absence of other specified parts of digestive tract; E66.9 Obesity, unspecified; Z68.34 Body mass index [BMI] 34.0-34.9, adult; Z79.84 Long term (current) use of oral hypoglycemic drugs; E11.51 Type 2 diabetes mellitus with diabetic peripheral angiopathy without gangrene; E11.40 Type 2 diabetes mellitus with diabetic neuropathy, unspecified; E11.621 Type 2 diabetes mellitus with foot ulcer; L97.529 Non-pressure chronic ulcer of other part of left foot with unspecified severity; N18.3 Chronic kidney disease, stage 3 (moderate); E11.22 Type 2 diabetes mellitus with diabetic chronic kidney disease; Z79.82 Long term (current) use of aspirin; F41.8 Other specified anxiety disorders; K59.09 Other constipation
CPT/HCPCS: 36415; 36569; 71045; 80048; 80202; 81003; 82565; 82947; 83735; 83880; 84100; 84132; 84145; 85025; 85610; 85730; 87040; 87205; 93005; 93926; 93971; 99285; J1644; J1940; J2248; J2543; J3010; J3370; J7030; J7040; J7050; U0002

== ENCOUNTER 2020-07-20 18:27 | Inpatient (IN) | payer OTHER ==
--- OUTSIDE RECORDS SUMMARY | 2020-07-20 18:29 | XMS REPORT | Continuity of Care Document ---
:1945 Author Organization [facility] t Address [address] [place] [address] Care Team Providers Name Role Phone Unavailable Unavailable Unavailable Payers Payer Name Policy Type Policy Number Effective Date Expiration Date S ource Problems This patient has no known problems. Allergies, Adverse Reactions, Alerts This patient has no known allergies or adverse reactions. Medications This patient has no known medications. Procedures Procedure Date / Time Performed Performing Clinician [facility] e [id number] 2020-05-04 00:00:00 ENCKY [id number] 2020-05-04 00:00:00 ENCKY [id number] 2020-05-04 00:00:00 ENCKY [id number] 2020-05-04 00:00:00 ENCKY [id number] 2020-05-04 00:00:00 ENCKY Encounters Start End Encounter Admission Attending Care Care Encounter Source Date/Time Date/Time Type Type Clinicians Facility Department ID 2020-05-05 Outpatient READMISSIO ENCCLR ENCCLR [id number] ENCCLR 20:57:26 N Results This patient has no known results.
[2020-07-20 19:05] LABS: Basophils % 0.7 % (0-1.3); Hematocrit 32.8 % (39.6-49.0); MPV 11.3 fL (7.6-11.3); RBC Red Blood Cell Count 3.52 M/uL (4.33-5.43)
[2020-07-20 19:06] LABS: Protime INR 1.53
[2020-07-20 19:28] LABS: ALT/SGPT 20 U/L (12-78); AST/SGOT 14 U/L (15-37); Albumin 4.1 g/dL (3.4-5.0); Alkaline Phosphatase 145 U/L (45-117); BUN Blood Urea Nitrogen 44 mg/dL (7-18); Bicarbonate 25 mmol/L (21-32); Bilirubin Direct 0.2 mg/dL (0-0.2); Bilirubin Total 0.5 mg/dL (0.2-1.0); Glucose Level 174 mg/dL (74-106); Lipase 315 U/L (73-393); NT PRO-BNP 432 pg/mL (<450); Protein, Total 8.6 g/dL (6.4-8.2); Sodium Level 135 mmol/L (136-145); Troponin (Emerg Dept Use Only) < 0.02 ng/mL (0.0-0.045)
[2020-07-20 19:46] LABS: Potassium 8.2 mmol/L (3.5-5.1)
[2020-07-20] MEDS ORDERED: ALBUTEROL 2.5 MG/3 ML NEB SOL ONE ×2 (20:03→20:25)
[2020-07-20] MEDS ORDERED: IPRATROPIUM BROM 0.5MG/2.5ML ONE (20:03)
[2020-07-20] MEDS ORDERED: FUROSEMIDE 100 MG/10 ML VIAL IV ONE (20:03)
[2020-07-20] MEDS ORDERED: SOD POLYSTYREN SUL 15 GM/60 ML UCUP ONE (20:04)
[2020-07-20] MEDS ORDERED: SODIUM BICARB 50 MEQ/50ML VIAL ONE (20:04)
[2020-07-20] MEDS ORDERED: D50W 25 GM/50 ML SYRINGE/VIAL IV ONE (20:04)
[2020-07-20] MEDS ORDERED: CALCIUM GLUCONATE 1 GM IVPB 1 GM/50 ML BAG IV ONE (20:05)
[2020-07-20] MEDS ORDERED: INSULIN -REGULAR HUMAN 50 UNIT/0.5 ML ML ONE ×2 (20:06→20:41)
--- NOTE | 2020-07-20 20:06 | RAD REPORT ---
EXAM DESCRIPTION: RAD - Chest Single View - 07/20/2020 7:14 pm CLINICAL HISTORY: COUGH COMPARISON: Portable March 29 TECHNIQUE: AP portable chest image was obtained 07/20/2020 7:14 pm . FINDINGS: Lungs are clear. Interstitial pattern matches comparison. No failure or volume overload. H eart and vasculature are normal. No measurable pleural effusion and no pneumothorax. No acute bony ab normality seen. No acute aortic findings suspected. IMPRESSION: No acute cardiopulmonary process.
[2020-07-20] MEDS ORDERED: Caclcium Chloride 10% INJ SYR IV ONE (20:14)
[2020-07-20 20:22] LABS: Arterial Blood Carboxyhemoglob 1.1 % (0-1.5); Blood Gas Oxyhemoglobin 97.6 % (94-97); Blood O2 Saturation 99.8 % (92-98.5)
[2020-07-20] MEDS ORDERED: NA CHLORIDE 0.9% 1,000 ML IV PRN (20:31)
[2020-07-20] MEDS ORDERED: MANNITOL 25% 12.5 GM/50 ML VIAL IV PRN (20:31)
--- NOTE | 2020-07-20 20:34 | ER ---
Nurse's Notes [facility] Name: Tyrone Vaughn Age: 75 yrs Sex: Male : 1945 Arrival Date: 07/20/2020 Time: 18:35 Bed 8 Private MD: Diagnosis: Hyperkalemia;Ventricular tachycardia;Chronic combined systolic (congestive) and diastolic (congestive) heart failure;Retention of urine;Acute kidney failure-acute on chronic;Type 1 diabetes mellitus;Atrial fibrillation and flutter-hx, on eliquis Presentation: 07/20 18:29 Chief complaint: EMS states: Generalized weakness since this morning, denies chest jl7 pain, denies new neuro symptoms, denies fever, cough, congestion. Coronavirus screen: Client denies travel out of the [place] in the last 14 days. shortness of breath, Client presents with at least one sign or symptom that may indicate coronavirus-19. Standard/surgical mask placed on the client. Provider contacted for isolation considerations. Ebola Screen: No symptoms or risks identified at this time. Initial Sepsis Screen: Does the patient meet any 2 criteria? No. Patient's initial sepsis screen is negative. Does the patient have a suspected source of infection? No. Patient's initial sepsis screen is negative. 18:29 Method Of Arrival: EMS: [facility] jl7 18:29 Risk Assessment: Do you want to hurt yourself or someone else? Patient reports no jl7 desire to harm self or others. Onset of symptoms was July 20, 2020. Care prior to arrival: None. Transition of care: patient was not received from another setting of care. 18:29 Acuity: WESLEY 2 jl7 Triage Assessment: 19:02 General: Appears in no apparent distress. uncomfortable, Behavior is calm, cooperative, jl7 appropriate for age. Pain: Denies pain. Neuro: Level of Consciousness is awake, alert, obeys commands, Oriented to person, place, time, situation. Cardiovascular: Patient's skin is warm and dry. Respiratory: Airway is patent Respiratory effort is even, unlabored, Respiratory pattern is regular, symmetrical. Derm: Skin is pink, warm \T\ dry. Historical: - Allergies: 19:02 No Known Allergies; jl7 - Home Meds: 19:02 aspirin 81 mg Oral chew [Active]; atorvastatin 40 mg oral tab 1 tab once daily jl7 [Active]; apixaban oral 5 mg oral [Active]; amiloride 5 mg oral tab [Active]; amlodipine 10 mg tab 1 tab once daily [Active]; bumetanide 1 mg Oral tab once daily [Active]; carvedilol 25 mg Oral tab 1 tab 2 times per day [Active]; ferrous sulfate 325 mg (65 mg iron) Oral tab [Active]; Lyrica 75 mg Oral 1 cap 3 times per day [Active]; pantoprazole 40 mg oral TbEC [Active]; sertraline 50 mg oral tab 1 tab once daily [Active]; tramadol 50 mg Oral tab 1 tab three times a day [Active]; - PMHx: 19:02 Anxiety; Atrial Fib; CAD; CHF; Diabetes - IDDM; heart problem; High Cholesterol; jl7 Hypertension; Myocardial infarction; neuropathy; Sleep Apnea; - PSHx: 19:02 Heart stents; jl7 - Immunization history:: Adult Immunizations up to date. - Social history:: Smoking status: Patient denies any tobacco usage or history of. - Family history:: not pertinent. Screenin:00 Abuse screen: Denies threats or abuse. Nutritional screening: No deficits noted. fu Tuberculosis screening: No symptoms or risk factors identified. Fall Risk None identified. Assessment: 19:15 General: Appears uncomfortable, Behavior is cooperative, appropriate for age. Pain: fu Denies pain. Neuro: Level of Consciousness is awake, alert, obeys commands, Oriented to person, place, time, situation, [place] are equal bilaterally Moves all extremities. Weakness Speech is normal, Facial symmetry appears normal. Cardiovascular: Denies chest pain, nausea, vomiting, Capillary refill < 3 seconds. Respiratory: Reports difficulty breathing when lying flat in bed Respiratory effort is Respiratory pattern is tachypnea. GI: Reports feeling of having a BM. Derm: Skin is clammy. Musculoskeletal: Reports weakness in BLE. 19:46 Reassessment: Potassium 8.2 Dr. Erickson aware with orders made. fu 19:59 Reassessment: Patient not responding, cold and clammy, not breathing, on V tach per fu monitor as per Dr. Erickson. Code Blue announced. Patient was shocked, chest compressions done. Medications given as per order. Intubation not done, patient regain consciousness. Converted back to sinus rhythm as per EKG. 20:50 Reassessment: Patient and/or family updated on plan of care and expected duration. Pain fu level reassessed. Patient is alert, oriented x 3, equal unlabored respirations, skin warm/dry/pink. Patient states symptoms have improved. 20:55 Reassessment: patient transferred to bed 2. fu 22:00 Reassessment: Patient and/or family updated on plan of care and expected duration. Pain fu level reassessed. Patient is alert, oriented x 3, equal unlabored respirations, skin warm/dry/pink. patient transferred to hospital bed, on monitor, for dialysis tonight. 22:42 Reassessment: dialysis started by dialysis nurse. fu Vital Signs: 18:29 BP 164 / 81; Pulse 89; Resp 16 S; Temp 98.1(O); Pulse Ox 99% on R/A; Weight 77.11 kg jl7 (R); Pain 0/10; 19:00 BP 165 / 86; Pulse 112; Resp 23; Pulse Ox 98% on R/A; Pain 0/10; fu 19:30 BP 161 / 80; Pulse 110; Resp 21; Pulse Ox 98% on 2 lpm NC; fu 19:58 Pulse Ox 80% 2 lpm ; fu 20:10 BP 145 / 76; Pulse 105; Resp 25; Pulse Ox 100% on 15% Non-rebreather mask; fu 21:00 BP 145 / 89; Pulse 106; Resp 21; Pulse Ox 96% on 15% Non-rebreather mask; Pain 0/10; fu 22:00 BP 125 / 78; Pulse 91; Resp 23; Pulse Ox 96% on 15% Non-rebreather mask; fu ED Course: 18:35 Patient arrived in ED. jl7 18:45 Inserted saline lock: 22 gauge in left hand, using aseptic technique. jl7 18:47 Brian Erickson MD is Attending Physician. [facility] 18:48 Missed attempt(s): 20 gauge in right wrist. Bleeding controlled, band aid applied, jp3 catheter tip intact. 18:49 Abhi Rivera RN is Primary Nurse. jl7 18:57 Triage completed. jl7 19:02 Arm band placed on right wrist. jl7 19:04 Initial lab(s) drawn, by va, sent to lab. Inserted saline lock: 20 gauge in left wrist, jl7 using aseptic technique. Blood collected. 19:15 XRAY Chest (1 view) In Process Unspecified. EDMS 19:33 Primary Nurse role handed off by Abhi Rivera RN jl7 20:10 Inserted saline lock: 18 gauge in left EJ, using aseptic technique. fu 20:16 Tamayo cath inserted, using sterile technique, 16 Fr., by ED staff, balloon inflated, to fu gravity drainage. 20:30 media production operator on. Pulse ox on. NIBP on. fu 20:33 Marge Cooper MD is Hospitalizing Provider. jr8 20:34 CXR XRAY In Process Unspecified. EDMS 20:50 Oxygen administration via non-rebreather mask \T\ 15L/min. fu 21:09 consent for dialysis catheter insertion signed by patient. fu 21:10 assist with dialysis catheter cath insertion on right groin by Dr. Daniel. fu 21:30 Patient has correct armband on for positive identification. Placed in gown. Bed in low fu position. Call light in reach. Side rails up X2. 21:39 Damion Lynn RN is Primary Nurse. fu 22:00 Patient admitted, IV remains in place. fu 22:30 helped to bedside commode, patient had BM. fu 23:16 Basic Metabolic Panel Sent. fu 23:16 CBC with Diff Sent. fu 23:16 LFT's Sent. fu 23:17 Magnesium Sent. fu Administered Medications: 19:59 Drug: Calcium Gluconate 1 grams Route: IVPB; Infused Over: 15 mins; Site: left jugular; fu 20:14 Follow up: IV Intake: 100ml fu 20:00 Drug: Calcium Chloride 1 grams {Note: administered by .} Route: IVP; Site: fu left hand; 21:00 Follow up: Response: No adverse reaction fu 20:02 Drug: Sodium Bicarbonate 1 amp {Note: administered by Dr. Erickson.} Route: IVP; Site: fu left hand; 20:32 Follow up: Response: No adverse reaction fu 20:05 Drug: NS 0.9% 1000 ml Route: IV; Rate: 1 bolus; Site: left jugular; fu 23:00 Follow up: IV Intake: 1000ml fu 20:10 Drug: Albuterol - atroVENT (3:1) (2.5 mg - 0.5 mg) 3 ml {Note: administered by RT.} fu Route: Nebulizer; 21:00 Follow up: Response: No adverse reaction fu 20:16 Drug: Lasix 100 mg Route: IVP; Site: left hand; fu 20:46 Follow up: Response: No adverse reaction fu 20:29 Not Given (Other Intervention Used): Viscous Lidocaine Liquid (4 %) 5 ml Mucous wh Membrane once 20:31 Drug: D50W 50 ml Route: IVP; Site: left forearm; fu 21:01 Follow up: Response: No adverse reaction fu 20:31 Drug: Insulin Regular Human 10 units {Co-Signature: (Taya Love).} Route: IVP; fu Site: left forearm; 21:01 Follow up: Response: No adverse reaction fu 21:30 Drug: Kayexalate 60 grams Route: PO; fu 22:30 Follow up: Response: No adverse reaction fu 21:49 Drug: Rocephin - (cefTRIAXone) 1 grams Route: IVPB; Infused Over: 30 mins; Site: left fu hand; 22:49 Follow up: Response: No adverse reaction fu 21:53 Drug: Pepcid 20 mg Route: IVP; Site: left hand; fu 22:53 Follow up: Response: No adverse reaction fu Intake: 20:14 IV: 100ml; Total: 100ml. fu 23:00 IV: 1000ml; Total: 1100ml. fu Output: 22:30 Urine: 1250ml (Tamayo); Total: 1250ml. fu Outcome: 20:34 Decision to Hospitalize by Provider. jr8 22:00 Admitted to ER Hold. Please see [facility] for further documentation. fu 22:00 Condition: stable 22:00 Instructed on the need for admit. 11 07:31 Patient left the ED. ss Signatures: Dispatcher [employer] Brian Yoon MD MD cha Ballard, Brenda RN Rebecca Charles RN RN Berny Hui PA PA jr8 Abhi Rivera RN RN jl7 Damion Lynn RN RN Robson Lackey jp3 Kate, Winsy Winsy [facility]: (The following items were deleted from the chart) 00:41 00:33 Reassessment: Potassium 8.2 Dr. Erickson aware with orders made fu fu 00:56 11 21:10 Sukhjinder cath insertion for dialysis by Dr. Daniel [facility] 07/21 00:58 00:57 Reassessment: patient transferred to bed 2 [facility] 01: 00:16 IV Intake: 1000ml [facility] 02:24 07/20 22:00 Admitted to [facility] 07/21 02:34 07/20 21:10 assist with Sukhjinder cath insertion for dialysis by Dr. Daniel [facility] 07/21 02:35 07/20 21:09 consent for sukhjinder catheter insertion for dialysis signed by patient [facility]
--- NOTE | 2020-07-20 20:35 | EDPHYS ---
Physician Documentation [facility] Name: Tyrone Vaughn Age: 75 yrs Sex: Male : 1945 Arrival Date: 07/20/2020 Time: 18:35 Bed 8 Private MD: ED Physician Brian Erickson HPI: 07/20 19:36 This 75 yrs old Male presents to ER via EMS with complaints of weakness and nicole sob, pale. 19:36 The patient has shortness of breath at rest, with light activity. Onset: The nicole symptoms/episode began/occurred 2 day(s) ago. Duration: The symptoms are continuous, and are steadily getting worse. The patient's shortness of breath has no apparent modifying factors. pale, weak,sob. Associated signs and symptoms: The patient has no apparent associated signs or symptoms, Pertinent positives: dizziness. Severity of symptoms: At their worst the symptoms were mild moderate in the emergency department the symptoms are unchanged. The patient has experienced similar episodes in the past, multiple times. Historical: - Allergies: 19:02 No Known Allergies; jl7 - Home Meds: 19:02 aspirin 81 mg Oral chew [Active]; atorvastatin 40 mg oral tab 1 tab once daily jl7 [Active]; apixaban oral 5 mg oral [Active]; amiloride 5 mg oral tab [Active]; amlodipine 10 mg tab 1 tab once daily [Active]; bumetanide 1 mg Oral tab once daily [Active]; carvedilol 25 mg Oral tab 1 tab 2 times per day [Active]; ferrous sulfate 325 mg (65 mg iron) Oral tab [Active]; Lyrica 75 mg Oral 1 cap 3 times per day [Active]; pantoprazole 40 mg oral TbEC [Active]; sertraline 50 mg oral tab 1 tab once daily [Active]; tramadol 50 mg Oral tab 1 tab three times a day [Active]; - PMHx: 19:02 Anxiety; Atrial Fib; CAD; CHF; Diabetes - IDDM; heart problem; High Cholesterol; jl7 Hypertension; Myocardial infarction; neuropathy; Sleep Apnea; - PSHx: 19:02 Heart stents; jl7 - Immunization history:: Adult Immunizations up to date. - Social history:: Smoking status: Patient denies any tobacco usage or history of. - Family history:: not pertinent. ROS: 19:36 Constitutional: Negative for fever, chills, and weight loss, Eyes: Negative for injury, nicole pain, redness, and discharge, ENT: Negative for injury, pain, and discharge, Neck: Negative for injury, pain, and swelling, Cardiovascular: Negative for chest pain, palpitations, and edema, Abdomen/GI: Negative for abdominal pain, nausea, vomiting, diarrhea, and constipation, Back: Negative for injury and pain, : Negative for injury, bleeding, discharge, and swelling, MS/Extremity: Negative for injury and deformity, Psych: Negative for depression, anxiety, suicide ideation, homicidal ideation, and hallucinations, Allergy/Immunology: Negative for hives, rash, and allergies, Endocrine: Negative for neck swelling, polydipsia, polyuria, polyphagia, and marked weight changes. 19:36 Respiratory: Positive for cough, with no reported sputum. 19:36 Abdomen/GI: Positive for abdominal distension. 19:36 Skin: Positive for pallor. Exam: 19:36 Constitutional: This is a well developed, well nourished patient who is awake, alert, nicole and in no acute distress. Head/Face: Normocephalic, atraumatic. Eyes: Pupils equal round and reactive to light, extra-ocular motions intact. Lids and lashes normal. Conjunctiva and sclera are non-icteric and not injected. Cornea within normal limits. Periorbital areas with no swelling, redness, or edema. ENT: Nares patent. No nasal discharge, no septal abnormalities noted. Tympanic membranes are normal and external auditory canals are clear. Oropharynx with no redness, swelling, or masses, exudates, or evidence of obstruction, uvula midline. Mucous membranes moist. Neck: Trachea midline, no thyromegaly or masses palpated, and no cervical lymphadenopathy. Supple, full range of motion without nuchal rigidity, or vertebral point tenderness. No Meningismus. Chest/axilla: Normal chest wall appearance and motion. Nontender with no deformity. No lesions are appreciated. Cardiovascular: Regular rate and rhythm with a normal S1 and S2. No gallops, murmurs, or rubs. Normal PMI, no JVD. No pulse deficits. Respiratory: Lungs have equal breath sounds bilaterally, clear to auscultation and percussion. No rales, rhonchi or wheezes noted. No increased work of breathing, no retractions or nasal flaring. Abdomen/GI: Soft, non-tender, with normal bowel sounds. No distension or tympany. No guarding or rebound. No evidence of tenderness throughout. Back: No spinal tenderness. No costovertebral tenderness. Full range of motion. Male : Normal genitalia with no discharge or lesions. MS/ Extremity: Pulses equal, no cyanosis. Neurovascular intact. Full, normal range of motion. Neuro: Awake and alert, GCS 15, oriented to person, place, time, and situation. Cranial nerves II-XII grossly intact. Motor strength 5/5 in all extremities. Sensory grossly intact. Cerebellar exam normal. Normal gait. Psych: Awake, alert, with orientation to person, place and time. Behavior, mood, and affect are within normal limits. 19:36 Skin: Appearance: Color: pale, Temperature: normal temperature, Moisture: dry, petechiae, not noted, ecchymosis, not noted. 19:36 Neuro: Orientation: is normal, appropriate for stated age, no acute changes, Mentation: is normal, appropriate for stated age, no acute changes, Memory: is normal, appropriate for stated age, no acute changes, Cerebellar function: is grossly normal based on the patient's age, no acute changes, Motor: moves all fours, Sensation: no obvious gross deficits, appropriate no acute changes, Gait: not tested. seizure activity, is not displayed by the patient. 20:41 ECG was reviewed by the Attending Physician. nicole 20:42 ECG was reviewed by the Attending Physician. nicole 20:50 Abdomen/GI: Inspection: distension, Bowel sounds: normal, active, Palpation: abdomen is nicole soft and non-tender, Rectal exam: Prostate: normal, rectal tone normal, Stool: guaiac negative, hemorrhoid(s), are not appreciated, mass, is not appreciated, swelling, is not appreciated, tenderness, is not appreciated, Liver: no appreciated palpable abnormalities, Hernia: not appreciated. Vital Signs: 18:29 BP 164 / 81; Pulse 89; Resp 16 S; Temp 98.1(O); Pulse Ox 99% on R/A; Weight 77.11 kg jl7 (R); Pain 0/10; 19:00 BP 165 / 86; Pulse 112; Resp 23; Pulse Ox 98% on R/A; Pain 0/10; fu 19:30 BP 161 / 80; Pulse 110; Resp 21; Pulse Ox 98% on 2 lpm NC; fu 19:58 Pulse Ox 80% 2 lpm ; fu 20:10 BP 145 / 76; Pulse 105; Resp 25; Pulse Ox 100% on 15% Non-rebreather mask; fu 21:00 BP 145 / 89; Pulse 106; Resp 21; Pulse Ox 96% on 15% Non-rebreather mask; Pain 0/10; fu 22:00 BP 125 / 78; Pulse 91; Resp 23; Pulse Ox 96% on 15% Non-rebreather mask; fu Procedures: 20:28 Peripheral line: by aseptic technique a peripheral line was placed in the right [facility] external jugular vein. MDM: 18:47 Patient medically screened. [facility] 19:41 Differential diagnosis: Anemia CHF exacerbation, Myocardial Infarction pneumonia, nicole pulmonary edema, Pulmonary Embolism reactive airway disease, Sepsis Unstable Angina. Antibiotic administration: rocephin. The patient's Wells Deep Vein Thrombosis Score was calculated as follows: Total Score: 0-2 Pts- Low Risk. The patient's pulmonary embolism risk score was calculated as follows: Total Score: 0-2 points. This patient was found to be at low risk for a pulmonary embolism by using the Well's assessment criteria. Immunization status: Pneumococcal vaccine: Influenza vaccine: Data reviewed: vital signs, nurses notes, lab test result(s), EKG, radiologic studies, CT scan, plain films. Data interpreted: monitoring engineer: rate is 89 beats/min, rhythm is regular, Pulse oximetry: on room air is 99 %. Test interpretation: by ED physician or midlevel provider: ECG, plain radiologic studies. 20:28 ED course: pt went into v fib, unresponsive, acls, calcium chloride 1 amp pushed, nicole baged, lost right ej, left ej started , dr turner called , calling in dialysis orders, dr micheal nuñez in route to place cuong. 07/20 18:52 Order name: Basic Metabolic Panel [facility] 07/20 18:52 Order name: CBC with Diff [facility] 07/20 18:52 Order name: LFT's [facility] 07/20 18:52 Order name: Magnesium [facility] 07/20 18:52 Order name: NT PRO-BNP; Complete Time: 20:12 [facility] 07/20 18:52 Order name: PT-INR; Complete Time: 19:30 [facility] 07/20 18:52 Order name: Troponin (emerg Dept Use Only); Complete Time: 20:12 [facility] 07/20 18:52 Order name: Lipase; Complete Time: 20:12 [facility] 07/20 18:52 Order name: Blood Culture Adult (2) [facility] 07/20 18:52 Order name: Procalcitonin; Complete Time: 20:12 [facility] 07/20 18:52 Order name: Lactate; Complete Time: 20:18 [facility] 07/20 18:52 Order name: Urine Culture [facility] 07/20 18:52 Order name: COVID-19 [facility] 07/20 18:52 Order name: Flu; Complete Time: 21:46 [facility] 07/20 18:52 Order name: Basic Metabolic Panel; Complete Time: 20:12 [facility] 07/20 18:52 Order name: CBC with Automated Diff; Complete Time: 19:30 [facility] 07/20 18:52 Order name: Liver (Hepatic) Function; Complete Time: 20:12 [facility] 07/20 18:52 Order name: Magnesium; Complete Time: 20:12 [facility] 07/20 19:14 Order name: Type And Screen [facility] 07/20 19:47 Order name: Phosphorus; Complete Time: 21:46 [facility] 07/20 19:47 Order name: Chem 7; Complete Time: 21:46 [facility] 07/20 20:21 Order name: ABG Arterial Blood Gas; Complete Time: 20:25 [facility] 07/20 20:32 Order name: Urine Dipstick--Ancillary (enter results); Complete Time: 21:46 [facility] 07/20 20:53 Order name: Uric Acid; Complete Time: 21:46 [facility] 07/20 22:54 Order name: Glucose, Ancillary Testing; Complete Time: 01:31 [facility] 07/21 02:38 Order name: Ur Protein [facility] 07/21 03:06 Order name: Uric Acid [facility] 07/21 03:06 Order name: T4 Free [facility] 07/21 03:06 Order name: Thyroid Stimulating Hormone [facility] 07/20 18:52 Order name: XRAY Chest (1 view); Complete Time: 20:12 [facility] 07/20 18:52 Order name: EKG; Complete Time: 18:53 [facility] 07/20 18:52 Order name: Cardiac monitoring; Complete Time: 18:53 [facility] 07/20 18:52 Order name: EKG - Nurse/Tech; Complete Time: 18:53 [facility] 07/20 18:52 Order name: IV Saline Lock; Complete Time: 18:53 [facility] 07/20 18:52 Order name: Labs collected and sent; Complete Time: 18:53 [facility] 07/20 18:52 Order name: O2 Per Protocol; Complete Time: 18:53 [facility] 07/20 18:52 Order name: O2 Sat Monitoring; Complete Time: 18:53 [facility] 07/20 18:52 Order name: Urine Dipstick-Ancillary (obtain specimen); Complete Time: 20:32 [facility] 07/20 18:52 Order name: EKG; Complete Time: 18:53 [facility] 07/20 20:30 Order name: CXR XRAY 07/20 20:38 Order name: CONS Physician Consult; Complete Time: 00:19 [facility] 07/21 03:07 Order name: Troponin I [facility] 07/21 03:56 Order name: PTH Intact [facility] 07/21 05:34 Order name: Glucose, Ancillary Testing [facility] 07/21 05:47 Order name: CBC with Automated Diff [facility] 07/21 05:59 Order name: Basic Metabolic Panel [facility] 07/21 05:59 Order name: NT PRO-BNP [facility] 07/21 06:23 Order name: Troponin I [facility] 07/20 18:52 Order name: EKG - Nurse/Tech; Complete Time: 18:53 [facility] 07/20 19:31 Order name: IV - Large Bore; Complete Time: 20:32 [facility] EC:41 Rate is 75 beats/min. Rhythm is regular. QRS [place] is Normal. CA interval is normal. QRS nicole interval is prolonged. QT interval is normal. No Q waves. T waves are Normal. No ST changes noted. Clinical impression: Suggests hyperkalemia. Reviewed by me. 20:42 Rate is 83 beats/min. Rhythm is regular. QRS [place] is Normal. CA interval is normal. QRS nicole interval is normal. QT interval is normal. No Q waves. T waves are Normal. No ST changes noted. Clinical impression: NSR w/ Non-specific ST/T Changes and Suggests hyperkalemia. Interpreted by me. Reviewed by me. Administered Medications: 19:59 Drug: Calcium Gluconate 1 grams Route: IVPB; Infused Over: 15 mins; Site: left jugular; fu 20:14 Follow up: IV Intake: 100ml fu 20:00 Drug: Calcium Chloride 1 grams {Note: administered by .} Route: IVP; Site: fu left hand; 21:00 Follow up: Response: No adverse reaction fu 20:02 Drug: Sodium Bicarbonate 1 amp {Note: administered by Dr. Erickson.} Route: IVP; Site: fu left hand; 20:32 Follow up: Response: No adverse reaction fu 20:05 Drug: NS 0.9% 1000 ml Route: IV; Rate: 1 bolus; Site: left jugular; fu 23:00 Follow up: IV Intake: 1000ml fu 20:10 Drug: Albuterol - atroVENT (3:1) (2.5 mg - 0.5 mg) 3 ml {Note: administered by RT.} fu Route: Nebulizer; 21:00 Follow up: Response: No adverse reaction fu 20:16 Drug: Lasix 100 mg Route: IVP; Site: left hand; fu 20:46 Follow up: Response: No adverse reaction fu 20:29 Not Given (Other Intervention Used): Viscous Lidocaine Liquid (4 %) 5 ml Mucous wh Membrane once 20:31 Drug: D50W 50 ml Route: IVP; Site: left forearm; fu 21:01 Follow up: Response: No adverse reaction fu 20:31 Drug: Insulin Regular Human 10 units {Co-Signature: radha (Taya Love).} Route: IVP; fu Site: left forearm; 21:01 Follow up: Response: No adverse reaction fu 21:30 Drug: Kayexalate 60 grams Route: PO; fu 22:30 Follow up: Response: No adverse reaction fu 21:49 Drug: Rocephin - (cefTRIAXone) 1 grams Route: IVPB; Infused Over: 30 mins; Site: left fu hand; 22:49 Follow up: Response: No adverse reaction fu 21:53 Drug: Pepcid 20 mg Route: IVP; Site: left hand; fu 22:53 Follow up: Response: No adverse reaction fu Disposition: 20:42 Critical Care:. nicole Disposition: 07/20/20 20:34 Hospitalization ordered by Marge Cooper for Inpatient Admission. Preliminary diagnosis are Hyperkalemia, Ventricular tachycardia, Chronic combined systolic (congestive) and diastolic (congestive) heart failure, Retention of urine, Acute kidney failure - acute on chronic, Type 1 diabetes mellitus, Atrial fibrillation and flutter - hx, on eliquis. - Bed requested for [facility] ER HOLD. - Status is Inpatient Admission. ss - Condition is Serious. - Problem is new. - Symptoms have improved. Critical care time excluding procedures: 20:42 Critical care time: Bedside Care: 45 minutes, Consultation: 20 minutes, Family nicole Intervention: 10 minutes. Total time: 75 minutes Signatures: Dispatcher [employer] EDBrian Bullard MD MD cha Smirch, Shelby RN RN Berny Hui PA PA [id number] Temitope Mejias RN RN tl1 Abhi Rivera RN RN jl7 Damion Lynn RN RN [facility], [facility] Corrections: (The following items were deleted from the chart) 20:40 20:34 Hospitalization Ordered by Marge Cooper MD for Inpatient Admission. Preliminary [facility] diagnosis is Hyperkalemia; Chronic kidney disease, stage 4 (severe); Ventricular tachycardia; Chronic combined systolic (congestive) and diastolic (congestive) heart failure. Bed requested for Intensive Care Unit. Status is Inpatient Admission. Condition is Serious. Problem is new. Symptoms have improved. 8 20:53 20:46 URIC ACID+C.LAB.BRZ ordered. [facility] 21:59 20:40 07/20/2020 20:34 Hospitalization Ordered by Marge Cooper MD for Inpatient tl1 Admission. Preliminary diagnosis is Hyperkalemia; Ventricular tachycardia; Chronic combined systolic (congestive) and diastolic (congestive) heart failure; Retention of urine; Acute kidney failure - acute on chronic; Type 1 diabetes mellitus; Atrial fibrillation and flutter - hx, on eliquis. Bed requested for Intensive Care Unit. Status is Inpatient Admission. Condition is Serious. Problem is new. Symptoms have improved. [facility] 07/21 07:31 11 21:59 07/20/2020 20:34 Hospitalization Ordered by Marge Cooper MD for Inpatient ss Admission. Preliminary diagnosis is Hyperkalemia; Ventricular tachycardia; Chronic combined systolic (congestive) and diastolic (congestive) heart failure; Retention of urine; Acute kidney failure - acute on chronic; Type 1 diabetes mellitus; Atrial fibrillation and flutter - hx, on eliquis. Bed requested for [facility] ER HOLD. Status is Inpatient Admission. Condition is Serious. Problem is new. Symptoms have improved. tl1
[2020-07-20 20:45] LABS: Urine Blood TRACE (NEG); Urine Glucose NEGATIVE (NEG); Urine Protein NEGATIVE (NEG); Urine Specific Gravity 1.015 (1.005-1.030)
[2020-07-20] MEDS ORDERED: ALBUMIN HUMAN 25% 50 ML IV SCH (21:00)
[2020-07-20 21:40] LABS: Phosphorus 4.2 mg/dL (2.5-4.9); Potassium 6.7 mmol/L (3.5-5.1)
[2020-07-20] MEDS ORDERED: CEFTRIAXONE/SWI 1gm 1 GM/10 ML SYR ONE (22:02)
[2020-07-20] MEDS ORDERED: FAMOTIDINE 20 MG/2 ML VIAL IV ONE (22:06)
--- NOTE | 2020-07-20 22:16 | P.HP ---
Certification for Inpatient Patient admitted to: Inpatient With expected LOS: >2 Midnights Patient will require the following post-hospital care: None Practitioner: I am a practitioner with admitting privileges, knowledge of patient current condition, hospital course, and medical plan of care. Services: Services provided to patient in accordance with Admission requirements found in Title 42 Section 412.3 of the Code of Federal Regulations Patient History Date of Service: 07/20/20 Primary Care Provider: layne Reason for admission: Acute Renal Failure, Hyperkalemia History of Present Illness: This is a 75-year-old male that presented to the emergency room for 2 days of general weakness and fatigue. Patient has a history of chronic kidney disease, congestive heart failure, hypertension, diabetes mellitus. Patient upon presentation the emergency room firm urgency staff appeared to be mildly short of breath and pale along with having general weakness present. Patient was worked up at that time and found to have a potassium of 8.2 with a changes of creatinine from 1.82 2.3 on this visit. While in the emergency room patient had spontaneous pulseless ventricular tachycardia and had to be resuscitated. Patient will had successful return of spontaneous pulse after given calcium, bicarbonate, and a short bout of CPR. Patient has regained complete neurologic function and is doing well at this time. At that time. Dr. Daniel is was consulted for emergent dialysis in to place a Sukhjinder in the right femoral vein. Dr. Hart was also consulted and emergency dialysis was completed in the emergency room. From history in talking to the patient, patient really does not have any general nephrology follow up. Patient will be admitted to the ICU where we will further follow him. Allergies No Known Allergies Allergy (Unverified 09/23/16 22:51) Home medications list reviewed: Yes Home Medications: Clopidogrel Bisulfate [Plavix*] 1 tab PO DAILY 12/27/17 Lubiprostone [Amitiza*] 1 cap PO BID 12/27/17 Pregabalin [Lyrica] 75 mcg PO Q8HR 12/27/17 carvediloL [Carvedilol] 1 tab PO BID 12/27/17 Amiloride HCl 5 mg PO BID 03/25/20 Digoxin 250 mcg PO DAILY 03/25/20 Rosuvastatin [Crestor*] 10 mg PO DAILY 03/25/20 Sertraline [Zoloft*] 50 mg PO DAILY 03/25/20 glipiZIDE [Glipizide] 10 mg PO BID 03/25/20 Bumetanide [Bumex*] 1 mg PO BID #60 tab 03/31/20 Docusate [Colace Cap*] 100 mg PO DAILY PRN #30 cap 03/31/20 Micafungin Sodium [Micafungin] 100 mg IV DAILY #42 vial 03/31/20 Vancomycin/0.9 % Sod Chloride [Vanco 1.75 G/250 ml-0.9% NaCl] 1.75 gm IV Q36H #28 plast..bag 03/31/20 - Past Medical/Surgical History Has patient received pneumonia vaccine in the past: No Diabetic: Yes -: HTN -: 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 Children-3. 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 - Family History Father -: Hypertension, Stroke Mother -: Heart disease - Social History Smoking Status: Never smoker Smoking therapy provided: No Alcohol use: No CD- Drugs: No Caffeine use: No Place of Residence: Home Review of Systems General: Weakness, Malaise Eyes: Unremarkable ENT: Unremarkable Respiratory: Shortness of Breath, SOB with Excertion Cardiovascular: Unremarkable Gastrointestinal: Unremarkable Musculoskeletal: Unremarkable Integumentary: Unremarkable Neurological: Unremarkable Lymphatics: Unremarkable Physical Examination - Vital Signs Temperature: 98.1 F Blood Pressure: 164/81 Pulse: 89 Respirations: 18 Pulse Ox (%): 99 - Physical Exam General: Alert, Oriented x3 HEENT: Normocephalic, PERRLA, Mucous membr. moist/pink, EOMI Neck: Supple, No Thyromegaly, JVD distended Respiratory: Clear to auscultation bilaterally Cardiovascular: Normal pulses, Regular rate/rhythm, Normal S1 S2, No gallops, No rubs, No murmurs Capillary refill: <2 Seconds Gastrointestinal: Normal bowel sounds, Soft and benign, Non-distended, No ascites, No tenderness, No masses, No rebound, No guarding Musculoskeletal: No clubbing, No swelling, No contractures, No erythema, No tenderness, No warmth Integumentary: No rashes, No breakdown, No significant lesion, No tendern ess/swelling, No erythema, No warmth, No cyanosis Neurological: Normal speech, Normal strength at 5/5 x4 extr, Normal tone, Sensation intact, Cranial nerves 3-12 intact, Normal reflexes 2+, Normal affect Lymphatics: No axilla or inguinal lymphadenopathy - Studies Laboratory Data (last 24 hrs) 07/20/20 20:10: Sodium 138, Potassium 6.7 H*, BUN 44 H, Creatinine 2.25 H, Glucose 253 H, Uric Acid 6.0, Phosphorus 4.2 07/20/20 18:45: PT 17.9 H, INR 1.53 07/20/20 18:45: WBC 10.6, Hgb 11.1 L, Hct 32.8 L, Plt Count 132 L 07/20/20 18:45: Sodium 135 L, Potassium 8.2 H*, BUN 44 H, Creatinine 2.33 H, Glucose 174 H, Magnesium 2.0, Total Bilirubin 0.5, AST 14 L, ALT 20, Alkaline Phosphatase 145 H, Lipase 315 Assessment and Plan - Problems (Diagnosis) (1) CKD (chronic kidney disease) stage 4, GFR 15-29 ml/min Current Visit: Yes Status: Chronic Plan: Patient last visit in March had a creatinine of 1.82 with a GFR of 36 stage III chronic kidney disease. Patient now with stage IV chronic kidney disease with a creatinine of 2.32 with an acute component and hyperkalemia. Patient was started on emergent dialysis secondary to going into ventricular tachycardia. Nephrology has been consulted along with general surgery for placement of the Sukhjinder. Patient was given emergent potassium reducing medications in the emergency room along with calcium for cardiac stabilization. Repeat potassium before dialysis is now 6.7. We will continue to monitor patient will dialyze to ensure that potassium continues to get to a normal level. Labs in renal pelvic ultrasound has been ordered specific to the renal system as well to further delineate process. (2) ROSAURA (acute kidney injury) Current Visit: No Status: Acute Plan: Patient was started on emergent dialysis secondary to the acute component with hyperkalemia. Will continue to monitor patient and his potassium levels to ensure that they decrease to a normal level. Nephrology has been consulted as well. (3) CHF (congestive heart failure) Onset Date: 12/27/17 Current Visit: No Status: Chronic Plan: Patient will continue to be on diuretics and blood pressure medicines for management of congestive heart failure. Echocardiogram has been ordered since he does have a congestive heart failure history with acute cardiac arrest today. Qualifiers: Heart failure type: unspecified Heart failure chronicity: chronic Qualified Code(s): I50.9 - Heart failure, unspecified (4) Hyperkalemia Onset Date: 09/25/16 Current Visit: No Status: Acute Plan: Patient was started on emergent dialysis. Labs including potassium will be recheck post dialysis and in the morning to ensure potassium remains at a normal level (5) Atrial fibrillation Current Visit: No Status: Chronic Plan: At this time patient is not in atrial fibrillation but will continue to monitor with telemetry. If needed patient will be given digoxin since he does have a heart failure component. Patient is already on Eliquis which she will continue 5 mg twice a day. Qualifiers: Atrial fibrillation type: paroxysmal Qualified Code(s): I48.0 - Paroxysmal atrial fibrillation (6) Hypertension Onset Date: 09/25/16 Current Visit: No Status: Chronic Plan: Patient has been started on his home BP meds and IV meds and been written every 6 hr as needed for hypertension greater than 160 systolic or diastolic greater than 100. Will continue to monitor his vital signs throughout care. Qualifiers: Hypertension type: essential hypertension Qualified Code(s): I10 - Essential (primary) hypertension (7) Non-insulin dependent type 2 diabetes mellitus Onset Date: 09/25/16 Current Visit: No Status: Chronic Plan: Patient was started on a moderate sliding scale for his diabetes. Will continue to monitor glucose levels every 6 hr. He will be on a low-sodium diet for now. - Plan For now patient will be in the ICU overnight where he will continue to get dialysis for the next few hr. Will monitor patient closely via telemetry to ensure that he has complete cardiac stabilization and to ensure that is potassium reaches in normal level since he had a potassium level 8.2 earlier. Patient's blood pressure will also be monitored along with respiratory status. At this time patient is doing very well post resuscitation from cardiac arrest secondary to hyperkalemia. The patient does well over the next 24-48 hr possibly that patient can be downgraded to telemetry. Will continue to reassess patient and will give recommendations from cardiology and nephrology at this point. Discharge Plan: Home Plan to discharge in: Greater than 2 days - Advance Directives Does patient have a Living Will: No Does patient have a Durable POA for Healthcare: No - Code Status/Comfort Care Code Status Assessed: Yes Code Status: Full Code Critical Care: Yes (Total time critical care 30 min) Time Spent Managing Pts Care (In Minutes): 60
[2020-07-20] MEDS ORDERED: ALBUTEROL 2.5 MG/3 ML NEB SOL NEB PRN (22:39)
[2020-07-20] MEDS ORDERED: HYDRALAZINE HCL 20 MG/ML VIAL IV PRN (22:39)
[2020-07-20] MEDS ORDERED: D50W 25 GM/50 ML SYRINGE/VIAL IV PRN (22:39)
[2020-07-20] MEDS: INSULIN -REGULAR HUMAN 50 UNIT/0.5 ML ML SQ SCH (22:39)
[2020-07-20] MEDS ORDERED: GLUCAGON 1 MG/VIAL IM PRN (22:39)
[2020-07-21] MEDS ORDERED: FENTANYL CITR 100 MCG/2 ML IV ONE (01:39)
[2020-07-21] MEDS ORDERED: FENTANYL CITR 100 MCG/2 ML ONE (02:11)
[2020-07-21 02:33] LABS: UR PROTEIN 12 mg/dL (<11.9)
[2020-07-21 02:37] LABS: UR CREAT < 13.0 mg/dL (20-370)
[2020-07-21 03:04] LABS: Thyroid Stimulating Hormone 2.78 uIU/mL (0.360-3.740)
--- NOTE | 2020-07-21 03:14 | CON ---
Date of Consultation: 07/20/2020 Reason For Consult: Emergent hemodialysis catheter placement. History Of Present Illness: This is the case of a 75-year-old patient, seen today by the ER bobbi boyer colleague for a code. The patient in ventricular tachycardia, severe disease, found to have potass ium of 8, and an emergent hemodialysis was planned, so I was called stat for an emergent hemodialysis catheter since they are planning to do that tonight. The patient stated he is still feeling good ex cept for the last 2 days when he has some shortness of breath and he did not feel great. He was foun d to have potassium at 8. Allergies: NONE. Medications: Aspirin, sertraline, amiloride, tramadol. Past Medical History: Anxiety, atrial fibrillation, coronary artery disease, congestive heart failur e, diabetes, heart disease, high cholesterol, hypertension, history of neuropathy, sleep apnea, myoca rdial infarction. Past Surgical History: Heart stents. Social History: He does not smoke. He does not drink alcohol. Review of Systems: As above. Ten points otherwise unremarkable. Physical Examination: General: The patient is awake, alert, currently in no distress. He is talkative. He is oriented to time and person. HEENT: Pupils are equal reactive. Anicteric. Neck: Supple. Chest: Clear. Abdomen: Soft and depressible. No guarding or rebound. Extremities: Good capillary refill. Evidence of venous stasis disease. Peripheral pulses bilateral ly are still present, although diminished, patient says chronic. Laboratory Data: Blood work is hemoglobin of 11.1, WBC count of 10.6. INR is 1.53. Potassium is 8. 2, creatinine is 2.33. Assessment: This is the case of a 75-year-old patient, in need emergent hemodialysis. The ER physic gayatri and renal physician called me emergently to put a central line, so I came right away. I explaine d to the patient the benefits, alternatives, and risks including but not limited to infection, bleedi ng, damage to adjacent structures, anesthesia complication, DVT, hemorrhage, VA, and even . He also understands this is a temporary catheter, this may not relieve any symptoms, he might need more than one surgical intervention, he needs to be moved to a more permanent access if we believe dialysi s will continue. He understands the chance of DVTs and chance of PE. He signed a consent. Emergent ly, the patient was placed in supine position. The right femoral area was prepped and draped in a st erile fashion. A time-out was called. A small needle was placed to inject some local anesthetic fol lowed by insertion of an 18-gauge needle in the right femoral vein at the first attempt. A guidewire was passed through. Needle was removed. A small incision was made in the skin. Dilators were plac ed then and then a Sukhjinder hemodialysis catheter was placed and the wire was removed. Sponge count a nd instrument counts were correct. The area was secured in place with 3-0 nylon and covered with chasity rile dressings. No bleeding at this moment. The patient tolerated the procedure well. Patient will remain under the service of a primary doctor. BIENVENIDO/JASON Voice ID: [id number] Report ID: [id number]
[2020-07-21 03:26] VITALS: BMI 28.3
[2020-07-21 05:33] LABS: Absolute Lymphocytes (CBC) 1.4 K/uL (0.7-4.9); Basophils % 0.3 % (0-1.3); Hematocrit 28.1 % (39.6-49.0); Lymphocytes % 11.7 % (15.3-44.8); MPV 10.6 fL (7.6-11.3); RBC Red Blood Cell Count 3.04 M/uL (4.33-5.43)
--- NOTE | 2020-07-21 07:07 | RAD REPORT ---
EXAM DESCRIPTION: RAD - Chest Single View - 07/20/2020 8:34 pm CLINICAL HISTORY: CHEST PAIN, code blue chest film COMPARISON: Portable July 20 TECHNIQUE: AP portable chest image was obtained 07/20/2020 8:34 pm . FINDINGS: Since earlier study no diffuse pulmonary edema has developed. No aspiration pneumonia ventura ges seen. Scarring and atelectasis changes are present. Heart size is similar. Mediastinum is distorted by rotation. Trachea is midline. No pneumothorax or p leural effusion. IMPRESSION: No pulmonary edema, acute infiltrate or other significant change from earlier study.
[2020-07-21] MEDS: INSULIN -REGULAR HUMAN 50 UNIT/0.5 ML ML SQ SCH ×4 (07:30→20:38)
[2020-07-21 07:33] LABS: Anisocytosis 1+; Blood Morphology Comment NOTED (NOT SEEN); Platelet Estimate DECR; Platelets, Giant FEW PRESENT; White Blood Cell Scan OK (OK)
--- NOTE | 2020-07-21 07:41 | P.CNS ---
Date of Consult: 07/21/20 Reason for Consult: ROSAURA/ Hyperkalemia Requesting Physician: Marge Cooper Primary Care Provider: Dr. Rivera Chief Complaint: Acute Renal Failure, Hyperkalemia History of Present Illness: This is a 75-year-old male that presented to the emergency room for 2 days of general weakness and fatigue. Patient has a history of chronic kidney disease, congestive heart failure, hypertension, diabetes mellitus. Patient upon presentation the emergency room firm urgency staff appeared to be mildly short of breath and pale along with having general weakness present. Patient was worked up at that time and found to have a potassium of 8.2 with a changes of creatinine from 1.82 2.3 on this visit. While in the emergency room patient had spontaneous pulseless ventricular tachycardia and had to be resuscitated. Patient will had successful return of spontaneous pulse after given calcium, bicarbonate, and a short bout of CPR. Patient has regained complete neurologic function and is doing well at this time. At that time. Dr. Daniel is was consulted for emergent dialysis in to place a Sukhjinder in the right femoral vein. Dr. Hart was also consulted and emergency dialysis was completed in the emergency room. From history in talking to the patient, patient really does not have any general nephrology follow up. Patient will be admitted to the ICU where we will further follow him. 19:36 This 75 yrs old Male presents to ER via EMS with complaints of weakness and nicole sob, pale. 19:36 The patient has shortness of breath at rest, with light activity. Onset: The nicole symptoms/episode began/occurred 2 day(s) ago. Duration: The symptoms are continuous, and are steadily getting worse. The patient's shortness of breath has no apparent modifying factors. pale, weak,sob. Associated signs and symptoms: The patient has no apparent associated signs or symptoms, Pertinent positives: dizziness. Severity of symptoms: At their worst the symptoms were mild moderate in the emergency department the symptoms are unchanged. The patient has experienced similar episodes in the past, multiple times. Allergies No Known Allergies Allergy (Verified 07/21/20 01:35) Home medications list reviewed: Yes Home Medications: Amiloride HCl 5 mg PO DAILY 07/21/20 Amlodipine [Norvasc] 10 mg PO DAILY 07/21/20 Apixaban [Eliquis] 5 mg PO BID 07/21/20 Aspirin Chewable [Aspirin Chewable*] 81 mg PO DAILY 07/21/20 Atorvastatin Calcium 40 mg PO BEDTIME 07/21/20 Bumetanide 1 mg PO DAILY 07/21/20 Carvedilol [Coreg] 25 mg PO BID 07/21/20 Cyanocobalamin (Vitamin B-12) [Vitamin B12] 1,000 mcg PO DAILY 07/21/20 Ferrous Sulfate 325 mg PO DAILY 07/21/20 Liraglutide [Victoza 2-David] 0.6 mg SQ DAILY 07/21/20 Pantoprazole [Protonix Tab] 40 mg PO ACB 07/21/20 Pregabalin 75 mg PO Q8H 07/21/20 Sennosides/Docusate Sodium [Docusate Sodium-Sennosides Tab] 1 each PO BIDP PRN 07/21/20 Sertraline [Zoloft] 50 mg PO DAILY 07/21/20 Tramadol HCl [Ultram] 50 mg PO Q6HP PRN 07/21/20 - Past Medical/Surgical History Diabetic: Yes -: HTN -: 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 Children-3. 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 - Family History Father Medical History: Hypertension, Stroke Mother Medical History: Heart disease - Social History Smoking Status: Unknown if ever smoked Alcohol use: No CD- Drugs: Yes Caffeine use: Yes Place of Residence: Home Review of Systems 10-point ROS is otherwise unremarkable General: Weakness Respiratory: SOB with Excertion Cardiovascular: Chest Pain Neurological: Weakness Physical Examination Temp Pulse Resp BP Pulse Ox 98.5 F 93 H 14 133/92 H 100 07/21/20 04:00 07/21/20 06:00 07/21/20 06:00 07/21/20 06:00 07/21/20 05:00 General: Cooperative HEENT: Atraumatic Neck: Supple Respiratory: Clear to auscultation bilaterally Cardiovascular: No edema, Regular rate/rhythm Gastrointestinal: Hypoactive, Soft and benign Musculoskeletal: No clubbing, No contractures Integumentary: No rashes, No cyanosis Neurological: Normal speech Laboratory Data (last 24 hrs) 07/20/20 20:10: Sodium 138, Potassium 6.7 H*, BUN 44 H, Creatinine 2.25 H, Glucose 253 H, Uric Acid 6.0, Phosphorus 4.2 07/20/20 18:45: PT 17.9 H, INR 1.53 07/20/20 18:45: WBC 10.6, Hgb 11.1 L, Hct 32.8 L, Plt Count 132 L 07/20/20 18:45: Sodium 135 L, Potassium 8.2 H*, BUN 44 H, Creatinine 2.33 H, Glucose 174 H, Magnesium 2.0, Total Bilirubin 0.5, AST 14 L, ALT 20, Alkaline Phosphatase 145 H, Lipase 315 Imagings Data: EXAM DESCRIPTION: RAD - Chest Single View - 07/20/2020 8:34 pm CLINICAL HISTORY: CHEST PAIN, code blue chest film COMPARISON: Portable July 20 TECHNIQUE: AP portable chest image was obtained 07/20/2020 8:34 pm . FINDINGS: Since earlier study no diffuse pulmonary edema has developed. No aspiration pneumonia changes seen. Scarring and atelectasis changes are present. Heart size is similar. Mediastinum is distorted by rotation. Trachea is midline. No pneumothorax or pleural effusion. IMPRESSION: No pulmonary edema, acute infiltrate or other significant change from earlier study. Conclusions/Impression: A/ AK likely prerenal azotemia in the setting of diuretics. Hyperkalemia in the setting of ROSAURA and Amiloride. CKD III HTN with CKD/ CHF MARY Diastolic CHF, chronic DM II with CKD Anemia in chronic illness OBINNA/ Secondary HyperPTH P/ Continue current POC and medications. Acute HD ordered for hyperkalemia in the setting of cardiac arrest Hold amiloride. Follow up with cardiology. Continue carvedilol. No NSAIDs. AM labs. Daily weight. Thank you kindly for the consultation. Case reviewed with Dr. Erickson. Critical Care: Yes (>30min)
--- NOTE | 2020-07-21 07:41 | P.BOP ---
Preoperative diagnosis: renal failure, hypernatremia, emergent need for HD Postoperative diagnosis: same Primary procedure: Emergent placement of Hemodialysis catheter Estimated blood loss: <10cc Specimen: none Findings: as above Anesthesia: General Complications: None Transferred to: Recovery Room Condition: Good
[2020-07-21] MEDS ORDERED: INFLUENZA VACCINE (for 3y+) 0.5 ML DOSE IMVAC ONE (08:00)
[2020-07-21] MEDS: HYDROCODONE/APAP 10/325 TAB PO PRN ×2 (08:52→20:37)
[2020-07-21] MEDS: carvediloL 25 MG TAB PO SCH ×2 (08:52→16:54)
[2020-07-21] MEDS: FUROSEMIDE 20 MG/ 2ML VIAL IV SCH ×2 (08:52→16:54)
[2020-07-21] MEDS: APIXABAN 5 MG TABLET PO SCH ×2 (08:53→20:36)
[2020-07-21] MEDS ORDERED: FUROSEMIDE 20 MG/ 2ML VIAL ONE ×2 (09:03→17:07)
[2020-07-21] MEDS ORDERED: HYDROCODONE/APAP 10/325 TAB ONE (09:04)
--- NOTE | 2020-07-21 11:50 | ECHO ---
HEIGHT: 5 ft 5 in WEIGHT: 169 lb 15.622 oz DATE OF STUDY: 07/21/[address]: Shimon Hui 2-DIMENSIONAL: YES M.MODE: YES DOPPLER: YES COLOR FLOW: YES TDS: YES PORTABLE: YES DEFINITY: NO BUBBLE STUDY: NO DIAGNOSIS: VENTRICULAR TACHYCARDIA ARREST WITH ROSC CARDIAC HISTORY: CATHERIZATION: YES SURGERY: NO PROSTHETIC VALVE: NO PACEMAKER: NO MEASUREMENTS (cm) DIASTOLIC (NORMALS) SYSTOLIC (NORMALS) IVSd 1.1 (0.6-1.2) LA Diam 3.2 (1.9-4.0) LVEF 58% LVIDd 4.6 (3.5-5.7) LVIDs 3.2 (2.0-3.5) %FS 30% LVPWd 1.1 (0.6-1.2) Ao Diam 2.9 (2.0-3.7) 2 DIMENSIONAL ASSESSMENT: RIGHT ATRIUM: NORMAL LEFT ATRIUM: NORMAL RIGHT VENTRICLE: NORMAL LEFT VENTRICLE: NORMAL TRICUSPID VALVE: NORMAL MITRAL VALVE: NORMAL PULMONIC VALVE: NORMAL AORTIC VALVE: NORMAL PERICARDIAL EFFUSION: NONE AORTIC ROOT: NORMAL LEFT VENTRICULAR WALL MOTION: NORMAL DOPPLER/COLOR FLOW: NORMAL COMMENTS: NORMAL 2D ECHOCARDIOGRAM WITH DOPPLER. NO WALL MOTION ABNORMALITY. NO EFFUSION. TECHNOLOGIST: Enrique MCCORMACK
[2020-07-21] MEDS ORDERED: INSULIN -REGULAR HUMAN 50 UNIT/0.5 ML ML ONE ×2 (12:31→17:06)
--- NOTE | 2020-07-21 12:43 | RAD REPORT ---
EXAM DESCRIPTION: US - Renal Ultrasound-Complete - 07/20/2020 11:04 pm CLINICAL HISTORY: The patient is 75 years old and is Male; acute renal failure TECHNIQUE: Real-time limited ultrasound of the retroperitoneum with image documentation. COMPARISON: No relevant prior studies available. FINDINGS: RIGHT KIDNEY: Unremarkable. No stones. No solid mass. No hydronephrosis. LEFT KIDNEY: Unremarkable. No stones. No solid mass. No hydronephrosis. IMPRESSION: Normal retroperitoneal ultrasound. Electronically signed by: Ansley Lezama MD 07/20/2020 11:26 PM FOOD VENDOR Due to temporary technical issues with the PACS/Fluency reporting system, reports are being signed by the in house radiologists without review as a courtesy to insure prompt reporting. The interpreting radiologist is fully responsible for the content of the report.
--- NOTE | 2020-07-21 16:45 | P.PN ---
Subjective Date of Service: 07/21/20 Clinically, patient appears to be doing much better. No longer wheezing and congested. Respiratory status is stable. Hyperkalemia most likely related to amiloride. Will need to discontinue this. Spoke with Cardiology no further intervention at this time. Transfer to general medical floor. Physical Examination - Vital Signs Temperature: 99.0 F Blood Pressure: 104/60 Pulse: 94 Respirations: 16 Pulse Ox (%): 99 - Studies Laboratory Data (last 24 hrs) 07/20/20 20:10: Sodium 138, Potassium 6.7 H*, BUN 44 H, Creatinine 2.25 H, Glucose 253 H, Uric Acid 6.0, Phosphorus 4.2 07/20/20 18:45: PT 17.9 H, INR 1.53 07/20/20 18:45: WBC 10.6, Hgb 11.1 L, Hct 32.8 L, Plt Count 132 L 07/20/20 18:45: Sodium 135 L, Potassium 8.2 H*, BUN 44 H, Creatinine 2.33 H, Glucose 174 H, Magnesium 2.0, Total Bilirubin 0.5, AST 14 L, ALT 20, Alkaline Phosphatase 145 H, Lipase 315 Assessment & Plan - Problems (Diagnosis) (1) Drug-induced hyperkalemia Current Visit: Yes Status: Acute (2) CAD (coronary artery disease) Onset Date: 09/25/16 Current Visit: No Status: Chronic Qualifiers: Coronary Disease-Associated Artery/Lesion type: [place] artery [place] vs. transplanted heart: [place] heart Associated angina: with stable angina Qualified Code(s): I25.118 - Atherosclerotic heart disease of [place] coronary artery with other forms of angina pectoris (3) CHF (congestive heart failure) Onset Date: 12/27/17 Current Visit: No Status: Chronic Qualifiers: Heart failure type: unspecified Heart failure chronicity: chronic Qualified Code(s): I50.9 - Heart failure, unspecified (4) Hyperlipidemia Onset Date: 09/25/16 Current Visit: No Status: Chronic Qualifiers: Hyperlipidemia type: unspecified Qualified Code(s): E78.5 - Hyperlipidemia, unspecified (5) Hypertension Onset Date: 09/25/16 Current Visit: No Status: Chronic Qualifiers: Hypertension type: essential hypertension Qualified Code(s): I10 - Essential (primary) hypertension (6) Non-insulin dependent type 2 diabetes mellitus Onset Date: 09/25/16 Current Visit: No Status: Chronic (7) Obstructive sleep apnea Current Visit: No Status: Suspected - Plan Plan: 1. Continue monitoring potassium level 2. Hemodialysis per Nephrology 3. Echocardiogram pending 4. Monitor additional electrolytes including renal function 5. Out of bed and ambulate 6. GI and DVT prophylaxis - Advance Directives Does patient have a Living Will: No Does patient have a Durable POA for Healthcare: No - Code Status/Comfort Care Code Status: Full Code
--- NOTE | 2020-07-21 18:13 | CON ---
Date of Consultation: 07/21/2020 Reason For Consultation: Ventricular tachycardia. History Of Present Illness: Mr. Vaughn is a 75-year-old Latin-British male with an extensive past me dical history and cardiac history. He came in with hyperkalemia, acute renal failure with creatinine of 2.33, potassium of 8.2. Had ventricular tachycardia that he had to be cardioverted for. He was slightly hypertensive. His sugar was 130. His BNP was 896. His hemoglobin was 9.5. Recent echocar diogram in July 2019 showed decreased left ventricular compliance. Recent catheterization in Jul showed patent LAD and circumflex stent. Echocardiogram today showed the same with normal ejection fraction. He had came in with dyspnea on exertion. Denied any chest pain. Denied any naus ea, vomiting, diaphoresis, PND, orthopnea, pedal edema. He denied any syncope. Past Medical History: Includes; 1.Coronary artery disease, status post multiple stents in the LAD and circumflex patent in July 2019. 2.Diastolic congestive heart failure. 3.Paroxysmal atrial fibrillation. 4.Diabetes. 5.Dyslipidemia. 6.Hypertension. 7.Anxiety. Allergies: NONE. Review of Systems: Negative. Social History: Negative. Family History: Negative. Medications: At home include Ultram, amiloride, Norvasc, Eliquis, aspirin, Lipitor, Zoloft, Protonix , , Coreg, and Bumex. Physical Examination: Vital Signs: Stable, afebrile. He is in sinus rhythm HEENT: Negative. Neck: Supple with no bruit. Chest: Clear. Cardiac: Revealed a regular rhythm and rate with an S4 gallop. Abdomen: Benign. Extremities: Revealed no clubbing, cyanosis, or edema. Diagnostic Data: As stated earlier. Impression And Plan: 1.Ventricular tachycardia secondary to hyperkalemia secondary to renal failure. Nephrology is follo wing. Emergency dialysis access has been obtained. I believe the hemodialysis is planned, but I nyia l discuss the case further with Dr. Hart. It is unusual for him to have a potassium of 8.0 based on his creatinine only and may be secondary to some of his medications, possibly amiloride and a comb ination of other drugs. We should address that issue with . His echo was normal and his tr oponin is normal. His BNP is slightly elevated secondary to renal failure and chronic diastolic montse estive heart failure. As far as the ventricular tachycardia is concerned, we need to correct his terese ctrolytes. No specific treatment is necessary otherwise. 2.History of coronary artery disease, status post percutaneous coronary intervention, patent stent i n July 2019. This is a stable condition. 3.Anemia. 4.Acute renal failure. 5.Diabetes. 6.Dyslipidemia, well controlled. 7.Hypertension, well controlled. 8.Paroxysmal atrial fibrillation, on Eliquis and Coreg. I agree with his present regimen. I will d iscuss the case further with Nephrology. No further cardiac workup recommended at this point. KANWAL/JASON Voice ID: [id number] Report ID: [id number]
[2020-07-21] MEDS: ATORVASTATIN 40 MG TAB PO SCH (20:36)
[2020-07-22] MEDS: INSULIN -REGULAR HUMAN 50 UNIT/0.5 ML ML SQ SCH ×4 (07:30→21:36)
--- NOTE | 2020-07-22 07:35 | EKG ---
Test Date: 2020-07-20 Test Time: 20:12:22 Logging Equipment Mechanic: MEASUREMENT RESULTS: Intervals: Rate: 83 TX: 200 QRSD: 146 QT: 380 QTc: 446 [place]: P: 57 TX: 200 QRS: -54 T: 65 INTERPRETIVE STATEMENTS: Normal sinus rhythm Left axis deviation Nonspecific intraventricular block Possible Lateral infarct, age undetermined Inferior infarct, age undetermined Abnormal ECG Compared to ECG 07/20/2020 18:48:44 Left-axis deviation now present Myocardial infarct finding now present Fusion complex(es) no longer present Ventricular premature complex(es) no longer present T-wave abnormality no longer present Electronically Signed On 07-22-20 07:32:40 VINYL CUTTER by Rohit Carvalho
--- NOTE | 2020-07-22 07:35 | EKG ---
Test Date: 2020-07-20 Test Time: 18:48:44 Tool And Die Inspector: MARIANA MEASUREMENT RESULTS: Intervals: Rate: 176 W[place]: 208 QRSD: 138 QT: 214 QTc: 366 [place]: P: 44 W[place]: 208 QRS: 58 T: 234 INTERPRETIVE STATEMENTS: Sinus rhythm with premature ventricular complexes or fusion complexes Nonspecific intraventricular block Nonspecific T wave abnormality Abnormal ECG Compared to ECG 03/24/2020 17:23:09 Fusion complex(es) now present Ventricular premature complex(es) now present T-wave abnormality now present Myocardial infarct finding no longer present Electronically Signed On 07-22-20 07:32:41 LINUX ADMIN by Rohit Carvalho
[2020-07-22 08:24] LABS: Absolute Lymphocytes (CBC) 2.2 K/uL (0.7-4.9); Basophils % 0.8 % (0-1.3); Hematocrit 26.9 % (39.6-49.0); Lymphocytes % 25.5 % (15.3-44.8); MPV 11.1 fL (7.6-11.3); RBC Red Blood Cell Count 2.88 M/uL (4.33-5.43)
[2020-07-22 08:57] LABS: Magnesium 1.8 mg/dL (1.8-2.4); Phosphorus 4.3 mg/dL (2.5-4.9); Potassium 4.6 mmol/L (3.5-5.1)
[2020-07-22] MEDS: APIXABAN 5 MG TABLET PO SCH ×2 (09:12→21:36)
[2020-07-22] MEDS: carvediloL 25 MG TAB PO SCH ×2 (09:12→17:00)
[2020-07-22] MEDS: FUROSEMIDE 20 MG/ 2ML VIAL IV SCH ×2 (09:13→17:49)
--- NOTE | 2020-07-22 09:54 | P.PN ---
Subjective Date of Service: 07/22/20 Discussed plan of care with Nephrology and Cardiology. Will going to hold off on the amiloride. Monitor potassium level as he had issues with hypokalemia in the past. Right now he is on diuretics and Cozaar without any potassium supplement he may become hypokalemic. Awaiting to see what his labs to over the next 48 hr. Plan of care would probably be to go home with the diuretics and then low-dose potassium supplementation. Will need close follow-up over the next few weeks whenever he is discharged. No further cardiac workup is recommended at this time. Anticipate discharge over the next 48 hr. Review of Systems 10-point ROS is otherwise unremarkable Physical Examination - Vital Signs Temperature: 99.0 F Blood Pressure: 104/60 Pulse: 94 Respirations: 16 Pulse Ox (%): 99 - Physical Exam General: Alert, In no apparent distress, Oriented x3 Respiratory: Clear to auscultation bilaterally, Normal air movement Cardiovascular: Regular rate/rhythm, Normal S1 S2 Gastrointestinal: Normal bowel sounds, No tenderness Musculoskeletal: No tenderness Integumentary: No rashes Neurological: Normal speech, Normal tone, Normal affect Lymphatics: No axilla or inguinal lymphadenopathy - Studies Microbiology Data (last 24 hrs): 07/20/20 20:20 Catheterized Urine [place] Count - Final No growth. 07/20/20 20:20 Catheterized Urine - Final No growth. 07/20/20 20:35 Nasopharnyx Coronavirus COVID-19 PCR - Final Medications List Reviewed: Yes Assessment & Plan - Problems (Diagnosis) (1) Drug-induced hyperkalemia Current Visit: Yes Status: Acute (2) CAD (coronary artery disease) Onset Date: 09/25/16 Current Visit: No Status: Chronic Qualifiers: Coronary Disease-Associated Artery/Lesion type: knik artery [place] vs. transplanted heart: knik heart Associated angina: with stable angina Qualified Code(s): I25.118 - Atherosclerotic heart disease of knik coronary artery with other forms of angina pectoris (3) CHF (congestive heart failure) Onset Date: 12/27/17 Current Visit: No Status: Chronic Qualifiers: Heart failure type: unspecified Heart failure chronicity: chronic Qualified Code(s): I50.9 - Heart failure, unspecified (4) Hyperlipidemia Onset Date: 09/25/16 Current Visit: No Status: Chronic Qualifiers: Hyperlipidemia type: unspecified Qualified Code(s): E78.5 - Hyperlipidemia, unspecified (5) Hypertension Onset Date: 09/25/16 Current Visit: No Status: Chronic Qualifiers: Hypertension type: essential hypertension Qualified Code(s): I10 - Essential (primary) hypertension (6) Non-insulin dependent type 2 diabetes mellitus Onset Date: 09/25/16 Current Visit: No Status: Chronic (7) Obstructive sleep apnea Current Visit: No Status: Suspected - Plan Plan: 1. Continue monitoring potassium level 2. Hemodialysis per Nephrology 3. Echocardiogram pending 4. Monitor additional electrolytes including renal function 5. Out of bed and ambulate 6. GI and DVT prophylaxis - Advance Directives Does patient have a Living Will: No Does patient have a Durable POA for Healthcare: No - Code Status/Comfort Care Code Status: Full Code
--- NOTE | 2020-07-22 11:42 | PN ---
Date of Progress Note: 07/22/2020 Subjective: Mr. Roderick robin is a 75-year-old, who came in with hyperkalemia, potassium of 8, creatini ne of 2.33 and he had ventricular tachycardia requiring cardioversion. He had an echocardiogram yest erday that was actually normal. It was the same as it was in July 2019. His creatinine has impr jelani dramatically. His last hemoglobin is 9.5. His last potassium was normal. His last blood press ure was 130/90. He remains in sinus rhythm. He has had a history of CAD, status post LAD and circum flex stent that were patent in July 2019. I will leave his discharge instruction and plan to Dr. Cooper and Nephrology. I am comfortable with him continuing his home medication, except I would defin itely take him off the amiloride. He needs to continue his Eliquis, Norvasc, Lipitor, Bumex. From a cardiovascular standpoint, he needs to continue his Lipitor for dyslipidemia. I am comfortable with him going home whenever it is okay with Dr. Cooper and Nephrology, and I will be happy to see him in t he office in the next 2 weeks. KANWAL/JASON Voice ID: [id number] Report ID: [id number]
--- NOTE | 2020-07-22 21:10 | P.PN ---
Date of Service: 07/22/20 Vital Signs Temp Pulse Resp BP Pulse Ox 98 F 91 H 20 115/54 L 95 07/22/20 16:00 07/22/20 17:49 07/22/20 16:00 07/22/20 17:49 07/22/20 16:00 Medications Hydrocodone Bitart/Acetaminophen ([place] 10/325) 1 tab PO Q6HP PRN PRN Reason: Pain scale 5-7 (Moderate) Stop: 08/20/20 08:13 Last Admin: 07/21/20 20:37 Dose: 1 tab Documented by: Albuterol Sulfate (Proventil 0.083% Neb Soln) 2.5 mg NEB Q4H PRN PRN Reason: WHEEZING Stop: 08/19/20 22:40 Apixaban (Eliquis) 5 mg PO BID MARINA Stop: 08/20/20 09:01 Last Admin: 07/22/20 09:12 Dose: 5 mg Documented by: Atorvastatin Calcium (Lipitor) 40 mg PO BEDTIME MARINA Stop: 08/20/20 21:01 Last Admin: 07/21/20 20:36 Dose: 40 mg Documented by: Carvedilol (Coreg) 25 mg PO BIDWM MARINA Stop: 08/20/20 08:01 Last Admin: 07/22/20 17:00 Dose: Not Given Documented by: Dextrose (Dextrose 50% Syringe/Vial) 12.5 gm IV PRN PRN PRN Reason: HYPOGLYCEMIA Stop: 08/19/20 22:40 Furosemide (Lasix) 20 mg IV BIDL MARINA Stop: 08/20/20 09:01 Last Admin: 07/22/20 17:49 Dose: 20 mg Documented by: Glucagon (Glucagen) 1 mg IM 1X PRN PRN Reason: HYPOGLYCEMIA Stop: 08/19/20 22:40 Heparin Sodium (Porcine) (Heparin 1,000 Units/Ml) 6,000 unit IV EVERY HD PRN PRN Reason: AFTER EACH Stop: 08/19/20 20:32 Last Admin: 07/21/20 02:15 Dose: 6,000 unit Documented by: Hydralazine HCl (Apresoline) 10 mg IV Q6HP PRN PRN Reason: Titrate to SBP (MUST DEFINE) Stop: 08/19/20 22:40 Albumin Human (Albumin 25%) 50 mls @ 100 mls/hr IV EVERY HD MARINA Stop: 08/19/20 21:01 Insulin Human Regular (Novolin -R) 0 unit SQ ACHS MARINA; Protocol Stop: 08/19/20 22:40 Last Admin: 07/22/20 16:48 Dose: 2 unit Documented by: Mannitol (Mannitol 12.5 Gm/50 Ml Vial) 12.5 gm IV EVERY HD PRN PRN Reason: Titrate to SBP (MUST DEFINE) Stop: 08/19/20 20:32 Sodium Chloride (Normal Saline Flush) 10 ml IV BID MARINA Stop: 08/19/20 22:40 Last Admin: 07/22/20 09:13 Dose: 10 ml Documented by: Microbiology Results 07/20/20 20:20 Catheterized Urine [place] Count - Final No growth. 07/20/20 20:20 Catheterized Urine - Final No growth. 07/20/20 20:20 Blood - Blood Aerobic Blood Culture - Preliminary No growth in 24 hours. 07/20/20 20:20 Blood - Blood Anaerobic Blood Culture - Preliminary No growth in 24 hours. 07/20/20 20:35 Nasopharnyx Coronavirus COVID-19 PCR - Final Assessment/ Plan: Nephrology CPS stable without CP or SOB. No acute events overnight. Feeling better and wants to go home. Vitals, medications, blood work and imaging reviewed in the chart. General: Cooperative HEENT: Atraumatic Neck: Supple Respiratory: Clear to auscultation bilaterally Cardiovascular: No edema, Regular rate/rhythm Gastrointestinal: Hypoactive, Soft and benign Musculoskeletal: No clubbing, No contractures +Edema Integumentary: No rashes, No cyanosis Neurological: Normal speech Laboratory Data (last 24 hrs) 07/20/20 20:10: Sodium 138, Potassium 6.7 H*, BUN 44 H, Creatinine 2.25 H, Glucose 253 H, Uric Acid 6.0, Phosphorus 4.2 07/20/20 18:45: PT 17.9 H, INR 1.53 07/20/20 18:45: WBC 10.6, Hgb 11.1 L, Hct 32.8 L, Plt Count 132 L 07/20/20 18:45: Sodium 135 L, Potassium 8.2 H*, BUN 44 H, Creatinine 2.33 H, Glucose 174 H, Magnesium 2.0, Total Bilirubin 0.5, AST 14 L, ALT 20, Alkaline Phosphatase 145 H, Lipase 315 Imagings Data: EXAM DESCRIPTION: RAD - Chest Single View - 07/20/2020 8:34 pm CLINICAL HISTORY: CHEST PAIN, code blue chest film COMPARISON: Portable July 20 TECHNIQUE: AP portable chest image was obtained 07/20/2020 8:34 pm . FINDINGS: Since earlier study no diffuse pulmonary edema has developed. No aspiration pneumonia changes seen. Scarring and atelectasis changes are present. Heart size is similar. Mediastinum is distorted by rotation. Trachea is midline. No pneumothorax or pleural effusion. IMPRESSION: No pulmonary edema, acute infiltrate or other significant change from earlier study. Conclusions/Impression: A/ AK likely prerenal azotemia in the setting of diuretics. Hyperkalemia in the setting of ROSAURA and Amiloride. CKD III HTN with CKD/ CHF MARY Diastolic CHF, chronic DM II with CKD Anemia in chronic illness OBINNA/ Secondary HyperPTH P/ Continue current POC and medications. Continue furosemide. Hold amiloride. Follow up with cardiology. Continue carvedilol. No NSAIDs. AM labs. Daily weight. Case reviewed with Dr. Cooper.
[2020-07-22] MEDS: ATORVASTATIN 40 MG TAB PO SCH (21:35)
[2020-07-23 06:10] LABS: Absolute Lymphocytes (CBC) 1.8 K/uL (0.7-4.9); Basophils % 0.6 % (0-1.3); Hematocrit 24.8 % (39.6-49.0); Lymphocytes % 26.8 % (15.3-44.8); MPV 11.2 fL (7.6-11.3); RBC Red Blood Cell Count 2.68 M/uL (4.33-5.43)
[2020-07-23] MEDS: INSULIN -REGULAR HUMAN 50 UNIT/0.5 ML ML SQ SCH ×3 (07:30→17:28)
[2020-07-23] MEDS: FUROSEMIDE 20 MG/ 2ML VIAL IV SCH ×2 (10:40→17:28)
[2020-07-23] MEDS: APIXABAN 5 MG TABLET PO SCH (10:40)
[2020-07-23] MEDS: carvediloL 25 MG TAB PO SCH ×2 (10:41→17:27)
[2020-07-23 17:30] VITALS: BP 116/53; TEMP 97.4
[2020-07-23 18:42] VITALS: O2SAT 96
--- NOTE | 2020-07-23 20:47 | P.PN ---
Date of Service: 07/23/20 Vital Signs Temp Pulse Resp BP Pulse Ox 97.4 F 87 18 116/53 L 96 07/23/20 16:00 07/23/20 16:00 07/23/20 16:00 07/23/20 16:00 07/23/20 16:00 Microbiology Results 07/20/20 20:20 Catheterized Urine [place] Count - Final No growth. 07/20/20 20:20 Catheterized Urine - Final No growth. 07/20/20 20:20 Blood - Blood Aerobic Blood Culture - Preliminary No growth in 24 hours. 07/20/20 20:20 Blood - Blood Anaerobic Blood Culture - Preliminary No growth in 24 hours. 07/20/20 20:35 Nasopharnyx Coronavirus COVID-19 PCR - Final Assessment/ Plan: Nephrology CPS stable without CP or SOB. No acute events overnight. Feeling better and wants to go home. Vitals, medications, blood work and imaging reviewed in the chart. General: Cooperative HEENT: Atraumatic Neck: Supple Respiratory: Clear to auscultation bilaterally Cardiovascular: No edema, Regular rate/rhythm Gastrointestinal: Hypoactive, Soft and benign Musculoskeletal: No clubbing, No contractures +Edema Integumentary: No rashes, No cyanosis Neurological: Normal speech Laboratory Data (last 24 hrs) 07/20/20 20:10: Sodium 138, Potassium 6.7 H*, BUN 44 H, Creatinine 2.25 H, Glucose 253 H, Uric Acid 6.0, Phosphorus 4.2 07/20/20 18:45: PT 17.9 H, INR 1.53 07/20/20 18:45: WBC 10.6, Hgb 11.1 L, Hct 32.8 L, Plt Count 132 L 07/20/20 18:45: Sodium 135 L, Potassium 8.2 H*, BUN 44 H, Creatinine 2.33 H, Glucose 174 H, Magnesium 2.0, Total Bilirubin 0.5, AST 14 L, ALT 20, Alkaline Phosphatase 145 H, Lipase 315 Imagings Data: EXAM DESCRIPTION: RAD - Chest Single View - 07/20/2020 8:34 pm CLINICAL HISTORY: CHEST PAIN, code blue chest film COMPARISON: Portable July 20 TECHNIQUE: AP portable chest image was obtained 07/20/2020 8:34 pm . FINDINGS: Since earlier study no diffuse pulmonary edema has developed. No aspiration pneumonia changes seen. Scarring and atelectasis changes are present. Heart size is similar. Mediastinum is distorted by rotation. Trachea is midline. No pneumothorax or pleural effusion. IMPRESSION: No pulmonary edema, acute infiltrate or other significant change from earlier study. Conclusions/Impression: A/ AK likely prerenal azotemia in the setting of diuretics. Hyperkalemia in the setting of ROSAURA and Amiloride. CKD III HTN with CKD/ CHF MARY Diastolic CHF, chronic DM II with CKD Anemia in chronic illness OBINNA/ Secondary HyperPTH P/ Continue current POC and medications. Continue furosemide. Hold amiloride. Follow up with cardiology. Continue carvedilol. No NSAIDs. AM labs. Daily weight.
[2020-07-25 23:01] LABS: Vitamin D 1,25-Dihydroxy Total 24 pg/mL (18-72); Vitamin D,1,25-OH2, D2 <8 pg/mL
== END 2020-07-23 18:47 | disposition home or self-care (01) | DRG 683 ==
LOC: ER 18:27 → ERHOLD 20:36 → 2ND 07-21 18:11
PROVIDERS: ADMIT Hospitalist; ATTEND Hospitalist
PROC: 5A12012 Performance of Cardiac Output, Single, Manual (ICD-10-PCS; principal; 2020-07-20)
PROC: 5A1D70Z Performance of Urinary Filtration, Intermittent, Less than 6 Hours Per Day (ICD-10-PCS; 2020-07-20)
PROC: 06HY33Z Insertion of Infusion Device into Lower Vein, Percutaneous Approach (ICD-10-PCS; 2020-07-20)
DX: N17.9 Acute kidney failure, unspecified (principal); I13.0 Hypertensive heart and chronic kidney disease with heart failure and stage 1 through stage 4 chronic kidney disease, or unspecified chronic kidney disease; I47.2 Ventricular tachycardia; I50.32 Chronic diastolic (congestive) heart failure; E87.0 Hyperosmolality and hypernatremia; N18.4 Chronic kidney disease, stage 4 (severe); N25.81 Secondary hyperparathyroidism of renal origin; E87.5 Hyperkalemia; E11.22 Type 2 diabetes mellitus with diabetic chronic kidney disease; N25.0 Renal osteodystrophy; F41.9 Anxiety disorder, unspecified; I48.0 Paroxysmal atrial fibrillation; D63.8 Anemia in other chronic diseases classified elsewhere; G47.33 Obstructive sleep apnea (adult) (pediatric); I25.118 Atherosclerotic heart disease of native coronary artery with other forms of angina pectoris; E78.5 Hyperlipidemia, unspecified; I25.2 Old myocardial infarction; T50.2X5A Adverse effect of carbonic-anhydrase inhibitors, benzothiadiazides and other diuretics, initial encounter; Z79.82 Long term (current) use of aspirin; Z95.5 Presence of coronary angioplasty implant and graft; Z79.84 Long term (current) use of oral hypoglycemic drugs; Z79.02 Long term (current) use of antithrombotics/antiplatelets; Z79.899 Other long term (current) drug therapy; Z79.01 Long term (current) use of anticoagulants; Z90.49 Acquired absence of other specified parts of digestive tract; Z20.828 Contact with and (suspected) exposure to other viral communicable diseases
CPT/HCPCS: 36415; 51702; 71045; 76770; 80048; 80074; 80076; 81003; 82570; 82652; 82805; 82947; 83605; 83690; 83735; 83880; 83970; 84100; 84145; 84156; 84439; 84443; 84484; 84550; 85025; 85610; 86704; 86706; 86850; 86900; 86901; 87040; 87086; 87088; 87804; 90935; 93005; 93306; 99285; J0610; J0696; J1644; J1940; J3010; U0002

== ENCOUNTER 2021-01-15 11:22 | Inpatient (IN) | payer OTHER ==
--- OUTSIDE RECORDS SUMMARY | 2021-01-15 11:25 | XMS REPORT | Continuity of Care Document ---
:1945 Author Organization [facility] t Address [address] [place] [address] Care Team Providers Name Role Phone Unavailable Unavailable Unavailable Payers Payer Name Policy Type Policy Number Effective Date Expiration Date S ource Problems This patient has no known problems. Allergies, Adverse Reactions, Alerts This patient has no known allergies or adverse reactions. Medications This patient has no known medications. Procedures Procedure Date / Time Performed Performing Clinician [facility] mone [id number] 2020-05-04 00:00:00 LORIEKY [id number] 2020-05-04 00:00:00 ENCKY [id number] 2020-05-04 00:00:00 ENCKY [id number] 2020-05-04 00:00:00 ENCKY [id number] 2020-05-04 00:00:00 ENCKY [id number] 2020-05-04 00:00:00 ENCKY [id number] 2020-05-04 00:00:00 ENCKY [id number] 2020-05-04 00:00:00 ENCKY [id number] 2020-05-04 00:00:00 LORIEKY Encounters Start End Encounter Admission Attending Care Care Encounter Source Date/Time Date/Time Type Type Clinicians Facility Department ID 2020-05-05 Outpatient READMISSIO ENCCLR ENCCLR [id number] ENCCLR 20:57:26 N Results This patient has no known results.
[2021-01-15 12:09] LABS: Absolute Lymphocytes (CBC) 1.1 K/uL (0.7-4.9); Basophils % 0.4 % (0-1.3); Hematocrit 29.1 % (39.6-49.0); Lymphocytes % 8.3 % (15.3-44.8); MPV 10.7 fL (7.6-11.3); RBC Red Blood Cell Count 3.18 M/uL (4.33-5.43)
[2021-01-15 12:13] LABS: Protime INR 1.81
[2021-01-15 12:19] LABS: Albumin 3.2 g/dL (3.4-5.0); Bilirubin Direct 0.2 mg/dL (0-0.2); Bilirubin Total 0.4 mg/dL (0.2-1.0); Potassium 4.6 mmol/L (3.5-5.1); Protein, Total 7.6 g/dL (6.4-8.2); Troponin (Emerg Dept Use Only) 0.02 ng/mL (0.0-0.045)
[2021-01-15 13:27] LABS: SARS-COV-2 RT PCR NEGATIVE (NEGATIVE)
--- NOTE | 2021-01-15 13:32 | RAD REPORT ---
EXAM DESCRIPTION: RAD - Chest Single View - 01/15/2021 12:34 pm CLINICAL HISTORY: DYSPNEA COMPARISON: Portable July 2020 TECHNIQUE: AP portable chest image was obtained 01/15/2021 12:34 pm . FINDINGS: Lung volumes are low. Right-sided pleural effusion is present with infiltrate and/ or atel ectasis. Patchy left base opacification is likely atelectasis. Upper lung maier are clear. Cardiac s ilhouette is enlarged by the low lung volumes. Pulmonary vasculature is mildly prominent. No pneumoth orax. No acute bony abnormality seen. No acute aortic findings suspected. IMPRESSION: Infiltrate and/ or atelectasis right lung base with right pleural effusion. Left base opacification is favored to be atelectasis. Cardiomegaly and mild vascular engorgement could indicate a mild failure or volume overload component .
--- NOTE | 2021-01-15 13:43 | EDPHYS ---
Physician Documentation [facility] Name: Tyrone Vaughn Age: 75 yrs Sex: Male : 1945 Arrival Date: 01/15/2021 Time: 11:24 Bed 7 Private MD: ED Physician Johnson Robles HPI: 01/15 12:31 This 75 yrs old Male presents to ER via EMS with complaints of Shortness Of rn Breath. 12:31 The patient has shortness of breath at rest, with light activity. Onset: The rn symptoms/episode began/occurred 2 week(s) ago. Duration: The symptoms are intermittent. The patient's shortness of breath is aggravated by coughing, light activity, talking. Associated signs and symptoms: Pertinent positives: non-productive cough, Pertinent negatives: dizziness, fever, hemoptysis. Severity of symptoms: At their worst the symptoms were moderate in the emergency department the symptoms are unchanged. The patient has experienced similar episodes in the past. The patient has not recently seen a physician. Reports 2 weeks progressively worsening sob. No fever. No chest pain. Reports increased swelling to BLE. . Historical: - Allergies: 11:46 No Known Allergies; ca1 - Home Meds: 15:15 Eliquis 5 mg oral tab 1 tab 2 times per day [Active]; ca1 15:21 sertraline 50 mg Oral tab 1 tab once daily [Active]; bumetanide 1 mg Oral tab 1 tab ca1 once daily [Active]; aspirin 81 mg Oral chew 1 tab once daily [Active]; hydralazine 25 mg Oral tab 1 tab 2 times per day [Active]; tramadol 50 mg Oral tab 1 tab three times a day [Active]; ferrous sulfate 325 mg (65 mg iron) Oral tab 325 mg every morning [Active]; pantoprazole 40 mg Oral TbEC 1 tab once daily [Active]; atorvastatin 40 mg Oral tab 1 tab once daily [Active]; pregabalin Oral 1 cap 3 times per day [Active]; carvedilol 25 mg Oral tab 1 tab 2 times per day [Active]; Vitamin B-12 1,000 mcg Oral TbER 1,000 mcg daily [Active]; potassium chloride 10 mEq Oral cpER 1 cap MWF [Active]; - PMHx: 11:46 Anxiety; Atrial Fib; CAD; Diabetes - IDDM; CHF; heart problem; High Cholesterol; ca1 Hypertension; Myocardial infarction; neuropathy; Sleep Apnea; - PSHx: 11:46 Heart stents; ca1 - Immunization history:: Adult Immunizations not immunized. - Social history:: Smoking status: Patient denies any tobacco usage or history of. - Family history:: not pertinent. - Hospitalizations: : No recent hospitalization is reported. ROS: 12:31 Constitutional: Negative for fever, chills, and weight loss, Eyes: Negative for injury, rn pain, redness, and discharge, Neck: Negative for injury, pain, and swelling, Cardiovascular: Negative for chest pain, palpitations, + edema Respiratory: + sob and cough Abdomen/GI: Negative for abdominal pain, nausea, vomiting, diarrhea, and constipation, Back: Negative for injury and pain, : Negative for injury, bleeding, discharge, and swelling, MS/Extremity: Negative for injury and deformity, Skin: Negative for injury, rash, and discoloration, Neuro: Negative for headache, weakness, numbness, tingling, and seizure. Exam: 12:31 Constitutional: This is a well developed, well nourished patient who is awake, alert, rn + mild tachypnea Head/Face: Normocephalic, atraumatic. Eyes: Pupils equal round and reactive to light, extra-ocular motions intact. Lids and lashes normal. Conjunctiva and sclera are non-icteric and not injected. Cornea within normal limits. Periorbital areas with no swelling, redness, or edema. Cardiovascular: Tachycardic, irregular. No pulse deficits. Respiratory: + mild tachypnea, + faint wheezing > R lung. Abdomen/GI: Soft, non-tender Skin: Warm, dry MS/ Extremity: Pulses equal, no cyanosis. Neuro: Awake and alert, GCS 15, oriented to person, place, time, and situation Vital Signs: 11:25 BP 140 / 80; Pulse 105; Resp 24; Temp 99.4(O); Pulse Ox 100% on 4 lpm NC; Weight 108.86 ca1 kg (R); Height 5 ft. 5 in. (165.10 cm) (R); Pain 0/10; 12:36 BP 144 / 73; Pulse 102; Resp 21; Pulse Ox 100% on 2 lpm NC; ca1 13:30 BP 139 / 80; Pulse 101; Resp 17 S; Pulse Ox 98% on 2 lpm NC; ca1 14:30 BP 140 / 74; Pulse 101; Resp 17 S; Pulse Ox 100% on 2 lpm NC; ca1 15:16 BP 122 / 62; Pulse 94; Resp 17 S; Pulse Ox 100% on R/A; ca1 11:25 Body Mass Index 39.94 (108.86 kg, 165.10 cm) ca1 MDM: 11:24 Patient medically screened. rn 13:38 Differential diagnosis: CHF exacerbation, pneumonia, Pneumothorax pulmonary edema, rn reactive airway disease, Sepsis. Data reviewed: vital signs, nurses notes, lab test result(s), EKG, radiologic studies, plain films, and as a result, I will admit patient. Counseling: I had a detailed discussion with the patient and/or guardian regarding: the historical points, exam findings, and any diagnostic results supporting the discharge/admit diagnosis, lab results, radiology results, the need for further work-up and treatment in the hospital. Response to treatment: the patient's symptoms have mildly improved after treatment, and as a result, I will admit patient. Admission orders: after a detailed discussion of the patient's condition and case, the admit orders are written by me. ED course: Pt with pneumonia on top of pulmonary edema, abx and lasix ordered, will admit to Dr. Robles for hospitalization.. 01/15 11:26 Order name: Hepatic Function rn 01/15 11:26 Order name: Blood Culture Adult (2) rn 01/15 11:26 Order name: BMP rn 01/15 11:26 Order name: CBC with Diff rn 01/15 11:26 Order name: NT PRO-BNP rn 01/15 11:26 Order name: PT-INR; Complete Time: 13:12 rn 01/15 11:26 Order name: Ptt, Activated; Complete Time: 13:12 rn 01/15 11:26 Order name: Troponin (emerg Dept Use Only); Complete Time: 13:12 rn 01/15 11:26 Order name: Procalcitonin; Complete Time: 13:12 rn 01/15 11:26 Order name: Lactate; Complete Time: 13:12 rn 01/15 11:27 Order name: Liver (Hepatic) Function; Complete Time: 13:12 [facility] 01/15 11:27 Order name: Blood Culture [facility] 01/15 11:26 Order name: XRAY CXR (1 view); Complete Time: 13:34 rn 01/15 11:26 Order name: EKG; Complete Time: 11:27 rn 01/15 11:26 Order name: Cardiac monitoring; Complete Time: 11:41 rn 01/15 11:26 Order name: EKG - Nurse/Tech; Complete Time: 11:41 rn 01/15 11:26 Order name: IV Saline Lock; Complete Time: 11:41 rn 01/15 11:26 Order name: Labs collected and sent; Complete Time: 11:41 rn 01/15 11:27 Order name: Basic Metabolic Panel; Complete Time: 13:12 [facility] 01/15 11:27 Order name: CBC with Automated Diff; Complete Time: 13:12 [facility] 01/15 11:27 Order name: NT PRO-BNP; Complete Time: 13:12 [facility] 01/15 13:27 Order name: COVID-19/FLU A+B; Complete Time: 13:31 [facility] 01/15 14:37 Order name: CONS Physician Consult [facility] 01/15 11:26 Order name: O2 Per Protocol; Complete Time: 11:41 rn 01/15 11:26 Order name: O2 Sat Monitoring; Complete Time: 11:41 rn Administered Medications: 13:15 CANCELLED (Duplicate Order): SOLU-Medrol (methylPrednisoLONE) 125 mg IVP once rn 13:30 Drug: Xopenex (levalbuterol) 1.25 mg Route: Inhalation; ca1 13:43 Drug: Lasix (furosemide) 40 mg Route: IVP; Site: right forearm; ca1 15:13 Follow up: Urine output 300 ml; Response: No adverse reaction ca1 14:00 Drug: Rocephin (cefTRIAXone) 1 grams Route: IV; Rate: calculated rate; Site: left ca1 forearm; 14:30 Follow up: Response: No adverse reaction; IV Status: Completed infusion ca1 15:13 Drug: Zithromax (azithromycin) 500 mg Route: IVPB; Infused Over: 1 hrs; Site: right ca1 forearm; 15:23 Follow up: Response: No adverse reaction; IV Status: Infusion continued upon admission ca1 Disposition: 01/15/21 13:42 Hospitalization ordered by Arslan Robles for Inpatient Admission. Preliminary diagnosis are Pneumonia, unspecified organism, Pulmonary edema. - Bed requested for Telemetry/MedSurg (Inpatient). - Status is Inpatient Admission. ca1 - Condition is Stable. - Problem is new. - Symptoms have improved. Signatures: Dispatcher [employer] Johnson Roth MD MD rn Botello, Elizabeth eb Acob, Cheryl RN RN ca1 Corrections: (The following items were deleted from the chart) 12:43 11:27 CORONAVIRUS+MR.LAB.BRZ ordered. [facility]NE EDNE 12:44 11:27 Influenza Screen (A \T\ B)+BA.LAB.BRZ ordered. [facility] EDNE 13:15 13:13 SOLU-Medrol (methylPrednisoLONE) 125 mg IVP once ordered. rn rn 15:09 13:42 Hospitalization Ordered by Arslan Robles MD for Inpatient Admission. Preliminary eb diagnosis is Pneumonia, unspecified organism; Pulmonary edema. Bed requested for Telemetry/MedSurg (Inpatient). Status is Inpatient Admission. Condition is Stable. Problem is new. Symptoms have improved. rn 15:39 15:09 01/15/2021 13:42 Hospitalization Ordered by Arslan Robles MD for Inpatient ca1 Admission. Preliminary diagnosis is Pneumonia, unspecified organism; Pulmonary edema. Bed requested for Telemetry/MedSurg (Inpatient). Status is Inpatient Admission. Condition is Stable. Problem is new. Symptoms have improved. eb
--- NOTE | 2021-01-15 13:43 | ER ---
Nurse's Notes [facility] Name: Tyrone Vaughn Age: 75 yrs Sex: Male : 1945 Arrival Date: 01/15/2021 Time: 11:24 Bed 7 Private MD: Diagnosis: Pneumonia, unspecified organism;Pulmonary edema Presentation: 01/15 11:25 Chief complaint: EMS states: Cough and SOB x 2 weeks. Family denies HX of CHF and COPD. ca1 Noted [employer] Pedal edema. Upon arrival on scene pt SPO2 at 90% RA. Put on NRB Pt sat at 98%. Moving to the ambulance pt SPO2 went down to 87%. Coronavirus screen: Client denies travel out of the [place] in the last 14 days. cough unrelated to allergies, shaking with chills, Client presents with at least one sign or symptom that may indicate coronavirus-19. Standard/surgical mask placed on the client. Provider contacted for isolation considerations. Ebola Screen: Patient negative for fever greater than or equal to 101.5 degrees Fahrenheit, and additional compatible Ebola Virus Disease symptoms Patient denies exposure to infectious person. Patient denies travel to an Ebola-affected area in the 21 days before illness onset. No symptoms or risks identified at this time. Initial Sepsis Screen: Does the patient meet any 2 criteria? RR > 20 per min. HR > 90 bpm. Yes Does the patient have a suspected source of infection? Yes: Productive cough/pneumonia If YES to both, name of provider notified: Johnson Robles MD. Risk Assessment: Do you want to hurt yourself or someone else? Patient reports no desire to harm self or others. Onset of symptoms was January 15, 2021. 11:25 Method Of Arrival: EMS: [facility] ca1 11:25 Acuity: WESLEY 2 ca1 Historical: - Allergies: 11:46 No Known Allergies; ca1 - Home Meds: 15:15 Eliquis 5 mg oral tab 1 tab 2 times per day [Active]; ca1 15:21 sertraline 50 mg Oral tab 1 tab once daily [Active]; bumetanide 1 mg Oral tab 1 tab ca1 once daily [Active]; aspirin 81 mg Oral chew 1 tab once daily [Active]; hydralazine 25 mg Oral tab 1 tab 2 times per day [Active]; tramadol 50 mg Oral tab 1 tab three times a day [Active]; ferrous sulfate 325 mg (65 mg iron) Oral tab 325 mg every morning [Active]; pantoprazole 40 mg Oral TbEC 1 tab once daily [Active]; atorvastatin 40 mg Oral tab 1 tab once daily [Active]; pregabalin Oral 1 cap 3 times per day [Active]; carvedilol 25 mg Oral tab 1 tab 2 times per day [Active]; Vitamin B-12 1,000 mcg Oral TbER 1,000 mcg daily [Active]; potassium chloride 10 mEq Oral cpER 1 cap MWF [Active]; - PMHx: 11:46 Anxiety; Atrial Fib; CAD; Diabetes - IDDM; CHF; heart problem; High Cholesterol; ca1 Hypertension; Myocardial infarction; neuropathy; Sleep Apnea; - PSHx: 11:46 Heart stents; ca1 - Immunization history:: Adult Immunizations not immunized. - Social history:: Smoking status: Patient denies any tobacco usage or history of. - Family history:: not pertinent. - Hospitalizations: : No recent hospitalization is reported. Screenin:46 Abuse screen: Denies threats or abuse. Denies injuries from another. Nutritional ca1 screening: No deficits noted. Tuberculosis screening: No symptoms or risk factors identified. Fall Risk IV access (20 points). Assessment: 11:51 General: Appears in no apparent distress. comfortable, Behavior is calm, cooperative, ca1 appropriate for age. Pain: Denies pain. Neuro: Level of Consciousness is awake, alert, obeys commands, Oriented to person, place, time, situation. Cardiovascular: Heart tones S1 S2 present Capillary refill < 3 seconds Patient's skin is warm and dry. Rhythm is sinus tachycardia. Respiratory: Reports shortness of breath at rest cough that is since 2 weeks Airway is patent Respiratory effort is even, pursed lip, Respiratory pattern is symmetrical, tachypnea Breath sounds are clear bilaterally. GI: Abdomen is round non-distended, Bowel sounds present X 4 quads. Abd is soft and non tender X 4 quads. : No signs and/or symptoms were reported regarding the genitourinary system. EENT: No signs and/or symptoms were reported regarding the EENT system. Derm: Skin is intact, is healthy with good turgor, Skin is pink, warm \T\ dry. Musculoskeletal: Circulation, motion, and sensation intact. Capillary refill < 3 seconds, Swelling present in right foot, left foot, right leg and left leg. 12:36 Reassessment: Patient appears in no apparent distress at this time. Patient and/or ca1 family updated on plan of care and expected duration. Pain level reassessed. Patient is alert, oriented x 3, equal unlabored respirations, skin warm/dry/pink. 13:30 Reassessment: Patient appears in no apparent distress at this time. Patient and/or ca1 family updated on plan of care and expected duration. Pain level reassessed. Patient is alert, oriented x 3, equal unlabored respirations, skin warm/dry/pink. 14:30 Reassessment: Patient appears in no apparent distress at this time. Patient and/or ca1 family updated on plan of care and expected duration. Pain level reassessed. Patient is alert, oriented x 3, equal unlabored respirations, skin warm/dry/pink. 15:14 Reassessment: Patient appears in no apparent distress at this time. Patient is alert, ca1 oriented x 3, equal unlabored respirations, skin warm/dry/pink. Vital Signs: 11:25 BP 140 / 80; Pulse 105; Resp 24; Temp 99.4(O); Pulse Ox 100% on 4 lpm NC; Weight 108.86 ca1 kg (R); Height 5 ft. 5 in. (165.10 cm) (R); Pain 0/10; 12:36 BP 144 / 73; Pulse 102; Resp 21; Pulse Ox 100% on 2 lpm NC; ca1 13:30 BP 139 / 80; Pulse 101; Resp 17 S; Pulse Ox 98% on 2 lpm NC; ca1 14:30 BP 140 / 74; Pulse 101; Resp 17 S; Pulse Ox 100% on 2 lpm NC; ca1 15:16 BP 122 / 62; Pulse 94; Resp 17 S; Pulse Ox 100% on R/A; ca1 11:25 Body Mass Index 39.94 (108.86 kg, 165.10 cm) ca1 ED Course: 11:24 Patient arrived in ED. rn 11:24 Johnson Robles MD is Attending Physician. rn 11:25 Arm band placed on right wrist. ca1 11:35 Inserted saline lock: 22 gauge in right forearm, using aseptic technique. Blood ca1 collected. 11:35 Initial lab(s) drawn, by me, sent to lab. First set of blood cultures drawn by me. ca1 11:40 Niesha Carlos RN is Primary Nurse. ca1 11:42 No provider procedures requiring assistance completed. ca1 11:45 Triage completed. ca1 11:46 Patient has correct armband on for positive identification. Placed in gown. Bed in low ca1 position. Call light in reach. Side rails up X2. 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 Pulse ox on. NIBP on. Warm blanket given. 11:53 Second set of blood cultures drawn by lab staff. ca1 12:34 XRAY CXR (1 view) In Process Unspecified. EDMS 13:42 Arslan Robles MD is Hospitalizing Provider. rn 15:23 Patient admitted, IV remains in place. ca1 Administered Medications: 13:15 CANCELLED (Duplicate Order): SOLU-Medrol (methylPrednisoLONE) 125 mg IVP once rn 13:30 Drug: Xopenex (levalbuterol) 1.25 mg Route: Inhalation; ca1 13:43 Drug: Lasix (furosemide) 40 mg Route: IVP; Site: right forearm; ca1 15:13 Follow up: Urine output 300 ml; Response: No adverse reaction ca1 14:00 Drug: Rocephin (cefTRIAXone) 1 grams Route: IV; Rate: calculated rate; Site: left ca1 forearm; 14:30 Follow up: Response: No adverse reaction; IV Status: Completed infusion ca1 15:13 Drug: Zithromax (azithromycin) 500 mg Route: IVPB; Infused Over: 1 hrs; Site: right ca1 forearm; 15:23 Follow up: Response: No adverse reaction; IV Status: Infusion continued upon admission ca1 Output: 15:13 Urine: 300ml; Total: 300ml. ca1 15:21 Urine: 700ml (Voided); Total: 1000ml. ca1 Outcome: 13:42 Decision to Hospitalize by Provider. rn 15:30 Admitted to Med/surg accompanied by tech, via wheelchair, room 228, with oxygen, with ca1 chart, Report called to [facility] 15:30 Condition: stable 15:30 Instructed on the need for admit. 15:39 Patient left the ED. ca1 Signatures: Dispatcher [employer] EDMS Johnson Robles MD MD rn Acob, Cheryl, RN RN ca1 Corrections: (The following items were deleted from the chart) 12:44 11:51 Respiratory: Reports shortness of breath at rest cough that is since 2 weeks ca1 Airway is patent Respiratory effort is even, pursed lip, Respiratory pattern is symmetrical, tachypnea Breath sounds are diminished bilaterally. ca1
[2021-01-15] MEDS ORDERED: FUROSEMIDE 40 MG/4 ML VIAL ONE (13:45)
[2021-01-15] MEDS ORDERED: LEVALBUTEROL 1.25 MG/3 ML NEB ONE (13:45)
[2021-01-15] MEDS ORDERED: AZITHROMYCIN IV 500 MG in NA CHLORIDE 0.9% 250 ML IVPB ONE ×2 (14:00→15:00)
[2021-01-15] MEDS ORDERED: CEFTRIAXONE/SWI 1gm 1 GM/10 ML SYR ONE (14:05)
--- NOTE | 2021-01-15 14:47 | P.HP ---
Certification for Inpatient Patient admitted to: Inpatient With expected LOS: <2 Midnights Practitioner: I am a practitioner with admitting privileges, knowledge of patient current condition, hospital course, and medical plan of care. Services: Services provided to patient in accordance with Admission requirements found in Title 42 Section 412.3 of the Code of Federal Regulations Patient History Date of Service: 01/15/21 Reason for admission: Pneumona, acute CHF, hypoxia History of Present Illness: 75-year-old male, PMH: CKD, CAD, CHF (HFpEF), HTN, DM 2, atrial fibrillation, presents to ED due to 2 weeks of progressively worsening shortness of breath. Patient reports the last few days he has had a worsening cough and low-grade fevers. He also states over the last several weeks has bilateral legs have been getting more swollen. He states he has not seen a doctor in a while. When the EMS transport and patient, they noted his SpO2: 87% on room air. Patient otherwise denies any nausea, vomiting, diarrhea, no rashes, no lesions, weakness/numbness. In the ED, CXR consistent with CHF pattern as well as any new right lower lobe opacity concerning for pneumonia versus atelectasis. Labs notable for leukocytosis, elevated creatinine, and anemia. He was given IV Rocephin and azithromycin, 40 mg IV Lasix. Patient reported some mild improvement afterwards. Allergies No Known Allergies Allergy (Verified 07/21/20 01:35) Home medications list reviewed: No (updated list unavailable) Home Medications: Amlodipine [Norvasc*] 10 mg PO DAILY 07/21/20 Apixaban [Eliquis] 5 mg PO BID 07/21/20 Aspirin Chewable [Aspirin Chewable*] 81 mg PO DAILY 07/21/20 Atorvastatin Calcium 40 mg PO BEDTIME 07/21/20 Bumetanide 1 mg PO DAILY 07/21/20 Carvedilol [Coreg] 25 mg PO BID 07/21/20 Cyanocobalamin (Vitamin B-12) [Vitamin B12] 1,000 mcg PO DAILY 07/21/20 Ferrous Sulfate 325 mg PO DAILY 07/21/20 Liraglutide [Victoza 2-David] 0.6 mg SQ DAILY 07/21/20 Pantoprazole [Protonix Tab*] 40 mg PO ACB 07/21/20 Pregabalin 75 mg PO Q8H 07/21/20 Sennosides/Docusate Sodium [Docusate Sodium-Sennosides Tab] 1 each PO BIDP PRN 07/21/20 Sertraline [Zoloft*] 50 mg PO DAILY 07/21/20 Tramadol HCl [Ultram] 50 mg PO Q6HP PRN 07/21/20 Potassium Chloride [K-Dur] 10 meq PO M,W,F #30 tab.er.prt 07/23/20 - Past Medical/Surgical History Diabetic: Yes -: HTN -: 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 Children-3. Retired in 1961, [employer]. - Family History Father -: Hypertension, Stroke Mother -: Heart disease - Social History Smoking Status: Never smoker Alcohol use: No CD- Drugs: Yes Caffeine use: Yes Place of Residence: Home Review of Systems 10-point ROS is otherwise unremarkable Physical Examination - Studies Laboratory Data (last 24 hrs) 01/15/21 11:34: PT 20.9 H, INR 1.81, APTT 33.7 01/15/21 11:34: WBC 13.50 H, Hgb 9.2 L, Hct 29.1 L, Plt Count 208 01/15/21 11:34: Sodium 144, Potassium 4.6, BUN 34 H, Creatinine 1.97 H, Glucose 213 H, Total Bilirubin 0.4, AST 18, ALT 26, Alkaline Phosphatase 130 H Assessment and Plan - Advance Directives Does patient have a Living Will: No Does patient have a Durable POA for Healthcare: No Physician Review Additional Text: Physical Exam Gen: mild distress, alert, oriented x3 HEENT: normal conjunctiva, sclera anicteric CV: irregularly irregular rhythm, no murmur Pulm: b/l crackles, diminished throughout, on 2L NC, mildly labored respirations Abd: soft, obese, nontender Ext: 3+ b/l edema above knees, no rash Neuro: moves all extremities, PERRL Problem List Acute hypoxemic respiratory failure secondary to acute on chronic CHF exacerbation (diastolic) and community acquired pneumonia Diabetes mellitus type 2, noninsulin dependent Atrial fibrillation on chronic anticoagulation Hypertension Morbid obesity. Prior CVAs CAD status post stents Obstructive sleep apnea. Peripheral vascular disease SIRS 3/4 - leukocytosis, tachypnea, tachycardia; mildly elevated pro calcitonin (0.16) COVID-19 negative Patient does not appear septic at this time Continue with empiric IV antibiotics to cover for community-acquired pneumonia, Rocephin and azithromycin 80 mg IV Lasix b.i.d. for diuresis, patient declined Tamayo catheter for strict I&Os. Instructed patient to use the urinal. Unclear patient's baseline renal function, appears to be elevated, and patient denies any history of renal dysfunction. Nephrology consulted. Review of EMR reveals patient at 1 point did require emergent dialysis Patient is unaware of all the different medications he takes common states of physician he saw no recent hospitalization changed a lot of his medications. obtain home medications, restart as appropriate Echocardiogram was done 6 months ago which revealed preserved ejection fraction. Continue with insulin sliding scale and Accu-Cheks a.c. hs Anemia appears to be chronic, at baseline Code: full Dispo: anticipate dc home in ~2-3 days Time Spent Managing Pts Care (In Minutes): 60
[2021-01-15] MEDS: INSULIN -REGULAR HUMAN 50 UNIT/0.5 ML ML SQ SCH ×2 (16:11→21:48)
[2021-01-15 17:00] LABS: Thyroid Stimulating Hormone 1.05 uIU/mL (0.360-3.740)
[2021-01-15] MEDS: FUROSEMIDE 40 MG/4 ML VIAL IV SCH (17:45)
[2021-01-16 07:06] LABS: Absolute Lymphocytes (CBC) 1.3 K/uL (0.7-4.9); Basophils % 0.8 % (0-1.3); Hematocrit 26.9 % (39.6-49.0); Lymphocytes % 9.3 % (15.3-44.8); MPV 10.3 fL (7.6-11.3); RBC Red Blood Cell Count 2.98 M/uL (4.33-5.43)
[2021-01-16 07:19] LABS: Bilirubin Total 0.5 mg/dL (0.2-1.0); Magnesium 1.9 mg/dL (1.8-2.4); Potassium 4.1 mmol/L (3.5-5.1); Protein, Total 7.1 g/dL (6.4-8.2)
[2021-01-16] MEDS: INSULIN -REGULAR HUMAN 50 UNIT/0.5 ML ML SQ SCH ×4 (07:30→21:34)
[2021-01-16] MEDS: PANTOPRAZOLE 40MG TABLET PO SCH (08:29)
[2021-01-16] MEDS: PREGABALIN 75 MG CAP PO SCH ×2 (09:00→14:00)
[2021-01-16] MEDS ORDERED: HYDRALAZINE HCL 25 MG TABLET PO SCH (09:00)
[2021-01-16] MEDS: TRAMADOL HCL 50 MG TAB PO SCH ×2 (09:00→14:00)
[2021-01-16] MEDS: CYANOCOBALAMIN 1,000 MCG TAB PO SCH (09:29)
[2021-01-16] MEDS: CEFTRIAXONE/SWI 1gm 1 GM/10 ML SYR IVP SCH (09:29)
[2021-01-16] MEDS: APIXABAN 5 MG TABLET PO SCH ×2 (09:29→21:34)
[2021-01-16] MEDS: SERTRALINE HCL 50 MG TAB PO SCH (09:29)
[2021-01-16] MEDS: carvediloL 25 MG TAB PO SCH ×2 (09:29→21:33)
[2021-01-16] MEDS: ASPIRIN 81 MG CHEWABLE TABLET PO SCH (09:29)
[2021-01-16] MEDS: FUROSEMIDE 40 MG/4 ML VIAL IV SCH ×2 (09:29→16:41)
[2021-01-16] MEDS: FERROUS SULFATE 325 MG TAB PO SCH (09:30)
[2021-01-16] MEDS: BENZONATATE 100 MG CAP PO PRN ×2 (09:30→21:32)
[2021-01-16] MEDS: AZITHROMYCIN IV 500 MG in NA CHLORIDE 0.9% 250 ML IVPB SCH (09:53)
--- NOTE | 2021-01-16 11:17 | RAD REPORT ---
EXAM DESCRIPTION: RAD - Chest Single View - 01/16/2021 6:03 am CLINICAL HISTORY: CHF, ?pneumonia Chest pain. COMPARISON: Chest Single View dated 01/15/2021; Chest Single View dated 07/20/2020; Chest Single View d ated 07/20/2020; Chest Single View dated 03/29/2020 FINDINGS: Portable technique limits examination quality. Bibasilar lung opacities are noted, unchanged since prior study. The heart is mildly enlarged in size . Aortic atherosclerosis noted. IMPRESSION: Stable chest since 01/15/2021.
--- NOTE | 2021-01-16 13:16 | P.PN ---
Subjective Date of Service: 01/16/21 Chief Complaint: Pneumona, acute CHF, hypoxia Subjective: Improving (reports slight improvement in breathing, still SOB/TAYLOR, swelling essentially unchanged. urinating more) Review of Systems 10-point ROS is otherwise unremarkable Physical Examination - Vital Signs Temperature: 96.8 F Blood Pressure: 94/51 Pulse: 101 Respirations: 17 Pulse Ox (%): 94 Assessment & Plan Physician Review Additional Text: Physical Exam Gen: mild distress, alert, oriented x3, sitting up in chair HEENT: normal conjunctiva, sclera anicteric CV: irregularly irregular rhythm, no murmur Pulm: b/l crackles, diminished throughout, on 2L NC, mildly labored respirations Abd: soft, obese, nontender Ext: 2+ b/l edema above knees, no rash Neuro: moves all extremities, PERRL Problem List Acute hypoxemic respiratory failure secondary to acute on chronic CHF exacerbation (diastolic) and community acquired pneumonia Diabetes mellitus type 2, noninsulin dependent Atrial fibrillation on chronic anticoagulation Hypertension Morbid obesity. Prior CVAs CAD status post stents Obstructive sleep apnea. Peripheral vascular disease SIRS 3/4 - leukocytosis, tachypnea, tachycardia; mildly elevated pro calcitonin (0.16) COVID-19 negative Patient does not appear septic at this time Continue with empiric IV antibiotics to cover for community-acquired pneumonia, Rocephin and azithromycin Significantly overloaded 80 mg IV Lasix b.i.d. for diuresis, patient declined Tamayo catheter for strict I&Os. Instructed patient to use the urinal. Unclear patient's baseline renal function, appears to be elevated, and patient denies any history of renal dysfunction. Nephrology consulted. Review of EMR reveals patient at 1 point did require emergent dialysis Patient is unaware of all the different medications he takes common states of physician he saw no recent hospitalization changed a lot of his medications. continue home medications Echocardiogram was done 6 months ago which revealed preserved ejection fraction. Continue with insulin sliding scale and Accu-Cheks a.c. hs Anemia appears to be chronic, at baseline, trend Code: full Dispo: anticipate dc home in ~2-3 days Time Spent Managing Pts Care (In Minutes): 35
[2021-01-16] MEDS ORDERED: GLUCAGON 1 MG/VIAL IM PRN (13:17)
[2021-01-16] MEDS ORDERED: D50W 25 GM/50 ML VIAL IV PRN (13:37)
[2021-01-16] MEDS: GUAIFENESIN/CODEINE 5ML UCUP PO PRN (15:54)
[2021-01-16] MEDS ORDERED: EPOETIN ALFA-EPBX 10,000 UNIT/ML VIAL SQ SCH (17:00)
[2021-01-16] MEDS ORDERED: EPOETIN ALFA-EPBX 10,000 UNIT/ML VIAL ONE (17:13)
[2021-01-16] MEDS ORDERED: PREGABALIN 75 MG CAP PO SCH ×2 (21:00)
[2021-01-16] MEDS ORDERED: INSULIN GLARGINE 100 UNITS/ML SQ SCH (21:00)
[2021-01-16] MEDS: Liraglutide [Victoza 2-Pak] 0.6 MG/0.1 ML Pen.Injctr SQ SCH (21:00)
[2021-01-16] MEDS: HYDRALAZINE HCL 10 MG TABLET PO SCH (21:00)
--- NOTE | 2021-01-16 21:22 | CON ---
Date of Consultation: 01/16/2021 History Of Present Illness: The patient is seen at [facility] in room 228 on s econd floor. He is 75-year-old, male, who presented to the hospital with congestive heart f ailure. Has a history of chronic kidney disease. Has had dialysis treatment once in the past, histo ry atrial fibrillation. Presents to the emergency room with shortness of breath. Patient has been d iuresed. He has significant swelling in his lower extremities bilaterally. He has also got signific ant volume overload. At this point, the patient is feeling somewhat better. He is on antibiotics fo r question of pneumonia. He is also on certain other medications that could be leading to swelling i ncluding pregabalin, Lyrica at 75 mg t.i.d. He also has been on hydralazine at 25 mg p.o. b.i.d. He is on Lasix currently at 40 mg IV b.i.d. and his breathing has improved with that. The patient isabel es any pain currently. He denies any nausea, vomiting. Past Medical History: Significant for history of congestive heart failure. His acute kidney injury requiring dialysis. Once in the past, he has had multiple medications for his blood pressure control . He has also been on a low dose of potassium and carvedilol at home in the past. He is also on Luz Maria andra. He takes amlodipine 10 mg as well. Past Medical History: Also includes history of atrial fibrillation, history of diabetes, sleep apnea . He has had appendectomy and heart stents in the past. Family History: Noncontributory but father had hypertension and stroke. Social History: The patient does not smoke. Does not use any alcohol or drugs. Physical Examination: Vital signs: His vitals were stable but last blood pressures have been a little bit on the lower side with readings of 94/51, pulse about 101, respirations around 17. General: The patient is alert, awake, able to answer some questions. He mainly speaks [place]ian. He is oriented to time and place. He knows where he is. Heart: Sounds are irregularly irregular. Lungs: He has crackles of the bases of the lungs. He is using about 2-3 L of nasal cannula. Curren tly on 2 L and O2 sats are 90. He is obese. Abdomen: Soft, nontender. Bowel sounds are positive. Extremities: Revealed positive 2-3 edema bilaterally and also his arms seemed to have swelling. He is moving all his extremities. He is able to answer some questions appropriately. Does not have myles y good memory but reasonable recall. Laboratory Data: Glucose of 346. His BNP was 94921. His hemoglobin was 8.8, hematocrit 26.9, WBC c ount of 14, platelet count of 206, sodium 141, potassium 4.1, chloride 107, bicarb is 25, BUN and cre atinine 37 and 1.88. Assessment/plan: Acute kidney injury with history of chronic kidney disease. On multiple medication s. The patient comes in with volume overload. At this point, he is on multiple medications that wou ld need to be slowly adjusted going forward. He has been on amlodipine. He has been on hydralazine alert because these medications could also lead to swelling. At this point, we will go ahead and cut back on his hydralazine to 10 mg dosages with holding parameters. Also we will go ahead and cut rudy k on the Lyrica to 25 mg t.i.d. This patient is a high risk for strokes with Ultram use given his ad vanced kidney disease and other problems with the breathing issues and also with his heart issues. W e will go ahead and at this point cut back on the Ultram to go ahead and stop the Ultram. We will al so go ahead and continue Lasix for now with close monitoring. His anemia is not too bad but has been below 9 and with his history of chronic kidney disease, we [place] [address] units subcu t o assist with getting the hemoglobin corrected. We will plan to repeat labs tomorrow after these nicole nges. Continue to monitor blood pressure closely. May need to back off on medications further. His blood pressures stay lower, hopefully which will involve help but blood pressure was up, also cutting back on hydralazine alert, assist with blood pressure is coming up and irritation. /JASON Voice ID: [id number] Report ID: [id number]
[2021-01-16] MEDS: ATORVASTATIN 40 MG TAB PO SCH (21:35)
[2021-01-17] MEDS: GUAIFENESIN/CODEINE 5ML UCUP PO PRN ×2 (06:27→21:07)
[2021-01-17 06:32] LABS: Absolute Lymphocytes (CBC) 1.7 K/uL (0.7-4.9); Basophils % 0.4 % (0-1.3); Hematocrit 25.6 % (39.6-49.0); MPV 10.3 fL (7.6-11.3); RBC Red Blood Cell Count 2.87 M/uL (4.33-5.43)
[2021-01-17 06:37] LABS: Albumin 2.8 g/dL (3.4-5.0); Bilirubin Total 0.3 mg/dL (0.2-1.0); Magnesium 1.8 mg/dL (1.8-2.4); Potassium 3.9 mmol/L (3.5-5.1); Protein, Total 6.9 g/dL (6.4-8.2)
[2021-01-17 06:38] VITALS: BMI 34.9
[2021-01-17] MEDS: INSULIN -REGULAR HUMAN 50 UNIT/0.5 ML ML SQ SCH ×4 (08:06→20:59)
[2021-01-17] MEDS: ASPIRIN 81 MG CHEWABLE TABLET PO SCH (08:07)
[2021-01-17] MEDS: HYDRALAZINE HCL 10 MG TABLET PO SCH ×2 (08:07→14:00)
[2021-01-17] MEDS: FERROUS SULFATE 325 MG TAB PO SCH (08:08)
[2021-01-17] MEDS: SERTRALINE HCL 50 MG TAB PO SCH (08:08)
[2021-01-17] MEDS: CYANOCOBALAMIN 1,000 MCG TAB PO SCH (08:08)
[2021-01-17] MEDS: PANTOPRAZOLE 40MG TABLET PO SCH (08:08)
[2021-01-17] MEDS: CEFTRIAXONE/SWI 1gm 1 GM/10 ML SYR IVP SCH (08:08)
[2021-01-17] MEDS: FUROSEMIDE 40 MG/4 ML VIAL IV SCH ×2 (08:08→16:58)
[2021-01-17] MEDS: APIXABAN 5 MG TABLET PO SCH ×2 (08:09→20:59)
[2021-01-17] MEDS: carvediloL 25 MG TAB PO SCH ×2 (08:09→20:59)
[2021-01-17] MEDS ORDERED: POTASSIUM CL SA 10 MEQ TAB PO ONE (09:00)
[2021-01-17] MEDS ORDERED: MAGNESIUM SULFATE 1 gm IVPB 1 GM/100 ML BAG IV ONE (09:00)
--- NOTE | 2021-01-17 09:22 | EKG ---
Test Date: 2021-01-15 Test Time: 11:36:54 Line Erector: NESTOR MEASUREMENT RESULTS: Intervals: Rate: 103 TN: 134 QRSD: 104 QT: 350 QTc: 458 [place]: P: 82 TN: 134 QRS: 12 T: 69 INTERPRETIVE STATEMENTS: Sinus tachycardia Septal infarct, age undetermined Abnormal ECG Compared to ECG 07/20/2020 20:12:22 Sinus rhythm no longer present Left-axis deviation no longer present Myocardial infarct finding still present Electronically Signed On 01-17-21 09:17:38 CDT by Rohit Carvalho
[2021-01-17] MEDS: AZITHROMYCIN IV 500 MG in NA CHLORIDE 0.9% 250 ML IVPB SCH (10:23)
[2021-01-17] MEDS: POTASSIUM CL SA 10 MEQ TAB PO SCH (12:13)
[2021-01-17] MEDS ORDERED: CEPACOL LOZENGES PO PRN (12:22)
--- NOTE | 2021-01-17 12:23 | P.PN ---
Subjective Date of Service: 01/17/21 Chief Complaint: Pneumona, acute CHF, hypoxia Subjective: Improving (slight improvement in breathing and edema. continues with coughing fits) Review of Systems 10-point ROS is otherwise unremarkable Physical Examination - Vital Signs Temperature: 97.5 F Blood Pressure: 131/59 Pulse: 86 Respirations: 18 Pulse Ox (%): 97 Assessment & Plan Physician Review Additional Text: Physical Exam Gen: mild distress, alert, oriented x3, sitting up in chair HEENT: normal conjunctiva, sclera anicteric CV: irregularly irregular rhythm, no murmur Pulm: b/l crackles, diminished throughout, on 2L NC, mildly labored respirations Abd: soft, obese, nontender Ext: 2+ b/l edema above knees L>R, no rash Neuro: moves all extremities Problem List Acute hypoxemic respiratory failure secondary to acute on chronic CHF exacerbation (diastolic) and community acquired pneumonia Diabetes mellitus type 2, noninsulin dependent Atrial fibrillation on chronic anticoagulation Hypertension Morbid obesity. Prior CVAs CAD status post stents Obstructive sleep apnea. Peripheral vascular disease SIRS 3/4 - Leukocytosis, Tachypnea, tachycardia; mildly elevated pro calcitonin (0.16) COVID-19 negative Patient does not appear septic Continue with empiric IV antibiotics to cover for community-acquired pneumonia, Rocephin and azithromycin Significantly overloaded 80 mg IV Lasix BID for Diuresis initially, patient declined Tamayo catheter for strict I&Os. Instructed patient to use the urinal. Diuresing well, decreased to 40mg IV BID, renal function stable Unclear patient's baseline renal function, appears to be elevated, and patient denies any history of renal dysfunction. Nephrology consulted. Review of EMR reveals patient at one point did require emergent dialysis Patient is unaware of all the different medications he takes, states of physician he saw no recent hospitalization changed a lot of his medications. continue home medications as appropriate Echocardiogram was done 6 months ago which revealed preserved ejection fraction. Continue with insulin sliding scale and Accu-Cheks a.c. hs, titrate as needed, lantus Anemia appears to be chronic, at baseline, trend wean O2 as tolerated, pt does not have home O2 Code: full Dispo: anticipate dc home in ~1-2 days Time Spent Managing Pts Care (In Minutes): 35
[2021-01-17] MEDS ORDERED: FUROSEMIDE 40 MG/4 ML VIAL IV ONE (16:00)
[2021-01-17] MEDS ORDERED: EPOETIN ALFA-EPBX 4,000 UNIT/ML VIAL SQ ONE (17:00)
[2021-01-17 19:56] LABS: Urine Appearance CLEAR (Clear); Urine Bilirubin NEGATIVE (Negative); Urine Blood NEGATIVE (Negative); Urine Color YELLOW (Yellow); Urine Glucose NEGATIVE (Negative); Urine Protein NEGATIVE (Negative); Urine Urobilinogen 0.2 mg/dL (0.2-1.0)
--- NOTE | 2021-01-17 20:23 | PN ---
Subjective: The patient seen in room 228. He is alert, awake, feeling a little bit better compared to yesterday, still with significant swelling in the lower extremities, but much improved. He is abl e to communicate better. He is breathing a little bit better. He has tolerated the medication adjus tments with Lyrica reduction and hydralazine reduction well. He is diuresing well on Lasix IV 40 mg b.i.d. Past Medical History: As discussed with congestive heart failure, acute kidney injury requiring dial ysis in the past, currently seems to have CKD stage 4, further evaluation would be needed to understa nd exactly what CKD status is. Medications: Reviewed from the chart. Physical Examination: Vital Signs: Stable. The patient's blood pressure last was 131/59, pulse 80, respirations around 14 , O2 sats are 97% on 2 L nasal cannula. Laboratory Data: His lab work today shows WBC count of 8.8, hemoglobin 8.7, hematocrit 25.6, platele t count of 177. Sodium 142, potassium 3.9, chloride 106, bicarb is 29, BUN is 40, creatinine is 2.06 , glucose has been running slightly on the higher side between 200 and 250, calcium is 8.3, magnesium 1.8, albumin is 2.8. Assessment And Plan: 1.The patient with chronic kidney disease/acute kidney injury/congestive heart failure/anemia of chr onic kidney disease, respiratory distress with volume overload, hyperglycemia in the setting of diabe rupesh mellitus, diabetic nephropathy. The patient at this point seems to have improved compared to yes terday. Discontinue hydralazine. Continue Lasix 40 mg IV b.i.d. We will give him an additional dos e of Lasix now. Continue to monitor diuresis. The patient still has significant volume overload. G lucose has been running high. Discussed this with Dr. Robles. He is adjusting insulin and diet. Cou nseled the patient. 2.Acute kidney injury, significantly improved/stable with improvement in his volume status. His preet athing is improving. We will continue to diurese. Once acute issues are resolved, we will need to u nderstand and assess his baseline kidney function. Continue on the lower dose of Lyrica and hopefull y with going forward, we may be able to discontinue Lyrica. /JASON Voice ID: [id number] Report ID: [id number]
[2021-01-17 20:43] LABS: Urine Microscopic Reflex NO UMIC
[2021-01-17] MEDS: GUAIFENESIN 600 MG SA TAB PO SCH (20:59)
[2021-01-17] MEDS: ATORVASTATIN 40 MG TAB PO SCH (21:00)
[2021-01-17] MEDS ORDERED: INSULIN GLARGINE 100 UNITS/ML SQ SCH ×2 (21:00)
[2021-01-17] MEDS: Liraglutide [Victoza 2-Pak] 0.6 MG/0.1 ML Pen.Injctr SQ SCH (21:00)
[2021-01-18 06:01] LABS: Absolute Lymphocytes (CBC) 2.5 K/uL (0.7-4.9); Basophils % 0.7 % (0-1.3); Hematocrit 27.9 % (39.6-49.0); MPV 10.3 fL (7.6-11.3); RBC Red Blood Cell Count 3.14 M/uL (4.33-5.43)
[2021-01-18 06:25] LABS: Albumin 3.1 g/dL (3.4-5.0); Bilirubin Total 0.4 mg/dL (0.2-1.0); Magnesium 2.1 mg/dL (1.8-2.4); Potassium 4.3 mmol/L (3.5-5.1); Protein, Total 7.2 g/dL (6.4-8.2)
[2021-01-18] MEDS: INSULIN -REGULAR HUMAN 50 UNIT/0.5 ML ML SQ SCH ×4 (07:30→22:17)
[2021-01-18] MEDS: ASPIRIN 81 MG CHEWABLE TABLET PO SCH (08:10)
[2021-01-18] MEDS: carvediloL 25 MG TAB PO SCH ×2 (08:10→22:16)
[2021-01-18] MEDS: CYANOCOBALAMIN 1,000 MCG TAB PO SCH (08:10)
[2021-01-18] MEDS: APIXABAN 5 MG TABLET PO SCH ×2 (08:11→22:15)
[2021-01-18] MEDS: FERROUS SULFATE 325 MG TAB PO SCH (08:11)
[2021-01-18] MEDS: GUAIFENESIN 600 MG SA TAB PO SCH ×2 (08:11→22:16)
[2021-01-18] MEDS: SERTRALINE HCL 50 MG TAB PO SCH (08:11)
[2021-01-18] MEDS: PANTOPRAZOLE 40MG TABLET PO SCH (08:11)
[2021-01-18] MEDS: FUROSEMIDE 40 MG/4 ML VIAL IV SCH ×2 (08:11→16:47)
[2021-01-18] MEDS: CEFTRIAXONE/SWI 1gm 1 GM/10 ML SYR IVP SCH (08:12)
[2021-01-18] MEDS: AZITHROMYCIN IV 500 MG in NA CHLORIDE 0.9% 250 ML IVPB SCH (08:22)
--- NOTE | 2021-01-18 16:22 | P.PN ---
Subjective Date of Service: 01/18/21 Chief Complaint: Pneumona, acute CHF, hypoxia Patient doing much better today. He denies any shortness of breath. He denies any chest pain. Physical Examination - Vital Signs Temperature: 97.6 F Blood Pressure: 118/58 Pulse: 91 Respirations: 19 Pulse Ox (%): 97 - Physical Exam General: Alert, In no apparent distress, Obese HEENT: Mucous membr. moist/pink Neck: JVD not distended Respiratory: Clear to auscultation bilaterally, Diminished Cardiovascular: Regular rate/rhythm, Normal S1 S2, Edema (3+ bilateral leg edema) Gastrointestinal: Normal bowel sounds, Soft and benign, Non-distended Musculoskeletal: No erythema Integumentary: No rashes Neurological: Normal strength at 5/5 x4 extr Assessment And Plan Physician Review Additional Text: Problem List Acute hypoxemic respiratory failure secondary to acute on chronic CHF exacerbation (diastolic) and community acquired pneumonia Diabetes mellitus type 2, noninsulin dependent Atrial fibrillation on chronic anticoagulation Hypertension Morbid obesity. Prior CVAs CAD status post stents Obstructive sleep apnea. Peripheral vascular disease Continue with empiric IV antibiotics to cover for community-acquired pneumonia, Rocephin and azithromycin Significantly overloaded Continue IV Lasix BID for diuresis. Diuresing well but renal function increased slightly. Nephrology is following Echocardiogram was done 6 months ago which revealed preserved ejection fraction. Continue with insulin sliding scale and Accu-Cheks a.c. hs and Lantus. Anemia appears to be chronic, at baseline. wean O2 as tolerated. Code: full
--- NOTE | 2021-01-18 19:22 | PN ---
Date of Progress Note: 01/18/2021 Subjective: The patient is alert, awake, comfortable, compared to yesterday. He is breathing better . His glucose results overall have been on the higher side but have been recently improving in fact 1 of the glucose readings were down to about 71. He denies any difficulty with pain. He is still sh ort of breath, has quite a bit of swelling still. Objective: Vital Signs: His blood pressure is 117/62, his pulse is 78, respirations about 18. Pain level 0, O2 sats 98%. Lungs: Clear to auscultation with decreased breath sounds at the bases with prominent crackles bilat erally. Abdomen: Soft. Extremities: Reveal positive 3 edema bilaterally, slightly better than yesterday, but still signific ant. Laboratory Data: Reviewed. The patient's labs show a WBC count 11.5, hemoglobin 9.3, hematocrit 27. 9, platelet count of 241. Chemistry shows sodium 142, potassium at 4.3, chloride 107, bicarb is 29, BUN and creatinine is 47 and 2.12 compared to yesterday was 40/2.07, reasonably stable. His glucose reading was 71. Albumin at 3.1, calcium at 8.5, corrected calcium within normal range. Assessment/plan: 1.Acute kidney injury/chronic kidney disease stage IV. The patient clinically looks stable from thi s point of view, he is significantly volume overloaded. Once acute issues are resolved, we will need to re-evaluate his residual baseline kidney function. 2.Congestive heart failure. Continue Lasix b.i.d. and monitor. 3.Hypertension. At this point, his blood pressure is looking reasonable. Hydralazine has been disc ontinued. Continue Lasix b.i.d. and monitor. 4.Depression. The patient seems to not have any SI or HI. No homicidal or suicidal ideation, but h e does state that he is feeling depressed. He is agreeable due to changing medications or taking med ication for depression. He has been on 50 mg of sertraline. I discussed this with him and he is agr eeable to increasing it to 100 mg on monitor. 5.Anemia, on iron replacement, has gotten 2 doses of Retacrit. Hemoglobin seems to have improved. Hopefully will further improve as we also diurese him and get his volume status contracted. The patient is going to need close followup outpatient to control his diabetes, to monitor his blood pressure, to keep an eye on his chronic kidney disease and long-term management. I have given him in formation on these diseases and advised him the importance of diet, fluid restriction and close monit [facility] outpatient. /JASON Voice ID: [id number] Report ID: [id number]
[2021-01-18] MEDS ORDERED: INSULIN GLARGINE 100 UNITS/ML SQ SCH (21:00)
[2021-01-18] MEDS ORDERED: SERTRALINE HCL 50 MG TAB PO SCH (21:00)
[2021-01-18] MEDS: Liraglutide [Victoza 2-Pak] 0.6 MG/0.1 ML Pen.Injctr SQ SCH (21:00)
[2021-01-18] MEDS: ATORVASTATIN 40 MG TAB PO SCH (22:16)
[2021-01-19 06:12] LABS: Absolute Lymphocytes (CBC) 2.2 K/uL (0.7-4.9); Hematocrit 27.8 % (39.6-49.0); Lymphocytes % 23.3 % (15.3-44.8); MPV 10.2 fL (7.6-11.3); RBC Red Blood Cell Count 3.09 M/uL (4.33-5.43)
[2021-01-19 06:25] LABS: Albumin 3.1 g/dL (3.4-5.0); Phosphorus 3.8 mg/dL (2.5-4.9); Potassium 4.3 mmol/L (3.5-5.1)
[2021-01-19] MEDS ORDERED: KCL 20 MEQ/100 mL IVPB 20 MEQ/100 ML BAG IV SCH (09:00)
[2021-01-19] MEDS: AZITHROMYCIN IV 500 MG in NA CHLORIDE 0.9% 250 ML IVPB SCH (10:22)
[2021-01-19] MEDS: FUROSEMIDE 40 MG/4 ML VIAL IV SCH ×2 (10:23→16:52)
[2021-01-19] MEDS: INSULIN -REGULAR HUMAN 50 UNIT/0.5 ML ML SQ SCH ×3 (10:23→16:30)
[2021-01-19] MEDS: CEFTRIAXONE/SWI 1gm 1 GM/10 ML SYR IVP SCH (10:23)
[2021-01-19] MEDS: FERROUS SULFATE 325 MG TAB PO SCH (10:24)
[2021-01-19] MEDS: PANTOPRAZOLE 40MG TABLET PO SCH (10:24)
[2021-01-19] MEDS: APIXABAN 5 MG TABLET PO SCH (10:24)
[2021-01-19] MEDS: GUAIFENESIN 600 MG SA TAB PO SCH (10:24)
[2021-01-19] MEDS: ASPIRIN 81 MG CHEWABLE TABLET PO SCH (10:25)
[2021-01-19] MEDS: carvediloL 25 MG TAB PO SCH (10:25)
[2021-01-19] MEDS: CYANOCOBALAMIN 1,000 MCG TAB PO SCH (10:25)
--- NOTE | 2021-01-19 12:29 | P.DS ---
Admission Date: 01/15/21 Discharge Date: 01/19/21 Disposition: DC HOME/HOME HEALTH CARE Discharge Condition: FAIR Reason for Admission: Pneumona, acute CHF, hypoxia Consultations: Nephrology-Dr. Hart - Problems (1) Acute respiratory failure with hypoxia Current Visit: Yes Status: Acute (2) Acute on chronic systolic (congestive) heart failure Current Visit: Yes Status: Acute (3) Atrial fibrillation Current Visit: No Status: Chronic Qualifiers: Atrial fibrillation type: paroxysmal Qualified Code(s): I48.0 - Paroxysmal atrial fibrillation (4) CAD (coronary artery disease) Onset Date: 09/25/16 Current Visit: No Status: Chronic Qualifiers: Coronary Disease-Associated Artery/Lesion type: [place] artery [place] vs. transplanted heart: [place] heart Associated angina: with stable angina Qualified Code(s): I25.118 - Atherosclerotic heart disease of [place] coronary artery with other forms of angina pectoris (5) Hypertension Onset Date: 09/25/16 Current Visit: No Status: Chronic Qualifiers: Hypertension type: essential hypertension Qualified Code(s): I10 - Essential (primary) hypertension (6) Non-insulin dependent type 2 diabetes mellitus Onset Date: 09/25/16 Current Visit: No Status: Chronic (7) Obstructive sleep apnea Current Visit: No Status: Suspected Brief History of Present Illness: 75-year-old male, PMH: CKD, CAD, CHF, HTN, DM 2, atrial fibrillation, presented to the emergency department with a complaint of 2 weeks of progressively worsening shortness of breath. Symptoms associated with cough and low-grade fevers. He also reported increased swelling of bilateral legs. His oxygen saturation was 87% as noticed by EMS. In the ED, CXR consistent with CHF pattern as well as any new right lower lobe opacity concerning for pneumonia versus atelectasis. Labs notable for leuko cytosis, elevated creatinine, and anemia. He was given IV Rocephin and azithromycin, 40 mg IV Lasix in the ED and admitted for further management. Hospital Course: Patient admitted to the medical floor and treated for CHF exacerbation with IV Lasix. Was also treated for pneumonia with IV Zosyn and Rocephin. Patient diuresed well with IV Lasix. He initially required oxygen but this was eventually weaned off oxygen as his respiratory status improved. His serum creatinine trended up but relatively stable with the IV Lasix. Patient was seen by nephrology will follow with his renal function. Patient has clinically improved and back to baseline. Renal function is close to baseline per nephrology. Patient is discharged with his usual bumetanide dose. He is also prescribed Levaquin to continue treatment for community-acquired pneumonia. He will follow with nephrology-Dr. Hart next week for recheck of his renal panel. Vital Signs/Physical Exam: Temp Pulse Resp BP Pulse Ox 97 F 80 20 125/62 93 01/19/21 08:00 01/19/21 10:25 01/19/21 08:00 01/19/21 10:25 01/19/21 08:00 General: Alert, In no apparent distress, Oriented x3, Obese HEENT: Mucous membr. moist/pink Neck: Supple, JVD not distended Respiratory: Clear to auscultation bilaterally, Normal air movement Cardiovascular: Edema (2+ bilateral lower extremity edema) Gastrointestinal: Normal bowel sounds, Soft and benign, Non-distended Musculoskeletal: Swelling (Bilateral feet) Neurological: Normal strength at 5/5 x4 extr Laboratory Data at Discharge: WBC 9.40 K/uL (4.3-10.9) D 01/19/21 05:49 Hgb 9.0 g/dL (13.6-17.9) L 01/19/21 05:49 Hct 27.8 % (39.6-49.0) L 01/19/21 05:49 Plt Count 212 K/uL (152-406) 01/19/21 05:49 PT 20.9 SECONDS (9.5-12.5) H 01/15/21 11:34 INR 1.81 01/15/21 11:34 APTT 33.7 SECONDS (24.3-36.9) 01/15/21 11:34 Sodium 141 mmol/L (136-145) 01/19/21 05:49 Potassium 4.3 mmol/L (3.5-5.1) 01/19/21 05:49 BUN 51 mg/dL (7-18) H 01/19/21 05:49 Creatinine 2.35 mg/dL (0.55-1.3) H 01/19/21 05:49 Glucose 285 mg/dL (74-106) H 01/19/21 05:49 Phosphorus 3.8 mg/dL (2.5-4.9) 01/19/21 05:49 Magnesium 2.1 mg/dL (1.8-2.4) 01/18/21 05:23 Total Bilirubin 0.4 mg/dL (0.2-1.0) 01/18/21 05:23 AST 19 U/L (15-37) 01/18/21 05:23 ALT 31 U/L (12-78) 01/18/21 05:23 Alkaline Phosphatase 107 U/L (45-117) 01/18/21 05:23 Home Medications: Apixaban [Eliquis] 5 mg PO BID 07/21/20 Aspirin Chewable [Aspirin Chewable*] 81 mg PO DAILY 07/21/20 Atorvastatin Calcium 40 mg PO BEDTIME 07/21/20 Bumetanide 1 mg PO DAILY 07/21/20 Carvedilol [Coreg] 25 mg PO BID 07/21/20 Cyanocobalamin (Vitamin B-12) [Vitamin B12] 1,000 mcg PO DAILY 07/21/20 Ferrous Sulfate 325 mg PO DAILY 07/21/20 Liraglutide [Victoza 2-David] 20 units SQ BEDTIME 07/21/20 Pantoprazole [Protonix Tab*] 40 mg PO ACB 07/21/20 Pregabalin 75 mg PO TID 07/21/20 Sertraline [Zoloft*] 50 mg PO DAILY 07/21/20 Tramadol HCl [Ultram] 50 mg PO TID 07/21/20 Benzonatate [Tessalon Perle*] 100 mg PO Q6H PRN #30 cap 01/19/21 Guaifen W/Codeine Syrup [ROBITUSSIN A-C Syrup*] 5 ml PO QID PRN #30 ucup 01/19/21 levoFLOXacin [Levaquin] 750 mg PO DAILY #5 tab 01/19/21 New Medications: levoFLOXacin [Levaquin] 750 mg PO DAILY #5 tab Guaifen W/Codeine Syrup [ROBITUSSIN A-C Syrup*] 5 ml PO QID PRN #30 ucup PRN Reason: Cough Benzonatate [Tessalon Perle*] 100 mg PO Q6H PRN #30 cap PRN Reason: Cough Diet: AHA Activity: Fall precautions Followup: Migue Hart, DO [ACTIVE - CAN ADMIT] - 1 Week NONE,NONE [Primary Care Provider] - 1 Week Time spent managing pt's care (in minutes): 32
[2021-01-19 15:45] VITALS: TEMP 98.6
[2021-01-19] MEDS: POTASSIUM CL SA 10 MEQ TAB PO SCH (16:54)
[2021-01-19 16:57] VITALS: BP 136/65
[2021-01-19 17:23] VITALS: O2SAT 93
--- NOTE | 2021-01-19 22:39 | P.PN ---
Date of Service: 01/19/21 Vital Signs Temp Pulse Resp BP Pulse Ox 98.6 F 84 20 136/65 95 01/19/21 12:00 01/19/21 16:52 01/19/21 12:00 01/19/21 16:52 01/19/21 12:00 Microbiology Results 01/15/21 11:46 Blood - Blood Aerobic Blood Culture - Preliminary No growth in 24 hours. 01/15/21 11:46 Blood - Blood Anaerobic Blood Culture - Preliminary No growth in 24 hours. 01/15/21 11:34 Blood - Blood Aerobic Blood Culture - Preliminary No growth in 24 hours. 01/15/21 11:34 Blood - Blood Anaerobic Blood Culture - Preliminary No growth in 24 hours. Assessment/ Plan: Nephrology No acute cardiac or pulmonary complaints. No CP or SOB. Persistent edema. No acute events overnight. Vitals, medications, blood work and imaging reviewed in the chart. NAD. MMM. Neck supple. CTA. RRR. Soft Abd. No C/C. LE Edema 1+. No rash. AAO. Normal Speech. A/P: Continue the current POC and Medications other than the changes listed. AM Labs PRN. Recommend daily weight. Please see the orders for complete details. CKD IV -No NSAIDs -Continue furosemide HTN with CKD/ CHF -Continue Coreg Diastolic CHF, A/C -Low sodium diet -Continue furosemide Anemia in chronic illness -Recommend retacrit
[2021-02-11] MEDS ORDERED: ALBUTEROL 2.5 MG/3 ML NEB SOL ONE (20:52)
== END 2021-01-19 17:57 | disposition home or self-care (01) | DRG 291 ==
LOC: ER 11:22 → ERHOLD 14:37 → 2ND 15:16
PROVIDERS: ADMIT Hospitalist; ATTEND Internal Medicine
DX: I13.0 Hypertensive heart and chronic kidney disease with heart failure and stage 1 through stage 4 chronic kidney disease, or unspecified chronic kidney disease (principal); J18.9 Pneumonia, unspecified organism; J96.01 Acute respiratory failure with hypoxia; I50.33 Acute on chronic diastolic (congestive) heart failure; R65.10 Systemic inflammatory response syndrome (SIRS) of non-infectious origin without acute organ dysfunction; N18.4 Chronic kidney disease, stage 4 (severe); E11.22 Type 2 diabetes mellitus with diabetic chronic kidney disease; E11.65 Type 2 diabetes mellitus with hyperglycemia; E11.51 Type 2 diabetes mellitus with diabetic peripheral angiopathy without gangrene; D72.829 Elevated white blood cell count, unspecified; D63.1 Anemia in chronic kidney disease; G47.33 Obstructive sleep apnea (adult) (pediatric); E78.5 Hyperlipidemia, unspecified; I25.118 Atherosclerotic heart disease of native coronary artery with other forms of angina pectoris; F32.9 Major depressive disorder, single episode, unspecified; I25.2 Old myocardial infarction; I48.0 Paroxysmal atrial fibrillation; E66.01 Morbid (severe) obesity due to excess calories; Z68.34 Body mass index [BMI] 34.0-34.9, adult; Z79.01 Long term (current) use of anticoagulants; Z79.82 Long term (current) use of aspirin; Z95.5 Presence of coronary angioplasty implant and graft; Z79.899 Other long term (current) drug therapy; Z86.73 Personal history of transient ischemic attack (TIA), and cerebral infarction without residual deficits; Z90.49 Acquired absence of other specified parts of digestive tract; Z20.822 Contact with and (suspected) exposure to COVID-19
CPT/HCPCS: 0240U; 36415; 71045; 80048; 80053; 80069; 80076; 81003; 82947; 83605; 83735; 83880; 84100; 84145; 84439; 84443; 84484; 85025; 85610; 85730; 87040; 93005; 94760; 96365; 96375; 97110; 97161; 97530; 99285; J0456; J0696; J1815; J1940; J3475; J7050; Q5106

== ENCOUNTER 2021-02-11 20:34 | Inpatient (IN) | payer OTHER ==
[2021-02-11] MEDS ORDERED: IPRATROPIUM BROM 0.5MG/2.5ML ONE (20:52)
[2021-02-11] MEDS ORDERED: FUROSEMIDE 40 MG/4 ML VIAL ONE (20:54)
[2021-02-11 21:07] LABS: Arterial Blood Carboxyhemoglob 1.5 % (0-1.5); Blood Gas Oxyhemoglobin 97.1 % (94-97); Blood O2 Saturation 99.8 % (92-98.5)
[2021-02-11 21:08] LABS: Absolute Lymphocytes (CBC) 2.3 K/uL (0.7-4.9); Basophils % 0.9 % (0-1.3); Hematocrit 32.7 % (39.6-49.0); Lymphocytes % 17.3 % (15.3-44.8); MPV 11.6 fL (7.6-11.3); RBC Red Blood Cell Count 3.52 M/uL (4.33-5.43)
--- OUTSIDE RECORDS SUMMARY | 2021-02-11 21:08 | XMS REPORT | Continuity of Care Document ---
:1945 Author Organization [facility] t Address [address] [place] [address] Care Team Providers Name Role Phone Unavailable Unavailable Unavailable Payers Payer Name Policy Type Policy Number Effective Date Expiration Date S ource Problems This patient has no known problems. Allergies, Adverse Reactions, Alerts This patient has no known allergies or adverse reactions. Medications This patient has no known medications. Procedures Procedure Date / Time Performed Performing Clinician [facility] omne [id number] 2020-05-04 00:00:00 LORIEKY [id number] 2020-05-04 00:00:00 ENCKY [id number] 2020-05-04 00:00:00 ENCKY [id number] 2020-05-04 00:00:00 ENCKY [id number] 2020-05-04 00:00:00 ENCKY [id number] 2020-05-04 00:00:00 ENCKY [id number] 2020-05-04 00:00:00 ENCKY [id number] 2020-05-04 00:00:00 ENCKY [id number] 2020-05-04 00:00:00 LORIEKY Encounters Start End Encounter Admission Attending Care Care Encounter Source Date/Time Date/Time Type Type Clinicians Facility Department ID 2020-05-05 Outpatient READMISSIO EN[facility]LR ENCCLR [id number] ENCCLR 20:57:26 N Results This patient has no known results.
[2021-02-11 21:14] LABS: Protime INR 1.69
[2021-02-11 21:29] LABS: ALT/SGPT 15 U/L (12-78); AST/SGOT 13 U/L (15-37); Albumin 3.5 g/dL (3.4-5.0); Alkaline Phosphatase 145 U/L (45-117); BUN Blood Urea Nitrogen 32 mg/dL (7-18); Bicarbonate 30 mmol/L (21-32); Bilirubin Direct 0.1 mg/dL (0-0.2); Bilirubin Total 0.4 mg/dL (0.2-1.0); Glucose Level 265 mg/dL (74-106); NT PRO-BNP 5726 pg/mL (<450); Potassium 5.4 mmol/L (3.5-5.1); Protein, Total 7.5 g/dL (6.4-8.2); Sodium Level 144 mmol/L (136-145); Troponin (Emerg Dept Use Only) < 0.02 ng/mL (0.0-0.045)
--- NOTE | 2021-02-11 22:01 | ER ---
Nurse's Notes [facility] Name: Tyrone Vaughn Age: 75 yrs Sex: Male : 1945 Arrival Date: 02/11/2021 Time: 20:42 Bed 3 Private MD: Diagnosis: Acute combined systolic (congestive) and diastolic (congestive) heart failure;Pleural Effusion, Right Presentation: 02/11 20:30 Chief complaint: EMS states: complaining of shortness of breath started an hour ago. rr5 SPO2 92% on RA still complaining of SOB hooked to NRM 15L 98-100% history of CHF. 20:30 Coronavirus screen: Client denies travel out of the [place] in the last 14 days. rr5 difficulty breathing, shortness of breath, Client presents with at least one sign or symptom that may indicate coronavirus-19. Standard/surgical mask placed on the client. Provider contacted for isolation considerations. Ebola Screen: Patient negative for fever greater than or equal to 101.5 degrees Fahrenheit, and additional compatible Ebola Virus Disease symptoms Patient denies exposure to infectious person. Patient denies travel to an Ebola-affected area in the 21 days before illness onset. Initial Sepsis Screen: Does the patient meet any 2 criteria? RR > 20 per min. HR > 90 bpm. Does the patient have a suspected source of infection? Yes: Productive cough/pneumonia. Risk Assessment: Do you want to hurt yourself or someone else? Patient reports no desire to harm self or others. Onset of symptoms was February 11, 2021. 20:30 Method Of Arrival: EMS: [facility] rr5 20:30 Acuity: WESLEY 2 rr5 Triage Assessment: 20:30 General: Appears distressed, uncomfortable, ill, Behavior is cooperative. Respiratory: rr5 Reports shortness of breath Onset: The symptoms/episode began/occurred gradually, the patient has severe shortness of breath. Historical: - Allergies: 20:46 No Known Allergies; rr5 - PMHx: 20:46 Anxiety; Atrial Fib; CAD; CHF; Diabetes - IDDM; heart problem; High Cholesterol; rr5 Hypertension; Myocardial infarction; neuropathy; Sleep Apnea; - Immunization history:: Adult Immunizations unknown. - Social history:: Smoking status: unknown. Screenin:30 Abuse screen: Denies threats or abuse. Denies injuries from another. Nutritional rr5 screening: No deficits noted. Tuberculosis screening: No symptoms or risk factors identified. Fall Risk IV access (20 points). Gait- Impaired (20 pts.). Mental Status- Oriented to own ability (0 pts). Total Quesada Fall Scale indicates Low Risk Score (25-44 pts). Fall prevention measures have been instituted. Side Rails Up X 2 Frequent Obs/Assesments occuring As available Patient and Family Educated on Fall Prevention Program and strategies. Assessment: 20:30 General: Appears distressed, uncomfortable, ill, Behavior is cooperative, ED provider rr5 at bedside, RT hooked to BIPAP. 20:30 Pain: Denies pain. Neuro: Level of Consciousness is awake, alert, obeys commands, rr5 Oriented to person, place, time. Cardiovascular: Capillary refill < 3 seconds Edema pitting to left foot and right foot Rhythm is sinus tachycardia. Respiratory: Reports shortness of breath labored breathing Airway is patent Respiratory effort is labored, Respiratory pattern is regular, symmetrical, tachypnea Breath sounds with crackles. GI: Abdomen is round. Derm: Skin is pale, Skin temperature is cold. Musculoskeletal: Capillary refill < 3 seconds, Swelling present in right leg and left leg. 21:00 Reassessment: Patient appears in no apparent distress at this time. Patient is alert, rr5 oriented x 3, equal unlabored respirations, skin warm/dry/pink. stated he feels relieved after the BIPAP machine. 21:30 Reassessment: hospitalist at bedside discontinued GTN drip BP on the 90's systolic. rr5 22:30 Reassessment: Patient appears in no apparent distress at this time. Patient is alert, rr5 oriented x 3, equal unlabored respirations, skin warm/dry/pink. shift to NRM at 15 liters/ min Patient states feeling better. Patient states symptoms have improved. 22:40 Reassessment: hospitalist informed for the BP, with verbal order with read back, lasix rr5 20 mg/IV one dose. Vital Signs: 20:30 BP 175 / 101; Pulse 116; Resp 38; Temp 97.9; Pulse Ox 100% on 15% Non-rebreather mask; rr5 Weight 102.06 kg; Pain 0/10; 21:00 BP 147 / 89; Pulse 97; Resp 24; Pulse Ox 100% on 100% Mask: BiPAP; rr5 21:00 BP 165 / 95; Pulse 115; Resp 28; Pulse Ox 100% on 100% BiPAP; rr5 21:30 BP 92 / 62; Pulse 90; Resp 19; Pulse Ox 100% on 100% BiPAP; rr5 22:30 BP 117 / 105; Pulse 98; Resp 19; Pulse Ox 98% on 15% Non-rebreather mask; rr5 22:40 BP 136 / 90; Pulse 95; Resp 19; Pulse Ox 99% on 15% Non-rebreather mask; rr5 23:17 BP 130 / 76; Pulse 96; Resp 21; Pulse Ox 100% on 15% Non-rebreather mask; rr5 23:35 BP 112 / 70; Pulse 103; Resp 17; Temp 98; Pulse Ox 100% on 4 lpm NC; rr5 ED Course: 20:30 Patient has correct armband on for positive identification. Placed in gown. Bed in low rr5 position. Call light in reach. Side rails up X2. 20:30 monitoring manager on. Pulse ox on. NIBP on. rr5 20:30 Inserted saline lock: 22 gauge antecubital area, using aseptic technique. ,using rr5 aseptic technique. inserted by dominique. 20:42 Patient arrived in ED. rr5 20:44 Kelvin Kwong MD is Attending Physician. 7 20:45 Triage completed. rr5 20:46 Arslan Tompkins, RN is Primary Nurse. rr5 20:46 Arm band placed on right wrist. rr5 21:17 XRAY Chest (1 view) In Process Unspecified. EDMS 21:20 COVID swab sent to lab. rr5 21:58 Arslan Robles MD is Hospitalizing Provider. mh7 22:51 Inserted saline lock: 20 gauge in right antecubital area, using aseptic technique. oe Blood collected. 23:17 Tamayo cath inserted, using sterile technique, 16 Fr., by ia, balloon inflated, to rr5 gravity drainage, urine specimen collected. 23:45 No provider procedures requiring assistance completed. Patient admitted, IV remains in rr5 place. intact, No redness/swelling at site. Administered Medications: 20:33 Drug: Lasix (furosemide) 40 mg Route: IVP; Site: right forearm; rr5 21:30 Follow up: Response: No adverse reaction rr5 20:34 Drug: Albuterol 2.5 mg Route: Inhalation; rr5 21:30 Follow up: Response: No adverse reaction rr5 20:34 Drug: AtroVENT (ipratropium) Aerosol 0.5 mg Route: Inhalation; rr5 21:30 Follow up: Response: No adverse reaction; Marked relief of symptoms rr5 20:37 Drug: Nitroglycerin 5 mcg/min {Note: started at 40 mcg/min.} Route: IV; Rate: rr5 calculated rate; Site: right forearm; 21:00 Follow up: BP 147 / 89; Pulse 97 bpm; Resp 24 bpm; Pulse Ox 100% 100% Mask: BiPAP; Rate rr5 change 20 mcg/min 21:30 Follow up: Response: Blood pressure is lowered; IV Status: Order to discontinue infusionrr5 22:30 Drug: Rocephin (cefTRIAXone) 1 grams Route: IV; Rate: per protocol; Site: right rr5 antecubital; 22:50 Follow up: Response: No adverse reaction; IV Status: Completed infusion; IV Intake: [id number] 22:50 Dru mg of (Zithromax (azithromycin) 500 mg, NS 0.9% 250 ml) Route: IVPB; Infused rr5 Over: 1 hrs; Site: right antecubital; 23:41 Follow up: Response: No adverse reaction; IV Status: Infusion continued upon admission rr5 23:17 Drug: Lasix (furosemide) 20 mg Route: IVP; Site: left antecubital; rr5 23:40 Follow up: Response: No adverse reaction rr5 Intake: 22:50 IV: 10ml; Total: 10ml. rr5 Outcome: 22:00 Decision to Hospitalize by Provider. mh7 23:40 Admitted to Med/surg accompanied by tech, via stretcher, with oxygen, with chart, rr5 Report called to carar 23:40 Condition: stable rr5 23:40 Instructed on the need for admit. 23:45 Patient left the ED. rr5 Signatures: Dispatcher [employer] EDMS Gage Cotter Raymond RN RN rr5 Kelvin Kwong MD MD 7
--- NOTE | 2021-02-11 22:01 | EDPHYS ---
Physician Documentation [facility] Name: Tyrone Vaughn Age: 75 yrs Sex: Male : 1945 Arrival Date: 02/11/2021 Time: 20:42 Bed 3 Private MD: ED Physician Kelvin Kwong HPI: 02/11 21:53 This 75 yrs old Male presents to ER via EMS with complaints of Respiratory mh7 Distress. 21:53 The patient has shortness of breath at rest. Onset: The symptoms/episode began/occurred mh7 today. Duration: The symptoms are continuous, and are steadily getting worse. The patient's shortness of breath is aggravated by nothing, is alleviated by nothing. Associated signs and symptoms: Pertinent negatives: chest pain, non-productive cough, productive cough, diaphoresis, dizziness, fever, hemoptysis, loss of consciousness, nausea, numbness in extremities, visual changes, vomiting. Severity of symptoms: At their worst the symptoms were severe today, in the emergency department the symptoms have improved moderately. Historical: - Allergies: 20:46 No Known Allergies; rr5 - PMHx: 20:46 Anxiety; Atrial Fib; CAD; CHF; Diabetes - IDDM; heart problem; High Cholesterol; rr5 Hypertension; Myocardial infarction; neuropathy; Sleep Apnea; - Immunization history:: Adult Immunizations unknown. - Social history:: Smoking status: unknown. ROS: 21:53 Constitutional: Negative for fever, chills, and weight loss, Eyes: Negative for injury, mh7 pain, redness, and discharge, ENT: Negative for injury, pain, and discharge, Neck: Negative for injury, pain, and swelling, Cardiovascular: Negative for chest pain, palpitations, and edema, Abdomen/GI: Negative for abdominal pain, nausea, vomiting, diarrhea, and constipation, Back: Negative for injury and pain, : Negative for injury, bleeding, discharge, and swelling, MS/Extremity: Negative for injury and deformity, Skin: Negative for injury, rash, and discoloration, Neuro: Negative for headache, weakness, numbness, tingling, and seizure, Psych: Negative for depression, anxiety, suicide ideation, homicidal ideation, and hallucinations, Allergy/Immunology: Negative for hives, rash, and allergies, Endocrine: Negative for neck swelling, polydipsia, polyuria, polyphagia, and marked weight changes, Hematologic/Lymphatic: Negative for swollen nodes, abnormal bleeding, and unusual bruising. Exam: 21:53 Head/Face: Normocephalic, atraumatic. Eyes: Pupils equal round and reactive to light, mh7 extra-ocular motions intact. Lids and lashes normal. Conjunctiva and sclera are non-icteric and not injected. Cornea within normal limits. Periorbital areas with no swelling, redness, or edema. Neck: Trachea midline, no thyromegaly or masses palpated, and no cervical lymphadenopathy. Supple, full range of motion without nuchal rigidity, or vertebral point tenderness. No Meningismus. Chest/axilla: Normal chest wall appearance and motion. Nontender with no deformity. No lesions are appreciated. Cardiovascular: Regular rate and rhythm with a normal S1 and S2. No gallops, murmurs, or rubs. Normal PMI, no JVD. No pulse deficits. 21:53 Abdomen/GI: Soft, non-tender, with normal bowel sounds. No distension or tympany. No guarding or rebound. No evidence of tenderness throughout. Back: No spinal tenderness. No costovertebral tenderness. Full range of motion. Skin: Warm, dry with normal turgor. Normal color with no rashes, no lesions, and no evidence of cellulitis. 21:53 MS/ Extremity: Pulses equal, no cyanosis. Neurovascular intact. Full, normal range of motion. Neuro: Awake and alert, GCS 15, oriented to person, place, time, and situation. Cranial nerves II-XII grossly intact. Motor strength 5/5 in all extremities. Sensory grossly intact. Cerebellar exam normal. Normal gait. Psych: Awake, alert, with orientation to person, place and time. Behavior, mood, and affect are within normal limits. 21:53 Constitutional: The patient appears alert, awake, in obvious distress, moderately distressed. 21:53 Cardiovascular: Edema: 3+ edema to level of , pedal edema, that is moderate. 21:53 Respiratory: moderate respiratory distress is noted, Respirations: prolonged exhalation, that is moderate, tachypnea, that is moderate, Breath sounds: rales, that are moderate, are scattered, rhonchi, that are moderate, are scattered, Respiratory rate: 34 21:53 Musculoskeletal/extremity: Vital Signs: 20:30 BP 175 / 101; Pulse 116; Resp 38; Temp 97.9; Pulse Ox 100% on 15% Non-rebreather mask; rr5 Weight 102.06 kg; Pain 0/10; 21:00 BP 147 / 89; Pulse 97; Resp 24; Pulse Ox 100% on 100% Mask: BiPAP; rr5 21:00 BP 165 / 95; Pulse 115; Resp 28; Pulse Ox 100% on 100% BiPAP; rr5 21:30 BP 92 / 62; Pulse 90; Resp 19; Pulse Ox 100% on 100% BiPAP; rr5 22:30 BP 117 / 105; Pulse 98; Resp 19; Pulse Ox 98% on 15% Non-rebreather mask; rr5 22:40 BP 136 / 90; Pulse 95; Resp 19; Pulse Ox 99% on 15% Non-rebreather mask; rr5 23:17 BP 130 / 76; Pulse 96; Resp 21; Pulse Ox 100% on 15% Non-rebreather mask; rr5 23:35 BP 112 / 70; Pulse 103; Resp 17; Temp 98; Pulse Ox 100% on 4 lpm NC; rr5 MDM: 21:53 Differential diagnosis: Anemia Anxiety Reaction asthma, Bronchitis CHF exacerbation, 7 Chronic Obstructive Pulmonary Disease Myocardial Infarction pneumonia, Psychogenic pulmonary edema, reactive airway disease. Data reviewed: vital signs, nurses notes, EMS record, old medical records, lab test result(s), cardiac enzymes, CBC, electrolytes, EKG, radiologic studies, plain films. Data interpreted: Pulse oximetry: on BiPAP is 100 %. Interpretation: acceptable. Counseling: I had a detailed discussion with the patient and/or guardian regarding: the historical points, exam findings, and any diagnostic results supporting the discharge/admit diagnosis, the presence of at least one elevated blood pressure reading (>120/80) during this emergency department visit, lab results, radiology results, the need for further work-up and treatment in the hospital. Response to treatment: the patient's symptoms have markedly improved after treatment. 22:00 Patient medically screened. [facility] 02/11 20:44 Order name: Basic Metabolic Panel [facility] 02/11 20:44 Order name: CBC with Diff; Complete Time: 21:29 [facility] 02/11 20:44 Order name: LFT's; Complete Time: 21:49 [facility] 02/11 20:44 Order name: Magnesium; Complete Time: 21:49 [facility] 02/11 20:44 Order name: NT PRO-BNP; Complete Time: 21:49 [facility] 02/11 20:44 Order name: PT-INR; Complete Time: 21:49 [facility] 02/11 20:44 Order name: Troponin (emerg Dept Use Only); Complete Time: 21:49 [facility] 02/11 20:45 Order name: Basic Metabolic Panel; Complete Time: 21:49 [facility] 02/11 20:46 Order name: Arterial Blood Gas; Complete Time: 21:29 [facility] 02/11 21:50 Order name: SARS-COV-2 RT PCR; Complete Time: 21:52 [facility] 02/11 21:51 Order name: Blood Culture Adult (2) [facility] 02/11 21:51 Order name: Lactate [facility] 02/11 21:51 Order name: Procalcitonin [facility] 02/11 20:44 Order name: XRAY Chest (1 view) [facility] 02/11 20:44 Order name: EKG; Complete Time: 20:45 [facility] 02/11 21:52 Order name: Blood Culture [facility] 02/11 21:52 Order name: Lactate; Complete Time: 23:26 [facility] 02/11 21:52 Order name: Procalcitonin [facility] 02/11 23:14 Order name: Urine Dipstick-Ancillary; Complete Time: 23:26 [facility] 02/11 23:19 Order name: Urine Microscopic Only [facility] 02/11 23:33 Order name: Urine Microscopic Only [facility] 02/11 23:37 Order name: BIPAP [facility] 02/11 20:44 Order name: Cardiac monitoring; Complete Time: 20:46 [facility] 02/11 20:44 Order name: EKG - Nurse/Tech; Complete Time: 20:46 [facility] 02/11 20:44 Order name: IV Saline Lock; Complete Time: 20:49 [facility] 02/11 20:44 Order name: Labs collected and sent; Complete Time: 20:49 [facility] 02/11 20:44 Order name: O2 Per Protocol; Complete Time: 20:49 [facility] 02/11 20:44 Order name: O2 Sat Monitoring; Complete Time: 20:49 [facility] 02/11 20:45 Order name: Urine Dipstick-Ancillary (obtain specimen); Complete Time: 23:45 [facility] 02/11 23:15 Order name: Roni; Complete Time: 23:15 rr5 Administered Medications: 20:33 Drug: Lasix (furosemide) 40 mg Route: IVP; Site: right forearm; rr5 21:30 Follow up: Response: No adverse reaction rr5 20:34 Drug: Albuterol 2.5 mg Route: Inhalation; rr5 21:30 Follow up: Response: No adverse reaction rr5 20:34 Drug: AtroVENT (ipratropium) Aerosol 0.5 mg Route: Inhalation; rr5 21:30 Follow up: Response: No adverse reaction; Marked relief of symptoms rr5 20:37 Drug: Nitroglycerin 5 mcg/min {Note: started at 40 mcg/min.} Route: IV; Rate: rr5 calculated rate; Site: right forearm; 21:00 Follow up: BP 147 / 89; Pulse 97 bpm; Resp 24 bpm; Pulse Ox 100% 100% Mask: BiPAP; Rate rr5 change 20 mcg/min 21:30 Follow up: Response: Blood pressure is lowered; IV Status: Order to discontinue infusionrr5 22:30 Drug: Rocephin (cefTRIAXone) 1 grams Route: IV; Rate: per protocol; Site: right rr5 antecubital; 22:50 Follow up: Response: No adverse reaction; IV Status: Completed infusion; IV Intake: [id number] 22:50 Dru mg of (Zithromax (azithromycin) 500 mg, NS 0.9% 250 ml) Route: IVPB; Infused rr5 Over: 1 hrs; Site: right antecubital; 23:41 Follow up: Response: No adverse reaction; IV Status: Infusion continued upon admission rr5 23:17 Drug: Lasix (furosemide) 20 mg Route: IVP; Site: left antecubital; rr5 23:40 Follow up: Response: No adverse reaction rr5 Disposition: 02/11/21 22:00 Hospitalization ordered by Arslan Robles for Inpatient Admission. Preliminary diagnosis are Acute combined systolic (congestive) and diastolic (congestive) heart failure, Pleural Effusion, Right. - Bed requested for Telemetry/MedSurg (Inpatient). - Status is Inpatient Admission. rr5 - Condition is Stable. - Problem is an acute exacerbation. - Symptoms have improved. Signatures: Dispatcher [employer] EDMS Abelardo Basilio FNP-C WELDING MACHINE OPERATOR THERMIT-Cla1 Carlyn Mcgrath, RN RN cg Arslan Tompkins RN RN rr5 Kelvin Kwong MD MD 7 Corrections: (The following items were deleted from the chart) 22:33 22:00 Hospitalization Ordered by Arslan Robles MD for Inpatient Admission. Preliminary cg diagnosis is Acute combined systolic (congestive) and diastolic (congestive) heart failure; Pleural Effusion, Right. Bed requested for Telemetry/MedSurg (Inpatient). Status is Inpatient Admission. Condition is Stable. Problem is an acute exacerbation. Symptoms have improved. 7 23:45 22:33 02/11/2021 22:00 Hospitalization Ordered by Arslan Robles MD for Inpatient rr5 Admission. Preliminary diagnosis is Acute combined systolic (congestive) and diastolic (congestive) heart failure; Pleural Effusion, Right. Bed requested for Telemetry/MedSurg (Inpatient). Status is Inpatient Admission. Condition is Stable. Problem is an acute exacerbation. Symptoms have improved. cg
[2021-02-11] MEDS ORDERED: NA CHLORIDE 0.9% 250 ML ONE (22:33)
[2021-02-11] MEDS ORDERED: AZITHROMYCIN 500 MG INJ IVPB ONE (22:33)
[2021-02-11] MEDS ORDERED: CEFTRIAXONE/SWI 1gm 1 GM/10 ML SYR ONE (22:33)
[2021-02-11 23:14] LABS: Urine Blood Negative (Negative); Urine Glucose Negative (Negative); Urine Protein Negative (Negative)
--- NOTE | 2021-02-11 23:29 | P.HP ---
Certification for Inpatient Patient admitted to: Inpatient With expected LOS: >2 Midnights Patient will require the following post-hospital care: None Practitioner: I am a practitioner with admitting privileges, knowledge of patient current condition, hospital course, and medical plan of care. Services: Services provided to patient in accordance with Admission requirements found in Title 42 Section 412.3 of the Code of Federal Regulations Patient History Date of Service: 02/11/21 Reason for admission: CHF exacerbation History of Present Illness: 75-year-old male with history of chronic diastolic congestive heart failure, atrial fibrillation, CAD, hypertension, diabetes mellitus type 2, MARY, CKD 4 presents emergency department for shortness of breath. Upon arrival patient was placed on BiPAP for respiratory distress, patient was also significantly hypertensive and placed on nitroglycerin drip. Further evaluation significant for labs white blood cell count 13.0 hemoglobin 10.5 hematocrit 32.7 potassium 5.4 chloride 110 BUN 32 creatinine 1.76 GFR 38 glucose 265 lactic acid 1.4 BNP 5726 chest x-ray appears to show pulmonary edema with possible pneumonia at the lung base. Patient was started on Rocephin/Zithromax. Tamayo catheter is place. Vital signs improved significantly in respiratory distress also improved, ED provider wishes to admit for further evaluation and management of CHF exacerbation, possible pneumonia, hyperkalemia. Allergies No Known Allergies Allergy (Verified 07/21/20 01:35) Home Medications: Apixaban [Eliquis] 5 mg PO BID 07/21/20 Aspirin Chewable [Aspirin Chewable*] 81 mg PO DAILY 07/21/20 Atorvastatin Calcium 40 mg PO BEDTIME 07/21/20 Bumetanide 1 mg PO DAILY 07/21/20 Carvedilol [Coreg] 25 mg PO BID 07/21/20 Cyanocobalamin (Vitamin B-12) [Vitamin B12] 1,000 mcg PO DAILY 07/21/20 Ferrous Sulfate 325 mg PO DAILY 07/21/20 Liraglutide [Victoza 2-David] 20 units SQ BEDTIME 07/21/20 Pantoprazole [Protonix Tab*] 40 mg PO ACB 07/21/20 Pregabalin 75 mg PO TID 07/21/20 Sertraline [Zoloft*] 50 mg PO DAILY 07/21/20 Tramadol HCl [Ultram] 50 mg PO TID 07/21/20 Benzonatate [Tessalon Perle*] 100 mg PO Q6H PRN #30 cap 01/19/21 Guaifen W/Codeine Syrup [ROBITUSSIN A-C Syrup*] 5 ml PO QID PRN #30 ucup 01/19/21 levoFLOXacin [Levaquin] 750 mg PO DAILY #5 tab 01/19/21 - Past Medical/Surgical History Diabetic: Yes -: HTN -: 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 Children-3. Retired in 1961, [employer] of [employer]. - Family History Father -: Hypertension, Stroke Mother -: Heart disease - Social History Smoking Status: Never smoker Alcohol use: No CD- Drugs: No Caffeine use: Yes Place of Residence: Home Review of Systems 10-point ROS is otherwise unremarkable Respiratory: Shortness of Breath, SOB with Excertion, As per HPI Cardiovascular: Orthopnea, Edema, As per HPI Physical Examination - Physical Exam General: Alert, In no apparent distress, Oriented x3 HEENT: Atraumatic, Normocephalic, PERRLA Neck: Supple Respiratory: Crackles/rales (Bilaterally moderate) Cardiovascular: Regular rate/rhythm, Normal S1 S2, Edema (3+ pitting edema bilateral lower extremities) Capillary refill: <2 Seconds Gastrointestinal: Normal bowel sounds, No tenderness, No masses, No rebound Musculoskeletal: No contractures, No erythema, No tenderness Integumentary: No breakdown, No significant lesion, No tenderness/swelling Neurological: Normal speech, Normal strength at 5/5 x4 extr, Normal tone - Studies Laboratory Data (last 24 hrs) 02/11/21 20:45: PT 19.5 H, INR 1.69 02/11/21 20:45: WBC 13.00 H, Hgb 10.5 L, Hct 32.7 L, Plt Count 129 L 02/11/21 20:45: Sodium 144, Potassium 5.4 H, BUN 32 H, Creatinine 1.76 H, Glucose 265 H, Magnesium 2.0, Total Bilirubin 0.4, AST 13 L, ALT 15, Alkaline Phosphatase 145 H Assessment and Plan - Plan Assessment Acute hypoxic respiratory failure secondary to acute on chronic diastolic congestive heart failure complicated with suspected pneumonia Atrial fibrillation on chronic anticoagulation therapy CKD 4 with hyperkalemia Normocytic anemia Diabetes mellitus type 2 with hyperglycemia Hypertension, hyperlipidemia, CAD Plan Acute hypoxic respiratory failure secondary to acute on chronic diastolic congestive heart failure complicated with suspected pneumonia: Patient unsure his home medications will continue with Lasix 40 mg IV t.i.d. at this time, Tamayo catheter inserted for strict intake/output/diuresis. 1500 cc per day fluid restriction, daily weights, cardiology consulted period. Last ech ocardiogram July 2020 demonstrates normal EF, patient had a heart catheterization July 2019 with stenting of the proximal LAD. White blood cell count mildly elevated at 13,000 questionable pneumonia on chest x-ray continue Rocephin Zithromax at this time. Blood cultures obtained. Continue patient's Eliquis for DVT prophylaxis. Atrial fibrillation on chronic anticoagulation therapy: Patient unsure of his home medications, will need to confirm medication/dose. Will reinitiate, patient previously on Eliquis 5 mg b.i.d.. CKD 4 with hyperkalemia: Initial potassium 5.4, Will continue with Lasix for diuresis, recheck potassium with morning labs, no acute EKG changes. Normocytic anemia: Transfuse to maintain hemoglobin greater than 8 Diabetes mellitus type 2 with hyperglycemia: A.c. HS Accu-Cheks, sliding scale insulin therapy. Hypertension, hyperlipidemia, CAD: Obtain and continue home medications as appropriate. Discharge Plan: Home Plan to discharge in: Greater than 2 days - Advance Directives Does patient have a Living Will: No Does patient have a Durable POA for Healthcare: No - Code Status/Comfort Care Code Status Assessed: Yes (Full code) Critical Care: No Time Spent Managing Pts Care (In Minutes): 55
[2021-02-11 23:32] LABS: Urine Bacteria <20 /HPF (NONE SEEN); Urine Mucus 1+ /HPF (NONE SEEN); Urine RBC NONE SEEN /HPF (NONE SEEN)
[2021-02-11] MEDS ORDERED: FUROSEMIDE 20 MG/ 2ML VIAL ONE (23:43)
[2021-02-12] MEDS ORDERED: ACETAMINOPHEN 500 MG TAB PO PRN (00:01)
[2021-02-12] MEDS ORDERED: ONDANSETRON 4 MG/2 ML VIAL IV PRN (00:01)
[2021-02-12 00:08] VITALS: BMI 37.0
[2021-02-12] MEDS ORDERED: GLUCAGON 1 MG/VIAL IM PRN (00:08)
[2021-02-12] MEDS ORDERED: D50W 25 GM/50 ML SYRINGE IV PRN (00:08)
[2021-02-12] MEDS: FUROSEMIDE 40 MG/4 ML VIAL IV SCH ×3 (00:15→17:41)
[2021-02-12] MEDS: PREGABALIN 75 MG CAP PO SCH ×2 (00:28→09:00)
[2021-02-12] MEDS: TRAMADOL HCL 50 MG TAB PO PRN ×2 (01:19→23:34)
[2021-02-12] MEDS ORDERED: CALCIUM GLUC 10% INJ 4.65 MEQ in NA CHLORIDE 0.9% 100 ML IV ONE (05:19)
[2021-02-12 05:36] LABS: Absolute Lymphocytes (CBC) 1.6 K/uL (0.7-4.9); Basophils % 0.5 % (0-1.3); Lymphocytes % 16.1 % (15.3-44.8); MPV 11.2 fL (7.6-11.3); RBC Red Blood Cell Count 3.14 M/uL (4.33-5.43)
[2021-02-12] MEDS ORDERED: CALCIUM GLUCONATE 1 GM IVPB 1 GM/50 ML BAG IV ONE (05:48)
[2021-02-12 06:04] LABS: ALT/SGPT 13 U/L (12-78); AST/SGOT 9 U/L (15-37); Albumin 3.2 g/dL (3.4-5.0); Alkaline Phosphatase 133 U/L (45-117); BUN Blood Urea Nitrogen 33 mg/dL (7-18); Bicarbonate 30 mmol/L (21-32); Bilirubin Total 0.4 mg/dL (0.2-1.0); Glucose Level 205 mg/dL (74-106); HDL Cholesterol 30 mg/dL (40-60); LDL Cholesterol, Calculated 41 (<130); Potassium 4.8 mmol/L (3.5-5.1); Protein, Total 6.5 g/dL (6.4-8.2); Sodium Level 143 mmol/L (136-145); Troponin I < 0.02 ng/mL (0.0-0.045)
[2021-02-12 06:38] LABS: Blood Morphology Comment NOT SEEN (NOT SEEN); Platelet Estimate ADEQ; White Blood Cell Scan OK (OK)
--- NOTE | 2021-02-12 07:47 | EKG ---
Test Date: 2021-02-11 Test Time: 20:39:22 Orthotics Assistant: HANK MEASUREMENT RESULTS: Intervals: Rate: 108 ID: [id number] QRSD: 106 QT: 344 QTc: 460 [place]: P: 63 ID: [id number] QRS: -5 T: 68 INTERPRETIVE STATEMENTS: Sinus tachycardia Septal infarct, age undetermined Abnormal ECG Compared to ECG 01/15/2021 11:36:54 No significant changes Electronically Signed On 02-12-21 07:46:12 CDT by Rohit Carvalho
[2021-02-12] MEDS: INSULIN -REGULAR HUMAN 50 UNIT/0.5 ML ML SQ SCH ×4 (08:26→20:47)
--- NOTE | 2021-02-12 08:38 | RAD REPORT ---
EXAM DESCRIPTION: Renan Single View02/11/2021 9:20 pm CLINICAL HISTORY: Shortness of breath COMPARISON: February 05, 2021 FINDINGS: Areas of subsegmental atelectasis left lung base. Right lung is hazy which may be secondary to infiltrate, atelectasis and/or small pleural effusion. Mild interstitial pulmonary edema is suspected bilaterally. Heart is mildly enlarged.
[2021-02-12] MEDS ORDERED: CEFTRIAXONE 1 GM/NS 50 ML 1 GM/50 ML BAG IV SCH (09:00)
[2021-02-12] MEDS: HEPARIN 5000 UNIT/ML 1 ML VIAL SQ SCH ×2 (09:01→20:43)
--- NOTE | 2021-02-12 09:43 | P.PN ---
Subjective Date of Service: 02/12/21 Chief Complaint: CHF exacerbation Subjective: Improving (slight improvement in respirations, still with significant edema, shortness of breath - requiring O2) Review of Systems 10-point ROS is otherwise unremarkable Physical Examination - Vital Signs Temperature: 97.7 F Blood Pressure: 125/73 Pulse: 93 Respirations: 18 Pulse Ox (%): 96 - Studies Laboratory Data (last 24 hrs) 02/11/21 20:45: PT 19.5 H, INR 1.69 02/11/21 20:45: WBC 13.00 H, Hgb 10.5 L, Hct 32.7 L, Plt Count 129 L 02/11/21 20:45: Sodium 144, Potassium 5.4 H, BUN 32 H, Creatinine 1.76 H, Glucose 265 H, Magnesium 2.0, Total Bilirubin 0.4, AST 13 L, ALT 15, Alkaline Phosphatase 145 H Assessment & Plan Physician Review Additional Text: Physical Exam Gen: NAD, AAOx3 HEENT: All conjunctiva, sclerae anicteric Pulmonary: Bilateral crackles, mild labored respirations on O2 Cardiac: Regular rate and rhythm, 2-3+ pitting edema bilaterally to the knees Abdomen: Soft, nontender, nondistended Integumentary: No rashes Neuro: no sensation to light touch bilateral lower legs up to knee Problem List Acute hypoxic respiratory failure secondary to acute on chronic diastolic congestive heart failure complicated with suspected pneumonia Atrial fibrillation on chronic anticoagulation therapy CKD 4 with hyperkalemia Normocytic anemia Diabetes mellitus type 2, insulin dependent, with neuropathy Hypertension HLD CAD s/p stent h/o CVA -patient in acute heart failure, possible pneumonia complicating the issue. on rocephin/azithro -diurese with IV Lasix, patient reports Bumex at home does not seem to be as effective anymore, will need to switch to Lasix on discharge -cardiology consulted, no further evaluation at this time, in agreement with switched to Lasix -CKD for with hyperkalemia, potassium improved this morning, nephrology consulted -Continue other home medications as appropriate, once confirmed -insulin sliding scale/accucheks VTE: Code: full Dispo: anticipate dc home in ~2 days, may need home O2 second hospitalization for similar within 1 month Time Spent Managing Pts Care (In Minutes): 35
[2021-02-12] MEDS ORDERED: D50W 25 GM/50 ML VIAL IV PRN (10:00)
--- NOTE | 2021-02-12 13:19 | CON ---
Admitted to Dr. Robles on 02/11/2021 for chest pain. I saw the patient DICTATION ENDS HERE. KANWAL/JASON Voice ID: [id number] Report ID: [id number]
--- NOTE | 2021-02-12 13:55 | CON ---
Date of Consultation: 02/12/2021 Admitted on 02/11/[address] Robles's service for congestive heart failure. I saw the patient on . History Of Present Illness: Mr. Vaughn is a 75-year-old Latin-Ira[place] male, he came in mostly with r espiratory distress that has been going on for 2 or 3 days. He did not have any chest pain or cough or fever or chills. Denies any nausea, vomiting, diaphoresis, palpitations, or syncope. Claim to be compliant with his medical regimen. Allergies: NONE. Past Medical History: Includes anxiety, atrial fibrillation, congestive heart failure, coronary srinath ry disease, diabetes, dyslipidemia, hypertension, sleep apnea and neuropathy. Review of Systems: Negative. Social History: Negative. Family History: Negative. Medications: At home supposed to be aspirin, Eliquis, Lipitor, bumetanide 1 mg daily, Coreg 25 mg b. i.d., iron, Victoza, Protonix, Lyrica, Zoloft, and Ultram. Physical Examination: General: He weighed 222 pounds. Vital Signs: Stable, afebrile. He was in sinus rhythm. Nasal cannula 3 L, 98% O2 saturation. HEENT: Negative. Neck: Supple with no bruit. Chest: Reveals some rales at both bases. Cardiac: Revealed a regular rhythm and rate with an S4 gallop. No murmurs or rubs. Abdomen: Benign but obese. Extremities: Revealed no clubbing, cyanosis. He does have 2+ edema. Diagnostic Data: Creatinine was 1.68, hemoglobin was 9.3. BNP was 5726 with a negative troponin. Impression And Plan: Acute on chronic diastolic congestive heart failure. Echocardiogram in 2019 showed a normal ejection fraction. In 2019, he underwent an LAD stent. His EKG showed old septal infarct. He has normal troponin with abnormal BNP. I think we need to diurese him with IV L asix. Continue the rest of his medication. He can go home whenever it is okay with 1 day or so. When he comes to the office later, I can have him do another stress test, he is due for one. His other issues including hypertension, dyslipidemia are fairly well controlled. He has atria l fibrillation but he is in normal sinus rhythm, on beta-blockers and on Eliquis. We will continue t hat. His creatinine is elevated and we need to watch for his creatinine while we are diuresing him. The patient is not on any JEREMIAS inhibitor, which is good for him at this point. His mainstay of thera py is beta-blockers, diuresis, fluid restriction and salt restriction. I will continue to follow fuad SCHOFIELD/JASON Voice ID: [id number] Report ID: [id number]
[2021-02-12] MEDS ORDERED: CEFTRIAXONE/SWI 1gm 1 GM/10 ML SYR IV SCH (18:00)
[2021-02-12] MEDS ORDERED: AZITHROMYCIN IV 500 MG in NA CHLORIDE 0.9% 250 ML IVPB SCH (18:00)
--- NOTE | 2021-02-12 18:46 | CON ---
Date of Consultation: 02/12/2021 History Of Present Illness: The patient is seen in room 213A. The patient is alert, awake, looking a little bit better than his last admission, also short of breath on 2 L of oxygen, has significant s welling in his lower extremities, which is improved compared to last time. The patient does seem a l ittle bit depressed. He states that he has been sad, but does not have any suicidal or homicidal muriel ation. His breathing is somewhat improved since he came in. He has been diuresing well, has a Tamayo catheter and has been on Lasix dose 3 times a day at 40 mg IV q.8 hours. He is also on ceftriaxone and azithromycin. He denies any pain currently. He had been on a low-dose Zoloft when he was in the hospital last time for his depression and had indicated to me that he would be willing to take a med ication and try it out. He seems to have reasonably good insight. He understands that he needs to f ollow up in clinic, but has been just a little bit down and did not make the appointment since his admission. I am not sure if he is taking his medication, the diuretics regularly, and also he is not very consistent with a salt restriction. I counseled him about the salt restriction, taking his medications on time, making a followup appointment. He seems to be clear that he is not suicidal or homicidal at this point, but I have advised him to get any help, get help if he has any worsening of his depression. Past Medical History: The patient has history of coronary artery disease, atrial fibrillation, diabe rupesh mellitus, congestive heart failure, chronic kidney disease stage 4. Family History: Noncontributory at this point. Social History: Does not have an active alcohol problem as per the patient. He does not smoke cigar ettes. He feels comfortable and safe at home. Medications: On evaluation of his medications, he is currently on ceftriaxone, azithromycin, Lasix 3 times a day. He is taking insulin. He is taking pregabalin, tramadol only as needed for breakthrou gh pain on a high level of about 5 to 7 scale. Allergies: NKDA. Physical Examination: Lungs: Crackles at the bases, but seem to have been improved even from his last admission. Abdomen: Soft. He is overweight, but he seems to have lost some weight since his last admission, bentley barone due to his fluid status improving. Extremities: His lower extremities do reveal edema about positive 2 bilaterally. Vital Signs: His blood pressure on examination is 126/60. His O2 sats were around 96%. He is only about 1 L nasal cannula. His O2 sats were 96%. His pulse is about 90 and regular. He is afebrile. Laboratory Data: Lab data reviewed. His WBC count is 9.9, hemoglobin is 9.3, hematocrit 29, platele t count of 99. Chemistry shows sodium 143, potassium 4.8, chloride 109, bicarb is 30, BUN 33, creati nine 1.68. Sugars running between 160 to 250. Calcium 8.3. AST, ALT are around 9 and 13, alkaline phosphatase is 133. LDL of 41, HDL of 30. TSH of 1.9. Assessment And Plan: The patient is a 75-year-old male with history of chronic kidney disease, conge stive heart failure, presents with hypertension, volume overload. At this point, blood pressure sign ificantly improved, hyperkalemia resolved. Continue Lasix at 3 times a day. Continue on his Zoloft. We will add it back and resume him on 25 mg. The patient understands to get attention if his condi tion or depression worsens. He is not having suicidal or homicidal ideation. I have advised him to continue on 40 mg of Lasix 3 times a day, take it in morning, noon, and 4 p.m. to avoid going to the bathroom too many times at night. Also advised him to watch his salt restriction and be very careful with his diet, also watch his sugars, keep a record of his fingerstick sugars and his blood pressure to bring to clinic along with all his medications. I have counseled him also on salt restriction. In summary, Lasix 3 times a day, Zoloft low dose at night, continue on salt restriction, monitor bloo d pressure and sugars, and bring in all your medications and make an appointment for followup in clin ic as soon as you discharge for evaluation of residual renal function and further management going forward. The patient understands the plan and has our card to make appointment. /JASON Voice ID: [id number] Report ID: [id number]
[2021-02-12] MEDS ORDERED: SERTRALINE HCL 50 MG TAB PO SCH (21:00)
[2021-02-13] MEDS: FUROSEMIDE 40 MG/4 ML VIAL IV SCH ×2 (00:57→08:42)
[2021-02-13 05:55] LABS: Absolute Lymphocytes (CBC) 1.9 K/uL (0.7-4.9); Hematocrit 30.9 % (39.6-49.0); Lymphocytes % 20.3 % (15.3-44.8); MPV 11.5 fL (7.6-11.3); RBC Red Blood Cell Count 3.37 M/uL (4.33-5.43)
[2021-02-13 06:12] LABS: Albumin 3.5 g/dL (3.4-5.0); Bilirubin Total 0.5 mg/dL (0.2-1.0); Potassium 4.5 mmol/L (3.5-5.1); Protein, Total 7.2 g/dL (6.4-8.2)
[2021-02-13] MEDS: INSULIN -REGULAR HUMAN 50 UNIT/0.5 ML ML SQ SCH ×2 (07:30→12:06)
[2021-02-13] MEDS: PREGABALIN 75 MG CAP PO SCH (08:43)
[2021-02-13] MEDS ORDERED: APIXABAN 5 MG TABLET PO SCH (09:00)
[2021-02-13 11:39] VITALS: O2SAT 96
--- NOTE | 2021-02-13 12:26 | PN ---
Date of Progress Note: 02/13/2021 The patient was seen for acute on chronic diastolic congestive heart failure, normal ejection fractio n in 2019, history of LAD stent in 2019, has done well overnight. He was in atrial fibrillation in t he past. He is in normal rhythm with beta danielle and Eliquis. He has creatinine insufficiency and is slightly worse at 1.71. He is not on any JEREMIAS inhibitor. He should continue his present regimen. I will need to see him in the office in the very near future. I will make arrangements for that, bu t as far as I am concerned, he can go home today. KANWAL/JASON Voice ID: [id number] Report ID: [id number]
--- NOTE | 2021-02-13 12:46 | P.DS ---
Admission Date: 02/11/21 Discharge Date: 02/13/21 Disposition: ROUTINE DISCHARGE Discharge Condition: GOOD Reason for Admission: CHF exacerbation Consultations: Cardiology - Dr. Carvalho Nephrology - Dr. Lizarraga Procedures: CXR (02/11): Areas of subsegmental atelectasis left lung base. Right lung is hazy which may be secondary to infiltrate, atelectasis and/or small pleural effusion. Mild interstitial pulmonary edema is suspected bilaterally. Heart is mildly enlarged. Problem List Acute hypoxic respiratory failure secondary to acute on chronic diastolic congestive heart failure complicated with suspected pneumonia Atrial fibrillation on chronic anticoagulation therapy CKD 4 with hyperkalemia Normocytic anemia Diabetes mellitus type 2, insulin dependent, with neuropathy Hypertension HLD CAD s/p stent h/o CVA Brief History of Present Illness: 75-year-old male with history of chronic diastolic congestive heart failure, atrial fibrillation, CAD, hypertension, diabetes mellitus type 2, MARY, CKD 4 presents emergency department for shortness of breath. Upon arrival patient was placed on BiPAP for respiratory distress, patient was also significantly hypertensive and placed on nitroglycerin drip. Further evaluation significant for labs white blood cell count 13.0 hemoglobin 10.5 hematocrit 32.7 potassium 5.4 chloride 110 BUN 32 creatinine 1.76 GFR 38 glucose 265 lactic acid 1.4 BNP 5726 chest x-ray appears to show pulmonary edema with possible pneumonia at the lung base. Patient was started on Rocephin/Zithromax. Tamayo catheter is place. Vital signs improved significantly in respiratory distress also improved, ED provider wishes to admit for further evaluation and management of CHF exacerbation, possible pneumonia, hyperkalemia. Hospital Course: Patient was treated for acute CHF with high dose IV Lasix. He diuresed well and was breathing more comfortably. Edema significantly improved. Cardiology was consulted and agreed with diuresis, no further eval/workup. Nephrology was consulted given patient's CKD. His renal function remained stable. On discharge Bumex was changed to lasix 40mg TID to restart zoloft - rx for 25mg sent advised and educated on low salt diet Rx for cefpodoxime and azithro - to complete treatment for presumed pneumonia f/u: PCP with 3-5 days Cardiology in ~1 week Nephrology in 1-2 weeks Vital Signs/Physical Exam: Physical Exam Gen: NAD, AAOx3 HEENT: normal conjunctiva, sclerae anicteric Pulmonary: slightly diminished at bases bilaterally, nonlabored respirations on room air Cardiac: Regular rate and rhythm, 1+ pitting edema bilaterally lower legs Abdomen: Soft, nontender, nondistended Integumentary: No rashes Neuro: no sensation to light touch bilateral lower legs up to knee Temp Pulse Resp BP Pulse Ox 97.7 F 87 20 125/66 97 02/13/21 08:00 02/13/21 08:42 02/13/21 08:00 02/13/21 08:42 02/13/21 08:00 Laboratory Data at Discharge: WBC 9.30 K/uL (4.3-10.9) 02/13/21 05:19 Hgb 10.0 g/dL (13.6-17.9) L 02/13/21 05:19 Hct 30.9 % (39.6-49.0) L 02/13/21 05:19 Plt Count 104 K/uL (152-406) L 02/13/21 05:19 PT 19.5 SECONDS (9.5-12.5) H 02/11/21 20:45 INR 1.69 02/11/21 20:45 Sodium 142 mmol/L (136-145) 02/13/21 05:19 Potassium 4.5 mmol/L (3.5-5.1) 02/13/21 05:19 BUN 39 mg/dL (7-18) H 02/13/21 05:19 Creatinine 1.71 mg/dL (0.55-1.3) H 02/13/21 05:19 Glucose 148 mg/dL (74-106) H 02/13/21 05:19 Magnesium 2.0 mg/dL (1.8-2.4) 02/13/21 05:19 Total Bilirubin 0.5 mg/dL (0.2-1.0) 02/13/21 05:19 AST 10 U/L (15-37) L 02/13/21 05:19 ALT 14 U/L (12-78) 02/13/21 05:19 Alkaline Phosphatase 143 U/L (45-117) H 02/13/21 05:19 Troponin I < 0.02 ng/mL (0.0-0.045) 02/12/21 10:46 Triglycerides 55 mg/dL (<150) 02/12/21 04:48 Cholesterol 82 mg/dL (<200) 02/12/21 04:48 HDL Cholesterol 30 mg/dL (40-60) L 02/12/21 04:48 Cholesterol/HDL Ratio 2.73 02/12/21 04:48 Home Medications: RX: Apixaban [Eliquis] 5 mg PO BID 07/21/20 RX: Aspirin Chewable [Aspirin Chewable*] 81 mg PO DAILY 07/21/20 RX: Atorvastatin Calcium 40 mg PO BEDTIME 07/21/20 RX: Carvedilol [Coreg] 25 mg PO BID 07/21/20 RX: Cyanocobalamin (Vitamin B-12) [Vitamin B12] 1,000 mcg PO DAILY 07/21/20 RX: Ferrous Sulfate 325 mg PO DAILY 07/21/20 RX: Liraglutide [Victoza 2-David] 20 units SQ BEDTIME 07/21/20 RX: Pantoprazole [Protonix Tab*] 40 mg PO ACB 07/21/20 RX: Pregabalin 75 mg PO TID 07/21/20 RX: Tramadol HCl [Ultram] 50 mg PO TID 07/21/20 RX: Benzonatate [Tessalon Perle*] 100 mg PO Q6H PRN #30 cap 01/19/21 RX: Guaifen W/Codeine Syrup [ROBITUSSIN A-C Syrup*] 5 ml PO QID PRN #30 ucup 01/19/21 RX: Azithromycin 250 mg PO DAILY 3 Days #3 tablet 02/13/21 RX: Cefpodoxime Proxetil [Vantin] 200 mg PO BID 5 Days #10 tablet 02/13/21 RX: Furosemide 40 mg PO TID 30 Days #90 tablet 02/13/21 RX: Sertraline [Zoloft*] 25 mg PO BEDTIME 30 Days #30 tab 02/13/21 New Medications: RX: Azithromycin 250 mg PO DAILY 3 Days #3 tablet RX: Furosemide 40 mg PO TID 30 Days #90 tablet RX: Cefpodoxime Proxetil [Vantin] 200 mg PO BID 5 Days #10 tablet RX: Sertraline [Zoloft*] 25 mg PO BEDTIME 30 Days #30 tab Diet: Low sodium Activity: Fall precautions Followup: Unknown,U [Primary Care Provider] - Time spent managing pt's care (in minutes): 45
[2021-02-13 13:00] VITALS: BP 129/64
[2021-02-13 13:03] VITALS: TEMP 98.7
== END 2021-02-13 15:08 | disposition home or self-care (01) | DRG 291 ==
LOC: ER 20:34 → ERHOLD 22:40 → 2ND 23:02
PROVIDERS: ADMIT Hospitalist; ATTEND Hospitalist
DX: I13.0 Hypertensive heart and chronic kidney disease with heart failure and stage 1 through stage 4 chronic kidney disease, or unspecified chronic kidney disease (principal); J96.01 Acute respiratory failure with hypoxia; I50.33 Acute on chronic diastolic (congestive) heart failure; J18.9 Pneumonia, unspecified organism; N18.4 Chronic kidney disease, stage 4 (severe); E11.22 Type 2 diabetes mellitus with diabetic chronic kidney disease; E11.40 Type 2 diabetes mellitus with diabetic neuropathy, unspecified; I25.10 Atherosclerotic heart disease of native coronary artery without angina pectoris; E87.5 Hyperkalemia; I48.91 Unspecified atrial fibrillation; D64.9 Anemia, unspecified; Z79.01 Long term (current) use of anticoagulants; Z86.73 Personal history of transient ischemic attack (TIA), and cerebral infarction without residual deficits; Z95.5 Presence of coronary angioplasty implant and graft; Z20.822 Contact with and (suspected) exposure to COVID-19
CPT/HCPCS: 36415; 51702; 71045; 80048; 80053; 80061; 80076; 81003; 81015; 82805; 82947; 83605; 83735; 83880; 84145; 84439; 84443; 84484; 85025; 85610; 87040; 93005; 94010; 94660; 94760; 99285; J0456; J0610; J0696; J1644; J1940; J7050; U0003

== ENCOUNTER 2021-02-24 21:39 | Emergency (ER) | payer OTHER ==
[2021-02-24] MEDS ORDERED: ETOMIDATE 20 MG/10 ML VIAL IV ONE (21:40)
[2021-02-24] MEDS ORDERED: ROCURONIUM 50 MG/5 ML VIAL IV ONE (21:40)
[2021-02-24] MEDS ORDERED: SUCCINYLCHOLINE 20 MG/ML (10 ML) IV ONE (21:40)
--- OUTSIDE RECORDS SUMMARY | 2021-02-24 21:42 | XMS REPORT | Continuity of Care Document ---
:1945 Author Organization [facility] t Address [address] [place] [address] Care Team Providers Name Role Phone Unavailable Unavailable Unavailable Payers Payer Name Policy Type Policy Number Effective Date Expiration Date S ource Problems This patient has no known problems. Allergies, Adverse Reactions, Alerts This patient has no known allergies or adverse reactions. Medications This patient has no known medications. Procedures Procedure Date / Time Performed Performing Clinician [facility] mone [id number] 2020-05-04 00:00:00 LORIEKY [id number] 2020-05-04 00:00:00 ENCKY [id number] 2020-05-04 00:00:00 ENCKY [id number] 2020-05-04 00:00:00 ENCKY [id number] 2020-05-04 00:00:00 ENCKY [id number] 2020-05-04 00:00:00 ENCKY [id number] 2020-05-04 00:00:00 ENCKY [id number] 2020-05-04 00:00:00 ENCKY [id number] 2020-05-04 00:00:00 LORIEKY Encounters Start End Encounter Admission Attending Care Care Encounter Source Date/Time Date/Time Type Type Clinicians Facility Department ID 2020-05-05 Outpatient READMISSIO ENCCLR ENCCLR [id number] ENCCLR 20:57:26 N Results This patient has no known results.
[2021-02-24] MEDS ORDERED: IPRATROPIUM BROM 0.5MG/2.5ML ONE (22:08)
[2021-02-24] MEDS ORDERED: ALBUTEROL 2.5 MG/3 ML NEB SOL ONE (22:08)
[2021-02-24] MEDS ORDERED: FENTANYL CITR 100 MCG/2 ML ONE (22:19)
[2021-02-24] MEDS ORDERED: RSI MEDICATION KIT IV ONE (22:19)
[2021-02-24 22:25] LABS: Basophils % 1.1 % (0-1.3); Hematocrit 31.5 % (39.6-49.0); Lymphocytes % 21.5 % (15.3-44.8); MPV 11.5 fL (7.6-11.3)
[2021-02-24 22:26] LABS: Protime INR 1.39
[2021-02-24] MEDS ORDERED: FUROSEMIDE 100 MG/10 ML VIAL IV ONE (22:31)
[2021-02-24 23:04] LABS: Arterial Blood Carboxyhemoglob 1.5 % (0-1.5); Blood Gas Oxyhemoglobin 97.4 % (94-97); Blood O2 Saturation 99.9 % (92-98.5)
[2021-02-24 23:08] LABS: ALT/SGPT 19 U/L (12-78); AST/SGOT 19 U/L (15-37); Albumin 3.6 g/dL (3.4-5.0); Alkaline Phosphatase 145 U/L (45-117); BUN Blood Urea Nitrogen 47 mg/dL (7-18); Bicarbonate 28 mmol/L (21-32); Bilirubin Direct 0.1 mg/dL (0-0.2); Bilirubin Total 0.3 mg/dL (0.2-1.0); Magnesium 2.2 mg/dL (1.8-2.4); NT PRO-BNP 4962 pg/mL (<450); Protein, Total 7.5 g/dL (6.4-8.2); Sodium Level 138 mmol/L (136-145); Troponin (Emerg Dept Use Only) < 0.02 ng/mL (0.0-0.045)
[2021-02-24 23:25] LABS: Urine Blood Negative (Negative); Urine Glucose 2+ (Negative); Urine Protein Trace (Negative); Urine Specific Gravity 1.015 (1.005-1.030); Urine pH 5.5 (5.0-7.0)
[2021-02-24 23:34] LABS: Potassium 6.3 mmol/L (3.5-5.1)
[2021-02-24 23:35] LABS: Glucose Level 420 mg/dL (74-106)
[2021-02-25] MEDS ORDERED: ALBUTEROL 2.5 MG/3 ML NEB SOL ONE (00:16)
[2021-02-25] MEDS ORDERED: CALCIUM GLUCONATE 1 GM IVPB 1 GM/50 ML BAG IV ONE (00:17)
[2021-02-25] MEDS ORDERED: INSULIN -REGULAR HUMAN 50 UNIT/0.5 ML ML ONE (00:17)
--- NOTE | 2021-02-25 01:17 | ER ---
Nurse's Notes [facility] Name: Tyrone Vaughn Age: 75 yrs Sex: Male : 1945 Arrival Date: 02/24/2021 Time: 21:40 Bed 3 Private MD: Diagnosis: Acute respiratory failure;Acute kidney failure;Acute diastolic (congestive) heart failure Presentation: 02/24 21:40 Chief complaint: EMS states: he is having respiratory distress started today and he is rr5 swollen. has history of CHF. 21:40 Coronavirus screen: Client denies travel out of the [place] in the last 14 days. rr5 difficulty breathing, shortness of breath, Client presents with at least one sign or symptom that may indicate coronavirus-19. Standard/surgical mask placed on the client. Provider contacted for isolation considerations. Ebola Screen: Unable to complete the Ebola screening because:. 21:40 Method Of Arrival: EMS: [facility] rr5 21:40 Initial Sepsis Screen: Does the patient meet any 2 criteria? RR > 20 per min. HR > 90 rr5 bpm. Yes Does the patient have a suspected source of infection? No. Patient's initial sepsis screen is negative. Risk Assessment: Do you want to hurt yourself or someone else? Patient reports no desire to harm self or others. Onset of symptoms was February 24, 2021. 21:40 Acuity: WESLEY 2 rr5 Triage Assessment: 21:40 Respiratory: the patient has severe shortness of breath. rr5 Historical: - Allergies: 21:40 No Known Allergies; rr5 - PMHx: 21:40 anxiety; atrial fibrillation; CAD; CHF; DM IDDM; HTN; [place]; neuropathy; sleep apnea; rr5 hyperlipidemia; - Immunization history:: Adult Immunizations unknown. - Social history:: Smoking status: unknown. Screenin:26 Abuse screen: unable to obtain. Nutritional screening: No deficits noted. Tuberculosis ss screening: unable to obtain . 23:03 Fall Risk IV access (20 points). Gait- Impaired (20 pts.). Mental Status- rr5 Overestimates/Forgets Limitations (15 pts.). Total Quesada Fall Scale indicates High Risk Score (45 or more points). Fall prevention measures have been instituted. Side Rails Up X 2 Placed Close to Nursing Station Frequent Obs/Assessments Occuring As available patient and family educated on Fall Prevention Program and Strategies. Assessment: 21:40 General: Appears distressed, Behavior is quiet, obtunded. came via EMS on CPAP machine rr5 complaining of respiratory distress,provider at bedside with order to do intubation. 21:40 Pain: Unable to use pain scale. Patient appears confused. Neuro: Level of Consciousness rr5 is obtunded. Cardiovascular: Capillary refill < 3 seconds Patient's skin is warm and dry. Rhythm is sinus tachycardia. Respiratory: Airway is patent Respiratory effort is even, labored, Respiratory pattern is tachypnea. GI: Abdomen is distended. Derm: Skin is clammy, diaphoretic, Skin is pale, Skin temperature is cool. 22:26 Reassessment: XRAY at bedside obtaining Chest XRAY. ss 22:40 Reassessment: ED provider aware for the BP with order made and carriedout. rr5 23:04 Respiratory: Ventilator assessment: ET Tube: 7.5 23 cm at gum line. Ventilator Mode: rr5 Assist Control (AC) Tidal Volume: 560 Respiratory Rate: 20 FiO2: 80 PEEP: 5 HOB > 30 degrees. 02/25 00:35 Reassessment: ED Provider aware for the BP with order for central line insertion and to [facility] start levophed drip. 01:15 Reassessment: got acceptance in [facility], for ICU transfer. rr5 01:25 Respiratory: Ventilator assessment: FiO2: 60% HOB > 30 degrees. rr5 01:39 Reassessment: report given to irene from [facility]. rr5 02:31 Reassessment: Patient appears in no apparent distress at this time. report given to [address] ambulance, intubated vital signs taken and recorded hemodynamically stable on levophed at 5 mcg/min and propofol drip at 20 mcg/min. Vital Signs: 02/24 21:40 BP 176 / 101; Pulse 101; Resp 30; Temp 98.3; Pulse Ox 98% on BiPAP; rr5 22:12 Weight 100 kg; rr5 22:15 BP 156 / 100; Pulse 105; Resp 20; Pulse Ox 100% on 80% FiO2 ETT vent; rr5 22:40 BP 71 / 54; Pulse 89; Resp 20; Temp 99.1; Pulse Ox 100% on 80% FiO2 ETT vent; rr5 22:45 BP 76 / 55; Pulse 90; Resp 24; Pulse Ox 100% on 80% FiO2 ETT vent; rr5 23:00 BP 104 / 64; Pulse 85; Resp 20; Pulse Ox 100% on 80% FiO2 ETT vent; rr5 23:30 BP 92 / 60; Pulse 90; Resp 20; Temp 98.9; Pulse Ox 100% on 80% FiO2 ETT vent; rr5 02/25 00:35 BP 75 / 55; Pulse 89; Resp 22; Pulse Ox 100% on 80% FiO2 ETT vent; rr5 00:55 BP 102 / 71; Pulse 84; Resp 20 A; Temp 98.1(C); Pulse Ox 100% on 80% FiO2 ETT vent; ss 01:39 BP 140 / 83; Pulse 85; Resp 20; Temp 97.9(C); Pulse Ox 100% on 60% FiO2 ETT vent; rr5 02:00 BP 121 / 65; Pulse 80; Resp 20; Pulse Ox 100% on 60% FiO2 ETT vent; rr5 02:32 BP 123 / 78; Pulse 89; Resp 20; Temp 97.9; Pulse Ox 100% on 60% FiO2 ETT vent; rr5 ED Course: 02/24 21:30 Inserted saline lock: 22 gauge in right hand, using aseptic technique. ,using aseptic rr5 technique. inserted by Romeo MUELLER. 21:40 Patient arrived in ED. cf2 21:40 Arm band placed on left wrist. rr5 21:40 Assisted provider with intubation using 7.5 mm ETT via oral route. ET tube secured at rr5 23cm at the teeth. Set up intubation tray. Intubated by Berny GLESAON Placement verified by CO2 detector w/ + color change, auscultating bilateral breath sounds, End-tidal CO2 montioring CXR, Patient tolerated well. 21:41 Patient has correct armband on for positive identification. Placed in gown. Bed in low ss position. Call light in reach. Side rails up X2. site monitor on. Pulse ox on. NIBP on. 21:44 Berny Hui PA is PHCP. jr8 21:44 Brian Erickson MD is Attending Physician. jr8 21:47 Tamayo cath inserted, using sterile technique, 16 Fr., by ut, balloon inflated, to rr5 gravity drainage, urine specimen collected. 21:48 OGT inserted by iam MUELLER. rr5 21:50 EKG done, by ED staff, reviewed by Berny GLEASON. rr5 21:52 COVID swab sent to lab. rr5 22:04 Arslan Tompkins, RN is Primary Nurse. rr5 22:05 Inserted saline lock: 18 gauge in left EJ, using aseptic technique. ,using aseptic rr5 technique. by south GLEASON. 22:08 Triage completed. rr5 22:28 Noise minimized. Lights dimmed. Warm blanket given. ss 22:46 XRAY Chest (1 view) In Process Unspecified. EDMS 23:50 initiated transfer to [facility], denied due to facility at full capacity. mt 06/11 00:[address] [facility] with [facility], denied at full capacity. mt 00:45 initiated transfer to [facility], denied due to full capacity. mt 00:51 initiated transfer to [facility]. mt 01:04 Assisted provider with central line placement. Set up central line tray. Triple lumen ss line placed in right femoral. Line placed by Berny GLEASON Placement verified by blood return, Dressed with 4X4s, Tape, Tegaderm, Patient tolerated well, sedated Before procedure, did Practitioner(s) obtain informed consent? No. Patient \T\ family education about procedure, CLABSI prevention and S/S of infection? No. Time-out/Briefing performed prior to start of procedure? Yes. Was handwashing/sanitizing done immediately prior to procedure? Yes. Was procedure site sterilized? Yes, with chlorhexidine. During the procedure, did the Practitioner(s) maintain a sterile field? Yes. Were unused ports clamped during insertion? Yes. 02:33 Patient admitted, IV remains in place. intact, No redness/swelling at site. rr5 Administered Medications: 02/24 21:00 Drug: Albuterol - atroVENT (ipratropium) (3:1) (2.5 mg - 0.5 mg) 3 ml Route: Nebulizer; rr5 23:00 Follow up: Response: No adverse reaction rr5 21:39 Drug: Succinylcholine 70 mg Route: IVP; Site: right hand; rr5 22:30 Follow up: Response: No adverse reaction; RASS: Deep sedation (-4) rr5 21:39 Drug: Etomidate 20 mg Route: IVP; Site: right hand; rr5 22:30 Follow up: Response: No adverse reaction; RASS: Deep sedation (-4) rr5 22:00 Drug: fentaNYL (PF) 75 mcg {Note: rass 0.} Route: IVP; Site: right hand; rr5 23:00 Follow up: Response: No adverse reaction; RASS: Deep sedation (-4) rr5 22:10 Drug: Propofol 5 mcg/kg/min {Note: left EJ.} Route: IV; Rate: calculated rate; Site: rr5 Other; 02/25 02:34 Follow up: Response: No adverse reaction; RASS: Deep sedation (-4); Rate change 20 rr5 mcg/min; IV Status: Infusion continued upon transfer 02/24 22:20 Drug: Lasix (furosemide) 80 mg Route: IVP; Site: left jugular; ss 23:20 Follow up: Response: No adverse reaction rr5 22:40 Drug: NS 0.9% 250 ml Route: IV; Rate: bolus; Site: right hand; rr5 23:15 Follow up: Response: No adverse reaction; IV Status: Completed infusion; IV Intake: rr5 250ml 02/25 00:09 Drug: Albuterol 2.5 mg {Note: x2 instead of 3 verbal order with readback by provider.} rr5 Route: Inhalation; 00:10 Dru grams of (Calcium Gluconate 1 grams, NS 0.9% 100 ml) Route: IVPB; Infused Over: rr5 60 mins; Site: right hand; 01:10 Follow up: Response: No adverse reaction; IV Status: Completed infusion; IV Intake: rr5 100ml 00:15 Drug: Insulin Regular Human 10 units {Co-Signature: rr5 (Arslan Tompkins RN).} Route: ss IVP; Site: right hand; 01:15 Follow up: Response: No adverse reaction rr5 00:20 Drug: Albuterol 2.5 mg Route: Inhalation; rr5 01:27 Follow up: Response: No adverse reaction rr5 01:00 Drug: Levophed (norepinephrine) (4 mg/250 mL D5W 4 mcg/min Route: IV; Rate: calculated rr5 rate; Site: right femoral; 02:34 Follow up: Response: No adverse reaction; Blood pressure is elevated; IV Status: rr5 Infusion continued upon transfer Intake: 02/24 23:15 IV: 250ml; Total: 250ml. rr5 02/25 01:10 IV: 100ml; Total: 350ml. rr5 Output: 02:30 Urine: 450ml (Tamayo); Total: 450ml. rr5 Outcome: 01:16 ER care complete, transfer ordered by MD. renae 02:33 Transferred by ground EMS to [facility], Transfer form rr5 completed. 02:33 Condition: stable 02:33 Instructed on the need for admit. 02:35 Patient left the ED. rr5 Signatures: Dispatcher [employer] EDMS Iam Parker RN RN Berny Hui PA PA jr8 [facility] Arslan Tompkins RN RN rr5 Clay Reed 2 Arslan Tompkins RN rr5 Corrections: (The following items were deleted from the chart) 00:36 00:[address] [facility] 00:49 00:45 initiated transfer to [facility] mt mt 00:57 00:51 initiated transfer to [facility]
--- NOTE | 2021-02-25 01:17 | EDPHYS ---
Physician Documentation [facility] Name: Tyrone Vaughn Age: 75 yrs Sex: Male : 1945 Arrival Date: 02/24/2021 Time: 21:40 Bed 3 Private MD: ED Physician Brian Erickson HPI: 02/24 22:52 This 75 yrs old Male presents to ER via EMS with complaints of Respiratory jr8 Distress. 22:52 Onset: The symptoms/episode began/occurred acutely, today. Associated signs and jr8 symptoms: The patient has no apparent associated signs or symptoms. Modifying factors: The patient symptoms are alleviated by nothing, the patient symptoms are aggravated by movement. The patient has experienced similar episodes in the past, a few times. The patient has not recently seen a physician. EMS was called out to a 75 y/o gentleman in acute respiratory failure. EMS stated that patient was hypoxic and diaphoretic on scene. CPAP applied in route. Patient in acute distress upon arrival. Obtunded and minimally responsive . Historical: - Allergies: 21:40 No Known Allergies; rr5 - PMHx: 21:40 anxiety; atrial fibrillation; CAD; CHF; DM IDDM; HTN; [place]; neuropathy; sleep apnea; rr5 hyperlipidemia; - Immunization history:: Adult Immunizations unknown. - Social history:: Smoking status: unknown. ROS: 22:52 Unable to obtain ROS due to patient distress. jr8 Exam: 22:52 Eyes: Pupils equal round and reactive to light, extra-ocular motions intact. Lids and jr8 lashes normal. Conjunctiva and sclera are non-icteric and not injected. Cornea within normal limits. Periorbital areas with no swelling, redness, or edema. 22:52 Neck: Trachea midline, no thyromegaly or masses palpated, and no cervical lymphadenopathy. Supple, full range of motion without nuchal rigidity, or vertebral point tenderness. No Meningismus. 22:52 Abdomen/GI: Soft with normal bowel sounds. Obese. No distension or tympany. 22:52 Constitutional: The patient appears in obvious distress, severely distressed. 22:52 Cardiovascular: Rate: tachycardic, Rhythm: regular, Pulses: Pulses are 2+ in right radial artery and left radial artery. Heart sounds: normal, normal S1and S2, Edema: 3+ edema to level of left midcalf, left ankle, left foot, right midcalf, right ankle and right foot, JVD: is noted bilaterally, to 3 cm. 22:52 Respiratory: severe repiratory distress is noted, Respirations: shallow respirations, that is moderate, Breath sounds: decreased breath sounds, that are severe. 22:52 Skin: Appearance: Color: caridad, Temperature: cool, Moisture: diaphoretic. 22:52 Neuro: Orientation: to person, Mentation: slow to respond, confused, unable to follow commands. Vital Signs: 21:40 BP 176 / 101; Pulse 101; Resp 30; Temp 98.3; Pulse Ox 98% on BiPAP; rr5 22:12 Weight 100 kg; rr5 22:15 BP 156 / 100; Pulse 105; Resp 20; Pulse Ox 100% on 80% FiO2 ETT vent; rr5 22:40 BP 71 / 54; Pulse 89; Resp 20; Temp 99.1; Pulse Ox 100% on 80% FiO2 ETT vent; rr5 22:45 BP 76 / 55; Pulse 90; Resp 24; Pulse Ox 100% on 80% FiO2 ETT vent; rr5 23:00 BP 104 / 64; Pulse 85; Resp 20; Pulse Ox 100% on 80% FiO2 ETT vent; rr5 23:30 BP 92 / 60; Pulse 90; Resp 20; Temp 98.9; Pulse Ox 100% on 80% FiO2 ETT vent; rr5 06/11 00:35 BP 75 / 55; Pulse 89; Resp 22; Pulse Ox 100% on 80% FiO2 ETT vent; rr5 00:55 BP 102 / 71; Pulse 84; Resp 20 A; Temp 98.1(C); Pulse Ox 100% on 80% FiO2 ETT vent; ss 01:39 BP 140 / 83; Pulse 85; Resp 20; Temp 97.9(C); Pulse Ox 100% on 60% FiO2 ETT vent; rr5 02:00 BP 121 / 65; Pulse 80; Resp 20; Pulse Ox 100% on 60% FiO2 ETT vent; rr5 02:32 BP 123 / 78; Pulse 89; Resp 20; Temp 97.9; Pulse Ox 100% on 60% FiO2 ETT vent; rr5 Procedures: 01:03 Intubation: Ventilated with 100% NRB prior to procedure. Intubated orally using # 4 jr8 Bertha blade with 7.5 mm ETT. was successful on first attempt. Ventilated with ventilator. Tube secured with ETT warner at center of mouth measured 23 cm at teeth. Placement verified by CXR, CO2 detector with (+) color change, auscultating bilateral breath sounds, O2 saturation after procedure was 100 %. Patient tolerated well. Central Line: the site was prepped with Betadine, in sterile fashion, a triple lumen catheter was inserted, in the right femoral vein, in 1 attempts. placement was verified, by blood return, the site was dressed with 4X4s, Tegaderm, foam tape, using sterile technique, the patient tolerated the procedure, well. MDM: 02/24 21:44 Patient medically screened. 8 22:52 Data reviewed: vital signs, nurses notes, lab test result(s), EKG, radiologic studies, jr8 plain films. Data interpreted: Pulse oximetry: on ventilator is 100 %. Interpretation: normal. Counseling: I had a detailed discussion with the patient and/or guardian regarding: the historical points, exam findings, and any diagnostic results supporting the discharge/admit diagnosis, lab results, radiology results. 02/25 01:15 ED course: No ICU beds at this time. [facility] All at jr8 capacity. [facility] was called and graciously accepted to there ICU in [place]. 02/24 21:45 Order name: Basic Metabolic Panel; Complete Time: 23:39 [facility] 02/24 21:45 Order name: CBC with Diff; Complete Time: 22:50 [facility] 02/24 21:45 Order name: LFT's; Complete Time: 23:39 [facility] 02/24 21:45 Order name: Magnesium; Complete Time: 23:39 [facility] 02/24 21:45 Order name: NT PRO-BNP; Complete Time: 23:39 [facility] 02/24 21:45 Order name: PT-INR; Complete Time: 22:57 [facility] 02/24 21:45 Order name: Troponin (emerg Dept Use Only); Complete Time: 23:39 8 02/24 21:45 Order name: XRAY Chest (1 view) [facility] 02/24 22:46 Order name: glucometer results - FOR PT WITH NO ID rr5 02/24 22:46 Order name: Glucose, Ancillary(No Armband); Complete Time: 23:41 EDMS 02/24 23:03 Order name: ABG Arterial Blood Gas; Complete Time: 23:08 EDMS 02/24 23:25 Order name: Urine Dipstick-Ancillary; Complete Time: 23:26 EDMS 02/25 00:10 Order name: SARS-COV-2 RT PCR; Complete Time: 00:16 [facility] 02/24 21:45 Order name: EKG; Complete Time: 21:45 [facility] 02/24 21:45 Order name: Cardiac monitoring; Complete Time: 22:41 8 02/24 21:45 Order name: EKG - Nurse/Tech; Complete Time: 22:41 8 02/24 21:45 Order name: IV Saline Lock; Complete Time: 22:41 8 02/24 21:45 Order name: Labs collected and sent; Complete Time: 22:41 8 02/24 21:45 Order name: O2 Per Protocol; Complete Time: 22:41 [facility] 02/24 21:45 Order name: O2 Sat Monitoring; Complete Time: 22:41 [facility] 02/24 21:45 Order name: NG Tube; Complete Time: 22:41 8 02/24 21:45 Order name: Tamayo; Complete Time: 22:41 [facility] 02/25 01:18 Order name: Central Line Kit; Complete Time: 01:18 rr5 Administered Medications: 02/24 21:00 Drug: Albuterol - atroVENT (ipratropium) (3:1) (2.5 mg - 0.5 mg) 3 ml Route: Nebulizer; rr5 23:00 Follow up: Response: No adverse reaction rr5 21:39 Drug: Succinylcholine 70 mg Route: IVP; Site: right hand; rr5 22:30 Follow up: Response: No adverse reaction; RASS: Deep sedation (-4) rr5 21:39 Drug: Etomidate 20 mg Route: IVP; Site: right hand; rr5 22:30 Follow up: Response: No adverse reaction; RASS: Deep sedation (-4) rr5 22:00 Drug: fentaNYL (PF) 75 mcg {Note: rass 0.} Route: IVP; Site: right hand; rr5 23:00 Follow up: Response: No adverse reaction; RASS: Deep sedation (-4) rr5 22:10 Drug: Propofol 5 mcg/kg/min {Note: left EJ.} Route: IV; Rate: calculated rate; Site: rr5 Other; 02/25 02:34 Follow up: Response: No adverse reaction; RASS: Deep sedation (-4); Rate change 20 rr5 mcg/min; IV Status: Infusion continued upon transfer 06 22:20 Drug: Lasix (furosemide) 80 mg Route: IVP; Site: left jugular; ss 23:20 Follow up: Response: No adverse reaction rr5 22:40 Drug: NS 0.9% 250 ml Route: IV; Rate: bolus; Site: right hand; rr5 23:15 Follow up: Response: No adverse reaction; IV Status: Completed infusion; IV Intake: rr5 250ml 02/25 00:09 Drug: Albuterol 2.5 mg {Note: x2 instead of 3 verbal order with readback by provider.} rr5 Route: Inhalation; 00:10 Dru grams of (Calcium Gluconate 1 grams, NS 0.9% 100 ml) Route: IVPB; Infused Over: rr5 60 mins; Site: right hand; 01:10 Follow up: Response: No adverse reaction; IV Status: Completed infusion; IV Intake: rr5 100ml 00:15 Drug: Insulin Regular Human 10 units {Co-Signature: rr5 (Arslan Tompkins RN).} Route: ss IVP; Site: right hand; 01:15 Follow up: Response: No adverse reaction rr5 00:20 Drug: Albuterol 2.5 mg Route: Inhalation; rr5 01:27 Follow up: Response: No adverse reaction rr5 01:00 Drug: Levophed (norepinephrine) (4 mg/250 mL D5W 4 mcg/min Route: IV; Rate: calculated rr5 rate; Site: right femoral; 02:34 Follow up: Response: No adverse reaction; Blood pressure is elevated; IV Status: rr5 Infusion continued upon transfer Disposition: 07:11 Co-signature as Attending Physician, Brian Erickson MD I agree with the assessment and nicole plan of care. Disposition: 02/25/21 01:16 Transfer ordered to [facility]. Diagnosis are Acute respiratory failure, Acute kidney failure, Acute diastolic (congestive) heart failure. - Reason for transfer: Higher level of care. - Accepting physician is Dr. Bray. - Condition is Stable. - Problem is new. - Symptoms have improved. Critical care time excluding procedures: 01:04 Critical care time: Bedside Care: 20 minutes, Consultation: 10 minutes, Family jr8 Intervention: 10 minutes. Total time: 40 minutes Signatures: Dispatcher [employer] EDNJ Brian Erickson MD MD cha Smirch, Shelby, RN RN ss Berny Hui, ROSIBEL PA jr8 Arslan Tompkins RN RN rr5 Arslan Tompkins RN rr5 Corrections: (The following items were deleted from the chart) 02/24 23:03 22:45 CORONAVIRUS+MR.LAB.BRZ ordered. [facility] 02/25 01:29 01:16 02/25/2021 01:16 Transfer ordered to [facility]. Diagnosis is Acute respiratory jr8 failure; Acute kidney failure; Acute diastolic (congestive) heart failure. Reason for transfer: Higher level of care. Accepting physician is Dr. MEAD. Condition is Stable. Problem is new. Symptoms have improved. jr8 02:35 01:29 02/25/2021 01:16 Transfer ordered to [facility]. Diagnosis is Acute respiratory rr5 failure; Acute kidney failure; Acute diastolic (congestive) heart failure. Reason for transfer: Higher level of care. Accepting physician is Dr. Bray. Condition is Stable. Problem is new. Symptoms have improved. jr8
[2021-02-25] MEDS ORDERED: NOREPINEPHRINE 4mg/D5W 250mL 4 MG/250 ML BAG IV ONE (01:27)
[2021-02-25 02:52] VITALS: O2SAT 100
[2021-02-25 03:05] VITALS: TEMP 97.9
[2021-02-25 03:08] VITALS: BP 123/78
--- NOTE | 2021-02-25 08:48 | RAD REPORT ---
EXAM DESCRIPTION: Renan Single View02/24/2021 10:46 pm CLINICAL HISTORY: Shortness of breath COMPARISON: January 2021 FINDINGS: Two images are submitted. One image demonstrates the tip of a nasogastric tube at the level of the mid esophagus. The second tu be with demonstrates the tip of a nasogastric tube near the region of the GE junction. Endotracheal tube has its tip 2.5 centimeters above the top of the aortic arch. Opacification of the right lower hemithorax. Additional bilateral pulmonary opacities. Heart is enlarged IMPRESSION: Opacification the right lower hemithorax probably representing a combination of pneumon ia and pleural effusion Development of bilateral pulmonary opacities probably pulmonary edema. One image demonstrates the tip of a nasogastric tube at the level of the mid esophagus. The second tu be with demonstrates the tip of a nasogastric tube near the region of the GE junction. Endotracheal tube has its tip 2.5 centimeters above the top of the aortic arch.
== END 2021-02-25 02:35 | disposition short-term general hospital (02) ==
LOC: ER 21:39
DX: J96.00 Acute respiratory failure, unspecified whether with hypoxia or hypercapnia (principal); N17.9 Acute kidney failure, unspecified; I11.0 Hypertensive heart disease with heart failure; I50.31 Acute diastolic (congestive) heart failure; F41.9 Anxiety disorder, unspecified; I48.91 Unspecified atrial fibrillation; Z20.822 Contact with and (suspected) exposure to COVID-19; I25.10 Atherosclerotic heart disease of native coronary artery without angina pectoris; E11.40 Type 2 diabetes mellitus with diabetic neuropathy, unspecified; I25.2 Old myocardial infarction; G47.30 Sleep apnea, unspecified; E78.5 Hyperlipidemia, unspecified
CPT/HCPCS: 93005; 85025; 80048; 36415; 83735; 85610; 82947; 80076; 81003; 84484; 83880; 71045; 94002; 82805; 31500; 51702; 99291; 99292; U0003; J0330; J3010

== ENCOUNTER 2021-07-18 06:52 | Inpatient (IN) | payer OTHER ==
[2021-07-18 08:02] LABS: Absolute Lymphocytes (CBC) 1.3 K/uL (0.7-4.9); Basophils % 0.5 % (0-1.3); Lymphocytes % 12.5 % (15.3-44.8); MPV 10.8 fL (7.6-11.3); RBC Red Blood Cell Count 2.72 M/uL (4.33-5.43)
[2021-07-18 08:03] LABS: Protime INR 1.22
[2021-07-18 08:11] LABS: Urine Blood Negative (Negative); Urine Glucose Negative (Negative); Urine Protein Negative (Negative); Urine Specific Gravity 1.025 (1.005-1.030); Urine pH 5.5 (5.0-7.0)
[2021-07-18 08:28] LABS: Albumin 3.2 g/dL (3.4-5.0); Bilirubin Direct 0.2 mg/dL (0-0.2); Bilirubin Total 0.4 mg/dL (0.2-1.0); Magnesium 1.8 mg/dL (1.8-2.4); Potassium 5.2 mmol/L (3.5-5.1); Protein, Total 7.1 g/dL (6.4-8.2); Troponin (Emerg Dept Use Only) 0.2 ng/mL (0.0-0.045)
--- NOTE | 2021-07-18 08:42 | EDPHYS ---
Physician Documentation [facility] Name: Tyrone Vaughn Age: 76 yrs Sex: Male : 1945 Arrival Date: 07/18/2021 Time: 06:56 Bed 6 Private MD: ED Physician Clement Ayers HPI: 07/18 07:04 This 76 yrs old Male presents to ER via EMS with complaints of shortness of jmm breath. 07:04 Onset: The symptoms/episode began/occurred gradually, 1 day(s) ago. Duration: The jmm symptoms are intermittent. The patient's shortness of breath has no apparent modifying factors. Associated signs and symptoms: Pertinent negatives: fever. . Historical: - Allergies: 07:03 No Known Allergies; bs2 - Home Meds: 07:03 aspirin 81 mg Oral chew 1 tab once daily [Active]; atorvastatin 40 mg Oral tab 1 tab bs2 once daily [Active]; bumetanide 1 mg Oral tab 1 tab once daily [Active]; carvedilol 25 mg Oral tab 1 tab 2 times per day [Active]; Eliquis 5 mg Oral tab 1 tab 2 times per day [Active]; ferrous sulfate 325 mg (65 mg iron) Oral tab 325 mg every morning [Active]; hydralazine 25 mg Oral tab 1 tab 2 times per day [Active]; pantoprazole 40 mg Oral TbEC 1 tab once daily [Active]; potassium chloride 10 mEq Oral cpER 1 cap MWF [Active]; pregabalin Oral 1 cap 3 times per day [Active]; sertraline 50 mg Oral tab 1 tab once daily [Active]; tramadol 50 mg Oral tab 1 tab three times a day [Active]; Vitamin B-12 1,000 mcg Oral TbER 1000 mcg daily [Active]; - PMHx: 07:03 Anxiety; Atrial Fib; CAD; CHF; Diabetes - IDDM; heart problem; High Cholesterol; HTN; bs2 Myocardial infarction; neuropathy; Sleep Apnea; - Immunization history:: Adult Immunizations unknown. - Social history:: Smoking status: unknown. ROS: 08:37 Constitutional: Negative for fever, chills, and weight loss, Cardiovascular: Negative jmm for chest pain, palpitations, and edema. 08:37 Respiratory: Positive for shortness of breath. 08:37 Abdomen/GI: Positive for constipation. 08:37 All other systems are negative. Exam: 08:37 Head/Face: atraumatic. Eyes: EOMI, no conjunctival erythema appreciated ENT: Moist [facility] Mucus Membranes Neck: Trachea midline, Supple Chest/axilla: Normal chest wall appearance and motion. Cardiovascular: Regular rate and rhythm. No edema appreciated Respiratory: Normal respirations, no respiratory distress appreciated 08:37 Skin: General appearance color normal MS/ Extremity: Moves all extremities, no obvious deformities appreciated, no edema noted to the lower extremities Neuro: Awake and alert, normal gait Psych: Behavior is normal, Mood is normal, Patient is cooperative and pleasant 08:37 Constitutional: The patient appears alert, awake, anxious. 08:37 Abdomen/GI: Inspection: obese Bowel sounds: normal, Palpation: soft, nontender, in all quadrants. Vital Signs: 07:00 BP 123 / 63 RA Sitting (auto/lg); Pulse 101 MON; Resp 22 S; Temp 98.5(O); Pulse Ox 96% bs2 on R/A; Weight 102.51 kg; Height 5 ft. 5 in. (165.10 cm); Pain 10/10; 07:32 BP 92 / 58; Pulse 95; Resp 17; Pulse Ox 100% on 2 lpm NC; jt3 08:43 BP 122 / 60; Pulse 97; Resp 18; Pulse Ox 93% on 3 lpm NC; jt3 09:46 BP 118 / 87; Pulse 95; Resp 21; Pulse Ox 98% on 3 lpm NC; jt3 07:00 Body Mass Index 37.61 (102.51 kg, 165.10 cm) bs2 MDM: 07:00 Patient medically screened. [facility] 08:37 Data reviewed: vital signs, nurses notes. Counseling: I had a detailed discussion with [facility] the patient and/or guardian regarding: the historical points, exam findings, and any diagnostic results supporting the discharge/admit diagnosis, lab results, radiology results, the need for further work-up and treatment in the hospital. 07/18 07:00 Order name: Basic Metabolic Panel; Complete Time: 08:28 [facility] 07/18 07:00 Order name: CBC with Diff; Complete Time: 08:07 [facility] 07/18 07:00 Order name: LFT's; Complete Time: : [facility] 07/18 07:00 Order name: Magnesium; Complete Time: 08:28 [facility] 07/18 07:00 Order name: NT PRO-BNP; Complete Time: 08:28 [facility] 07/18 07:00 Order name: PT-INR; Complete Time: 08:07 [facility] 07/18 07:00 Order name: Troponin (emerg Dept Use Only); Complete Time: 08:28 [facility] 07/18 07:05 Order name: COVID-19 (Coronavirus) Document "Date of Onset" if Symptomatic [facility] 07/18 07:55 Order name: SARS-COV-2 RT PCR; Complete Time: 08:53 [facility] 07/18 08:11 Order name: Urine Dipstick-Ancillary; Complete Time: 08:15 [facility] 07/18 09:20 Order name: Troponin I [facility] 07/18 09:20 Order name: Troponin I [facility] 07/18 09:20 Order name: Troponin I [facility] 07/18 07:00 Order name: XRAY Chest (1 view); Complete Time: 09:51 [facility] 07/18 07:00 Order name: EKG; Complete Time: 07:01 [facility] 07/18 07:00 Order name: Cardiac monitoring; Complete Time: 07:27 [facility] 07/18 07:00 Order name: EKG - Nurse/Tech; Complete Time: 07:27 [facility] 07/18 07:00 Order name: IV Saline Lock; Complete Time: 07:52 [facility] 07/18 07:00 Order name: Labs collected and sent; Complete Time: 07:52 [facility] 07/18 07:00 Order name: O2 Per Protocol; Complete Time: 07:10 [facility] 07/18 07:00 Order name: O2 Sat Monitoring; Complete Time: 07:10 [facility] 07/18 07:00 Order name: Abdomen 1 View (KUB) XRAY [facility] 07/18 07:05 Order name: Urine Dipstick-Ancillary (obtain specimen); Complete Time: 08:17 [facility] 07/18 09:14 Order name: CONS Physician Consult [facility] 07/18 09:20 Order name: Troponin I [facility] 07/18 09:29 Order name: Echo with Doppler EDMT Administered Medications: 08:48 Drug: Aspirin Chewable Tablet 324 mg Route: PO; jt3 Disposition: 13:51 Co-signature as Attending Physician, Clement Ayers MD I agree with the assessment and sp3 plan of care. Disposition Summary: 07/18/21 08:42 Hospitalization Ordered Hospitalization Status: Observation [facility] Provider: Arslan Robles Location: Telemetry/MedSurg (Inpatient) jmm Condition: Stable jmm Problem: an acute exacerbation jmm Symptoms: are unchanged jmm Bed/Room Type: Standard [facility] Room Assignment: 215(07/18/21 09:45) bd Diagnosis - Acute on chronic combined systolic (congestive) and diastolic (congestive) heart [facility] failure - Hyperkalemia [facility] Forms: - Medication Reconciliation Form jmm - SBAR form [facility] Signatures: Dispatcher [employer] EDMS Fior Lyle Joel, PA PA jmm Patel, Setul, MD MD sp3 Ally Dubois RN RN bs2 Hemanth Pimentel RN RN jt3 Corrections: (The following items were deleted from the chart) 07:04 07:03 PMHx: Hypertension; bs2 bs2 07:04 07:03 PMHx: Anxiety; bs2 bs2 07:04 07:03 PMHx: Atrial fibrillation; bs2 bs2 07:04 07:03 PMHx: CAD; bs2 bs2 07:04 07:03 PMHx: CHF; bs2 bs2 07:04 07:03 PMHx: DM IDDM; bs2 bs2 07:04 07:03 PMHx: [place]; bs2 bs2 07:04 07:03 PMHx: neuropathy; bs2 bs2 07:04 07:03 PMHx: Sleep Apnea; bs2 bs2 07:04 07:03 PMHx: Hyperlipidemia; bs2 bs2 07:56 07:06 CORONAVIRUS ordered. EDMT EDMS 09:45 08:42 jmm bd
--- NOTE | 2021-07-18 08:42 | ER ---
Nurse's Notes [facility] Name: Tyrone Vaughn Age: 76 yrs Sex: Male : 1945 Arrival Date: 07/18/2021 Time: 06:56 Bed 6 Private MD: Diagnosis: Acute on chronic combined systolic (congestive) and diastolic (congestive) heart failure;Hyperkalemia Presentation: 07/18 07:00 Chief complaint: Patient states: SOB, pain all over, no bowel movement in past 5-6 bs2 days. Ebola Screen: No symptoms or risks identified at this time. Initial Sepsis Screen: Does the patient meet any 2 criteria? No. Patient's initial sepsis screen is negative. Does the patient have a suspected source of infection? No. Patient's initial sepsis screen is negative. Risk Assessment: Do you want to hurt yourself or someone else? Patient reports no desire to harm self or others. Onset of symptoms is unknown. 07:00 Method Of Arrival: EMS: [facility] bs2 07:00 Acuity: WESLEY 3 bs2 Triage Assessment: 07:03 General: Appears in no apparent distress. uncomfortable, obese, Behavior is anxious. bs2 Pain: Complains of pain in "All over" Pain currently is 10 out of 10 on a pain scale. GI: Reports constipation, pt states 5-6 days since last bowel movement. Historical: - Allergies: 07:03 No Known Allergies; bs2 - Home Meds: 07:03 aspirin 81 mg Oral chew 1 tab once daily [Active]; atorvastatin 40 mg Oral tab 1 tab bs2 once daily [Active]; bumetanide 1 mg Oral tab 1 tab once daily [Active]; carvedilol 25 mg Oral tab 1 tab 2 times per day [Active]; Eliquis 5 mg Oral tab 1 tab 2 times per day [Active]; ferrous sulfate 325 mg (65 mg iron) Oral tab 325 mg every morning [Active]; hydralazine 25 mg Oral tab 1 tab 2 times per day [Active]; pantoprazole 40 mg Oral TbEC 1 tab once daily [Active]; potassium chloride 10 mEq Oral cpER 1 cap MWF [Active]; pregabalin Oral 1 cap 3 times per day [Active]; sertraline 50 mg Oral tab 1 tab once daily [Active]; tramadol 50 mg Oral tab 1 tab three times a day [Active]; Vitamin B-12 1,000 mcg Oral TbER 1000 mcg daily [Active]; - PMHx: 07:03 Anxiety; Atrial Fib; CAD; CHF; Diabetes - IDDM; heart problem; High Cholesterol; HTN; bs2 Myocardial infarction; neuropathy; Sleep Apnea; - Immunization history:: Adult Immunizations unknown. - Social history:: Smoking status: unknown. Screenin:30 Abuse screen: Denies threats or abuse. Denies injuries from another. Nutritional jt3 screening: No deficits noted. Tuberculosis screening: No symptoms or risk factors identified. Fall Risk None identified. Assessment: 07:30 General: Appears comfortable, Behavior is restless. Pain: Complains of pain in abdomen jt3 Pain does not radiate. Pain currently is 5 out of 10 on a pain scale. Quality of pain is described as pressure, Pain began 2-3 days ago. Cardiovascular: Heart tones S1 S2 present Pt. denies chest pain. Pt. has 2+ pitting edema bilaterally on legs. Alert and oriented x4. Respiratory: Reports shortness of breath at rest labored breathing since For several days. Breath sounds are diminished bilaterally. 08:03 Reassessment: Pt. assisted with urinal. . jt3 10:21 Reassessment: RN to RN report given to AMI Wilks. . jt3 Vital Signs: 07:00 BP 123 / 63 RA Sitting (auto/lg); Pulse 101 MON; Resp 22 S; Temp 98.5(O); Pulse Ox 96% bs2 on R/A; Weight 102.51 kg; Height 5 ft. 5 in. (165.10 cm); Pain 10/10; 07:32 BP 92 / 58; Pulse 95; Resp 17; Pulse Ox 100% on 2 lpm NC; jt3 08:43 BP 122 / 60; Pulse 97; Resp 18; Pulse Ox 93% on 3 lpm NC; jt3 09:46 BP 118 / 87; Pulse 95; Resp 21; Pulse Ox 98% on 3 lpm NC; jt3 07:00 Body Mass Index 37.61 (102.51 kg, 165.10 cm) bs2 ED Course: 06:56 Patient arrived in ED. 2 06:59 Jeremy Jay PA is PHCP. m 06:59 Clement Ayers MD is Attending Physician. jmm 07:03 Triage completed. bs2 07:03 Arm band placed on right wrist. bs2 07:06 Patient has correct armband on for positive identification. Placed in gown. Bed in low bs2 position. Call light in reach. Side rails up X2. campus monitor on. Pulse ox on. NIBP on. 07:09 Abhi Rivera RN is Primary Nurse. jl7 07:25 Warm blanket given. mh5 07:25 EKG done, by ED staff, reviewed by Brian Erickson MD. mh5 07:30 Primary Nurse role handed off by Abhi Rivrea, RN jt3 07:30 Hemanth Pimentel, RN is Primary Nurse. jt3 07:30 No provider procedures requiring assistance completed. jt3 07:52 COVID-19 (Coronavirus) Document "Date of Onset" if Symptomatic Sent. jt3 08:00 Initial lab(s) drawn, by ak, sent to lab. Inserted saline lock: 22 gauge in right jl7 ,using aseptic technique. anterior shoulder Blood collected. 08:17 SARS-COV-2 RT PCR Sent. mh5 08:17 Urine collected: clean catch specimen, clear. 5 08:41 Arslan Robles MD is Hospitalizing Provider. jmm 09:35 XRAY Chest (1 view) In Process Unspecified. EDMS Administered Medications: 08:48 Drug: Aspirin Chewable Tablet 324 mg Route: PO; jt3 Outcome: 08:42 Decision to Hospitalize by Provider. jmm 10:42 Patient left the ED. iw Signatures: Dispatcher [employer] EDMS Jeremy Jay PA PA [facility] Cintia Martin, Dianna Dye RN 5 Abhi Rivera RN RN jl7 Donal Alejandro mw2 Ally Dubois RN RN bs2 Hemanth Pimentel, AMI RN jt3 Corrections: (The following items were deleted from the chart) 07:04 07:03 PMHx: Hypertension; bs2 bs2 07:04 07:03 PMHx: Anxiety; bs2 bs2 07:04 07:03 PMHx: Atrial fibrillation; bs2 bs2 07:04 07:03 PMHx: CAD; bs2 bs2 07:04 07:03 PMHx: CHF; bs2 bs2 07:04 07:03 PMHx: DM IDDM; bs2 bs2 07:03 PMHx: CT; bs2 bs2 07:03 PMHx: neuropathy; bs2 bs2 07:03 PMHx: Sleep Apnea; bs2 bs2 07:03 PMHx: Hyperlipidemia; bs2 bs2
--- NOTE | 2021-07-18 09:34 | P.HP ---
Certification for Inpatient Patient admitted to: Inpatient With expected LOS: >2 Midnights Practitioner: I am a practitioner with admitting privileges, knowledge of patient current condition, hospital course, and medical plan of care. Services: Services provided to patient in accordance with Admission requirements found in Title 42 Section 412.3 of the Code of Federal Regulations Patient History Date of Service: 07/18/21 Reason for admission: NSTEMI, CHF exacerbation, ROSAURA History of Present Illness: 76-year-old male, PMH: Diastolic congestive heart failure (HFpEF), atrial fi brillation (no longer on Eliquis), CAD s/p stents, insulin-dependent DM 2, MARY, CKD 3. Patient presents to ED with 2 weeks of progressively worsening shortness of breath/dyspnea on exertion, generalized weakness, decreased energy, decreased appetite. He states he was very sick several months ago and felt like he was going to at that time, feels similar this time. He has been having an increase in his lower extremity swelling as well. He saw one of his doctors a month ago and was told to decrease his Bumex from 3 pills twice daily down to 2 pills twice daily. He otherwise denies any recent illness, no nausea/vomiting/diarrhea, abdominal pain, no dysuria. He does state he has been constipated over the last week, passes gas, there is no bowel movement. In the ED, EKG with nonspecific changes no acute findings, troponin 0.2, elevated BNP, anemic, mild hyperkalemia 5.2. His blood pressure was in the low normal range. He he appeared to have some dyspnea, SPO2: 95% on room air, and was placed on oxygen. At this point he was not given any treatment or medications besides aspirin, and the ER provider requested admission for further evaluation/management. Allergies No Known Allergies Allergy (Verified 07/18/21 11:39) Home Medications: Aspirin Chewable [Aspirin Chewable*] 81 mg PO DAILY 07/21/20 Atorvastatin Calcium 40 mg PO BEDTIME 07/21/20 Carvedilol [Coreg] 25 mg PO BID 07/21/20 Cyanocobalamin (Vitamin B-12) [Vitamin B12] 1,000 mcg PO DAILY 07/21/20 Ferrous Sulfate 325 mg PO DAILY 07/21/20 Pantoprazole [Protonix Tab*] 40 mg PO [id number] 11/04/20 Pregabalin 75 mg PO TID 07/21/20 Tramadol HCl [Ultram] 50 mg PO QID PRN 07/21/20 Albuterol Inhaler [Ventolin Inhaler*] 2 puff IH DAILYPRN PRN 07/18/21 Bumetanide [Bumex] 4 tab PO DAILY 07/18/21 Buspirone HCl 15 mg PO BID 07/18/21 Clopidogrel Bisulfate [Plavix] 75 mg PO DAILY 07/18/21 Insulin Degludec [Tresiba Flextouch U-100] 12 units SQ BEDTIME 07/18/21 Lubiprostone [Amitiza] 24 mcg PO DAILY 07/18/21 Metformin HCl [Metformin HCl ER] 500 mg PO BID 07/18/21 Metoprolol Succinate 1 tab PO DAILY 07/18/21 Semaglutide [Ozempic] 1 mg SQ SEECOM 07/18/21 - Past Medical/Surgical History Diabetic: Yes -: HTN -: 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 Children-3. Retired in 1961, [employer]. - Family History Father -: Hypertension, Stroke Mother -: Heart disease - Social History Smoking Status: Never smoker Alcohol use: No CD- Drugs: No Caffeine use: No Place of Residence: Home Review of Systems 10-point ROS is otherwise unremarkable Physical Examination - Physical Exam General: Alert, Mild distress HEENT: Mucous membr. moist/pink, Sclerae nonicteric Respiratory: Diminished (Bilaterally), Crackles/rales (Bilaterally at bases) Cardiovascular: Edema (3+ bilaterally up to knees), Irregular heart rate/rhythm Gastrointestinal: Soft and benign, Non-distended, No tenderness Musculoskeletal: No erythema, No tenderness Integumentary: No rashes, No significant lesion Neurological: Normal speech, Normal affect - Studies Laboratory Data (last 24 hrs) 07/18/21 07:50: PT 14.1 H, INR 1.22 07/18/21 07:50: WBC 10.20, Hgb 8.5 L, Hct 26.0 L, Plt Count 100 L 07/18/21 07:50: Sodium 140, Potassium 5.2 H, BUN 66 H, Creatinine 2.29 H, Glucose 187 H, Magnesium 1.8, Total Bilirubin 0.4, AST 10 L, ALT 12, Alkaline Phosphatase 123 H Assessment and Plan - Advance Directives Does patient have a Living Will: No Does patient have a Durable POA for Healthcare: No Physician Review Additional Text: Problem list NSTEMI, suspect demand ischemia Acute on chronic diastolic congestive heart failure CAD s/p stents Chronic atrial fibrillation (no longer on Eliquis) ROSAURA on CKD 3, with mild hyperkalemia Normocytic anemia, anemia of chronic disease and iron deficiency Diabetes mellitus type 2, insulin-dependent Hypertension Hyperlipidemia Elevated troponin in ER, has chronic chest pressure, states no significant change recently. No other chest pain Suspect elevated troponin secondary to demand ischemia in setting of acute congestive heart failure exacerbation No imaging has been done yet, chest x-ray ordered Only aspirin has been given in the ER home We will continue home aspirin and Plavix, continue home carvedilol at reduced dose given lownormal blood pressure Will start with IV Lasix 40 mg twice daily Strict I's/O's ordered, can utilize external catheter if needed. If having difficulty recording strict output, patient may need Tamayo catheter Patient is in atrial fibrillation, rate: 80s90s, continue beta-blockers slightly reduced dose given low-normal blood pressure Cardiology consulted Echocardiogram ordered, last one done 07/2020 Nephrology consulted to assist with ROASURA on CKD, patient will need diuresis Accu-Cheks, sliding scale, obtain home medications Patient states he is no longer taking/prescribed Eliquis for his atrial fibrillation. He is unsure why, and is not sure when it was stopped. He has been taking aspirin/Plavix Code: full Dispo: Anticipate DC home in ~2-3 days Time Spent Managing Pts Care (In Minutes): 60
[2021-07-18] MEDS ORDERED: ASPIRIN 81 MG CHEWABLE TABLET ONE (09:44)
--- NOTE | 2021-07-18 09:50 | RAD REPORT ---
EXAM DESCRIPTION: RAD - Chest Single View - 07/18/2021 9:36 am CLINICAL HISTORY: SOB COMPARISON: February 24 TECHNIQUE: AP portable chest image was obtained 07/18/2021 9:36 am . FINDINGS: Lung volumes are low. Right-sided pleural effusion with right base infiltrate and/ or atel ectasis noted similar to comparison. Atelectasis seen in the left base as well. Perihilar interstitia l pattern is prominent. Cardiac silhouette is enlarged. Pulmonary vasculature not outside of normal r ki. No pneumothorax. No acute bony abnormality seen. No acute aortic findings suspected. IMPRESSION: Right-sided pleural effusion with right base infiltrate and/ or atelectasis similar to J une 10 imaging. Interstitial opacification is present with cardiomegaly. Interstitial edema or infiltrate could be fr om failure, volume overload or acute viral infection.
[2021-07-18] MEDS ORDERED: ONDANSETRON 4 MG/2 ML VIAL IV PRN (10:24)
[2021-07-18 11:03] LABS: Thyroid Stimulating Hormone 1.87 uIU/mL (0.360-3.740)
--- NOTE | 2021-07-18 11:04 | P.CNS ---
Date of Consult: 07/18/21 Reason for Consult: ROSAURA/ CKD Requesting Physician: Arslan Robles Chief Complaint: NSTEMI, CHF exacerbation, ROSAURA History of Present Illness: 76-year-old male, PMH: Diastolic congestive heart failure (HFpEF), atrial fibrillation on Eliquis, CAD s/p stents, insulin-dependent DM 2, MARY, CKD 3. Patient presents to ED with 2 weeks of progressively worsening shortness of breath/dyspnea on exertion, generalized weakness, decreased energy, decreased appetite. He states he was very sick several months ago and felt like he was going to at that time, feels similar this time. He has been having an increase in his lower extremity swelling as well. He saw one of his doctors a month ago and was told to decrease his Bumex from 3 pills twice daily down to 2 pills twice daily. He otherwise denies any recent illness, no nausea/vomitin g/diarrhea, abdominal pain, no dysuria. He does state he has been constipated over the last week, passes gas, there is no bowel movement. In the ED, EKG with nonspecific changes no acute findings, troponin 0.2, elevated BNP, anemic, mild hyperkalemia 5.2. His blood pressure was in the low normal range. He he appeared to have some dyspnea, SPO2: 95% on room air, and was placed on oxygen. At this point he was not given any treatment or medications besides aspirin, and the ER provider requested admission for further evaluation/management. 07:04 This 76 yrs old Male presents to ER via EMS with complaints of shortness of jmm breath. 07:04 Onset: The symptoms/episode began/occurred gradually, 1 day(s) ago. Duration: The jmm symptoms are intermittent. The patient's shortness of breath has no apparent modifying factors. Associated signs and symptoms: Pertinent negatives: fever. Allergies No Known Allergies Allergy (Verified 07/18/21 11:39) Home medications list reviewed: Yes Home Medications: Aspirin Chewable [Aspirin Chewable*] 81 mg PO DAILY 07/21/20 Atorvastatin Calcium 40 mg PO BEDTIME 07/21/20 Carvedilol [Coreg] 25 mg PO BID 07/21/20 Cyanocobalamin (Vitamin B-12) [Vitamin B12] 1,000 mcg PO DAILY 07/21/20 Ferrous Sulfate 325 mg PO DAILY 07/21/20 Pantoprazole [Protonix Tab*] 40 mg PO [id number] 07/21/20 Pregabalin 75 mg PO TID 07/21/20 Tramadol HCl [Ultram] 50 mg PO QID PRN 07/21/20 Albuterol Inhaler [Ventolin Inhaler*] 2 puff IH DAILYPRN PRN 07/18/21 Bumetanide [Bumex] 4 tab PO DAILY 07/18/21 Buspirone HCl 15 mg PO BID 07/18/21 Clopidogrel Bisulfate [Plavix] 75 mg PO DAILY 07/18/21 Insulin Degludec [Tresiba Flextouch U-100] 12 units SQ BEDTIME 07/18/21 Lubiprostone [Amitiza] 24 mcg PO DAILY 07/18/21 Metformin HCl [Metformin HCl ER] 500 mg PO BID 07/18/21 Metoprolol Succinate 1 tab PO DAILY 07/18/21 Semaglutide [Ozempic] 1 mg SQ SEECOM 07/18/21 - Past Medical/Surgical History Diabetic: Yes -: HTN -: 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 Children-3. 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 - Family History Father Medical History: Hypertension, Stroke Mother Medical History: Heart disease - Social History Smoking Status: Unknown if ever smoked Alcohol use: No CD- Drugs: No Caffeine use: No Place of Residence: Home Review of Systems 10-point ROS is otherwise unremarkable General: Weakness Respiratory: SOB with Excertion Cardiovascular: Edema Neurological: Weakness Physical Examination Temp Pulse Resp BP Pulse Ox 98.5 F 95 H 21 H 118/87 07/18/21 07:00 07/18/21 09:46 07/18/21 09:46 07/18/21 09:46 General: Oriented x3, Cooperative HEENT: Atraumatic Neck: Supple, JVD distended Respiratory: Diminished Cardiovascular: Regular rate/rhythm, Edema Gastrointestinal: Soft and benign, Non-distended Musculoskeletal: No clubbing, No contractures Integumentary: No rashes, No cyanosis Neurological: Normal speech Laboratory Data (last 24 hrs) 07/18/21 07:50: PT 14.1 H, INR 1.22 07/18/21 07:50: WBC 10.20, Hgb 8.5 L, Hct 26.0 L, Plt Count 100 L 07/18/21 07:50: Sodium 140, Potassium 5.2 H, BUN 66 H, Creatinine 2.29 H, Glucose 187 H, Magnesium 1.8, Total Bilirubin 0.4, AST 10 L, ALT 12, Alkaline Phosphatase 123 H Imagings Data: EXAM DESCRIPTION: RAD - Chest Single View - 07/18/2021 9:36 am CLINICAL HISTORY: SOB COMPARISON: February 24 TECHNIQUE: AP portable chest image was obtained 07/18/2021 9:36 am . FINDINGS: Lung volumes are low. Right-sided pleural effusion with right base infiltrate and/ or atelectasis noted similar to comparison. Atelectasis seen in the left base as well. Perihilar interstitial pattern is prominent. Cardiac silhouette is enlarged. Pulmonary vasculature not outside of normal range. No pneumothorax. No acute bony abnormality seen. No acute aortic findings suspected. IMPRESSION: Right-sided pleural effusion with right base infiltrate and/ or atelectasis similar to February 24 imaging. Interstitial opacification is present with cardiomegaly. Interstitial edema or infiltrate could be from failure, volume overload or acute viral infection. Conclusions/Impression: ROSAURA likely CRS CKD IV -No NSAIDs -Continue Furosemide Hyperkalemia -Continue Furosemide Hypocalcemia -Start Vitamin D Systolic CHF, A/C -Low sodium diet -Continue IV Furosemide -Continue Coreg -Start CoQ10 DM II with CKD -RISS Mild malnutrition -Encourage nutrition -Low sodium Anemia in chronic illness/ CKD Thrombocytopenia -Monitor H&H -Retacrit X1 Case reviewed with Dr. Robles Thank you kindly for the consultation.
[2021-07-18] MEDS: FUROSEMIDE 40 MG/4 ML VIAL IV SCH ×2 (11:10→16:01)
[2021-07-18] MEDS: INSULIN -REGULAR HUMAN 50 UNIT/0.5 ML ML SQ SCH ×3 (11:30→21:00)
[2021-07-18] MEDS: PREGABALIN 50 MG CAP PO SCH ×2 (13:55→20:26)
[2021-07-18] MEDS: CLOPIDOGREL 75 MG TABLET PO SCH (14:23)
--- NOTE | 2021-07-18 14:58 | ECHO ---
HEIGHT: 5 ft 5 in WEIGHT: 226 lb 0 oz DATE OF STUDY: 07/18/[address]: Arslan Robles MD 2-DIMENSIONAL: YES M.MODE: YES DOPPLER: YES COLOR FLOW: YES TDS: YES PORTABLE: NO DEFINITY: NO BUBBLE STUDY: NO DIAGNOSIS: CONGESTIVE HEART FAILURE, NSTEMI CARDIAC HISTORY: CATHERIZATION: YES SURGERY: NO PROSTHETIC VALVE: NO PACEMAKER: NO MEASUREMENTS (cm) DIASTOLIC (NORMALS) SYSTOLIC (NORMALS) IVSd (0.6-1.2) LA Diam (1.9-4.0) LVEF 35-40% LVIDd (3.5-5.7) LVIDs (2.0-3.5) %FS % LVPWd (0.6-1.2) Ao Diam (2.0-3.7) 2 DIMENSIONAL ASSESSMENT: RIGHT ATRIUM: NORMAL LEFT ATRIUM: NORMAL RIGHT VENTRICLE: NORMAL LEFT VENTRICLE: DEPRESSED TRICUSPID VALVE: MITRAL VALVE: PULMONIC VALVE: NORMAL AORTIC VALVE: NORMAL PERICARDIAL EFFUSION: NONE AORTIC ROOT: NORMAL LEFT VENTRICULAR WALL MOTION: ANTERIOSEPTAL HYPOKINESIS. DOPPLER/COLOR FLOW: SEE BELOW. COMMENTS: MODERATE DEPRESSED LEFT VENTRICULAR EJECTION FRACTION 35-40%. ANTERIOSEPTAL HYPOKINESIS. MILD TRICUSPID REGURGITATION. MILD TO MODERATE MITRAL REGURGITATION. RIGHT VENTRICULAR SYSTOLIC PRESSURE OF 55-60 mmHg. TECHNOLOGIST: Enrique MCCORMACK
[2021-07-18] MEDS: carvediloL 3.125 MG TAB PO SCH (17:04)
[2021-07-18] MEDS ORDERED: LORAZEPAM 0.5 MG TABLET PO ONE (19:00)
[2021-07-18] MEDS: BISACODYL 10 MG RECTAL SUPP PR ONE ×2 (19:00→20:31)
[2021-07-18] MEDS: ATORVASTATIN 40 MG TAB PO SCH (20:27)
[2021-07-19 02:03] LABS: Absolute Lymphocytes (CBC) 1.4 K/uL (0.7-4.9); Basophils % 0.4 % (0-1.3); Hematocrit 27.4 % (39.6-49.0); Lymphocytes % 16.4 % (15.3-44.8); MPV 10.9 fL (7.6-11.3); RBC Red Blood Cell Count 2.88 M/uL (4.33-5.43)
[2021-07-19 02:29] LABS: Albumin 3.3 g/dL (3.4-5.0); Bilirubin Total 0.4 mg/dL (0.2-1.0); Potassium 4.5 mmol/L (3.5-5.1); Protein, Total 7.3 g/dL (6.4-8.2)
[2021-07-19] MEDS: carvediloL 3.125 MG TAB PO SCH ×2 (05:07→16:19)
[2021-07-19] MEDS: INSULIN -REGULAR HUMAN 50 UNIT/0.5 ML ML SQ SCH ×4 (07:30→20:40)
[2021-07-19] MEDS: FUROSEMIDE 40 MG/4 ML VIAL IV SCH ×2 (08:06→16:18)
[2021-07-19] MEDS: ASPIRIN 81 MG CHEWABLE TABLET PO SCH (08:06)
[2021-07-19] MEDS: CLOPIDOGREL 75 MG TABLET PO SCH (08:06)
[2021-07-19] MEDS: PREGABALIN 50 MG CAP PO SCH ×3 (08:06→20:14)
--- NOTE | 2021-07-19 09:35 | RAD REPORT ---
EXAM DESCRIPTION: RAD - Abdomen 1 View (KUB) - 07/19/2021 8:59 am CLINICAL HISTORY: no BM in 1 week COMPARISON: No comparisons FINDINGS: Nonobstructive bowel gas pattern. No acute osseous abnormality.Visualized lungs are unrema rkable.No abnormal calcifications. Moderate stool in the rectum. IMPRESSION: Nonobstructive bowel gas pattern.
[2021-07-19] MEDS: POLYETHYL GLY 3350 17 GM/DOSE PO SCH ×2 (10:54→20:26)
[2021-07-19] MEDS: SENOSIDES 8.6 MG TAB PO SCH ×2 (10:54→20:15)
--- NOTE | 2021-07-19 11:51 | EKG ---
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
--- NOTE | 2021-07-19 16:17 | P.PN ---
Subjective Date of Service: 07/19/21 Chief Complaint: NSTEMI, CHF exacerbation, ROSAURA Patient states he feels better compared to yesterday. He was sitting up all night due to shortness of breath. Was sleeping comfortably when I saw him this morning. He is complaining of constipation. Physical Examination - Vital Signs Temperature: 98.8 F Blood Pressure: 141/64 Pulse: 108 Respirations: 26 Pulse Ox (%): 100 - Physical Exam General: Alert, In no apparent distress, Oriented x3 HEENT: Mucous membr. moist/pink Neck: JVD not distended Respiratory: Diminished (Bilateral.), Crackles/rales (Mild bibasilar rales.), Other Cardiovascular: Regular rate/rhythm, Normal S1 S2, Edema (3+ pedal edema. Suspect lymphedema.) Gastrointestinal: Soft and benign, Non-distended, No tenderness Musculoskeletal: No erythema Integumentary: Other (Bilateral lower extremity xerosis.) Neurological: Normal speech, Normal strength at 5/5 x4 extr Assessment And Plan - Plan Problem list NSTEMI, suspect demand ischemia Acute on chronic diastolic congestive heart failure CAD s/p stents Chronic atrial fibrillation (no longer on Eliquis) ROSAURA on CKD 3, with mild hyperkalemia Normocytic anemia, anemia of chronic disease and iron deficiency Diabetes mellitus type 2, insulin-dependent Hypertension Hyperlipidemia Elevated troponin in ER, has chronic chest pressure, states no significant change recently. Suspect elevated troponin secondary to demand ischemia in setting of acute congestive heart failure exacerbation Chest x-ray shows right pleural effusion and interstitial edema. Continue IV Lasix. Continue aspirin, Plavix, and carvedilol. Strict I's/O's continue Coreg for atrial fibrillation. Cardiology input appreciated. Echocardiogram shows EF of 35%. Nephrology seen patient for ROSAURA Continue Accu-Cheks, sliding scale Continue aspirin/Plavix. Hemoglobin is stable.
[2021-07-19] MEDS ORDERED: METOLAZONE 5 MG TABLET PO ONE (19:08)
--- NOTE | 2021-07-19 19:16 | P.PN ---
Date of Service: 07/19/21 Vital Signs Temp Pulse Resp BP Pulse Ox 98.8 F 108 H 26 H 141/64 H 100 07/19/21 16:22 07/19/21 16:22 07/19/21 16:22 07/19/21 16:22 07/19/21 16:22 Medications Aspirin (Aspirin 81 Mg Chewable Tablet) 81 mg PO DAILY [facility] Last Admin: 07/19/21 08:06 Dose: 81 mg Documented by: Atorvastatin Calcium (Atorvastatin 40 Mg Tab) 40 mg PO BEDTIME [facility] Last Admin: 07/18/21 20:27 Dose: 40 mg Documented by: Calcitriol (Calcitrol 0.25 Mcg Cap) 0.5 mcg PO DAILY [facility] Carvedilol (Carvedilol 3.125 Mg Tab) 3.125 mg PO BID 6AM 6PM [facility] Last Admin: 07/19/21 16:19 Dose: 3.125 mg Documented by: Cholecalciferol (Vitamin D 5,000 Unit Cap) 5,000 unit PO DAILY [facility] Clopidogrel Bisulfate (Clopidogrel 75 Mg Tablet) 75 mg PO DAILY [facility] Last Admin: 07/19/21 08:06 Dose: 75 mg Documented by: Coenzyme Q10 (Coenzyme Q10- 200 Mg Cap) 200 mg PO DAILY [facility] Docusate Sodium (Docusate Na 100 Mg Cap) 100 mg PO BID [facility] Furosemide (Furosemide 40 Mg/4 Ml Vial) 40 mg IV BIDL [facility] Last Admin: 07/19/21 16:18 Dose: 40 mg Documented by: Insulin Human Regular (Insulin -Regular Human 50 Unit/0.5 Ml Ml) 0 unit SQ ACHS [facility]; Protocol Last Admin: 07/19/21 16:20 Dose: Not Given Documented by: Ondansetron HCl (Ondansetron 4 Mg/2 Ml Vial) 4 mg IV Q6HP PRN PRN Reason: NAUSEA / VOMITING Polyethylene Glycol (Polyethyl Gly 3350 17 Gm/Dose) 17 gm PO BID [facility] Last Admin: 07/19/21 10:54 Dose: 17 gm Documented by: Pregabalin (Pregabalin 50 Mg Cap) 50 mg PO TID [facility] Last Admin: 07/19/21 13:13 Dose: 50 mg Documented by: Senna (Senosides 8.6 Mg Tab) 17.2 mg PO BID [facility] Last Admin: 07/19/21 10:54 Dose: 17.2 mg Documented by: Sodium Chloride (Flush Normal Saline 10 Ml) 10 ml IV BID [facility] Last Admin: 07/19/21 08:06 Dose: 10 ml Documented by: Assessment/ Plan: Nephrology Progress Note Constipation No chest pain or dyspnea. TAYLOR. Edema. No acute events overnight Vitals, medications blood work and imaging reviewed in the chart General: Oriented x3, Cooperative HEENT: Atraumatic Neck: Supple, JVD distended Respiratory: Diminished Cardiovascular: Regular rate/rhythm, Edema Gastrointestinal: Soft and benign, Non-distended Musculoskeletal: No clubbing, No contractures Integumentary: No rashes, No cyanosis Neurological: Normal speech Laboratory Data (last 24 hrs) 07/18/21 07:50: PT 14.1 H, INR 1.22 07/18/21 07:50: WBC 10.20, Hgb 8.5 L, Hct 26.0 L, Plt Count 100 L 07/18/21 07:50: Sodium 140, Potassium 5.2 H, BUN 66 H, Creatinine 2.29 H, Glucose 187 H, Magnesium 1.8, Total Bilirubin 0.4, AST 10 L, ALT 12, Alkaline Phosphatase 123 H Imagings Data: EXAM DESCRIPTION: RAD - Chest Single View - 07/18/2021 9:36 am CLINICAL HISTORY: SOB COMPARISON: February 24 TECHNIQUE: AP portable chest image was obtained 07/18/2021 9:36 am . FINDINGS: Lung volumes are low. Right-sided pleural effusion with right base infiltrate and/ or atelectasis noted similar to comparison. Atelectasis seen in the left base as well. Perihilar interstitial pattern is prominent. Cardiac silhouette is enlarged. Pulmonary vasculature not outside of normal range. No pneumothorax. No acute bony abnormality seen. No acute aortic findings s uspected. IMPRESSION: Right-sided pleural effusion with right base infiltrate and/ or atelectasis similar to February 24 imaging. Interstitial opacification is present with cardiomegaly. Interstitial edema or infiltrate could be from failure, volume overload or acute viral infection. Conclusions/Impression: ROSAURA likely CRS CKD IV -No NSAIDs -Continue Furosemide Hyperkalemia -Continue Furosemide Hypocalcemia -Continue Vitamin D Systolic CHF, A/C -Low sodium diet -Continue IV Furosemide -Metolazone 5mg X1 -Continue Coreg -Continue CoQ10 DM II with CKD -RISS Mild malnutrition -Encourage nutrition -Low sodium Anemia in chronic illness/ CKD Thrombocytopenia -Monitor H&H -Retacrit X1
[2021-07-19] MEDS: ATORVASTATIN 40 MG TAB PO SCH (20:15)
[2021-07-19] MEDS: DOCUSATE NA 100 MG CAP PO SCH (20:16)
[2021-07-20 03:45] LABS: Absolute Lymphocytes (CBC) 1.3 K/uL (0.7-4.9); Basophils % 0.3 % (0-1.3); Hematocrit 24.5 % (39.6-49.0); Lymphocytes % 16.1 % (15.3-44.8); MPV 11.1 fL (7.6-11.3); RBC Red Blood Cell Count 2.58 M/uL (4.33-5.43)
[2021-07-20 04:02] LABS: Phosphorus 3.9 mg/dL (2.5-4.9); Potassium 4.5 mmol/L (3.5-5.1); Uric Acid 11.6 mg/dL (3.5-7.2)
[2021-07-20] MEDS: carvediloL 3.125 MG TAB PO SCH ×2 (05:05→17:41)
[2021-07-20] MEDS: INSULIN -REGULAR HUMAN 50 UNIT/0.5 ML ML SQ SCH ×4 (07:30→21:59)
--- NOTE | 2021-07-20 08:14 | P.PN ---
Date of Service: 07/20/21 Vital Signs Temp Pulse Resp BP Pulse Ox 97.4 F 88 16 127/66 99 07/20/21 04:00 07/20/21 05:05 07/20/21 04:00 07/20/21 05:05 07/20/21 04:00 Medications Aspirin (Aspirin 81 Mg Chewable Tablet) 81 mg PO DAILY [facility] Last Admin: 07/19/21 08:06 Dose: 81 mg Documented by: Atorvastatin Calcium (Atorvastatin 40 Mg Tab) 40 mg PO BEDTIME [facility] Last Admin: 07/19/21 20:15 Dose: 40 mg Documented by: Calcitriol (Calcitrol 0.25 Mcg Cap) 0.5 mcg PO DAILY [facility] Carvedilol (Carvedilol 3.125 Mg Tab) 3.125 mg PO BID 6AM 6PM [facility] Last Admin: 07/20/21 05:05 Dose: 3.125 mg Documented by: Cholecalciferol (Vitamin D 5,000 Unit Cap) 5,000 unit PO DAILY [facility] Clopidogrel Bisulfate (Clopidogrel 75 Mg Tablet) 75 mg PO DAILY [facility] Last Admin: 07/19/21 08:06 Dose: 75 mg Documented by: Coenzyme Q10 (Coenzyme Q10- 200 Mg Cap) 200 mg PO DAILY [facility] Docusate Sodium (Docusate Na 100 Mg Cap) 100 mg PO BID [facility] Last Admin: 07/19/21 20:16 Dose: 100 mg Documented by: Furosemide (Furosemide 40 Mg/4 Ml Vial) 40 mg IV BIDL [facility] Last Admin: 07/19/21 16:18 Dose: 40 mg Documented by: Insulin Human Regular (Insulin -Regular Human 50 Unit/0.5 Ml Ml) [address] [facility]; Protocol Last Admin: 07/19/21 20:40 Dose: 2 unit Documented by: Ondansetron HCl (Ondansetron 4 Mg/2 Ml Vial) 4 mg IV Q6HP PRN PRN Reason: NAUSEA / VOMITING Polyethylene Glycol (Polyethyl Gly 3350 17 Gm/Dose) 17 gm PO BID [facility] Last Admin: 07/19/21 20:26 Dose: 17 gm Documented by: Pregabalin (Pregabalin 50 Mg Cap) 50 mg PO TID [facility] Last Admin: 07/19/21 20:14 Dose: 50 mg Documented by: Senna (Senosides 8.6 Mg Tab) 17.2 mg PO BID [facility] Last Admin: 07/19/21 20:15 Dose: 17.2 mg Documented by: Sodium Chloride (Flush Normal Saline 10 Ml) 10 ml IV BID [facility] Last Admin: 07/19/21 20:27 Dose: 10 ml Documented by: Assessment/ Plan: Nephrology Progress Note Small BM today. +Appetite No chest pain or dyspnea. TAYLOR. Edema. No acute events overnight Vitals, medications blood work and imaging reviewed in the chart General: Oriented x3, Cooperative HEENT: Atraumatic Neck: Supple, JVD distended Respiratory: Diminished Cardiovascular: Regular rate/rhythm, Edema Gastrointestinal: Soft and benign, Non-distended Musculoskeletal: No clubbing, No contractures Integumentary: No rashes, No cyanosis Neurological: Normal speech Laboratory Data (last 24 hrs) 07/18/21 07:50: PT 14.1 H, INR 1.22 07/18/21 07:50: WBC 10.20, Hgb 8.5 L, Hct 26.0 L, Plt Count 100 L 07/18/21 07:50: Sodium 140, Potassium 5.2 H, BUN 66 H, Creatinine 2.29 H, Glucose 187 H, Magnesium 1.8, Total Bilirubin 0.4, AST 10 L, ALT 12, Alkaline Phosphatase 123 H Imagings Data: EXAM DESCRIPTION: RAD - Chest Single View - 07/18/2021 9:36 am CLINICAL HISTORY: SOB COMPARISON: February 24 TECHNIQUE: AP portable chest image was obtained 07/18/2021 9:36 am . FINDINGS: Lung volumes are low. Right-sided pleural effusion with right base infiltrate and/ or atelectasis noted similar to comparison. Atelectasis seen in the left base as well. Perihilar interstitial pattern is prominent. Cardiac silhouette is enlarged. Pulmonary vasculature not outside of normal range. No pneumothorax. No acute bony abnormality seen. No acute aortic findings suspected. IMPRESSION: Right-sided pleural effusion with right base infiltrate and/ or atelectasis similar to February 24 imaging. Interstitial opacification is present with cardiomegaly. Interstitial edema or infiltrate could be from failure, volume overload or acute viral infection. Conclusions/Impression: ROSAURA likely CRS CKD IV -No NSAIDs -Continue Furosemide Hyperkalemia -Continue Furosemide Hypocalcemia -Continue Vitamin D Systolic CHF, A/C -Low sodium diet -Continue IV Furosemide -Metolazone 5mg X1 -Continue Coreg -Continue CoQ10 DM II with CKD -RISS Mild malnutrition -Encourage nutrition -Low sodium Anemia in chronic illness/ CKD Thrombocytopenia -Monitor H&H -Retacrit X1
[2021-07-20] MEDS ORDERED: LACTULOSE 20 GM/30 ML UCUP PO ONE (08:17)
[2021-07-20] MEDS: PREGABALIN 50 MG CAP PO SCH ×3 (08:17→21:58)
[2021-07-20] MEDS: DOCUSATE NA 100 MG CAP PO SCH ×2 (08:17→21:00)
[2021-07-20] MEDS: FUROSEMIDE 40 MG/4 ML VIAL IV SCH ×2 (08:17→17:01)
[2021-07-20] MEDS: VITAMIN D 5,000 UNIT CAP PO SCH (08:18)
[2021-07-20] MEDS: CLOPIDOGREL 75 MG TABLET PO SCH (08:18)
[2021-07-20] MEDS: SENOSIDES 8.6 MG TAB PO SCH ×2 (08:18→21:58)
[2021-07-20] MEDS: COENZYME Q10- 200 MG CAP PO SCH (08:18)
[2021-07-20] MEDS: CALCITROL 0.25 MCG CAP PO SCH (08:18)
[2021-07-20] MEDS: ASPIRIN 81 MG CHEWABLE TABLET PO SCH (08:18)
[2021-07-20] MEDS: POLYETHYL GLY 3350 17 GM/DOSE PO SCH ×2 (08:19→21:00)
[2021-07-20] MEDS ORDERED: EPOETIN ALFA-EPBX 10,000 UNIT/ML VIAL SQ SCH (09:00)
--- NOTE | 2021-07-20 14:36 | P.PN ---
Subjective Date of Service: 07/20/21 Chief Complaint: NSTEMI, CHF exacerbation, ROSAURA Patient reports feeling better compared to yesterday. His oxygen saturation is 96-98%, no tachypnea, no signs of shortness of breath but he prefers to wear the oxygen His lower legs I still significantly edematous. Physical Examination - Vital Signs Temperature: 98.5 F Blood Pressure: 119/76 Pulse: 92 Respirations: 18 Pulse Ox (%): 91 - Physical Exam General: Alert, In no apparent distress, Oriented x3, Obese HEENT: Mucous membr. moist/pink Neck: JVD not distended Respiratory: Diminished, Other (Mild scattered rales) Cardiovascular: Regular rate/rhythm, Normal S1 S2, Edema (3+ bilateral feet.) Gastrointestinal: Soft and benign, Non-distended, No tenderness Musculoskeletal: Swelling (Bilateral feet) Integumentary: Other (Bilateral lower extremity xerosis) Neurological: Normal speech, Normal strength at 5/5 x4 extr Assessment And Plan - Plan Problem list NSTEMI, suspect demand ischemia Acute on chronic diastolic congestive heart failure CAD s/p stents Chronic atrial fibrillation (no longer on Eliquis) ROSAURA on CKD 3, with mild hyperkalemia Normocytic anemia, anemia of chronic disease and iron deficiency Diabetes mellitus type 2, insulin-dependent Hypertension Hyperlipidemia Elevated troponin in ER, has chronic chest pressure, states no significant change recently. Suspect elevated troponin secondary to demand ischemia in setting of acute congestive heart failure exacerbation Chest x-ray shows right pleural effusion and interstitial edema. Echocardiogram shows EF of 35%. Continue IV Lasix. Continue aspirin, Plavix, and carvedilol. Strict I's/O's continue Coreg for atrial fibrillation. Seen by Cardiology. Nephrology seen patient for ROSAURA and agree with IV Lasix. Nephrology added metolazone to increase diuresis. Continue Accu-Cheks, sliding scale Continue aspirin/Plavix. Hemoglobin is dropping slowly. Continue to monitor. Increase activity as tolerated.
[2021-07-20] MEDS: ATORVASTATIN 40 MG TAB PO SCH (21:58)
[2021-07-20] MEDS ORDERED: MELATONIN 5 MG TABLET PO PRN (23:20)
[2021-07-21 04:09] LABS: Absolute Lymphocytes (CBC) 1.5 K/uL (0.7-4.9); Basophils % 0.5 % (0-1.3); Hematocrit 25.3 % (39.6-49.0); Lymphocytes % 20.4 % (15.3-44.8); MPV 10.7 fL (7.6-11.3); RBC Red Blood Cell Count 2.67 M/uL (4.33-5.43)
[2021-07-21 04:19] LABS: Potassium 4.2 mmol/L (3.5-5.1)
[2021-07-21] MEDS: carvediloL 3.125 MG TAB PO SCH (05:54)
[2021-07-21] MEDS: INSULIN -REGULAR HUMAN 50 UNIT/0.5 ML ML SQ SCH ×2 (07:30→12:42)
[2021-07-21] MEDS: VITAMIN D 5,000 UNIT CAP PO SCH (09:00)
[2021-07-21] MEDS: POLYETHYL GLY 3350 17 GM/DOSE PO SCH (09:00)
[2021-07-21] MEDS: FUROSEMIDE 40 MG/4 ML VIAL IV SCH (10:15)
[2021-07-21] MEDS: SENOSIDES 8.6 MG TAB PO SCH (10:16)
[2021-07-21] MEDS: CALCITROL 0.25 MCG CAP PO SCH (10:17)
[2021-07-21] MEDS: DOCUSATE NA 100 MG CAP PO SCH (10:17)
[2021-07-21] MEDS: ASPIRIN 81 MG CHEWABLE TABLET PO SCH (10:17)
[2021-07-21] MEDS: COENZYME Q10- 200 MG CAP PO SCH (10:18)
[2021-07-21] MEDS: CLOPIDOGREL 75 MG TABLET PO SCH (10:18)
[2021-07-21] MEDS: PREGABALIN 50 MG CAP PO SCH (10:18)
[2021-07-21] MEDS ORDERED: EPOETIN ALFA-EPBX 10,000 UNIT/ML VIAL SQ ONE (10:45)
--- NOTE | 2021-07-21 11:00 | P.PN ---
Date of Service: 07/21/21 Vital Signs Temp Pulse Resp BP Pulse Ox 99.6 F 87 20 122/70 96 07/21/21 08:00 07/21/21 10:15 07/21/21 08:00 07/21/21 10:15 07/21/21 08:00 Medications Aspirin (Aspirin 81 Mg Chewable Tablet) 81 mg PO DAILY [facility] Last Admin: 07/21/21 10:17 Dose: 81 mg Documented by: Atorvastatin Calcium (Atorvastatin 40 Mg Tab) 40 mg PO BEDTIME [facility] Last Admin: 07/20/21 21:58 Dose: 40 mg Documented by: Calcitriol (Calcitrol 0.25 Mcg Cap) 0.5 mcg PO DAILY [facility] Last Admin: 07/21/21 10:17 Dose: 0.5 mcg Documented by: Carvedilol (Carvedilol 3.125 Mg Tab) 3.125 mg PO BID 6AM 6PM [facility] Last Admin: 07/21/21 05:54 Dose: 3.125 mg Documented by: Cholecalciferol (Vitamin D 5,000 Unit Cap) 5,000 unit PO DAILY [facility] Last Admin: 07/21/21 09:00 Dose: 5,000 unit Documented by: Clopidogrel Bisulfate (Clopidogrel 75 Mg Tablet) 75 mg PO DAILY [facility] Last Admin: 07/21/21 10:18 Dose: 75 mg Documented by: Coenzyme Q10 (Coenzyme Q10- 200 Mg Cap) 200 mg PO DAILY [facility] Last Admin: 07/21/21 10:18 Dose: 200 mg Documented by: Docusate Sodium (Docusate Na 100 Mg Cap) 100 mg PO BID [facility] Last Admin: 07/21/21 10:17 Dose: 100 mg Documented by: Furosemide (Furosemide 40 Mg/4 Ml Vial) 40 mg IV BIDL [facility] Last Admin: 07/21/21 10:15 Dose: 40 mg Documented by: Insulin Human Regular (Insulin -Regular Human 50 Unit/0.5 Ml Ml) 0 unit SQ ACHS [facility]; Protocol Last Admin: 07/21/21 07:30 Dose: Not Given Documented by: Melatonin (Melatonin 5 Mg Tablet) 5 mg PO BEDTIME PRN PRN PRN Reason: INSOMNIA Last Admin: 07/21/21 00:05 Dose: 5 mg Documented by: Ondansetron HCl (Ondansetron 4 Mg/2 Ml Vial) 4 mg IV Q6HP PRN PRN Reason: NAUSEA / VOMITING Polyethylene Glycol (Polyethyl Gly 3350 17 Gm/Dose) 17 gm PO BID [facility] Last Admin: 07/21/21 09:00 Dose: Not Given Documented by: Pregabalin (Pregabalin 50 Mg Cap) 50 mg PO TID [facility] Last Admin: 07/21/21 10:18 Dose: 50 mg Documented by: Senna (Senosides 8.6 Mg Tab) 17.2 mg PO BID [facility] Last Admin: 07/21/21 10:16 Dose: 17.2 mg Documented by: Sodium Chloride (Flush Normal Saline 10 Ml) 10 ml IV BID [facility] Last Admin: 07/21/21 10:18 Dose: 10 ml Documented by: Assessment/ Plan: Nephrology Progress Note +BM +appetite +UO No chest pain or dyspnea. TAYLOR. Edema. No acute events overnight Vitals, medications blood work and imaging reviewed in the chart General: Oriented x3, Cooperative HEENT: Atraumatic Neck: Supple, JVD distended Respiratory: Diminished Cardiovascular: Regular rate/rhythm, Edema Gastrointestinal: Soft and benign, Non-distended Musculoskeletal: No clubbing, No contractures Integumentary: No rashes, No cyanosis Neurological: Normal speech Laboratory Data (last 24 hrs) 07/18/21 07:50: PT 14.1 H, INR 1.22 07/18/21 07:50: WBC 10.20, Hgb 8.5 L, Hct 26.0 L, Plt Count 100 L 07/18/21 07:50: Sodium 140, Potassium 5.2 H, BUN 66 H, Creatinine 2.29 H, Glucose 187 H, Magnesium 1.8, Total Bilirubin 0.4, AST 10 L, ALT 12, Alkaline Phosphatase 123 H Imagings Data: EXAM DESCRIPTION: RAD - Chest Single View - 07/18/2021 9:36 am CLINICAL HISTORY: SOB COMPARISON: February 24 TECHNIQUE: AP portable chest image was obtained 07/18/2021 9:36 am . FINDINGS: Lung volumes are low. Right-sided pleural effusion with right base infiltrate and/ or atelectasis noted similar to comparison. Atelectasis seen in the left base as well. Perihilar interstitial pattern is prominent. Cardiac silhouette is enlarged. Pulmonary vasculature not outside of normal range. No pneumothorax. No acute bony abnormality seen. No acute aortic findings suspected. IMPRESSION: Right-sided pleural effusion with right base infiltrate and/ or atelectasis similar to February 24 imaging. Interstitial opacification is present with cardiomegaly. Interstitial edema or infiltrate could be from failure, volume overload or acute viral infection. Conclusions/Impression: ROSAURA likely CRS CKD IV -No NSAIDs -Continue Furosemide Hyperkalemia -Continue Furosemide Hypocalcemia -Continue Vitamin D Systolic CHF, A/C -Low sodium diet -Continue IV Furosemide -Metolazone prn -Continue Coreg -Continue CoQ10 DM II with CKD -RISS Mild malnutrition -Encourage nutrition -Low sodium Anemia in chronic illness/ CKD Thrombocytopenia -Monitor H&H -Retacrit X1
[2021-07-21 11:30] VITALS: O2SAT 96; BMI 34.9
--- NOTE | 2021-07-21 12:04 | P.DS ---
Admission Date: 07/18/21 Discharge Date: 07/21/21 Disposition: [facility] HOME/HOME HEALTH CARE Discharge Condition: FAIR Reason for Admission: NSTEMI, CHF exacerbation, ROSAURA Brief History of Present Illness: 76-year-old male, PMH: Diastolic congestive heart failure (HFpEF), atrial fibrillation (no longer on Eliquis), CAD s/p stents, insulin-dependent DM 2, MARY, CKD 3. Patient presented to ED with 2 weeks of progressively worsening shortness of breath/dyspnea on exertion, generalized weakness, decreased energy, decreased appetite. He reported increase in his lower extremity swelling as well. He stated he was told to reduce his Bumex dose from 3 pills twice daily down to 2 pills twice daily. He reported constipated over the last week. In the ED, EKG with nonspecific changes no acute findings, troponin 0.2, elevated BNP, anemic, mild hyperkalemia 5.2. His blood pressure was in the low normal range. He he appeared to have some dyspnea, SPO2: 95% on room air, and was placed on oxygen. Patient hospitalized for further management. Hospital Course: Problem list NSTEMI, suspect demand ischemia Acute on chronic diastolic congestive heart failure CAD s/p stents Chronic atrial fibrillation (no longer on Eliquis) ROSAURA on CKD 3, with mild hyperkalemia Normocytic anemia, anemia of chronic disease and iron deficiency Diabetes mellitus type 2, insulin-dependent Hypertension Hyperlipidemia Elevated troponin. Patient has chronic chest pressure which has not changed. Troponin trended flat. Suspect elevated troponin secondary to demand ischemia in setting of acute congestive heart failure exacerbation Chest x-ray shows right pleural effusion and interstitial edema. Echocardiogram shows EF of 35%. Patient treated with IV Lasix. Continued aspirin, Plavix, and carvedilol. continue Coreg for atrial fibrillation. Patient not anticoagulated for afib. He has chronic anemia. Nephrology seen patient for ROSAURA and agreed with IV Lasix. Nephrology added metolazone p.r.n. to increase diuresis. Serum bicarb uptrending so metolazone discontinued. Blood sugar managed with insulin sliding scale Hemoglobin was stable. Patient able to transfer and walk a few feet with minimal assistance. His shortness of breath has significantly improved and back to baseline. His leg edema has improved but pedal edema persist. Patient significantly diuresed and deemed stable for discharge. His constipation was treated with laxatives and stool softeners. Patient had multiple bowel movement, some of them loose, so senna and MiraLax and Colace discontinued today. Bumex is resumed on discharge. Vital Signs/Physical Exam: Temp Pulse Resp BP Pulse Ox 99.6 F 87 20 122/70 96 07/21/21 08:00 07/21/21 10:15 07/21/21 08:00 07/21/21 10:15 07/21/21 08:00 General: Alert, In no apparent distress, Oriented x3 HEENT: Mucous membr. moist/pink Neck: JVD not distended Respiratory: Clear to auscultation bilaterally, Normal air movement Cardiovascular: Normal S1 S2, Irregular heart rate/rhythm Gastrointestinal: Normal bowel sounds, Soft and benign, Non-distended, No tenderness Musculoskeletal: Other (Bilateral pedal edema) Integumentary: Other (Bilateral lower extremity xerosis) Neurological: Other (No focal motor deficit.) Laboratory Data at Discharge: WBC 7.60 K/uL (4.3-10.9) 07/21/21 03:15 Hgb 8.3 g/dL (13.6-17.9) L 07/21/21 03:15 Hct 25.3 % (39.6-49.0) L 07/21/21 03:15 Plt Count 115 K/uL (152-406) L 07/21/21 03:15 PT 14.1 SECONDS (9.5-12.5) H 07/18/21 07:50 INR 1.22 07/18/21 07:50 Sodium 141 mmol/L (136-145) 07/21/21 03:15 Potassium 4.2 mmol/L (3.5-5.1) 07/21/21 03:15 BUN 70 mg/dL (7-18) H 07/21/21 03:15 Creatinine 2.07 mg/dL (0.55-1.3) H 07/21/21 03:15 Glucose 207 mg/dL (74-106) H 07/21/21 03:15 Uric Acid 11.6 mg/dL (3.5-7.2) H D 07/20/21 03:06 Phosphorus 3.9 mg/dL (2.5-4.9) 07/20/21 03:06 Magnesium 2.0 mg/dL (1.8-2.4) 07/20/21 03:06 Total Bilirubin 0.4 mg/dL (0.2-1.0) 07/19/21 01:53 AST 12 U/L (15-37) L 07/19/21 01:53 ALT 15 U/L (12-78) 07/19/21 01:53 Alkaline Phosphatase 125 U/L (45-117) H 07/19/21 01:53 Troponin I 0.22 ng/mL (0.0-0.045) H 07/19/21 01:53 Home Medications: Aspirin Chewable [Aspirin Chewable*] 81 mg PO DAILY 07/21/20 Atorvastatin Calcium 40 mg PO BEDTIME 07/21/20 Cyanocobalamin (Vitamin B-12) [Vitamin B12] 1,000 mcg PO DAILY 07/21/20 Ferrous Sulfate 325 mg PO DAILY 07/21/20 Pantoprazole [Protonix Tab*] 40 mg PO [id number] 07/21/20 Pregabalin 75 mg PO TID 07/21/20 Tramadol HCl [Ultram] 50 mg PO QID PRN 07/21/20 Albuterol Inhaler [Ventolin Inhaler*] 2 puff IH DAILYPRN PRN 07/18/21 Bumetanide [Bumex*] 4 tab PO DAILY 07/18/21 Buspirone HCl 15 mg PO BID 07/18/21 Clopidogrel Bisulfate [Plavix*] 75 mg PO DAILY 07/18/21 Insulin Degludec [Tresiba Flextouch U-100] 12 units SQ BEDTIME 07/18/21 Lubiprostone [Amitiza*] 24 mcg PO DAILY 07/18/21 Metformin HCl [Metformin HCl ER] 500 mg PO BID 07/18/21 Metoprolol Succinate 1 tab PO DAILY 07/18/21 Semaglutide [Ozempic] 1 mg SQ SEECOM 07/18/21 Calcitrol [Rocaltrol*] 0.5 mcg PO DAILY #30 cap 07/21/21 Cholecalciferol (Vitamin D3) [Vitamin D 5,000 IU Cap*] 5,000 unit PO DAILY #30 cap 07/21/21 Ubidecarenone [Coenzyme Q10*] 200 mg PO DAILY #30 cap 07/21/21 carvediloL [Coreg*] 3.125 mg PO BID 6AM 6PM #60 tab 07/21/21 New Medications: Ubidecarenone [Coenzyme Q10*] 200 mg PO DAILY #30 cap carvediloL [Coreg*] 3.125 mg PO BID 6AM 6PM #60 tab Calcitrol [Rocaltrol*] 0.5 mcg PO DAILY #30 cap Cholecalciferol (Vitamin D3) [Vitamin D 5,000 IU Cap*] 5,000 unit PO DAILY #30 cap Diet: ADA Activity: Fall precautions Followup: Aura Mayorga MD [ACTIVE - CAN ADMIT] - 1-2 Weeks Unknown,U [Primary Care Provider] - 1-2 Weeks Time spent managing pt's care (in minutes): 40
[2021-07-21 13:43] VITALS: BP 151/66; TEMP 99.3
--- NOTE | 2021-07-25 11:27 | CON ---
Date of Consultation: 07/18/2021 Reason For Consultation: Congestive heart failure. History Of Present Illness: Mr. Vaughn is 76, known to us, has a history of anxiety, atrial fibrillat ion, coronary artery disease, chronic systolic congestive heart failure, hypertension, dyslipidemia, diabetes, neuropathy, and sleep apnea as well as hypertension. He came in with congestive heart fail ure. This is not his first admission for that purpose. His O2 saturation when he came in was 96% an d pulse ox on room air. He was normotensive. He was in sinus rhythm at a rate of 90. He denied any chest pain, palpitation, or syncope. Denied any fever or chills. Allergies: NONE. Review of Systems: Negative. Social History: Negative. Family History: Negative. Past Medical History: As stated above. Medications: Include aspirin, atorvastatin, bumetanide, Coreg, Eliquis, iron, hydralazine, pantopraz ole, potassium, Lyrica, sertraline, tramadol, and vitamin B12. Physical Examination: Vital Signs: Blood pressure was 123/63, sinus rhythm. Respiratory rate was 22, temperature 98.5, pu lse oximeter was 96%. HEENT: Negative. Neck: Supple without any lymphadenopathy, JVD, thyromegaly, or bruit. Chest: Revealed rales at bases. Cardiac: Revealed a regular rhythm and rate with a tricuspid regurgitation, murmur. No gallops or r ubs. Abdomen: Benign. Extremities: Revealed no clubbing, cyanosis, or edema. Diagnostic Data: The patient had a creatinine of 2.2. His hemoglobin was 8.0. Glucose was 254. Ch est x-ray shows pleural effusion on the right and cardiomegaly and congestive heart failure. EKG thomas wed normal sinus rhythm with old septal infarct. Impression And Plan: Acute on chronic systolic congestive heart failure exacerbation. Catheterizati on in 2019 ended up with a stent of the left anterior descending. He has had a negative workup in e office since then. Echocardiogram, which was done before I saw him showed an ejection fraction of 35% to 40% with moderate pulmonary hypertension of 60 mmHg, right ventricular systolic pressure. Mr. Vaughn needs to be kept basically on his present regimen diabetes. No reason for further cardiac wor kup other than the echo for now. Nephrology consultation has been obtained. They recommended to con tinue furosemide. Start vitamin D, low sodium diet. Continue Coreg. Start CoQ10. Encourage better nutrition. Follow hemoglobin. We will continue to follow the patient on an as-needed basis. KANWAL/JASON Voice ID: [id number] Report ID: [id number]
== END 2021-07-21 13:30 | disposition home health service (06) | DRG 291 ==
LOC: ER 06:52 → ERHOLD 10:11 → 2ND 10:22
PROVIDERS: ADMIT Hospitalist; ATTEND Hospitalist
DX: I13.0 Hypertensive heart and chronic kidney disease with heart failure and stage 1 through stage 4 chronic kidney disease, or unspecified chronic kidney disease (principal); I50.33 Acute on chronic diastolic (congestive) heart failure; N17.9 Acute kidney failure, unspecified; I24.8 Other forms of acute ischemic heart disease; I48.20 Chronic atrial fibrillation, unspecified; E46 Unspecified protein-calorie malnutrition; N18.30 Chronic kidney disease, stage 3 unspecified; E11.22 Type 2 diabetes mellitus with diabetic chronic kidney disease; I25.10 Atherosclerotic heart disease of native coronary artery without angina pectoris; D50.9 Iron deficiency anemia, unspecified; E78.5 Hyperlipidemia, unspecified; E87.5 Hyperkalemia; K59.00 Constipation, unspecified; E83.51 Hypocalcemia; Z68.34 Body mass index [BMI] 34.0-34.9, adult; D69.6 Thrombocytopenia, unspecified; Z95.5 Presence of coronary angioplasty implant and graft; Z86.73 Personal history of transient ischemic attack (TIA), and cerebral infarction without residual deficits; Z20.822 Contact with and (suspected) exposure to COVID-19
CPT/HCPCS: 36415; 71045; 74018; 80048; 80053; 80076; 81003; 82947; 83735; 83880; 84100; 84439; 84443; 84484; 84550; 85025; 85610; 93005; 93306; 94760; 99285; J1940; J2405; Q5106; U0003

== ENCOUNTER 2021-11-03 10:48 | Inpatient (IN) | payer OTHER ==
--- OUTSIDE RECORDS SUMMARY | 2021-11-03 10:51 | XMS REPORT | Continuity of Care Document ---
:1945 Author Organization [facility] t Address [address] [place] [address] Care Team Providers Name Role Phone Soo Rivera Primary Care Physician Alexis Britt Attending Clinician Unavailable [id number] Attending Clinician Unavailable Jesus TUBBS C Attending Clinician [phone] TRAVIS Attending Clinician Unavailable Alexis Britt Admitting Clinician Unavailable [id number] Admitting Clinician Unavailable ROSEANN_Shazia Admitting Clinician Unavailable Payers Payer Name Policy Type Policy Number Effective Date Expiration Date S raghu [facility] [id number] [place]ICARE [place]: [id number] 2007 [employer] 00:00:00 Problems Condition Condition Condition Status Onset Resolution Last Treating Co mments Source Name Details Category Date Date Treatment Clinician Date HFrEF HFrEF Disease Active [facility] (heart (heart 04-08 ity of failure failure 00:00: [place] with with 00 Medical reduced reduced Branch ejection ejection fraction) fraction) Coronary Coronary Disease Active Unive rs artery artery 04-08 ity of disease disease 00:00: [place] involving involving 00 Medi [place]essie [place] [facility] heart heart without without angina angina pectoris, pectoris, unspecifie unspecifie d vessel d vessel or lesion or lesion type type Obesity Obesity Disease Active Univers 6-12 ity of 00:00: [place] 00 Medical Branch Acute on Acute on Disease Active Unive rs chronic chronic 6-12 ity of HFrEF HFrEF 00:00: [place] (heart (heart 00 Medical failure failure Branch with with reduced reduced ejection ejection fraction) fraction) Acute Acute Disease Active [facility] [place] respirator respirator 6-11 it y of y failure y failure 00:00: Lisa s with with 00 Medical hypoxia hypoxia Branch Physical Physical Disease Active Unive rs deconditio deconditio 6-10 it y of pineda pineda 00:00: [place] 00 Medical Branch Left heart Left heart Disease Active 2008-09 U nivers failure failure 0-21 ity of 00:00: [place] Medical [facility] HLD HLD Disease Active 2008-09 Overview: Univer s (hyperlipi (hyperlipi 0-21 Formattin ity of demia) demia) 00:00: g of this note Medical might be Branch different from the original. ICD10 Diagnosis Term [employer] Osteoarthr Osteoarthr Disease Active 2008-09 U nivers itis itis 0-21 ity of 00:00: [place] 00 Medical Branch Acute, but Acute, but Disease Active U nivers ill-define ill-define 05-17 it y of d, d, 00:00: [place] cerebrovas cerebrovas 00 Me dical cular cular Branch disease disease Hypertensi Hypertensi Disease Active U nivers on, on, 05-17 ity of unspecifie [place]if[place] type d type 00 Medical [place] Type II or Type II or Disease Active U nivers unspecifie unspecifie 04-13 it y of d type d type 00:00: [place] diabetes diabetes 00 Medica l mellitus mellitus Branch with with neurologic neurologic al al manifestat manifestat ions, not ions, not stated as stated as uncontroll uncontroll ed(250.60) ed(250.60) Allergies, Adverse Reactions, Alerts This patient has no known allergies or adverse reactions. Social History Social Habit Start Date Stop Date Quantity Comments Source Alcohol intake 2021-07-05 2021-07-05 [facility] 00:00:00 00:00:00 Medical Branch Sex Ass[birth year] [facility] [place] 00:00:00 00:00:00 Medical Branch Smoking Status Start Date Stop Date Source Never smoker [facility] Medical Branch Medications Ordered Filled Start Stop Current Ordering Indication Dosage Frequency Signature Comments Components Source Medication Medication Date Date Medication? Clinician (SIG) Name Name Joonne 2020-09 Yes [id number] 2.5mg Take 1 Univers 2.5 mg 1-17 tablet by ity of tablet 00:00: mouth [place] 00 every Medical Sunday, Branch Sunday and Sunday. bumetanide 2020-09 Yes [id number] 4mg Take 4 Univers 1 mg tablet 0-19 tablets by it y of 00:00: mouth [place] 00 daily. Medical Branch amoxicillin 2020-09 Yes 1{tbl} Take 1 Un jay -pot 0-06 tablet by ity of clavulanate [place] 500 mg 00 Medical 500-125 mg Branch tablet aspirin 81 Yes 81mg Take 81 mg U nivers mg chewable 6-29 by mouth ity of tablet 14:35: daily. [place] 52 Medical Branch ferrous Yes 325mg Take 325 Unive rs sulfate 325 6-29 mg by ity of mg (65 mg 14:35: mouth [place] iron) 52 daily. Medical tablet Branch atorvastati Yes 40mg Take 40 mg Univers n 40 mg 6-29 by mouth ity of tablet 14:35: at [place] 52 bedtime. Medical Branch Pantoprazol Yes 40mg Take 40 mg Univers e 40 mg 6-29 by mouth ity of delayed-rel 14:35: [place]. [place] 52 Medical suspension Branch vitamin Yes 1000ug Take 1,000 Un jay B-12 6-29 mcg by ity of (VITAMIN 14:35: mouth [place] B-12) 1,000 52 daily. Medica l mcg tablet Branch metoprolol Yes [id number] 50mg Take 1 Univers succinate 6-19 tablet by ity o f XL 50 mg 24 00:00: mouth [place] hr tablet 00 daily. Medical Branch venlafaxine Yes [id number] 37.5mg Take 1 Univers XR 37.5 mg 6-19 capsule by ity of 24 hr 00:00: mouth [place] capsule 00 daily with Medica l breakfast. Branch pregabalin Yes [id number] 75mg Take 1 Univers 75 mg 6-18 capsule by ity of capsule 00:00: mouth 3 (three) Medical times Branch daily. busPIRone Yes 15mg Take 15 mg Un jay 15 mg 6-08 by mouth. ity of tablet 00:00: [place] Medical Branch nitroglycer 0 2021- No .4mg Place 0.4 Univers in 0.4 mg 6-08 06-09 mg under ity o f sublingual 00:00: 04:59 the [place] tablet 00 :00 tongue. Medical Branch liraglutide 2019-09 Yes DAILY Unive rs 0.6 mg/0.1 1-04 ity of mL (18 mg/3 00:00: [place] mL) 00 Medical injection Branch PLAVIX 75 Yes [id number] 1 tab Uni vers MG ORAL TAB 3-02 daily ity of 00:00: [place] [facility] TRAMADOL 50 2008-09 Yes 1 by mouth Univers MG ORAL TAB 1-20 four times it y of 00:00: a day [place] [facility] Procedures Procedure Date / Time Performed Performing Clinician [place] [id number] 2020-05-04 00:00:00 BETINA [id number] 2020-05-04 00:00:00 BETINA [id number] 2020-05-04 00:00:00 BETINA [id number] 2020-05-04 00:00:00 BETINA [id number] 2020-05-04 00:00:00 BETINA [id number] 2020-05-04 00:00:00 BETINA [id number] 2020-05-04 00:00:00 BETINA [id number] 2020-05-04 00:00:00 BETINA [id number] 2020-05-04 00:00:00 BETINA [id number] 2020-05-04 00:00:00 BETINA [id number] 2020-05-04 00:00:00 BETINA [id number] 2020-05-04 00:00:00 BETINA Encounters Start End Encounter Admission Attending Care Care Encounter Source Date/Time Date/Time Type Type Clinicians Facility Department ID 2021-10-13 Outpatient 3 BETINA [facility] [id number] BETINA 10:22:09 Alexis [id number] 2021-10-13 Outpatient 3 [id number] [facility] RE[facility] [id number] [facility] 10:20:25 [id number] 2020-05-05 Outpatient READMISSIO [facility] EN[facility] [id number] [facility] 20:57:26 N 2021-09-20 2021-09-20 Telephone [facility] [id number] [facility] [place] 00[facility]00:00 00:00:00 [id number] [id number] [facility] [address] Branch 2020-10-18 2020-10-18 Outpatient [facility] [id number]- [place] 01:03:00 01:03:00 [facility] 2020-09-13 2020-09-13 [id number]- [place] 01:03:00 01:03:00 [facility] Results This patient has no known results.
[2021-11-03] MEDS ORDERED: NA CHLORIDE 0.9% 1,000 ML ONE (11:51)
[2021-11-03 11:58] LABS: Absolute Lymphocytes (CBC) 1.4 K/uL (0.7-4.9); Hematocrit 28.7 % (39.6-49.0); Lymphocytes % 14.7 % (15.3-44.8); MPV 10.5 fL (7.6-11.3); RBC Red Blood Cell Count 3.06 M/uL (4.33-5.43)
--- NOTE | 2021-11-03 12:00 | RAD REPORT ---
EXAM DESCRIPTION: RAD - Chest Single View - 11/03/2021 11:52 am CLINICAL HISTORY: Weakness COMPARISON: Abdomen 1 View (KUB) dated 07/19/2021; Chest Single View dated 07/18/2021; Chest Single Vi ew dated 02/24/2021; Chest Single View dated 02/11/2021 FINDINGS: Lines: None. Lungs: Widespread pulmonary opacities. Pleural: Bilateral pleural effusions. Cardiac: Cardiomegaly. Bones: No acute fractures. Other: IMPRESSION: Findings most likely representing pulmonary edema with bilateral effusions. Pneumonia le ss likely.
[2021-11-03 12:04] LABS: Protime INR 1.34
[2021-11-03 12:18] LABS: Bilirubin Direct 0.2 mg/dL (0-0.2); Bilirubin Total 0.5 mg/dL (0.2-1.0); Magnesium 1.6 mg/dL (1.8-2.4); Potassium 5.4 mmol/L (3.5-5.1); Protein, Total 7.4 g/dL (6.4-8.2)
[2021-11-03 12:21] LABS: Troponin High Sensitivity 217.6 pg/mL (<58.9)
[2021-11-03] MEDS ORDERED: MAGNESIUM SULFATE 1 gm IVPB 1 GM/100 ML BAG IV ONE (13:28)
[2021-11-03] MEDS ORDERED: FUROSEMIDE 20 MG/ 2ML VIAL ONE (13:28)
[2021-11-03] MEDS ORDERED: FUROSEMIDE 40 MG/4 ML VIAL ONE (13:28)
--- NOTE | 2021-11-03 13:58 | P.HP ---
Certification for Inpatient With expected LOS: >2 Midnights Patient will require the following post-hospital care: None Practitioner: I am a practitioner with admitting privileges, knowledge of patient current condition, hospital course, and medical plan of care. Services: Services provided to patient in accordance with Admission requirements found in Title 42 Section 412.3 of the Code of Federal Regulations <Socorro Alvarezia - Last Filed: 11/03/21 15:27> Patient History Date of Service: 11/03/21 Primary Care Provider: Unknown Reason for admission: CHF Exacerbation History of Present Illness: Mr. Vaughn is a 76 y/o male with PMH of systolic CHF (EF in 07/2021 35- 40%), afib (no longer on eliquis), CAD s/p stents, insulin-dependent type 2 type 2 diabetes, AMRY, and CKD 4 who presented to the ED via EMS with generalized weakness and malaise for the past 2 months. Patient states that he went to use the bathroom today and he was too weak to get up so he called 911. He reports that he forgets to take his medications often. In the ED, labs significant for potassium 5.4, Cr 3.21 (baseline ~2.07), GFR 19, magnesium 1.6, trop HS 217.6, BNP 22020. CXR showed pulmonary edema. Patient will be admitted for further evaluation and treatment with cardiology and nephrology consulting. 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 Children-3. 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 Lives with daughter, son in law, and 2 grandchildren. - Family History Family History: Reviewed- Non-Contributory - Family History Father -: Hypertension, Stroke Mother -: Heart disease - Social History Smoking Status: Never smoker Alcohol use: No CD- Drugs: No Caffeine use: No <Bisi Alvarez - Last Filed: 11/03/21 15:27> Date of Service: 11/03/21 <Arslan Robles - Last Filed: 11/03/21 21:04> Allergies No Known Allergies Allergy (Verified 07/18/21 11:39) Home Medications: Aspirin Chewable [Aspirin Chewable*] 81 mg PO DAILY 07/21/20 Atorvastatin Calcium 40 mg PO BEDTIME 07/21/20 Cyanocobalamin (Vitamin B-12) [Vitamin B12] 1,000 mcg PO DAILY 07/21/20 Ferrous Sulfate 325 mg PO DAILY 07/21/20 Pantoprazole [Protonix Tab*] 40 mg PO [id number] 07/21/20 Pregabalin 75 mg PO TID 07/21/20 Tramadol HCl [Ultram] 50 mg PO QID PRN 07/21/20 Albuterol Inhaler [Ventolin Inhaler*] 2 puff IH DAILYPRN PRN 07/18/21 Bumetanide [Bumex*] 4 tab PO DAILY 07/18/21 Buspirone HCl 15 mg PO BID 07/18/21 Clopidogrel Bisulfate [Plavix*] 75 mg PO DAILY 07/18/21 Insulin Degludec [Tresiba Flextouch U-100] 12 units SQ BEDTIME 07/18/21 Lubiprostone [Amitiza*] 24 mcg PO DAILY 07/18/21 Metformin HCl [Metformin HCl ER] 500 mg PO BID 07/18/21 Metoprolol Succinate 1 tab PO DAILY 07/18/21 Semaglutide [Ozempic] 1 mg SQ SEECOM 07/18/21 Calcitrol [Rocaltrol*] 0.5 mcg PO DAILY #30 cap 07/21/21 Cholecalciferol (Vitamin D3) [Vitamin D 5,000 IU Cap*] 5,000 unit PO DAILY #30 cap 07/21/21 Ubidecarenone [Coenzyme Q10*] 200 mg PO DAILY #30 cap 07/21/21 carvediloL [Coreg*] 3.125 mg PO BID 6AM 6PM #60 tab 07/21/21 Review of Systems 10-point ROS is otherwise unremarkable General: Weakness, Malaise, As per HPI Respiratory: Cough, SOB with Excertion, As per HPI Cardiovascular: Edema Integumentary: Other (stage 1 sacral ulcer ) <Bisi Alvarez - Last Filed: 11/03/21 15:27> Physical Examination - Physical Exam General: Alert, In no apparent distress HEENT: Atraumatic, PERRLA, EOMI, Sclerae nonicteric Neck: Supple, 2+ carotid pulse no bruit, No LAD, Without JVD or thyroid abnormality Respiratory: Diminished, Crackles/rales Cardiovascular: Edema (2+ pitting edema on feet bilaterally ) Gastrointestinal: Normal bowel sounds, No tenderness Musculoskeletal: No tenderness Integumentary: Pressure ulcer (sacral- stage 1 ) Neurological: Normal speech, Normal strength at 5/5 x4 extr, Normal tone, Normal affect - Studies Laboratory Data (last 24 hrs) 11/03/21 11:51: PT 15.5 H, INR 1.34 11/03/21 11:51: WBC 9.40, Hgb 9.2 L, Hct 28.7 L, Plt Count 181 11/03/21 11:51: Sodium 134 L, Potassium 5.4 H, BUN 75 H, Creatinine 3.21 H, Glucose 230 H, Magnesium 1.6 L, Total Bilirubin 0.5, AST 38 H, ALT 31, Alkaline Phosphatase 120 H <Bisi Alvarez - Last Filed: 11/03/21 15:27> - Studies Laboratory Data (last 24 hrs) 11/03/21 11:51: PT 15.5 H, INR 1.34 11/03/21 11:51: WBC 9.40, Hgb 9.2 L, Hct 28.7 L, Plt Count 181 11/03/21 11:51: Sodium 134 L, Potassium 5.4 H, BUN 75 H, Creatinine 3.21 H, Glucose 230 H, Magnesium 1.6 L, Total Bilirubin 0.5, AST 38 H, ALT 31, Alkaline Phosphatase 120 H <Arslan Robles - Last Filed: 11/03/21 21:04> Assessment and Plan - Plan Assessment chronic systolic congestive heart failure with acute exacerbation ROSAURA on CKD stage 4 with mild hyperkalemia CAD s/p stents Chronic afib (no longer on eliquis) normocytic anemia of chronic disease and iron deficiency diabetes mellitus type 2, insulin-dependent hypertension hyperlipidemia Plan chronic systolic congestive heart failure with acute exacerbation: Patient had echo in 07/2021 showing EF 35-40% after presumed NSTEMI. Patient reports noncompliance with medications. Patient is not requiring supplemental oxygen at this time. Will start 40 mg IV lasix BID, 1200 cc/day fluid restriction. nephrology and cardiology consulting- appreciate recs. ROSAURA on CKD stage 4 with mild hyperkalemia: likely secondary to CHF exacerbation. Renal US ordered. Nephrology consulting CAD s/p stents: troponin elevated likely secondary to CHF exacerbation. Will trend. Patient denies chest pain. Chronic afib (no longer on eliquis): patient on heparin for DVT ppx normocytic anemia of chronic disease and iron deficiency: stable at this time diabetes mellitus type 2, insulin-dependent: mild sliding scale with achs accu checks hypertension: obtain and continue home medications hyperlipidemia: obtain and continue home medications DVT PPx: Heparin Code Status: Full Discharge Plan: Home Plan to discharge in: Greater than 2 days - Advance Directives Does patient have a Living Will: No Does patient have a Durable POA for Healthcare: No - Code Status/Comfort Care Code Status Assessed: Yes (Full) Critical Care: No Time Spent Managing Pts Care (In Minutes): 55 <Bisi Alvarez - Last Filed: 11/03/21 15:27> - Plan Plan of care reviewed with Bisi Alvarez and agree with plan as noted above. acute on chronic CHF exacerbation, suspect secondary to noncompliance / missing medications COVID pending ROSAURA likely cardiorenal <Arslan Robles - Last Filed: 11/03/21 21:04>
[2021-11-03 18:26] LABS: Urine Blood Negative (Negative); Urine Glucose Negative (Negative); Urine Protein Negative (Negative); Urine pH 5.5 (5.0-7.0)
--- NOTE | 2021-11-03 18:38 | EDPHYS ---
Physician Documentation [facility] Name: Tyrone Vaughn Age: 76 yrs Sex: Male : 1945 Arrival Date: 11/03/2021 Time: 10:51 Bed 16 Private MD: ED Physician Brandan Bowling HPI: 11/03 18:39 This 76 yrs old Male presents to ER via EMS with complaints of General kdr Weakness. 18:39 Patient lives at home with his daughter and son. Brother who is at bedside indicates kdr that he gets a little if any care from anyone at home. Brother indicates that he is unaware of how the patient is able to do self-care given that he cannot walk but rather uses a scooter to get from his bed to the bathroom. Patient has no focal complaint other than just being generally weak and unable to ambulate. Patient appears generally disheveled and with obvious chronic venous stasis disease. Onset: The symptoms/episode began/occurred at an unknown time. Severity of symptoms: At their worst the symptoms were mild in the emergency department the symptoms are unchanged. The patient has not experienced similar symptoms in the past. The patient has not recently seen a physician. Historical: - Home Meds: 11:15 aspirin 81 mg Oral chew 1 tab once daily [Active]; atorvastatin 40 mg Oral tab 1 tab ic1 once daily [Active]; bumetanide 1 mg Oral tab 1 tab once daily [Active]; carvedilol 25 mg Oral tab 1 tab 2 times per day [Active]; Eliquis 5 mg Oral tab 1 tab 2 times per day [Active]; ferrous sulfate 325 mg (65 mg iron) Oral tab 325 mg every morning [Active]; hydralazine 25 mg Oral tab 1 tab 2 times per day [Active]; pantoprazole 40 mg Oral TbEC 1 tab once daily [Active]; potassium chloride 10 mEq Oral cpER 1 cap MWF [Active]; pregabalin Oral 1 cap 3 times per day [Active]; sertraline 50 mg Oral tab 1 tab once daily [Active]; tramadol 50 mg Oral tab 1 tab three times a day [Active]; Vitamin B-12 1,000 mcg Oral TbER 1000 mcg daily [Active]; - PMHx: 11:15 Anxiety; Atrial Fib; CAD; CHF; Diabetes - IDDM; heart problem; High Cholesterol; HTN; ic1 Myocardial infarction; neuropathy; Sleep Apnea; - Immunization history:: Adult Immunizations not up to date. - Social history:: Smoking status: Patient denies any tobacco usage or history of. ROS: 18:39 Constitutional: Negative for fever, chills, and weight loss, Eyes: Negative for injury, kdr pain, redness, and discharge, Neck: Negative for injury, pain, and swelling, Cardiovascular: Negative for chest pain, palpitations, and edema. 18:39 Cardiovascular: Positive for edema. 18:39 Respiratory: Positive for shortness of breath, Negative for shortness of breath. 18:39 MS/extremity: Positive for Exam: 18:39 Constitutional: This is a well developed, well nourished patient who is awake, alert, kdr and in no acute distress. Head/Face: Normocephalic, atraumatic. Eyes: Pupils equal round and reactive to light, extra-ocular motions intact. Lids and lashes normal. Conjunctiva and sclera are non-icteric and not injected. Cornea within normal limits. Periorbital areas with no swelling, redness, or edema. Neck: Trachea midline, no thyromegaly or masses palpated, and no cervical lymphadenopathy. Supple, full range of motion without nuchal rigidity, or vertebral point tenderness. No Meningismus. Chest/axilla: Normal chest wall appearance and motion. Nontender with no deformity. No lesions are appreciated. Cardiovascular: Regular rate and rhythm with a normal S1 and S2. No gallops, murmurs, or rubs. Normal PMI, no JVD. No pulse deficits. Back: No spinal tenderness. No costovertebral tenderness. Full range of motion. Neuro: Awake and alert, GCS 15, oriented to person, place, time, and situation. Cranial nerves II-XII grossly intact. Motor strength 5/5 in all extremities. Sensory grossly intact. Cerebellar exam normal. Normal gait. Psych: Awake, alert, with orientation to person, place and time. Behavior, mood, and affect are within normal limits. 18:39 Cardiovascular: Edema: 3+ edema to level of left knee, left midcalf, left ankle, left foot, left toes, right knee, right midcalf, right ankle and right foot, pedal edema, that is moderate. 18:39 Respiratory: the patient does not display signs of respiratory distress, Respirations: normal, Breath sounds: rales, that are mild, are scattered. 18:39 Musculoskeletal/extremity: Extremities: grossly normal except: noted in the right leg and left leg: swelling. Vital Signs: 11:13 BP 120 / 76; Pulse 116; Resp 18; Temp 97.8(O); Pulse Ox 98% on R/A; ic1 13:07 BP 115 / 85; Pulse 110; Resp 16; Pulse Ox 94% ; ic1 14:28 BP 102 / 80; Pulse 98; Resp 18; Pulse Ox 94% on R/A; ic1 16:09 BP 102 / 73; Pulse 105; Resp 18; Pulse Ox 100% ; ic1 18:42 BP 103 / 58; Pulse 107; Resp 18; Pulse Ox 95% on R/A; ic1 20:32 BP 101 / 60; Pulse 98; Resp 18; Pulse Ox 98% on R/A; st1 MDM: 18:38 Patient medically screened. kdr 18:39 Data reviewed: vital signs, nurses notes, lab test result(s), radiologic studies. kdr Counseling: I had a detailed discussion with the patient and/or guardian regarding: the historical points, exam findings, and any diagnostic results supporting the discharge/admit diagnosis, lab results, radiology results, the need for outpatient follow up. 11/03 11:42 Order name: [facility] Panel [facility] 11/03 11:42 Order name: CBC with Diff kdr 11/03 11:42 Order name: LFT's; Complete Time: 12:44 [facility] 11/03 11:42 Order name: Magnesium; Complete Time: 12:44 [facility] 11/03 11:42 Order name: NT PRO-BNP; Complete Time: 12:44 [facility] 11/03 11:42 Order name: PT-INR; Complete Time: 12:44 [facility] 11/03 11:42 Order name: Troponin HS; Complete Time: 12:44 [facility] 11/03 11:42 Order name: XRAY Chest (1 view); Complete Time: 12:44 [facility] 11/03 11:43 Order name: Basic Metabolic Panel; Complete Time: 12:44 EDMS 11/03 11:43 Order name: CBC with Automated Diff; Complete Time: 12:44 EDCO 11/03 15:26 Order name: COVID-19 SARS RT PCR (Document "Date of Onset" if Symptomatic) 11/03 16:55 Order name: SARS-COV-2 RT PCR; Complete Time: 18:37 EDMS 11/03 18:27 Order name: Urine Dipstick-Ancillary; Complete Time: 18:37 EDMS 11/03 11:42 Order name: EKG; Complete Time: 11:43 kdr 11/03 11:42 Order name: Cardiac monitoring; Complete Time: 11:47 kdr 11/03 11:42 Order name: EKG - Nurse/Tech; Complete Time: 13:04 kdr 11/03 11:42 Order name: IV Saline Lock; Complete Time: 11:45 kdr 11/03 11:42 Order name: Labs collected and sent; Complete Time: 12:15 kdr 11/03 11:42 Order name: O2 Per Protocol; Complete Time: 12:15 kdr 11/03 11:42 Order name: O2 Sat Monitoring; Complete Time: 13:04 kdr 11/03 11:47 Order name: Social Service Consult EDMS Administered Medications: 11:54 Drug: NS 0.9% 500 ml Route: IV; Rate: bolus; Site: right hand; ic1 15:47 Follow up: IV Status: Completed infusion; IV Intake: 500ml ic1 14:06 Dru grams of (Magnesium Sulfate 1 grams, NS 0.9% 100 ml) Route: IVPB; Infused Over: ic1 1 hrs; Site: right hand; 14:06 Drug: Lasix (furosemide) 60 mg Route: IVP; Site: right hand; ic1 Disposition Summary: 11/03/21 18:38 Hospitalization Ordered Hospitalization Status: Inpatient Admission kdr [facility] kdr Condition: Fair kdr Problem: an ongoing problem kdr Symptoms: have improved kdr Bed/Room Type: Standard kdr Provider: Arslan Robles(11/03/21 19:06) la1 Room Assignment: [facility](11/03/21 20:06) cg Diagnosis - Weakness kdr - Chronic fatigue, unspecified kdr - Volume overload kdr - SARS-associated coronavirus as the cause of diseases classified elsewhere kdr Forms: - Medication Reconciliation Form kdr - SBAR form kdr Signatures: Dispatcher [employer] EDCO Brandan Bowling MD MD kdr Abelardo Basilio, ASIAN ART CURATOR-C ASIAN ART CURATOR-Cla1 Carlyn Mcgrath RN RN cg Savanna Vasquez RN RN ic1 Corrections: (The following items were deleted from the chart) 18:38 Savanna Rod kdr la1 18:38 kdr cg
--- NOTE | 2021-11-03 18:38 | ER ---
Nurse's Notes [facility] Name: Tyrone Vaughn Age: 76 yrs Sex: Male : 1945 Arrival Date: 11/03/2021 Time: 10:51 Bed 16 Private MD: Diagnosis: Weakness;Chronic fatigue, unspecified;Volume overload;SARS-associated coronavirus as the cause of diseases classified elsewhere Presentation: 11/03 11:13 Chief complaint: EMS states: pt brought in by amb for generalized weakness. States he ic1 tried to go to the bathroom this AM and felt too weak. Pt has chronic swelling noted to joe feet. Denies fever. Coronavirus screen: Vaccine status: Patient reports being unvaccinated. Client denies travel out of the [place] in the last 14 days. Ebola Screen: No symptoms or risks identified at this time. Initial Sepsis Screen: Does the patient meet any 2 criteria? HR > 90 bpm. Does the patient have a suspected source of infection? No. Patient's initial sepsis screen is negative. Risk Assessment: Do you want to hurt yourself or someone else? Patient reports no desire to harm self or others. Onset of symptoms is unknown. 11:13 Method Of Arrival: EMS: [facility] ic1 11:13 Acuity: WESLEY 3 ic1 Triage Assessment: 11:15 General: Appears in no apparent distress. uncomfortable, Behavior is calm, cooperative. ic1 Pain: Complains of pain in buttocks. EENT: No deficits noted. Neuro: Level of Consciousness is awake, alert, obeys commands, Oriented to person, place, time, situation. Cardiovascular: Rhythm is sinus tachycardia. Respiratory: Reports shortness of breath. GI: No deficits noted. : No deficits noted. Derm: No deficits noted. Musculoskeletal: Reports weakness in generalized. Historical: - Home Meds: 11:15 aspirin 81 mg Oral chew 1 tab once daily [Active]; atorvastatin 40 mg Oral tab 1 tab ic1 once daily [Active]; bumetanide 1 mg Oral tab 1 tab once daily [Active]; carvedilol 25 mg Oral tab 1 tab 2 times per day [Active]; Eliquis 5 mg Oral tab 1 tab 2 times per day [Active]; ferrous sulfate 325 mg (65 mg iron) Oral tab 325 mg every morning [Active]; hydralazine 25 mg Oral tab 1 tab 2 times per day [Active]; pantoprazole 40 mg Oral TbEC 1 tab once daily [Active]; potassium chloride 10 mEq Oral cpER 1 cap MWF [Active]; pregabalin Oral 1 cap 3 times per day [Active]; sertraline 50 mg Oral tab 1 tab once daily [Active]; tramadol 50 mg Oral tab 1 tab three times a day [Active]; Vitamin B-12 1,000 mcg Oral TbER 1000 mcg daily [Active]; - PMHx: 11:15 Anxiety; Atrial Fib; CAD; CHF; Diabetes - IDDM; heart problem; High Cholesterol; HTN; ic1 Myocardial infarction; neuropathy; Sleep Apnea; - Immunization history:: Adult Immunizations not up to date. - Social history:: Smoking status: Patient denies any tobacco usage or history of. Screenin:17 Abuse screen: Denies threats or abuse. Denies injuries from another. Nutritional ic1 screening: No deficits noted. Tuberculosis screening: No symptoms or risk factors identified. Fall Risk None identified. Assessment: 11:17 Reassessment: see triage. ic1 16:09 Reassessment: Pt provided w pillow and warm blanket. Remains on cont monitoring. In NAD.ic1 18:15 Reassessment: Patient appears in no apparent distress at this time. Patient and/or ic1 family updated on plan of care and expected duration. Pain level reassessed. Patient is alert, oriented x 3, equal unlabored respirations, skin warm/dry/pink. Assisted from side of bed and repositioned in bed by staff. Pt tolerated. Remains on cont card monitoring. Left bed in low, locked position. Call light left within reach. Patient denies pain at this time. 21:10 Reassessment: Report given to AMI Ansari. st1 Vital Signs: 11:13 BP 120 / 76; Pulse 116; Resp 18; Temp 97.8(O); Pulse Ox 98% on R/A; ic1 13:07 BP 115 / 85; Pulse 110; Resp 16; Pulse Ox 94% ; ic1 14:28 BP 102 / 80; Pulse 98; Resp 18; Pulse Ox 94% on R/A; ic1 16:09 BP 102 / 73; Pulse 105; Resp 18; Pulse Ox 100% ; ic1 18:42 BP 103 / 58; Pulse 107; Resp 18; Pulse Ox 95% on R/A; ic1 20:32 BP 101 / 60; Pulse 98; Resp 18; Pulse Ox 98% on R/A; st1 ED Course: 10:51 Patient arrived in ED. mk 10:54 Brandan Bowling MD is Attending Physician. kdr 11:13 Savanna Vasquez, RN is Primary Nurse. ic1 11:15 Triage completed. ic1 11:17 Patient has correct armband on for positive identification. Bed in low position. Call ic1 light in reach. Side rails up X2. environmental monitoring specialist on. Pulse ox on. NIBP on. Warm blanket given. 11:17 No provider procedures requiring assistance completed. Inserted saline lock: 20 gauge ic1 in right hand, using aseptic technique. Blood collected. 11:52 XRAY Chest (1 view) In Process Unspecified. EDMS 11:54 Basic Metabolic Panel Sent. ic1 12:15 CBC with Diff Sent. ic1 13:04 Initial lab(s) drawn, by ED staff, sent to lab. EKG done, by ED staff, reviewed by 5 Brandan Bowling MD. 15:47 COVID-19 SARS RT PCR (Document "Date of Onset" if Symptomatic) Sent. ic1 18:36 Savanna Rod MD is Hospitalizing Provider. kdr 19:06 Arslan Robles MD is Hospitalizing Provider. la1 20:32 Arm band placed on right wrist. st1 20:32 Patient admitted, IV remains in place. st1 Administered Medications: 11:54 Drug: NS 0.9% 500 ml Route: IV; Rate: bolus; Site: right hand; ic1 15:47 Follow up: IV Status: Completed infusion; IV Intake: 500ml ic1 14:06 Dru grams of (Magnesium Sulfate 1 grams, NS 0.9% 100 ml) Route: IVPB; Infused Over: ic1 1 hrs; Site: right hand; 14:06 Drug: Lasix (furosemide) 60 mg Route: IVP; Site: right hand; ic1 Intake: 15:47 IV: 500ml; Total: 500ml. ic1 Outcome: 18:38 Decision to Hospitalize by Provider. kdr 20:31 Admitted to Tele accompanied by tech, family with patient, via stretcher, room 405, st1 with chart. 20:31 Condition: good 20:31 Discharge instructions given to 21:50 Patient left the ED. bb Signatures: Dispatcher [employer] EDMS Brandan Bowling MD MD kdr Ballard, Brenda, RN RN Abelardo Gutierrez, SPECIAL INSPECTOR-C SPECIAL INSPECTOR-Dianna Lu Deanne Durham, RN RN Savanna Raymond RN RN ic1 Katya Torres RN RN st1
--- NOTE | 2021-11-03 20:29 | P.CNS ---
Date of Consult: 11/03/21 Reason for Consult: ROSAURA/ CKD Requesting Physician: Arslan Robles Primary Care Provider: Unknown Chief Complaint: CHF Exacerbation History of Present Illness: 76 yo HM CKD, CHF presented to the ER with several weeks of moderate, progressive dyspnea with associated edema in the setting of CHF. No current NSAIDs. Mr. Vaughn is a 76 y/o male with PMH of systolic CHF (EF in 07/2021 35- 40%), afib (no longer on eliquis), CAD s/p stents, insulin-dependent type 2 type 2 diabetes, MARY, and CKD 4 who presented to the ED via EMS with generalized weakness and malaise for the past 2 months. Patient states that he went to use the bathroom today and he was too weak to get up so he called 911. He reports that he forgets to take his medications often. In the ED, labs significant for potassium 5.4, Cr 3.21 (baseline ~2.07), GFR 19, magnesium 1.6, trop HS 217.6, BNP 23016. CXR showed pulmonary edema. Allergies No Known Allergies Allergy (Verified 07/18/21 11:39) Home medications list reviewed: Yes Home Medications: Aspirin Chewable [Aspirin Chewable*] 81 mg PO DAILY 07/21/20 Atorvastatin Calcium 40 mg PO BEDTIME 07/21/20 Cyanocobalamin (Vitamin B-12) [Vitamin B12] 1,000 mcg PO DAILY 07/21/20 Ferrous Sulfate 325 mg PO DAILY 07/21/20 Pantoprazole [Protonix Tab*] 40 mg PO [id number] 07/21/20 Pregabalin 75 mg PO TID 07/21/20 Tramadol HCl [Ultram] 50 mg PO QID PRN 07/21/20 Albuterol Inhaler [Ventolin Inhaler*] 2 puff IH DAILYPRN PRN 07/18/21 Bumetanide [Bumex*] 4 tab PO DAILY 07/18/21 Buspirone HCl 15 mg PO BID 07/18/21 Clopidogrel Bisulfate [Plavix*] 75 mg PO DAILY 07/18/21 Insulin Degludec [Tresiba Flextouch U-100] 12 units SQ BEDTIME 07/18/21 Lubiprostone [Amitiza*] 24 mcg PO DAILY 11/01/21 Metformin HCl [Metformin HCl ER] 500 mg PO BID 07/18/21 Metoprolol Succinate 1 tab PO DAILY 07/18/21 Semaglutide [Ozempic] 1 mg SQ SEECOM 07/18/21 Calcitrol [Rocaltrol*] 0.5 mcg PO DAILY #30 cap 07/21/21 Cholecalciferol (Vitamin D3) [Vitamin D 5,000 IU Cap*] 5,000 unit PO DAILY #30 cap 07/21/21 Ubidecarenone [Coenzyme Q10*] 200 mg PO DAILY #30 cap 07/21/21 carvediloL [Coreg*] 3.125 mg PO BID 6AM 6PM #60 tab 07/21/21 - Past Medical/Surgical History Diabetic: Yes -: HTN -: 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 Children-3. 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 Lives with daughter, son in law, and 2 grandchildren. - Family History Father Medical History: Hypertension, Stroke Mother Medical History: Heart disease - Social History Smoking Status: Unknown if ever smoked Alcohol use: No CD- Drugs: No Caffeine use: No Review of Systems General: Weakness, Malaise Respiratory: SOB with Excertion Cardiovascular: Edema Neurological: Weakness Physical Examination General: Oriented x3, Cooperative HEENT: Atraumatic Neck: JVD distended Respiratory: Normal air movement Cardiovascular: Regular rate/rhythm, Edema Gastrointestinal: Soft and benign, Non-distended Musculoskeletal: No clubbing, No contractures Integumentary: No rashes, No cyanosis Neurological: Normal speech Laboratory Data (last 24 hrs) 11/03/21 11:51: PT 15.5 H, INR 1.34 11/03/21 11:51: WBC 9.40, Hgb 9.2 L, Hct 28.7 L, Plt Count 181 11/03/21 11:51: Sodium 134 L, Potassium 5.4 H, BUN 75 H, Creatinine 3.21 H, Glucose 230 H, Magnesium 1.6 L, Total Bilirubin 0.5, AST 38 H, ALT 31, Alkaline Phosphatase 120 H Imagings Data: EXAM DESCRIPTION: RAD - Chest Single View - 11/03/2021 11:52 am CLINICAL HISTORY: Weakness COMPARISON: Abdomen 1 View (KUB) dated 07/19/2021; Chest Single View dated 07/18/2021; Chest Single View dated 02/24/2021; Chest Single View dated 02/11/2021 FINDINGS: Lines: None. Lungs: Widespread pulmonary opacities. Pleural: Bilateral pleural effusions. Cardiac: Cardiomegaly. Bones: No acute fractures. IMPRESSION: Findings most likely representing pulmonary edema with bilateral effusions. Pneumonia less likely. Conclusions/Impression: ROSAURA likely CRS CKD IV with proteinuria -No NSAIDs -Continue furosemide Hyponatremia -Continue furosemide Hyperkalemia -Continue furosemide Hypomagnesemia -Replete oral magnesium HTN with CKD/ CHF -Continue furosemide Systolic CHF, A/C -Continue furosemide IV bid -Start CoEQ10 DM II with CKD -RISS Anemia in chronic illness -Monitor H&H CKD MBD -Continue Calcitriol and Cholecalciferol Thank you kindly for the consultation.
[2021-11-03] MEDS: INSULIN -REGULAR HUMAN 50 UNIT/0.5 ML ML SQ SCH (21:16)
[2021-11-03] MEDS: MAGNESIUM OXIDE 400 MG TAB PO SCH (21:16)
[2021-11-03] MEDS ORDERED: ONDANSETRON 4 MG/2 ML VIAL IV PRN (21:16)
[2021-11-03] MEDS: HEPARIN 5000 UNIT/ML 1 ML VIAL SQ SCH (22:18)
[2021-11-03] MEDS: FUROSEMIDE 40 MG/4 ML VIAL IV SCH (22:18)
[2021-11-04 03:59] LABS: Absolute Lymphocytes (CBC) 1.1 K/uL (0.7-4.9); Hematocrit 27.1 % (39.6-49.0); Lymphocytes % 12.6 % (15.3-44.8); MPV 9.9 fL (7.6-11.3); RBC Red Blood Cell Count 2.92 M/uL (4.33-5.43)
[2021-11-04] MEDS: ACETAMINOPHEN 500 MG TAB PO PRN (04:14)
[2021-11-04 04:30] LABS: Albumin 3.2 g/dL (3.4-5.0); Bilirubin Total 0.7 mg/dL (0.2-1.0); Ferritin 590.9 ng/mL (26-388); Potassium 4.6 mmol/L (3.5-5.1); Protein, Total 7.4 g/dL (6.4-8.2); Thyroid Stimulating Hormone 2.35 uIU/mL (0.360-3.740)
[2021-11-04 04:32] LABS: Troponin High Sensitivity 694.7 pg/mL (<58.9)
--- NOTE | 2021-11-04 06:28 | P.PN ---
Date of Service: 11/04/21
[2021-11-04] MEDS: INSULIN -REGULAR HUMAN 50 UNIT/0.5 ML ML SQ SCH ×4 (07:30→20:25)
--- NOTE | 2021-11-04 07:41 | RAD REPORT ---
EXAM DESCRIPTION: US - Renal Ultrasound-Complete - 11/04/2021 12:00 am CLINICAL HISTORY: ROSAURA on CKD COMPARISON: Renal Ultrasound-Complete dated 07/20/2020 FINDINGS: Both kidneys are normal in size, shape and echotexture. The right kidney measures 9.6 cm. No hydronephrosis, focal mass or perinephric fluid. The left kidney measures 11.2 cm. No hydronephrosis, focal mass or perinephric fluid. The urinary bladder is incompletely distended without gross abnormality seen. IMPRESSION: No evidence of hydronephrosis.
--- NOTE | 2021-11-04 08:37 | P.PN ---
Subjective Date of Service: 11/04/21 Primary Care Provider: Unknown Chief Complaint: CHF Exacerbation Subjective: Improving, Doing well (Patient reports being hungry and tired this AM. He did not know he had COVID. He denies any difficulty breathing.) <Bisi Alvarez - Last Filed: 11/04/21 08:39> Date of Service: 11/04/21 <Arslan Robles - Last Filed: 11/04/21 17:09> Review of Systems 10-point ROS is otherwise unremarkable General: As per HPI <Bisi Alvarez - Last Filed: 11/04/21 08:39> Physical Examination - Vital Signs Temperature: 97 F Blood Pressure: 120/58 Pulse: 101 Respirations: 19 Pulse Ox (%): 97 - Physical Exam General: Alert, In no apparent distress HEENT: Atraumatic, PERRLA, EOMI Neck: Supple, JVD not distended Respiratory: Diminished, Crackles/rales Cardiovascular: Regular rate/rhythm, Normal S1 S2, Edema Gastrointestinal: Normal bowel sounds, No tenderness Musculoskeletal: No tenderness Integumentary: No rashes Neurological: Normal speech, Normal tone, Normal affect - Studies Laboratory Data (last 24 hrs) 11/03/21 11:51: PT 15.5 H, INR 1.34 11/03/21 11:51: WBC 9.40, Hgb 9.2 L, Hct 28.7 L, Plt Count 181 11/03/21 11:51: Sodium 134 L, Potassium 5.4 H, BUN 75 H, Creatinine 3.21 H, Glucose 230 H, Magnesium 1.6 L, Total Bilirubin 0.5, AST 38 H, ALT 31, Alkaline Phosphatase 120 H <Bisi Alvarez - Last Filed: 11/04/21 08:39> Assessment And Plan - Plan Assessment chronic systolic congestive heart failure with acute exacerbation ROSAURA on CKD stage 4 COVID 19 CAD s/p stents Chronic afib (no longer on eliquis) normocytic anemia of chronic disease and iron deficiency diabetes mellitus type 2, insulin-dependent hypertension hyperlipidemia Plan chronic systolic congestive heart failure with acute exacerbation: Patient had echo in 07/2021 showing EF 35-40% after presumed NSTEMI. Patient reports noncompliance with medications. Patient is not requiring supplemental oxygen at this time. 40 mg IV lasix BID, 1200 cc/day fluid restriction. nephrology and cardiology consulting- appreciate recs. ROSAURA on CKD stage 4: likely secondary to CHF exacerbation. Renal US ordered. Nephrology consulting. Hyperkalemia resolved. COVID 19: patient did not realize he had coronavirus and is not concerned about it. He denies any shortness of breath, fever, chills. CAD s/p stents: troponin elevated likely secondary to CHF exacerbation. Patient denies chest pain. Chronic afib (no longer on eliquis): patient on heparin for DVT ppx normocytic anemia of chronic disease and iron deficiency: stable at this time diabetes mellitus type 2, insulin-dependent: mild sliding scale with achs accu checks hypertension: obtain and continue home medications hyperlipidemia: obtain and continue home medications DVT PPx: Heparin Code Status: Full Discharge Plan: Home Plan to discharge in: 48 Hours - Code Status/Comfort Care Code Status Assessed: Yes (Full) Critical Care: No Time Spent Managing PTS Care (In Minutes): 55 <Bisi Alvarez - Last Filed: 11/04/21 08:39> - Plan Patient seen and examined on rounds. improving unclear where he was exposed to covid with some mild SOB at this time, feels leg swelling ~same as yesterday continue diuresis plan as noted above nephrology following <Arslan Robles - Last Filed: 11/04/21 17:09>
[2021-11-04] MEDS: COENZYME Q10- 200 MG CAP PO SCH (09:00)
[2021-11-04] MEDS ORDERED: COENZYME Q10- 200 MG CAP PO SCH (09:00)
[2021-11-04] MEDS: CALCITROL 0.25 MCG CAP PO SCH (09:58)
[2021-11-04] MEDS: HEPARIN 5000 UNIT/ML 1 ML VIAL SQ SCH ×2 (09:59→20:13)
[2021-11-04] MEDS: VITAMIN D 5,000 UNIT CAP PO SCH (09:59)
[2021-11-04] MEDS: FUROSEMIDE 40 MG/4 ML VIAL IV SCH ×2 (09:59→17:29)
--- NOTE | 2021-11-04 13:07 | EKG ---
Test Date: 2021-11-03 Test Time: 13:02:50 Sample Maker Hand: SUE MEASUREMENT RESULTS: Intervals: Rate: 110 MD: 136 QRSD: 112 QT: 356 QTc: 481 Tilden: P: 77 MD: 136 QRS: -15 T: 103 INTERPRETIVE STATEMENTS: Sinus tachycardia Septal infarct, age undetermined Abnormal ECG Compared to ECG 07/18/2021 07:23:16 Sinus rhythm no longer present Myocardial infarct finding still present Electronically Signed On 11-04-21 13:03:13 BRICK SIDING APPLICATOR by Rohit Carvalho
--- NOTE | 2021-11-04 15:57 | CON ---
Date of Consultation: 11/04/2021 Reason For Consultation: Elevated troponin, COVID pneumonia, congestive heart failure, renal failure . History Of Present Illness: Mr. Vaughn is 76. He is known to us from previous office visits and admi ssion. He has had a history of congestive heart failure and severe pulmonary hypertension. His last ejection fraction was 35% to 40% in July 2021. He has a right ventricular systolic pressure of 55 mmHg. He came in with COVID pneumonia. Creatinine is 3.21, hemoglobin of , already been seen by Dr. Hart. He is being diuresed with IV Lasix and has improved. His main complaint was dyspnea on exertion. He denied any chest pain, palpitation, or syncope. Past Medical History: Include congestive heart failure, COPD, hypertension, diabetes, coronary arter y disease and dyslipidemia. Review of Systems: Negative. Social History: Negative. Family History: Negative. Medications: At home include inhalers, Coreg, metoprolol, Ozempic, Plavix, insulin, metformin, Bumex , and Lipitor. Physical Examination: General: He was rather somnolent and tired, but he was alert and oriented to name and place. He was in sinus rhythm afebrile no acute distress. HEENT: Negative. Neck: Supple. No bruit, no lymphadenopathy, JVD, or thyromegaly. Chest: Reveals some rales at both bases. Cardiac: Revealed a regular rhythm and rate with a tricuspid regurgitation murmur and S3 gallops. Abdomen: Was obese. Extremities: Revealed 2+ edema. Skin: Dry and intact. Neurologic: He was nonfocal. Ulcers were present distally bilaterally. Diagnostic Data: His hemoglobin was 9, creatinine 3.21. EKG nonspecific chest x-ray showed CHF. La boratory showed COVID pneumonia with elevation in RRP troponin and paratenon as expected from the col d as well as elevated D-dimer. Impression And Plan: 1.Acute on chronic systolic congestive heart failure. He needs to be diuresed. 2.Hyponatremia. 3.Anemia. 4.Renal failure, stage IV, followed by Nephrology. No need for further cardiac workup at this point. His last echocardiogram was in July 2021 showi ng EF of 35% to 40% with severe pulmonary hypertension of 55 mmHg. His other problems include CAD th at is stable, diabetes that is stable. He is COVID positive. His hypertension is well controlled. His dyslipidemia is well controlled. His mainstay of therapy at this point is IV Lasix therapy. Con tinue his other regimen. He is not a candidate for JEREMIAS inhibitor, ARB, or Entresto. We will continu e to follow him. We will watch his Is and Os, daily weights and electrolytes. KANWAL/JASON Voice ID: [id number] Report ID: [id number]
[2021-11-04] MEDS: MAGNESIUM OXIDE 400 MG TAB PO SCH (20:12)
--- NOTE | 2021-11-04 22:08 | P.PN ---
Date of Service: 11/04/21 Vital Signs Temp Pulse Resp BP Pulse Ox 98.0 F 101 H 20 113/75 97 11/04/21 16:00 11/04/21 17:29 11/04/21 16:00 11/04/21 17:29 11/04/21 16:00 Medications Acetaminophen (Acetaminophen 500 Mg Tab) 500 mg PO Q4HP PRN PRN Reason: Pain scale 2-4 (Mild) Last Admin: 11/04/21 04:14 Dose: 500 mg Documented by: Calcitriol (Calcitrol 0.25 Mcg Cap) 0.5 mcg PO DAILY [facility] Last Admin: 11/04/21 09:58 Dose: 0.5 mcg Documented by: Cholecalciferol (Vitamin D 5,000 Unit Cap) 5,000 unit PO DAILY [facility] Last Admin: 11/04/21 09:59 Dose: 5,000 unit Documented by: Coenzyme Q10 (Coenzyme Q10- 200 Mg Cap) 200 mg PO DAILY [facility] Furosemide (Furosemide 40 Mg/4 Ml Vial) 40 mg IV BIDL [facility] Last Admin: 11/04/21 17:29 Dose: 40 mg Documented by: Heparin Sodium (Porcine) (Heparin 5000 Unit/Ml 1 Ml Vial) 5,000 unit SQ Q12H [facility] Last Admin: 11/04/21 20:13 Dose: 5,000 unit Documented by: Insulin Human Regular (Insulin -Regular Human 50 Unit/0.5 Ml Ml) 0 unit SQ ACHS [facility]; Protocol Last Admin: 11/04/21 20:25 Dose: 2 unit Documented by: Magnesium Oxide (Magnesium Oxide 400 Mg Tab) 400 mg PO BEDTIME [facility] Last Admin: 11/04/21 20:12 Dose: 400 mg Documented by: Ondansetron HCl (Ondansetron 4 Mg/2 Ml Vial) 4 mg IV Q6HP PRN PRN Reason: NAUSEA / VOMITING Sodium Chloride (Flush Normal Saline 10 Ml) 10 ml IV BID [facility] Last Admin: 11/04/21 20:12 Dose: 10 ml Documented by: Assessment/ Plan: Nephrology Improving dyspnea and edema No chest pain No acute events overnight Vitals, medications, blood work and imaging reviewed in the chart. Physical Examination General: Oriented x3, Cooperative HEENT: Atraumatic Neck: JVD distended Respiratory: Normal air movement Cardiovascular: Regular rate/rhythm, Edema Gastrointestinal: Soft and benign, Non-distended Musculoskeletal: No clubbing, No contractures Integumentary: No rashes, No cyanosis Neurological: Normal speech Laboratory Data (last 24 hrs) 11/03/21 11:51: PT 15.5 H, INR 1.34 11/03/21 11:51: WBC 9.40, Hgb 9.2 L, Hct 28.7 L, Plt Count 181 11/03/21 11:51: Sodium 134 L, Potassium 5.4 H, BUN 75 H, Creatinine 3.21 H, Glucose 230 H, Magnesium 1.6 L, Total Bilirubin 0.5, AST 38 H, ALT 31, Alkaline Phosphatase 120 H Imagings Data: EXAM DESCRIPTION: RAD - Chest Single View - 11/03/2021 11:52 am CLINICAL HISTORY: Weakness COMPARISON: Abdomen 1 View (KUB) dated 07/19/2021; Chest Single View dated 07/18/2021; Chest Single View dated 02/24/2021; Chest Single View dated 02/11/2021 FINDINGS: Lines: None. Lungs: Widespread pulmonary opacities. Pleural: Bilateral pleural effusions. Cardiac: Cardiomegaly. Bones: No acute fractures. IMPRESSION: Findings most likely representing pulmonary edema with bilateral effusions. Pneumonia less likely. Conclusions/Impression: ROSAURA likely CRS CKD IV with proteinuria -No NSAIDs -Continue furosemide Hyponatremia -Continue furosemide Hyperkalemia -Continue furosemide Hypomagnesemia -Replete oral magnesium HTN with CKD/ CHF -Continue furosemide Systolic CHF, A/C -Continue furosemide IV bid -Continue CoEQ10 DM II with CKD -RISS Anemia in chronic illness -Monitor H&H CKD MBD -Continue Calcitriol and Cholecalciferol
[2021-11-05 04:14] LABS: Hematocrit 26.5 % (39.6-49.0); MPV 10.5 fL (7.6-11.3); RBC Red Blood Cell Count 2.86 M/uL (4.33-5.43)
[2021-11-05 04:47] LABS: Bilirubin Total 0.5 mg/dL (0.2-1.0); C-Reactive Protein 36.4 mg/L (<3.00); Potassium 4.2 mmol/L (3.5-5.1); Protein, Total 7.1 g/dL (6.4-8.2)
[2021-11-05] MEDS: ACETAMINOPHEN 500 MG TAB PO PRN (06:27)
--- NOTE | 2021-11-05 06:35 | P.PN ---
Date of Service: 11/05/21 Subjective: No acute events overnight She is little bit better Swollen legs improved Still feels very tired and weak Wants to go to SNF ROS: 10 point ROS as noted above, otherwise negative Physical exam GEN: Alert, oriented, NAD HEENT: Normal conjunctiva, sclera anicteric CV: Regular rate and rhythm, 1-2+ b/l pitting edema Pulm: mildly labored on 2 L nasal cannula, mild bilateral crackles at bases ABD: Soft, nontender, nondistended Integumentary: No rashes Neuro: Normal speech, normal affect Problem List chronic systolic congestive heart failure with acute exacerbation ROSAURA on CKD stage 4 COVID 19 CAD s/p stents Chronic afib (no longer on eliquis) normocytic anemia of chronic disease and iron deficiency diabetes mellitus type 2, insulin-dependent hypertension hyperlipidemia Continue IV diuresis, seems to be slowly improving Renal function improving Still feels very weak and tired, likely from COVID-19 Requiring some oxygen this morning Continue to wean as appropriate Nephrology following Cardiology was consulted, no further recommendations at this time. NSTEMI secondary to demand ischemia Continue physical therapy VTE: Heparin Code: Full Dispo: SNF -social service consult Time Spent Managing Pts Care (In Minutes): 35
[2021-11-05] MEDS: INSULIN -REGULAR HUMAN 50 UNIT/0.5 ML ML SQ SCH ×4 (07:30→20:27)
[2021-11-05] MEDS: HEPARIN 5000 UNIT/ML 1 ML VIAL SQ SCH ×2 (08:24→20:28)
[2021-11-05] MEDS: VITAMIN D 5,000 UNIT CAP PO SCH (08:25)
[2021-11-05] MEDS: CALCITROL 0.25 MCG CAP PO SCH (08:25)
[2021-11-05] MEDS: FUROSEMIDE 40 MG/4 ML VIAL IV SCH ×2 (08:25→16:54)
[2021-11-05] MEDS: COENZYME Q10- 200 MG CAP PO SCH (08:27)
[2021-11-05 15:04] VITALS: BMI 37.4
[2021-11-05] MEDS: TRAMADOL HCL 50 MG TAB PO PRN (15:33)
--- NOTE | 2021-11-05 19:24 | P.PN ---
Date of Service: 11/05/21 Vital Signs Temp Pulse Resp BP Pulse Ox 97.6 F 98 H 18 103/51 L 100 11/05/21 16:00 11/05/21 16:54 11/05/21 16:00 11/05/21 16:54 11/05/21 16:00 Medications Acetaminophen (Acetaminophen 500 Mg Tab) 500 mg PO Q4HP PRN PRN Reason: Pain scale 2-4 (Mild) Last Admin: 11/05/21 06:27 Dose: 500 mg Documented by: Calcitriol (Calcitrol 0.25 Mcg Cap) 0.5 mcg PO DAILY [facility] Last Admin: 11/05/21 08:25 Dose: 0.5 mcg Documented by: Cholecalciferol (Vitamin D 5,000 Unit Cap) 5,000 unit PO DAILY [facility] Last Admin: 11/05/21 08:25 Dose: 5,000 unit Documented by: Coenzyme Q10 (Coenzyme Q10- 200 Mg Cap) 200 mg PO DAILY [facility] Last Admin: 11/05/21 08:27 Dose: 200 mg Documented by: Furosemide (Furosemide 40 Mg/4 Ml Vial) 40 mg IV BIDL [facility] Last Admin: 11/05/21 16:54 Dose: 40 mg Documented by: Heparin Sodium (Porcine) (Heparin 5000 Unit/Ml 1 Ml Vial) 5,000 unit SQ Q12H [facility] Last Admin: 11/05/21 08:24 Dose: 5,000 unit Documented by: Insulin Human Regular (Insulin -Regular Human 50 Unit/0.5 Ml Ml) 0 unit SQ ACHS [facility]; Protocol Last Admin: 11/05/21 16:13 Dose: 2 unit Documented by: Magnesium Oxide (Magnesium Oxide 400 Mg Tab) 400 mg PO BEDTIME [facility] Last Admin: 11/04/21 20:12 Dose: 400 mg Documented by: Ondansetron HCl (Ondansetron 4 Mg/2 Ml Vial) 4 mg IV Q6HP PRN PRN Reason: NAUSEA / VOMITING Sodium Chloride (Flush Normal Saline 10 Ml) 10 ml IV BID [facility] Last Admin: 11/05/21 08:25 Dose: 10 ml Documented by: Tramadol HCl (Tramadol Hcl 50 Mg Tab) 50 mg PO Q6H PRN PRN Reason: Pain scale 5-7 (Moderate) Last Admin: 11/05/21 15:33 Dose: 50 mg Documented by: Assessment/ Plan: Nephrology Improving dyspnea and edema No chest pain No acute events overnight Vitals, medications, blood work and imaging reviewed in the chart. Physical Examination General: Oriented x3, Cooperative HEENT: Atraumatic Neck: JVD distended Respiratory: Normal air movement Cardiovascular: Regular rate/rhythm, Edema Gastrointestinal: Soft and benign, Non-distended Musculoskeletal: No clubbing, No contractures Integumentary: No rashes, No cyanosis Neurological: Normal speech Laboratory Data (last 24 hrs) 11/03/21 11:51: PT 15.5 H, INR 1.34 11/03/21 11:51: WBC 9.40, Hgb 9.2 L, Hct 28.7 L, Plt Count 181 11/03/21 11:51: Sodium 134 L, Potassium 5.4 H, BUN 75 H, Creatinine 3.21 H, Glucose 230 H, Magnesium 1.6 L, Total Bilirubin 0.5, AST 38 H, ALT 31, Alkaline Phosphatase 120 H Imagings Data: EXAM DESCRIPTION: RAD - Chest Single View - 11/03/2021 11:52 am CLINICAL HISTORY: Weakness COMPARISON: Abdomen 1 View (KUB) dated 07/19/2021; Chest Single View dated 07/18/2021; Chest Single View dated 02/24/2021; Chest Single View dated 02/11/2021 FINDINGS: Lines: None. Lungs: Widespread pulmonary opacities. Pleural: Bilateral pleural effusions. Cardiac: Cardiomegaly. Bones: No acute fractures. IMPRESSION: Findings most likely representing pulmonary edema with bilateral effusions. Pneumonia less likely. Conclusions/Impression: ROSAURA likely CRS CKD IV with proteinuria -No NSAIDs -Continue furosemide -Start Amiloride Hyponatremia -Continue furosemide Hyperkalemia -Continue furosemide Hypomagnesemia -Replete oral magnesium HTN with CKD/ CHF -Continue furosemide Systolic CHF, A/C -Continue furosemide IV bid -Start Amiloride BID -Continue CoEQ10 DM II with CKD -RISS Anemia in chronic illness -Monitor H&H CKD MBD -Continue Calcitriol and Cholecalciferol Case discussed with Dr. Robles
[2021-11-05] MEDS: AMILORIDE HCL 5 MG TABLET PO SCH (19:30)
[2021-11-05] MEDS: MAGNESIUM OXIDE 400 MG TAB PO SCH (20:26)
[2021-11-05 22:14] LABS: Urine Appearance CLEAR (Clear); Urine Bilirubin NEGATIVE (Negative); Urine Blood NEGATIVE (Negative); Urine Color YELLOW (Yellow); Urine Glucose NEGATIVE (Negative); Urine Protein NEGATIVE (Negative); Urine pH 5.5 (5.0-7.0)
[2021-11-05 22:15] LABS: Urine Microscopic Reflex NO UMIC
--- NOTE | 2021-11-05 22:53 | PN ---
Date of Progress Note: 11/05/2021 Mr. Vaughn has been admitted for congestive heart failure, acute on chronic systolic congestive heart failure, COVID positive, renal failure. Overnight, he has been diuresing well with IV Lasix. Today, his creatinine is better at 2.73. His O2 saturation 97% at 3 L. Hemoglobin is 8.5. I think we thomas uld consider low-dose carvedilol on him and maybe resume the Aldactone whenever it is okay with Nephr ology. No need for further cardiac workup. I will continue to follow him on an as-needed basis. I will see him in the office until he goes home. KANWAL/JASON Voice ID: [id number] Report ID: [id number]
[2021-11-06] MEDS: TRAMADOL HCL 50 MG TAB PO PRN ×3 (02:00→23:38)
[2021-11-06 04:09] LABS: Absolute Lymphocytes (CBC) 1.2 K/uL (0.7-4.9); Hematocrit 27.8 % (39.6-49.0); Lymphocytes % 17.7 % (15.3-44.8); MPV 10.1 fL (7.6-11.3); RBC Red Blood Cell Count 2.95 M/uL (4.33-5.43)
[2021-11-06 04:20] LABS: Albumin 2.9 g/dL (3.4-5.0); Bilirubin Total 0.5 mg/dL (0.2-1.0); Magnesium 2.1 mg/dL (1.8-2.4); Protein, Total 6.8 g/dL (6.4-8.2)
--- NOTE | 2021-11-06 06:23 | P.PN ---
Date of Service: 11/06/21 Subjective: Swelling with slight improvement, sitting up at bedside most of the time Continues to feel very tired, still requiring oxygen supplementation Reports bad smell, itching pain/discomfort right groin, less severe in left groin ROS: 10 point ROS as noted above, otherwise negative Physical exam GEN: Alert, oriented, NAD HEENT: Normal conjunctiva, sclera anicteric CV: Regular rate and rhythm, 1-2+ b/l pitting edema Pulm: mildly labored on 2 L nasal cannula, mild bilateral crackles at bases ABD: Soft, nontender, nondistended Neuro: Normal speech, normal affect : Bilateral groins with appearance of intertrigo infection Problem List chronic systolic congestive heart failure with acute exacerbation ROSAURA on CKD stage 4 COVID 19 CAD s/p stents Chronic afib (no longer on eliquis) normocytic anemia of chronic disease and iron deficiency diabetes mellitus type 2, insulin-dependent hypertension hyperlipidemia Continue IV diuresis, improving. Blood pressure now getting on the low end. May need to decrease or change to p.o. Renal function improved, nephrology following Still feels very weak and tired, likely from COVID-19 Still requiring oxygen supplementation Continue to wean as appropriate Cardiology was consulted, no further recommendations at this time. NSTEMI secondary to demand ischemia Continue physical therapy VTE: Heparin Code: Full Dispo: SNF -social service consult Patient states he would like to go to halfway on discharge. Time Spent Managing Pts Care (In Minutes): 35
[2021-11-06] MEDS: INSULIN -REGULAR HUMAN 50 UNIT/0.5 ML ML SQ SCH ×4 (07:30→21:00)
[2021-11-06] MEDS: CALCITROL 0.25 MCG CAP PO SCH (08:19)
[2021-11-06] MEDS: COENZYME Q10- 200 MG CAP PO SCH (08:20)
[2021-11-06] MEDS: AMILORIDE HCL 5 MG TABLET PO SCH ×2 (08:20→16:19)
[2021-11-06] MEDS: HEPARIN 5000 UNIT/ML 1 ML VIAL SQ SCH ×2 (08:20→21:00)
[2021-11-06] MEDS: VITAMIN D 5,000 UNIT CAP PO SCH (08:20)
[2021-11-06] MEDS: FUROSEMIDE 40 MG/4 ML VIAL IV SCH ×2 (08:20→16:19)
[2021-11-06] MEDS ORDERED: EPOETIN ALFA-EPBX 10,000 UNIT/ML VIAL SQ ONE (09:52)
--- NOTE | 2021-11-06 11:30 | RAD REPORT ---
EXAM DESCRIPTION: Renan Single View11/06/2021 11:00 am CLINICAL HISTORY: Chest pain COMPARISON: November 03, 2021 FINDINGS: Small left and small to moderate right pleural effusions are suspected. Mild bilateral pulmonary opacities mildly improved from the prior exam may represent pulmonary edema or pneumonia. Cardiomegaly
[2021-11-06] MEDS: NYSTATIN PWDR 100000 UNIT/GM TOP SCH ×2 (12:32→21:00)
[2021-11-06] MEDS: BUSPIRONE HCL 15 MG TABLET PO SCH (21:00)
[2021-11-06] MEDS: MAGNESIUM OXIDE 400 MG TAB PO SCH (21:00)
--- NOTE | 2021-11-07 06:22 | P.PN ---
Date of Service: 11/07/21 Subjective: Slightly improved Reports very tired, is not getting good sleep here, asking for sleep medicine Nursing staff stated patient has been saying he thinks he is going to /is ready to When asked the patient, he stated he is scared to , he does not want to . He is scared that he will not be able to breathe and that he would . No plans to hurt himself ROS: 10 point ROS as noted above, otherwise negative Physical exam GEN: Alert, oriented, NAD HEENT: Normal conjunctiva, sclera anicteric CV: Regular rate and rhythm, 1-2+ b/l pitting edema Pulm: mildly labored on 2 L nasal cannula, bilateral crackles at bases ABD: Soft, nontender, nondistended Neuro: Normal speech, normal affect : Bilateral groins with appearance of intertrigo infection Problem List chronic systolic congestive heart failure with acute exacerbation ROSAURA on CKD stage 4 COVID 19 CAD s/p stents Chronic afib (no longer on eliquis) normocytic anemia of chronic disease and iron deficiency Intertrigo diabetes mellitus type 2, insulin-dependent hypertension hyperlipidemia Elevated troponin secondary to demand ischemia Continue IV diuresis, improving. Blood pressure now getting on the low end. May need to decrease or change to p.o. Renal function improved, nephrology following Still feels very weak and tired, likely from COVID-19 on top of fluid overload Still requiring oxygen supplementation Continue to wean as appropriate Cardiology was consulted, no further recommendations at this time. Elevated troponin secondary to demand ischemia Continue physical therapy VTE: Heparin Code: Full Dispo: SNF -social service consult Patient states he would like to go to senior living on discharge. Time Spent Managing Pts Care (In Minutes): 35
[2021-11-07 07:05] LABS: Absolute Lymphocytes (CBC) 1.5 K/uL (0.7-4.9); Hematocrit 29.1 % (39.6-49.0); Lymphocytes % 21.1 % (15.3-44.8); RBC Red Blood Cell Count 3.11 M/uL (4.33-5.43)
[2021-11-07 07:22] LABS: Potassium 4.6 mmol/L (3.5-5.1); Uric Acid 12.5 mg/dL (3.5-7.2)
[2021-11-07] MEDS: INSULIN -REGULAR HUMAN 50 UNIT/0.5 ML ML SQ SCH ×4 (07:30→21:00)
[2021-11-07] MEDS: AMILORIDE HCL 5 MG TABLET PO SCH ×2 (08:21→17:06)
[2021-11-07] MEDS: CLOPIDOGREL 75 MG TABLET PO SCH (08:21)
[2021-11-07] MEDS: COENZYME Q10- 200 MG CAP PO SCH (08:21)
[2021-11-07] MEDS: HEPARIN 5000 UNIT/ML 1 ML VIAL SQ SCH ×2 (08:21→21:00)
[2021-11-07] MEDS: VITAMIN D 5,000 UNIT CAP PO SCH (08:21)
[2021-11-07] MEDS: BUSPIRONE HCL 15 MG TABLET PO SCH ×2 (08:21→21:00)
[2021-11-07] MEDS: CALCITROL 0.25 MCG CAP PO SCH (08:21)
[2021-11-07] MEDS: FUROSEMIDE 40 MG/4 ML VIAL IV SCH ×2 (08:21→17:06)
[2021-11-07] MEDS: NYSTATIN PWDR 100000 UNIT/GM TOP SCH ×2 (08:22→21:00)
[2021-11-07] MEDS: TRAMADOL HCL 50 MG TAB PO PRN (15:11)
--- NOTE | 2021-11-07 20:49 | P.PN ---
Date of Service: 11/07/21 Vital Signs Temp Pulse Resp BP Pulse Ox 97.6 F 94 H 16 108/55 L 100 11/07/21 16:00 11/07/21 17:06 11/07/21 16:11 11/07/21 17:06 11/07/21 16:11 Medications Acetaminophen (Acetaminophen 500 Mg Tab) 500 mg PO Q4HP PRN PRN Reason: Pain scale 2-4 (Mild) Last Admin: 11/05/21 06:27 Dose: 500 mg Documented by: Amiloride HCl (Amiloride Hcl 5 Mg Tablet) 10 mg PO BIDL [facility] Last Admin: 11/07/21 17:06 Dose: 10 mg Documented by: Buspirone HCl (Buspirone Hcl 15 Mg Tablet) 15 mg PO BID [facility] Last Admin: 11/07/21 08:21 Dose: 15 mg Documented by: Calcitriol (Calcitrol 0.25 Mcg Cap) 0.5 mcg PO DAILY [facility] Last Admin: 11/07/21 08:21 Dose: 0.5 mcg Documented by: Cholecalciferol (Vitamin D 5,000 Unit Cap) 5,000 unit PO DAILY [facility] Last Admin: 11/07/21 08:21 Dose: 5,000 unit Documented by: Clopidogrel Bisulfate (Clopidogrel 75 Mg Tablet) 75 mg PO DAILY [facility] Last Admin: 11/07/21 08:21 Dose: 75 mg Documented by: Coenzyme Q10 (Coenzyme Q10- 200 Mg Cap) 200 mg PO DAILY [facility] Last Admin: 11/07/21 08:21 Dose: 200 mg Documented by: Furosemide (Furosemide 40 Mg/4 Ml Vial) 40 mg IV BIDL [facility] Last Admin: 11/07/21 17:06 Dose: 40 mg Documented by: Heparin Sodium (Porcine) (Heparin 5000 Unit/Ml 1 Ml Vial) 5,000 unit SQ Q12H [facility] Last Admin: 11/07/21 08:21 Dose: 5,000 unit Documented by: Insulin Human Regular (Insulin -Regular Human 50 Unit/0.5 Ml Ml) 0 unit SQ ACHS [facility]; Protocol Last Admin: 11/07/21 16:11 Dose: Not Given Documented by: Magnesium Oxide (Magnesium Oxide 400 Mg Tab) 400 mg PO BEDTIME [facility] Last Admin: 11/06/21 21:00 Dose: 400 mg Documented by: Nystatin (Nystatin Pwdr [id number] Unit/Gm) 1 appl TOP BID [facility] Last Admin: 02/21/22 08:22 Dose: 1 appl Documented by: Ondansetron HCl (Ondansetron 4 Mg/2 Ml Vial) 4 mg IV Q6HP PRN PRN Reason: NAUSEA / VOMITING Sodium Chloride (Flush Normal Saline 10 Ml) 10 ml IV BID [facility] Last Admin: 11/07/21 08:22 Dose: 10 ml Documented by: Tramadol HCl (Tramadol Hcl 50 Mg Tab) 50 mg PO Q6H PRN PRN Reason: Pain scale 5-7 (Moderate) Last Admin: 11/07/21 15:11 Dose: 50 mg Documented by: Assessment/ Plan: Nephrology Improving dyspnea and edema No chest pain No acute events overnight Vitals, medications, blood work and imaging reviewed in the chart. Physical Examination General: Oriented x3, Cooperative HEENT: Atraumatic Neck: JVD distended Respiratory: Normal air movement Cardiovascular: Regular rate/rhythm, Edema Gastrointestinal: Soft and benign, Non-distended Musculoskeletal: No clubbing, No contractures Integumentary: No rashes, No cyanosis Neurological: Normal speech Laboratory Data (last 24 hrs) 11/03/21 11:51: PT 15.5 H, INR 1.34 11/03/21 11:51: WBC 9.40, Hgb 9.2 L, Hct 28.7 L, Plt Count 181 11/03/21 11:51: Sodium 134 L, Potassium 5.4 H, BUN 75 H, Creatinine 3.21 H, Glucose 230 H, Magnesium 1.6 L, Total Bilirubin 0.5, AST 38 H, ALT 31, Alkaline Phosphatase 120 H Imagings Data: EXAM DESCRIPTION: RAD - Chest Single View - 11/03/2021 11:52 am CLINICAL HISTORY: Weakness COMPARISON: Abdomen 1 View (KUB) dated 07/19/2021; Chest Single View dated 07/18/2021; Chest Single View dated 02/24/2021; Chest Single View dated 02/11/2021 FINDINGS: Lines: None. Lungs: Widespread pulmonary opacities. Pleural: Bilateral pleural effusions. Cardiac: Cardiomegaly. Bones: No acute fractures. IMPRESSION: Findings most likely representing pulmonary edema with bilateral effusions. Pneumonia less likely. Conclusions/Impression: ROSAURA likely CRS CKD IV with proteinuria -No NSAIDs -Continue furosemide -Continue Amiloride Hyponatremia -Continue furosemide Hyperkalemia -Continue furosemide Hypomagnesemia -Replete oral magnesium HTN with CKD/ CHF -Continue furosemide Systolic CHF, A/C -Continue furosemide IV bid -Continue Amiloride BID -Continue CoEQ10 DM II with CKD -RISS Anemia in chronic illness -Monitor H&H CKD MBD -Continue Calcitriol and Cholecalciferol
[2021-11-07] MEDS: MAGNESIUM OXIDE 400 MG TAB PO SCH (21:00)
[2021-11-08] MEDS: TRAMADOL HCL 50 MG TAB PO PRN (00:12)
[2021-11-08 03:56] LABS: Absolute Lymphocytes (CBC) 1.3 K/uL (0.7-4.9); Hematocrit 27.4 % (39.6-49.0); Lymphocytes % 17.9 % (15.3-44.8); MPV 10.1 fL (7.6-11.3); RBC Red Blood Cell Count 2.99 M/uL (4.33-5.43)
[2021-11-08 04:13] LABS: Potassium 5.2 mmol/L (3.5-5.1)
[2021-11-08] MEDS: INSULIN -REGULAR HUMAN 50 UNIT/0.5 ML ML SQ SCH ×4 (07:30→21:46)
[2021-11-08] MEDS: NYSTATIN PWDR 100000 UNIT/GM TOP SCH ×2 (09:00→21:00)
[2021-11-08] MEDS: VITAMIN D 5,000 UNIT CAP PO SCH (09:00)
[2021-11-08] MEDS: FUROSEMIDE 40 MG/4 ML VIAL IV SCH ×2 (10:13→18:03)
[2021-11-08] MEDS: HEPARIN 5000 UNIT/ML 1 ML VIAL SQ SCH ×2 (10:13→21:48)
[2021-11-08] MEDS: CALCITROL 0.25 MCG CAP PO SCH (10:18)
[2021-11-08] MEDS: BUSPIRONE HCL 15 MG TABLET PO SCH ×2 (10:19→21:45)
[2021-11-08] MEDS: COENZYME Q10- 200 MG CAP PO SCH (10:19)
[2021-11-08] MEDS: CLOPIDOGREL 75 MG TABLET PO SCH (10:19)
--- NOTE | 2021-11-08 15:43 | P.PN ---
Subjective Date of Service: 11/08/21 Primary Care Provider: Unknown Chief Complaint: CHF Exacerbation Patient reports intermittent shortness of breath. He has been diuresing with the current IV Lasix dose. He denies any chest pain. Physical Examination - Vital Signs Temperature: 98.1 F Blood Pressure: 107/61 Pulse: 103 Respirations: 16 Pulse Ox (%): 95 Assessment And Plan - Plan Physical exam GEN: Alert, oriented, NAD HEENT: Normal conjunctiva, sclera anicteric CV: Regular rate and rhythm, 1-2+ b/l pitting edema Pulm: mildly labored on 2 L nasal cannula, bilateral crackles at bases ABD: Soft, nontender, nondistended Neuro: Normal speech, normal affect : Bilateral groins with appearance of intertrigo infection Problem List chronic systolic congestive heart failure with acute exacerbation ROSAURA on CKD stage 4 COVID 19 CAD s/p stents Chronic afib (no longer on eliquis) normocytic anemia of chronic disease and iron deficiency Intertrigo diabetes mellitus type 2, insulin-dependent hypertension hyperlipidemia Elevated troponin secondary to demand ischemia Continue IV diuresis, improving. Borderline low blood pressure. Continue to monitor blood pressure closely on IV Lasix. Renal function improved, nephrology following Still feels very weak and tired, likely from COVID-19 on top of fluid overload Continue oxygen supplementation Wean oxygen as possible Cardiology input appreciated. No further recommendations at this time. Elevated troponin secondary to demand ischemia Continue physical therapy. VTE: Heparin Code: Full Dispo: SNF -social service consult
--- NOTE | 2021-11-08 17:56 | P.PN ---
Date of Service: 11/08/21 Vital Signs Temp Pulse Resp BP Pulse Ox 98.1 F 103 H 16 107/61 95 11/08/21 15:43 11/08/21 15:43 11/08/21 15:43 11/08/21 15:43 11/08/21 15:43 Medications Acetaminophen (Acetaminophen 500 Mg Tab) 500 mg PO Q4HP PRN PRN Reason: Pain scale 2-4 (Mild) Last Admin: 11/05/21 06:27 Dose: 500 mg Documented by: Amitriptyline HCl (Amitriptyline 25 Mg Tab) 25 mg PO BEDTIME [facility] Buspirone HCl (Buspirone Hcl 15 Mg Tablet) 15 mg PO BID [facility] Last Admin: 11/08/21 10:19 Dose: 15 mg Documented by: Calcitriol (Calcitrol 0.25 Mcg Cap) 0.5 mcg PO DAILY [facility] Last Admin: 11/08/21 10:18 Dose: 0.5 mcg Documented by: Cholecalciferol (Vitamin D 5,000 Unit Cap) 5,000 unit PO DAILY [facility] Last Admin: 11/08/21 09:00 Dose: 5,000 unit Documented by: Clopidogrel Bisulfate (Clopidogrel 75 Mg Tablet) 75 mg PO DAILY [facility] Last Admin: 11/08/21 10:19 Dose: 75 mg Documented by: Coenzyme Q10 (Coenzyme Q10- 200 Mg Cap) 200 mg PO DAILY [facility] Last Admin: 11/08/21 10:19 Dose: 200 mg Documented by: Docusate Sodium (Docusate Na 100 Mg Cap) 100 mg PO BID [facility] Furosemide (Furosemide 40 Mg/4 Ml Vial) 40 mg IV BIDL [facility] Last Admin: 11/08/21 10:13 Dose: 40 mg Documented by: Heparin Sodium (Porcine) (Heparin 5000 Unit/Ml 1 Ml Vial) 5,000 unit SQ Q12H [facility] Last Admin: 11/08/21 10:13 Dose: 5,000 unit Documented by: Insulin Human Regular (Insulin -Regular Human 50 Unit/0.5 Ml Ml) 0 unit SQ ACHS [facility]; Protocol Last Admin: 11/08/21 11:30 Dose: Not Given Documented by: Lactulose (Lactulose 20 Gm/30 Ml Ucup) 20 gm PO 1X ONE Stop: 11/08/21 17:50 Magnesium Oxide (Magnesium Oxide 400 Mg Tab) 400 mg PO BEDTIME [facility] Last Admin: 11/07/21 21:00 Dose: 400 mg Documented by: Nystatin (Nystatin Pwdr [id number] Unit/Gm) 1 appl TOP BID [facility] Last Admin: 11/08/21 09:00 Dose: 1 appl Documented by: Ondansetron HCl (Ondansetron 4 Mg/2 Ml Vial) 4 mg IV Q6HP PRN PRN Reason: NAUSEA / VOMITING Sodium Chloride (Flush Normal Saline 10 Ml) 10 ml IV BID [facility] Last Admin: 11/08/21 09:00 Dose: 10 ml Documented by: Tramadol HCl (Tramadol Hcl 50 Mg Tab) 50 mg PO Q6H PRN PRN Reason: Pain scale 5-7 (Moderate) Last Admin: 11/08/21 00:12 Dose: 50 mg Documented by: Assessment/ Plan: Nephrology Improving dyspnea and edema No chest pain Constipation Requesting a medication for sleep No acute events overnight Vitals, medications, blood work and imaging reviewed in the chart. Physical Examination General: Oriented x3, Cooperative HEENT: Atraumatic Neck: JVD distended Respiratory: Normal air movement Cardiovascular: Regular rate/rhythm, Edema Gastrointestinal: Soft and benign, Non-distended Musculoskeletal: No clubbing, No contractures Integumentary: No rashes, No cyanosis Neurological: Normal speech Laboratory Data (last 24 hrs) 11/03/21 11:51: PT 15.5 H, INR 1.34 11/03/21 11:51: WBC 9.40, Hgb 9.2 L, Hct 28.7 L, Plt Count 181 11/03/21 11:51: Sodium 134 L, Potassium 5.4 H, BUN 75 H, Creatinine 3.21 H, Glucose 230 H, Magnesium 1.6 L, Total Bilirubin 0.5, AST 38 H, ALT 31, Alkaline Phosphatase 120 H Imagings Data: EXAM DESCRIPTION: RAD - Chest Single View - 11/03/2021 11:52 am CLINICAL HISTORY: Weakness COMPARISON: Abdomen 1 View (KUB) dated 07/19/2021; Chest Single View dated 07/18/2021; Chest Single View dated 02/24/2021; Chest Single View dated 02/11/2021 FINDINGS: Lines: None. Lungs: Widespread pulmonary opacities. Pleural: Bilateral pleural effusions. Cardiac: Cardiomegaly. Bones: No acute fractures. IMPRESSION: Findings most likely representing pulmonary edema with bilateral effusions. Pneumonia less likely. Conclusions/Impression: ROSAURA likely CRS CKD IV with proteinuria -No NSAIDs -Continue furosemide Hyponatremia -Continue furosemide Hyperkalemia -Continue furosemide -Discontinue Amiloride Hypomagnesemia -Replete oral magnesium HTN with CKD/ CHF -Continue furosemide Systolic CHF, A/C -Continue furosemide IV bid -Continue CoEQ10 DM II with CKD -RISS Anemia in chronic illness -Monitor H&H CKD MBD -Continue Calcitriol and Cholecalciferol Slow transit constipation -Lactulose X1 -Start Colace BID Insomina -Start Amitriptyline qhs
[2021-11-08] MEDS ORDERED: LACTULOSE 20 GM/30 ML UCUP PO ONE (18:00)
[2021-11-08] MEDS: MAGNESIUM OXIDE 400 MG TAB PO SCH (21:00)
[2021-11-08] MEDS: DOCUSATE NA 100 MG CAP PO SCH (21:45)
[2021-11-08] MEDS: AMITRIPTYLINE 25 MG TAB PO SCH (21:45)
[2021-11-09 04:18] LABS: Absolute Lymphocytes (CBC) 1.5 K/uL (0.7-4.9); Hematocrit 28.6 % (39.6-49.0); Lymphocytes % 21.6 % (15.3-44.8); MPV 10.6 fL (7.6-11.3); RBC Red Blood Cell Count 3.05 M/uL (4.33-5.43)
[2021-11-09 04:35] LABS: Potassium 5.2 mmol/L (3.5-5.1)
[2021-11-09] MEDS: INSULIN -REGULAR HUMAN 50 UNIT/0.5 ML ML SQ SCH ×4 (07:30→21:00)
[2021-11-09] MEDS: FUROSEMIDE 40 MG/4 ML VIAL IV SCH ×4 (09:17→22:05)
[2021-11-09] MEDS: DOCUSATE NA 100 MG CAP PO SCH ×2 (09:18→22:06)
[2021-11-09] MEDS: CALCITROL 0.25 MCG CAP PO SCH (09:18)
[2021-11-09] MEDS: VITAMIN D 5,000 UNIT CAP PO SCH (09:18)
[2021-11-09] MEDS: BUSPIRONE HCL 15 MG TABLET PO SCH ×2 (09:18→21:00)
[2021-11-09] MEDS: CLOPIDOGREL 75 MG TABLET PO SCH (09:18)
[2021-11-09] MEDS: NYSTATIN PWDR 100000 UNIT/GM TOP SCH ×2 (09:19→21:00)
[2021-11-09] MEDS: HEPARIN 5000 UNIT/ML 1 ML VIAL SQ SCH ×2 (09:19→21:00)
[2021-11-09] MEDS: COENZYME Q10- 200 MG CAP PO SCH (09:41)
[2021-11-09] MEDS ORDERED: MAGNESIUM CITRATE 300 ML BOT PO SCH (12:00)
--- NOTE | 2021-11-09 15:55 | P.PN ---
Subjective Date of Service: 11/09/21 Primary Care Provider: Unknown Chief Complaint: CHF Exacerbation Patient complaining of shortness of breath. He also states his leg edema has not changed. Physical Examination - Vital Signs Temperature: 97.5 F Blood Pressure: 121/78 Pulse: 111 Respirations: 17 Pulse Ox (%): 100 Assessment And Plan - Plan Physical exam GEN: Alert, oriented, NAD HEENT: Normal conjunctiva, sclera anicteric CV: Regular rate and rhythm, 1-2+ b/l pitting edema Pulm: mildly labored on 2 L nasal cannula, bilateral crackles at bases ABD: Soft, nontender, nondistended Neuro: Normal speech, normal affect : Bilateral groins with appearance of intertrigo infection Problem List chronic systolic congestive heart failure with acute exacerbation ROSAURA on CKD stage 4 COVID 19 CAD s/p stents Chronic afib (no longer on eliquis) normocytic anemia of chronic disease and iron deficiency Intertrigo diabetes mellitus type 2, insulin-dependent hypertension hyperlipidemia Elevated troponin secondary to demand ischemia Patient is diuresing well but leg edema is not improving. Borderline low blood pressure. Continue to monitor blood pressure closely on IV Lasix. Renal function improved, nephrology following. Patient may need Lasix drip for refractory lower extremity edema. Still feels very weak and tired, likely from COVID-19 and fluid overload Continue oxygen supplementation Wean oxygen as possible Cardiology input appreciated. No further recommendations at this time. Elevated troponin secondary to demand ischemia Continue physical therapy. VTE: Heparin Code: Full Dispo: SNF placement.
--- NOTE | 2021-11-09 20:17 | P.PN ---
Date of Service: 11/09/21 Vital Signs Temp Pulse Resp BP Pulse Ox 97.4 F 108 H 17 103/56 L 100 11/09/21 16:00 11/09/21 18:07 11/09/21 16:00 11/09/21 18:07 11/09/21 16:00 Medications Acetaminophen (Acetaminophen 500 Mg Tab) 500 mg PO Q4HP PRN PRN Reason: Pain scale 2-4 (Mild) Last Admin: 11/05/21 06:27 Dose: 500 mg Documented by: Amitriptyline HCl (Amitriptyline 25 Mg Tab) 25 mg PO BEDTIME [facility] Last Admin: 11/08/21 21:45 Dose: 25 mg Documented by: Buspirone HCl (Buspirone Hcl 15 Mg Tablet) 15 mg PO BID [facility] Last Admin: 11/09/21 09:18 Dose: 15 mg Documented by: Calcitriol (Calcitrol 0.25 Mcg Cap) 0.5 mcg PO DAILY [facility] Last Admin: 11/09/21 09:18 Dose: 0.5 mcg Documented by: Cholecalciferol (Vitamin D 5,000 Unit Cap) 5,000 unit PO DAILY [facility] Last Admin: 11/09/21 09:18 Dose: 5,000 unit Documented by: Clopidogrel Bisulfate (Clopidogrel 75 Mg Tablet) 75 mg PO DAILY [facility] Last Admin: 11/09/21 09:18 Dose: 75 mg Documented by: Coenzyme Q10 (Coenzyme Q10- 200 Mg Cap) 200 mg PO DAILY [facility] Last Admin: 11/09/21 09:41 Dose: 200 mg Documented by: Docusate Sodium (Docusate Na 100 Mg Cap) 100 mg PO BID [facility] Last Admin: 11/09/21 09:18 Dose: 100 mg Documented by: Furosemide (Furosemide 40 Mg/4 Ml Vial) 40 mg IV Q6H [facility] Heparin Sodium (Porcine) (Heparin 5000 Unit/Ml 1 Ml Vial) 5,000 unit SQ Q12H [facility] Last Admin: 11/09/21 09:19 Dose: 5,000 unit Documented by: Insulin Human Regular (Insulin -Regular Human 50 Unit/0.5 Ml Ml) 0 unit SQ ACHS [facility]; Protocol Last Admin: 11/09/21 17:18 Dose: 2 unit Documented by: Magnesium Oxide (Magnesium Oxide 400 Mg Tab) 400 mg PO BEDTIME [facility] Last Admin: 11/08/21 21:00 Dose: 400 mg Documented by: Nystatin (Nystatin Pwdr [id number] Unit/Gm) 1 appl TOP BID [facility] Last Admin: 11/09/21 09:19 Dose: 1 appl Documented by: Ondansetron HCl (Ondansetron 4 Mg/2 Ml Vial) 4 mg IV Q6HP PRN PRN Reason: NAUSEA / VOMITING Sodium Chloride (Flush Normal Saline 10 Ml) 10 ml IV BID [facility] Last Admin: 11/09/21 09:00 Dose: 10 ml Documented by: Tramadol HCl (Tramadol Hcl 50 Mg Tab) 50 mg PO Q6H PRN PRN Reason: Pain scale 5-7 (Moderate) Last Admin: 11/08/21 00:12 Dose: 50 mg Documented by: Assessment/ Plan: Nephrology No chest pain Persistent edema No acute events overnight Vitals, medications, blood work and imaging reviewed in the chart. Physical Examination General: Oriented x3, Cooperative HEENT: Atraumatic Neck: JVD distended Respiratory: Normal air movement Cardiovascular: Regular rate/rhythm, Edema Gastrointestinal: Soft and benign, Non-distended Musculoskeletal: No clubbing, No contractures Integumentary: No rashes, No cyanosis Neurological: Normal speech Laboratory Data (last 24 hrs) 11/03/21 11:51: PT 15.5 H, INR 1.34 11/03/21 11:51: WBC 9.40, Hgb 9.2 L, Hct 28.7 L, Plt Count 181 11/03/21 11:51: Sodium 134 L, Potassium 5.4 H, BUN 75 H, Creatinine 3.21 H, Glucose 230 H, Magnesium 1.6 L, Total Bilirubin 0.5, AST 38 H, ALT 31, Alkaline Phosphatase 120 H Imagings Data: EXAM DESCRIPTION: RAD - Chest Single View - 11/03/2021 11:52 am CLINICAL HISTORY: Weakness COMPARISON: Abdomen 1 View (KUB) dated 07/19/2021; Chest Single View dated 07/18/2021; Chest Single View dated 02/24/2021; Chest Single View dated 02/11/2021 FINDINGS: Lines: None. Lungs: Widespread pulmonary opacities. Pleural: Bilateral pleural effusions. Cardiac: Cardiomegaly. Bones: No acute fractures. IMPRESSION: Findings most likely representing pulmonary edema with bilateral effusions. Pneumonia less likely. Conclusions/Impression: ROSAURA likely CRS CKD IV with proteinuria -No NSAIDs -Continue furosemide Hyponatremia -Continue furosemide Hyperkalemia -Continue furosemide -Discontinue Amiloride Hypomagnesemia -Replete oral magnesium HTN with CKD/ CHF complicated by hypotension -Continue furosemide -Midodrine prn Systolic CHF, A/C -Increase furosemide 40mg q6h -Continue CoEQ10 DM II with CKD -RISS Anemia in chronic illness -Monitor H&H CKD MBD -Continue Calcitriol and Cholecalciferol Slow transit constipation -Continue Colace BID Insomina -Continue Amitriptyline qhs
[2021-11-09] MEDS: MAGNESIUM OXIDE 400 MG TAB PO SCH (21:00)
[2021-11-09] MEDS ORDERED: FUROSEMIDE 40 MG/4 ML VIAL IV SCH (21:00)
[2021-11-09] MEDS: AMITRIPTYLINE 25 MG TAB PO SCH (22:05)
[2021-11-10 03:52] LABS: Absolute Lymphocytes (CBC) 1.6 K/uL (0.7-4.9); Hematocrit 29.5 % (39.6-49.0); Lymphocytes % 21.5 % (15.3-44.8); MPV 10.2 fL (7.6-11.3); RBC Red Blood Cell Count 3.19 M/uL (4.33-5.43)
[2021-11-10 04:12] LABS: Potassium 6.1 mmol/L (3.5-5.1)
[2021-11-10] MEDS: FUROSEMIDE 40 MG/4 ML VIAL IV SCH ×2 (04:35→09:45)
[2021-11-10] MEDS: INSULIN -REGULAR HUMAN 50 UNIT/0.5 ML ML SQ SCH ×5 (07:30→22:18)
[2021-11-10] MEDS ORDERED: EPOETIN ALFA-EPBX 10,000 UNIT/ML VIAL SQ SCH (09:00)
[2021-11-10] MEDS: NYSTATIN PWDR 100000 UNIT/GM TOP SCH ×2 (09:45→21:00)
[2021-11-10] MEDS: DOCUSATE NA 100 MG CAP PO SCH ×2 (09:45→22:03)
[2021-11-10] MEDS: VITAMIN D 5,000 UNIT CAP PO SCH (09:45)
[2021-11-10] MEDS: BUSPIRONE HCL 15 MG TABLET PO SCH ×2 (09:45→22:03)
[2021-11-10] MEDS: HEPARIN 5000 UNIT/ML 1 ML VIAL SQ SCH ×2 (09:45→22:04)
[2021-11-10] MEDS: COENZYME Q10- 200 MG CAP PO SCH (09:45)
[2021-11-10] MEDS: CALCITROL 0.25 MCG CAP PO SCH (09:45)
[2021-11-10] MEDS: CLOPIDOGREL 75 MG TABLET PO SCH (09:45)
[2021-11-10] MEDS: TRAMADOL HCL 50 MG TAB PO PRN ×2 (10:35→22:18)
[2021-11-10] MEDS ORDERED: SOD POLYSTYREN SUL 15 GM/60 ML UCUP PO ONE (12:05)
[2021-11-10] MEDS: TAMSULOSIN 0.4 MG SR CAP PO SCH ×2 (15:34→21:00)
[2021-11-10] MEDS: FUROSEMIDE 100 MG in NA CHLORIDE 0.9% 90 ML IV SCH (15:34)
--- NOTE | 2021-11-10 15:55 | P.PN ---
Subjective Date of Service: 11/10/21 Primary Care Provider: Unknown Chief Complaint: CHF Exacerbation Patient reports no change in shortness of breath and leg edema. Physical Examination - Vital Signs Temperature: 96.9 F Blood Pressure: 125/75 Pulse: 111 Respirations: 18 Pulse Ox (%): 100 Assessment And Plan - Plan Physical exam GEN: Alert, oriented, NAD HEENT: Normal conjunctiva, sclera anicteric CV: Regular rate and rhythm, 2+ b/l pitting edema Pulm: Nonlabored breathing, bilateral crackles at bases ABD: Soft, nontender, nondistended Neuro: Normal speech, normal affect Problem List chronic systolic congestive heart failure with acute exacerbation ROSAURA on CKD stage 4 COVID 19 CAD s/p stents Chronic afib (no longer on eliquis) normocytic anemia of chronic disease and iron deficiency Intertrigo diabetes mellitus type 2, insulin-dependent hypertension hyperlipidemia Elevated troponin secondary to demand ischemia Patient is diuresing well but leg edema is not improving. Borderline low blood pressure. Continue to monitor blood pressure closely on IV Lasix. Renal function improved, nephrology following. Patient started on Lasix drip. Monitor intake and output. continue oxygen supplementation Wean oxygen as possible Cardiology input appreciated. No further recommendations at this time. Elevated troponin secondary to demand ischemia Continue physical therapy. VTE: Heparin Code: Full Dispo: Considering LTAC placement.
[2021-11-10] MEDS ORDERED: SOD POLYSTYREN SUL 15 GM/60 ML UCUP PO SCH (16:00)
--- NOTE | 2021-11-10 19:49 | P.PN ---
Date of Service: 11/10/21 Vital Signs Temp Pulse Resp BP Pulse Ox 97.4 F 103 H 18 119/60 100 11/10/21 16:00 11/10/21 16:00 11/10/21 16:00 11/10/21 16:00 11/10/21 16:00 Medications Acetaminophen (Acetaminophen 500 Mg Tab) 500 mg PO Q4HP PRN PRN Reason: Pain scale 2-4 (Mild) Last Admin: 11/05/21 06:27 Dose: 500 mg Documented by: Amitriptyline HCl (Amitriptyline 25 Mg Tab) 25 mg PO BEDTIME [facility] Last Admin: 11/09/21 22:05 Dose: 25 mg Documented by: Buspirone HCl (Buspirone Hcl 15 Mg Tablet) 15 mg PO BID [facility] Last Admin: 11/10/21 09:45 Dose: 15 mg Documented by: Calcitriol (Calcitrol 0.25 Mcg Cap) 0.5 mcg PO DAILY [facility] Last Admin: 11/10/21 09:45 Dose: 0.5 mcg Documented by: Cholecalciferol (Vitamin D 5,000 Unit Cap) 5,000 unit PO DAILY [facility] Last Admin: 11/10/21 09:45 Dose: 5,000 unit Documented by: Clopidogrel Bisulfate (Clopidogrel 75 Mg Tablet) 75 mg PO DAILY [facility] Last Admin: 11/10/21 09:45 Dose: 75 mg Documented by: Coenzyme Q10 (Coenzyme Q10- 200 Mg Cap) 200 mg PO DAILY [facility] Last Admin: 11/10/21 09:45 Dose: 200 mg Documented by: Docusate Sodium (Docusate Na 100 Mg Cap) 100 mg PO BID [facility] Last Admin: 11/10/21 09:45 Dose: 100 mg Documented by: Heparin Sodium (Porcine) (Heparin 5000 Unit/Ml 1 Ml Vial) 5,000 unit SQ Q12H [facility] Last Admin: 11/10/21 09:45 Dose: 5,000 unit Documented by: Furosemide 100 mg/ Sodium (Chloride) 100 mls @ 10 mls/hr IV Q10H [facility] Last Admin: 11/10/21 15:34 Dose: 100 mls Documented by: Insulin Human Regular (Insulin -Regular Human 50 Unit/0.5 Ml Ml) 0 unit SQ ACHS [facility]; Protocol Last Admin: 11/10/21 17:15 Dose: 4 unit Documented by: Magnesium Oxide (Magnesium Oxide 400 Mg Tab) 400 mg PO BEDTIME [facility] Last Admin: 11/09/21 21:00 Dose: 400 mg Documented by: Nystatin (Nystatin Pwdr [id number] Unit/Gm) 1 appl TOP BID [facility] Last Admin: 11/10/21 09:45 Dose: 1 appl Documented by: Ondansetron HCl (Ondansetron 4 Mg/2 Ml Vial) 4 mg IV Q6HP PRN PRN Reason: NAUSEA / VOMITING Sodium Chloride (Flush Normal Saline 10 Ml) 10 ml IV BID [facility] Last Admin: 11/10/21 09:00 Dose: 10 ml Documented by: Tamsulosin HCl (Tamsulosin 0.4 Mg Sr Cap) 0.4 mg PO BID [facility] Last Admin: 11/10/21 15:34 Dose: 0.4 mg Documented by: Tramadol HCl (Tramadol Hcl 50 Mg Tab) 50 mg PO Q6H PRN PRN Reason: Pain scale 5-7 (Moderate) Last Admin: 11/10/21 10:35 Dose: 50 mg Documented by: Assessment/ Plan: Nephrology No chest pain Persistent edema Malaise and weakness No acute events overnight Vitals, medications, blood work and imaging reviewed in the chart. Physical Examination General: Oriented x3, Cooperative HEENT: Atraumatic Neck: JVD distended Respiratory: Normal air movement Cardiovascular: Regular rate/rhythm, Edema Gastrointestinal: Soft and benign, Non-distended Musculoskeletal: No clubbing, No contractures Integumentary: No rashes, No cyanosis Neurological: Normal speech Laboratory Data (last 24 hrs) 11/03/21 11:51: PT 15.5 H, INR 1.34 11/03/21 11:51: WBC 9.40, Hgb 9.2 L, Hct 28.7 L, Plt Count 181 11/03/21 11:51: Sodium 134 L, Potassium 5.4 H, BUN 75 H, Creatinine 3.21 H, Glucose 230 H, Magnesium 1.6 L, Total Bilirubin 0.5, AST 38 H, ALT 31, Alkaline Phosphatase 120 H Imagings Data: EXAM DESCRIPTION: RAD - Chest Single View - 11/03/2021 11:52 am CLINICAL HISTORY: Weakness COMPARISON: Abdomen 1 View (KUB) dated 07/19/2021; Chest Single View dated 07/18/2021; Chest Single View dated 02/24/2021; Chest Single View dated 02/11/2021 FINDINGS: Lines: None. Lungs: Widespread pulmonary opacities. Pleural: Bilateral pleural effusions. Cardiac: Cardiomegaly. Bones: No acute fractures. IMPRESSION: Findings most likely representing pulmonary edema with bilateral effusions. Pneumonia less likely. Conclusions/Impression: ROSAURA likely CRS CKD IV with proteinuria -No NSAIDs -Start Lasix gtt -Start Flomax Hyponatremia -Continue furosemide Hyperkalemia -Continue furosemide -Kayexalate as ordered Hypomagnesemia -Replete oral magnesium HTN with CKD/ CHF complicated by hypotension -Continue furosemide -Midodrine prn Systolic CHF, A/C -Start Lasix gtt -Continue CoEQ10 DM II with CKD -RISS Anemia in chronic illness -Monitor H&H CKD MBD -Continue Calcitriol and Cholecalciferol Slow transit constipation -Continue Colace BID Insomina -Continue Amitriptyline qhs
[2021-11-10] MEDS: MAGNESIUM OXIDE 400 MG TAB PO SCH (21:00)
[2021-11-10] MEDS ORDERED: TAMSULOSIN 0.4 MG SR CAP PO SCH (21:00)
[2021-11-10] MEDS: AMITRIPTYLINE 25 MG TAB PO SCH (22:04)
[2021-11-11] MEDS: FUROSEMIDE 100 MG in NA CHLORIDE 0.9% 90 ML IV SCH ×3 (01:00→21:00)
[2021-11-11 04:23] LABS: Absolute Lymphocytes (CBC) 1.2 K/uL (0.7-4.9); Hematocrit 29.3 % (39.6-49.0); Lymphocytes % 14.9 % (15.3-44.8); RBC Red Blood Cell Count 3.15 M/uL (4.33-5.43)
[2021-11-11] MEDS: TAMSULOSIN 0.4 MG SR CAP PO SCH ×3 (06:18→21:00)
[2021-11-11] MEDS: DOCUSATE NA 100 MG CAP PO SCH ×2 (09:10→21:00)
[2021-11-11] MEDS: VITAMIN D 5,000 UNIT CAP PO SCH (09:10)
[2021-11-11] MEDS: CLOPIDOGREL 75 MG TABLET PO SCH (09:10)
[2021-11-11] MEDS: BUSPIRONE HCL 15 MG TABLET PO SCH ×2 (09:10→21:00)
[2021-11-11] MEDS: CALCITROL 0.25 MCG CAP PO SCH (09:10)
[2021-11-11] MEDS: COENZYME Q10- 200 MG CAP PO SCH (09:11)
[2021-11-11] MEDS: NYSTATIN PWDR 100000 UNIT/GM TOP SCH ×2 (09:12→21:00)
[2021-11-11] MEDS: HEPARIN 5000 UNIT/ML 1 ML VIAL SQ SCH ×2 (09:12→21:00)
[2021-11-11] MEDS: TRAMADOL HCL 50 MG TAB PO PRN ×2 (12:15→18:04)
[2021-11-11] MEDS: INSULIN -REGULAR HUMAN 50 UNIT/0.5 ML ML SQ SCH ×3 (12:16→21:00)
--- NOTE | 2021-11-11 15:48 | P.PN ---
Subjective Date of Service: 11/11/21 Primary Care Provider: Unknown Chief Complaint: CHF Exacerbation Patient with no significant improvement in leg edema. Tamayo catheter inserted yesterday for strict intake and output monitoring. Lasix drip started yesterday. Physical Examination - Vital Signs Temperature: 97.8 F Blood Pressure: 116/81 Pulse: 109 Respirations: 22 Pulse Ox (%): 100 Assessment And Plan - Plan Physical exam GEN: Alert, oriented, NAD HEENT: Normal conjunctiva, sclera anicteric CV: Regular rate and rhythm, 3+ b/l pitting edema Pulm: Nonlabored breathing, bilateral crackles at bases ABD: Soft, nontender, nondistended Neuro: Normal speech, normal affect Problem List chronic systolic congestive heart failure with acute exacerbation ROSAURA on CKD stage 4 COVID 19 CAD s/p stents Chronic afib (no longer on eliquis) normocytic anemia of chronic disease and iron deficiency Intertrigo diabetes mellitus type 2, insulin-dependent hypertension hyperlipidemia Elevated troponin secondary to demand ischemia No significant change in leg edema. Blood pressure has been soft. Continue to monitor blood pressure closely on IV Lasix. Renal function improved, nephrology following. Continue Lasix drip. Tamayo catheter inserted for strict intake and output. Wean oxygen as possible Cardiology input appreciated. No further recommendations at this time. Elevated troponin secondary to demand ischemia Continue physical therapy. Patient advised to keep his legs elevated. VTE: Heparin Code: Full Dispo: Considering LTAC placement.
[2021-11-11] MEDS: AMITRIPTYLINE 25 MG TAB PO SCH (21:00)
[2021-11-11] MEDS: MAGNESIUM OXIDE 400 MG TAB PO SCH (21:00)
--- NOTE | 2021-11-11 21:28 | P.PN ---
Date of Service: 11/11/21 Vital Signs Temp Pulse Resp BP Pulse Ox 97.2 F 108 H 19 90/58 L 100 11/11/21 20:00 11/11/21 20:00 11/11/21 20:00 11/11/21 20:00 11/11/21 20:00 Medications Acetaminophen (Acetaminophen 500 Mg Tab) 500 mg PO Q4HP PRN PRN Reason: Pain scale 2-4 (Mild) Last Admin: 11/05/21 06:27 Dose: 500 mg Documented by: Amitriptyline HCl (Amitriptyline 25 Mg Tab) 25 mg PO BEDTIME [facility] Last Admin: 11/10/21 22:04 Dose: 25 mg Documented by: Buspirone HCl (Buspirone Hcl 15 Mg Tablet) 15 mg PO BID [facility] Last Admin: 11/11/21 09:10 Dose: 15 mg Documented by: Calcitriol (Calcitrol 0.25 Mcg Cap) 0.5 mcg PO DAILY [facility] Last Admin: 11/11/21 09:10 Dose: 0.5 mcg Documented by: Cholecalciferol (Vitamin D 5,000 Unit Cap) 5,000 unit PO DAILY [facility] Last Admin: 11/11/21 09:10 Dose: 5,000 unit Documented by: Clopidogrel Bisulfate (Clopidogrel 75 Mg Tablet) 75 mg PO DAILY [facility] Last Admin: 11/11/21 09:10 Dose: 75 mg Documented by: Coenzyme Q10 (Coenzyme Q10- 200 Mg Cap) 200 mg PO DAILY [facility] Last Admin: 11/11/21 09:11 Dose: 200 mg Documented by: Docusate Sodium (Docusate Na 100 Mg Cap) 100 mg PO BID [facility] Last Admin: 11/11/21 09:10 Dose: 100 mg Documented by: Heparin Sodium (Porcine) (Heparin 5000 Unit/Ml 1 Ml Vial) 5,000 unit SQ Q12H [facility] Last Admin: 11/11/21 09:12 Dose: 5,000 unit Documented by: Furosemide 100 mg/ Sodium (Chloride) 100 mls @ 10 mls/hr IV Q10H [facility] Last Admin: 11/11/21 11:23 Dose: 100 mls Documented by: Insulin Human Regular (Insulin -Regular Human 50 Unit/0.5 Ml Ml) 0 unit SQ ACHS [facility]; Protocol Last Admin: 11/11/21 17:12 Dose: 2 unit Documented by: Magnesium Oxide (Magnesium Oxide 400 Mg Tab) 400 mg PO BEDTIME [facility] Last Admin: 11/10/21 21:00 Dose: 400 mg Documented by: Nystatin (Nystatin Pwdr [id number] Unit/Gm) 1 appl TOP BID [facility] Last Admin: 11/11/21 09:12 Dose: 1 appl Documented by: Ondansetron HCl (Ondansetron 4 Mg/2 Ml Vial) 4 mg IV Q6HP PRN PRN Reason: NAUSEA / VOMITING Sodium Chloride (Flush Normal Saline 10 Ml) 10 ml IV BID [facility] Last Admin: 11/11/21 09:00 Dose: 10 ml Documented by: Tamsulosin HCl (Tamsulosin 0.4 Mg Sr Cap) 0.4 mg PO BID [facility] Last Admin: 11/11/21 09:10 Dose: 0.4 mg Documented by: Tramadol HCl (Tramadol Hcl 50 Mg Tab) 50 mg PO Q6H PRN PRN Reason: Pain scale 5-7 (Moderate) Last Admin: 11/11/21 18:04 Dose: 50 mg Documented by: Assessment/ Plan: Nephrology No chest pain Improving edema Malaise with diffuse ache No acute events overnight Vitals, medications, blood work and imaging reviewed in the chart. Physical Examination General: Oriented x3, Cooperative HEENT: Atraumatic Neck: JVD distended Respiratory: Normal air movement Cardiovascular: Regular rate/rhythm, Edema Gastrointestinal: Soft and benign, Non-distended Musculoskeletal: No clubbing, No contractures Integumentary: No rashes, No cyanosis Neurological: Normal speech Laboratory Data (last 24 hrs) 11/03/21 11:51: PT 15.5 H, INR 1.34 11/03/21 11:51: WBC 9.40, Hgb 9.2 L, Hct 28.7 L, Plt Count 181 11/03/21 11:51: Sodium 134 L, Potassium 5.4 H, BUN 75 H, Creatinine 3.21 H, Glucose 230 H, Magnesium 1.6 L, Total Bilirubin 0.5, AST 38 H, ALT 31, Alkaline Phosphatase 120 H Imagings Data: EXAM DESCRIPTION: RAD - Chest Single View - 11/03/2021 11:52 am CLINICAL HISTORY: Weakness COMPARISON: Abdomen 1 View (KUB) dated 07/19/2021; Chest Single View dated 07/18/2021; Chest Single View dated 02/24/2021; Chest Single View dated 02/11/2021 FINDINGS: Lines: None. Lungs: Widespread pulmonary opacities. Pleural: Bilateral pleural effusions. Cardiac: Cardiomegaly. Bones: No acute fractures. IMPRESSION: Findings most likely representing pulmonary edema with bilateral effusions. Pneumonia less likely. Conclusions/Impression: ORSAURA likely CRS CKD IV with proteinuria -No NSAIDs -Continue Lasix gtt -Continue Flomax Hyponatremia -Continue furosemide Hyperkalemia -Continue furosemide -Kayexalate prn Hypomagnesemia -Replete with oral magnesium HTN with CKD/ CHF complicated by hypotension -Continue furosemide -Midodrine prn Systolic CHF, A/C -Continue Lasix gtt -Continue CoEQ10 DM II with CKD -RISS Anemia in chronic illness -Monitor H&H CKD MBD -Continue Calcitriol and Cholecalciferol Slow transit constipation -Continue Colace BID Insomina -Continue Amitriptyline qhs
[2021-11-12 05:37] LABS: Hematocrit 28.4 % (39.6-49.0); Lymphocytes % 15.9 % (15.3-44.8); MPV 10.3 fL (7.6-11.3); RBC Red Blood Cell Count 3.07 M/uL (4.33-5.43)
[2021-11-12 05:58] LABS: Potassium 5.1 mmol/L (3.5-5.1)
[2021-11-12] MEDS: INSULIN -REGULAR HUMAN 50 UNIT/0.5 ML ML SQ SCH ×3 (07:30→16:30)
[2021-11-12] MEDS: VITAMIN D 5,000 UNIT CAP PO SCH (09:00)
[2021-11-12] MEDS: FUROSEMIDE 100 MG in NA CHLORIDE 0.9% 90 ML IV SCH (09:01)
[2021-11-12] MEDS: BUSPIRONE HCL 15 MG TABLET PO SCH (09:02)
[2021-11-12] MEDS: COENZYME Q10- 200 MG CAP PO SCH (09:02)
[2021-11-12] MEDS: DOCUSATE NA 100 MG CAP PO SCH (09:02)
[2021-11-12] MEDS: TRAMADOL HCL 50 MG TAB PO PRN ×2 (09:03→17:55)
[2021-11-12] MEDS: TAMSULOSIN 0.4 MG SR CAP PO SCH (09:04)
[2021-11-12] MEDS: CLOPIDOGREL 75 MG TABLET PO SCH (09:04)
[2021-11-12] MEDS: CALCITROL 0.25 MCG CAP PO SCH (09:04)
[2021-11-12] MEDS: HEPARIN 5000 UNIT/ML 1 ML VIAL SQ SCH (09:05)
[2021-11-12] MEDS: NYSTATIN PWDR 100000 UNIT/GM TOP SCH (09:05)
[2021-11-12 11:17] VITALS: O2SAT 100
--- NOTE | 2021-11-12 14:05 | P.PN ---
Subjective Date of Service: 11/12/21 Primary Care Provider: Unknown Chief Complaint: CHF Exacerbation Strengths edema improved a bit from yesterday. Tamayo catheter inserted yesterday for strict intake and output monitoring. Lasix drip started yesterday. Negative fluid balance. Physical Examination - Vital Signs Temperature: 97.4 F Blood Pressure: 102/49 Pulse: 108 Respirations: 20 Pulse Ox (%): 100 Assessment And Plan - Plan Physical exam GEN: Alert, oriented, NAD HEENT: Normal conjunctiva, sclera anicteric CV: Regular rate and rhythm, 3+ b/l pitting edema Pulm: Nonlabored breathing, bilateral crackles at bases ABD: Soft, nontender, nondistended Neuro: Normal speech, normal affect Problem List chronic systolic congestive heart failure with acute exacerbation ROSAURA on CKD stage 4 COVID 19 CAD s/p stents Chronic afib (no longer on eliquis) normocytic anemia of chronic disease and iron deficiency Intertrigo diabetes mellitus type 2, insulin-dependent hypertension hyperlipidemia Elevated troponin secondary to demand ischemia No thigh edema. Most of the edema concentrated on bilateral legs. Blood pressure has been soft. Continue to monitor blood pressure closely on IV Lasix. Renal function has been stable. Nephrology following. Continue Lasix drip. Tamayo catheter inserted for strict intake and output. Wean oxygen as possible Seen by cardiology. No further recommendations at this time. Elevated troponin secondary to demand ischemia Continue physical therapy. Patient advised to keep his legs elevated. Monitor and correct electrolytes as needed. VTE: Heparin Code: Full Dispo: Insurance denied LTAC placement.
[2021-11-12 16:31] VITALS: BP 98/62; TEMP 97.6
--- NOTE | 2021-11-12 16:42 | P.DS ---
Admission Date: 11/03/21 Discharge Date: 11/12/21 Primary Care Provider: Unknown Disposition: TRANSFER TO INPATIENT REHAB Discharge Condition: FAIR Reason for Admission: CHF Exacerbation Brief History of Present Illness: Mr. Vaughn is a 76 y/o male with PMH of systolic CHF (EF in 07/2021 35- 40%), afib (no longer on eliquis), CAD s/p stents, insulin-dependent type 2 type 2 diabetes, MARY, and CKD 4 who presented to the ED via EMS with generalized weakness and malaise for the past 2 months. Patient states that he went to use the bathroom and he was too weak to get up so he called 911. He reports that he forgets to take his medications often. In the ED, labs significant for potassium 5.4, Cr 3.21 (baseline ~2.07), GFR 19, magnesium 1.6, trop HS 217.6, BNP 42275. CXR showed pulmonary edema. Patient admitted for further evaluation and treatment with cardiology and nephrology consulting. Hospital Course: Problem List chronic systolic congestive heart failure with acute exacerbation ROSAURA on CKD stage 4 COVID 19 CAD s/p stents Chronic afib (no longer on eliquis) normocytic anemia of chronic disease and iron deficiency Intertrigo diabetes mellitus type 2, insulin-dependent hypertension hyperlipidemia Elevated troponin secondary to demand ischemia Patient admitted to the medical floor and treated with IV Lasix. He is noted to have anasarca. He also tested positive for COVID-19. Nephrology was consulted to assist with management. His anasarca did not respond to the initial dose of IV Lasix. Lasix dose was increased and transition to Lasix drip with some improvement in his lower extremity edema. His shortness of breath improved with treatment. Patient was overall asymptomatic from the COVID-19. Repeat COVID-19 test 1 week later was negative. Most of the edema concentrated on bilateral legs. Renal function has been stable on the IV Lasix. Tamayo catheter inserted for strict intake and output. Seen by cardiology for elevated troponin. Cardiology recommended to continue medical treatment. Elevated troponin secondary to demand ischemia Seen by physical therapy and rehab recommended. Okay to DC to rehab per nephrology. IV Lasix transition to oral Bumex 2 mg twice daily, spironolactone and metolazone. He will need his BMP monitored while on these medications. Vital Signs/Physical Exam: Temp Pulse Resp BP Pulse Ox 97.6 F 112 H 20 98/62 100 11/12/21 16:00 11/12/21 16:00 11/12/21 16:00 11/12/21 16:00 11/12/21 16:00 General: Alert, In no apparent distress, Oriented x3 Neck: JVD not distended Respiratory: Clear to auscultation bilaterally, Diminished Cardiovascular: Normal S1 S2, Edema (3+ bilateral leg edema.), Irregular heart rate/rhythm Gastrointestinal: Soft and benign, Non-distended, No tenderness Musculoskeletal: No tenderness Integumentary: Other (Sores-bilateral great toes.) Neurological: Normal strength at 5/5 x4 extr Laboratory Data at Discharge: WBC 6.50 K/uL (4.3-10.9) D 11/12/21 04:33 Hgb 9.2 g/dL (13.6-17.9) L 11/12/21 04:33 Hct 28.4 % (39.6-49.0) L 11/12/21 04:33 Plt Count 107 K/uL (152-406) L 11/12/21 04:33 PT 15.5 SECONDS (9.5-12.5) H 11/03/21 11:51 INR 1.34 11/03/21 11:51 Sodium 136 mmol/L (136-145) 11/12/21 04:33 Potassium 5.1 mmol/L (3.5-5.1) 11/12/21 04:33 BUN 64 mg/dL (7-18) H 11/12/21 04:33 Creatinine 2.79 mg/dL (0.55-1.3) H 11/12/21 04:33 Glucose 201 mg/dL (74-106) H 11/12/21 04:33 Uric Acid 12.5 mg/dL (3.5-7.2) H 11/07/21 06:44 Magnesium 2.1 mg/dL (1.8-2.4) 11/06/21 03:47 Total Bilirubin 0.5 mg/dL (0.2-1.0) 11/06/21 03:47 AST 25 U/L (15-37) 11/06/21 03:47 ALT 53 U/L (12-78) 11/06/21 03:47 Alkaline Phosphatase 103 U/L (45-117) 11/06/21 03:47 Triglycerides 67 mg/dL (<150) 11/04/21 03:46 Cholesterol 89 mg/dL (<200) 11/04/21 03:46 HDL Cholesterol 25 mg/dL (40-60) L 11/04/21 03:46 Cholesterol/HDL Ratio 3.56 11/04/21 03:46 Home Medications: Pregabalin 75 mg PO TID 07/21/20 Buspirone HCl 15 mg PO BID 07/18/21 Clopidogrel Bisulfate [Plavix*] 75 mg PO DAILY 07/18/21 Insulin Degludec [Tresiba Flextouch U-100] 15 units SQ BEDTIME 07/18/21 Cyanocobalamin (Vitamin B-12) [Vitamin B-12] 1 tab PO DAILY 11/05/21 Spironolactone 0.5 tab PO BID 11/05/21 metOLazone [Zaroxolyn*] 1 tab PO SEECOM 11/05/21 Bumetanide 2 tab PO BID #60 11/12/21 Calcitrol [Rocaltrol*] 0.5 mcg PO DAILY cap 11/12/21 Cholecalciferol (Vitamin D3) [Vitamin D 5,000 IU Cap*] 5,000 unit PO DAILY cap 11/12/21 Docusate [Colace Cap*] 100 mg PO BID cap 11/12/21 Insulin -Regular Human [Novolin -R*] See Protocol SQ ACHS ml 11/12/21 Magnesium Oxide [Mag 0X*] 400 mg PO BEDTIME tab 11/12/21 Nystatin Powder [Mycostatin (Powder)*] 1 appl TOP BID btl 11/12/21 Sertraline [Zoloft*] 50 mg PO DAILY tab 11/12/21 Tamsulosin [Flomax*] 0.4 mg PO BID cap 11/12/21 Ubidecarenone [Coenzyme Q10*] 200 mg PO DAILY cap 11/12/21 traMADol HCL [Ultram*] 100 mg PO Q8H PRN #30 tab 11/12/21 New Medications: Bumetanide 2 tab PO BID #60 traMADol HCL [Ultram*] 100 mg PO Q8H PRN #30 tab PRN Reason: Pain Scale 5-7 (Moderate) Diet: ADA Activity: Fall precautions Followup: Oswaldo Rivera MD [Primary Care Provider] - (Within 2-4 weeks) Migue Hart DO [ACTIVE - CAN ADMIT] - (within 2-3 weeks) Time spent managing pt's care (in minutes): 37
--- NOTE | 2021-11-12 19:37 | PN ---
Subjective: The patient alert, awake. Speaks Urdu and some Albanian. Able to answer questions ap propriately. Denies any headache, nausea, vomiting. He still states he is short of breath, somewhat improved compared to yesterday. On Lasix drip. His blood pressures have been running on the lower side. Pulse is about 100 and regular, respirations are around 14-16. Blood pressure has been runnin g in the low 100 range. His potassium is slightly elevated. He is currently on Lasix drip with a po tassium last of 5.1. The patient does state that he has been depressed. He has also got his bag of medications, which showed that he is on Advil and metformin that he has been taken at home. He state s that he has not used Advil recently. States that metformin he has been taking for a while. His bi carb, however, is okay at about 31. Objective: Vital Signs: Reviewed. Blood pressure last 102/49, pulse about 100 and regular on my ex am, respirations are around 14-16 and comfortable. On evaluation of his O2 sats, about 100% on about 2 L nasal cannula. General: The patient is at rest currently. Lungs: Clear anteriorly, but some crackles at the bases. Abdomen: Soft. Extremities: Reveal positive 2-3 edema bilaterally. Laboratory Data: WBC count 6.5, hemoglobin 9.2, hematocrit 28.4, platelet count of about 107. Sodiu m 136, potassium 5.1, chloride 100, bicarb 31, BUN 64, creatinine 2.79. . Assessment And Plan: 1.Chronic kidney disease/congestive heart failure. The patient on Lasix drip. Electrolytes reasona rakan stable. Continue to monitor. We will repeat BMP again tomorrow. If potassium goes any higher, may need further treatment for this. Low-potassium diet has been counseled. 2.Volume overload, on Lasix drip. This will also help him with reducing his potassium as the Lasix will try potassium out in the urine. Continue to monitor with Lasix drip, also salt restriction coun seled. Advised the patient not to use Advil going forward. 3.Chronic kidney disease/acute kidney injury. Advised not to use Advil, salt restriction, avoid nep hrotoxins. Also discontinue metformin given his advanced kidney disease. 4.Depression and anxiety. The patient has been on BuSpar. Willing to try an SSRI. Risks and benef its counseled. The patient is willing to try Zoloft, we will start on 50 mg p.o. daily. /JASON Voice ID: [id number] Report ID: [id number]
[2021-11-13] MEDS ORDERED: SERTRALINE HCL 50 MG TAB PO SCH (09:00)
== END 2021-11-12 18:47 | DRG 291 ==
LOC: ER 10:48 → ERHOLD 13:41 → 4TH 20:48
PROVIDERS: ADMIT Hospitalist; ATTEND Internal Medicine
DX: I13.0 Hypertensive heart and chronic kidney disease with heart failure and stage 1 through stage 4 chronic kidney disease, or unspecified chronic kidney disease (principal); I50.23 Acute on chronic systolic (congestive) heart failure; U07.1 COVID-19; N18.4 Chronic kidney disease, stage 4 (severe); N17.9 Acute kidney failure, unspecified; I48.20 Chronic atrial fibrillation, unspecified; E87.1 Hypo-osmolality and hyponatremia; I24.8 Other forms of acute ischemic heart disease; E11.22 Type 2 diabetes mellitus with diabetic chronic kidney disease; E87.5 Hyperkalemia; D50.9 Iron deficiency anemia, unspecified; D63.8 Anemia in other chronic diseases classified elsewhere; E83.42 Hypomagnesemia; K59.01 Slow transit constipation; G47.00 Insomnia, unspecified; L30.4 Erythema intertrigo; F41.9 Anxiety disorder, unspecified; F32.A Depression, unspecified; M89.9 Disorder of bone, unspecified; E78.5 Hyperlipidemia, unspecified; I25.10 Atherosclerotic heart disease of native coronary artery without angina pectoris; I25.2 Old myocardial infarction; Z95.5 Presence of coronary angioplasty implant and graft; Z79.4 Long term (current) use of insulin; Z86.73 Personal history of transient ischemic attack (TIA), and cerebral infarction without residual deficits; Z79.82 Long term (current) use of aspirin; Z79.84 Long term (current) use of oral hypoglycemic drugs; Z79.899 Other long term (current) drug therapy; Z91.14 Patient's other noncompliance with medication regimen; Z79.01 Long term (current) use of anticoagulants
CPT/HCPCS: 36415; 71045; 71250; 76770; 80048; 80053; 80061; 80076; 81003; 82728; 82947; 83735; 83880; 84439; 84443; 84484; 84550; 85025; 85610; 86140; 93005; 96361; 96374; 96375; 99251; 99285; J1644; J1940; J3475; J7030; Q5106; U0003